=== PATIENT | female | born 1955 | race Caucasian/White ===

== ENCOUNTER 2024-01-06 05:01 | Emergency (ER) | payer MEDICARE ==
--- NOTE | 2024-01-06 05:21 | ED ---
General Adult HPI - General Source: patient, EMS, RN notes reviewed, old records reviewed Mode of arrival: EMS Limitations: no limitations <William Chin - Last Filed: 01/06/24 05:25> <Brian Estrella - Last Filed: 01/06/24 07:57> - General Chief complaint: Chest Pain Stated complaint: Chest pain Time Seen by Provider: 01/06/24 05:05 - History of Present Illness Initial comments: 68-year-old female presents for evaluation of lower chest pain and epigastric pain. Symptoms began 3 hours prior to arrival. No prior history of CAD. Patient does report radiation to her upper back and shoulders. She was transported by paramedics with stable vitals. No diaphoresis. No vomiting. (William Chin) - Related Data Allergies Allergy/AdvReac Type Severity Reaction Status Date / Time Sulfa (Sulfonamide Allergy Nausea & Verified 01/06/24 05:14 Antibiotics) Vomiting Review of Systems ROS Other: All systems not noted in ROS Statement are negative. <William Chin - Last Filed: 01/06/24 05:25> ROS Other: All systems not noted in ROS Statement are negative. <Brian Estrella - Last Filed: 01/06/24 07:57> ROS Statement: Those systems with pertinent positive or pertinent negative responses have been documented in the HPI. Past Medical History Past Medical History: No Reported History History of Any Multi-Drug Resistant Organisms: None Reported Past Surgical History: No Surgical Hx Reported Past Psychological History: No Psychological Hx Reported <William Chin - Last Filed: 01/06/24 05:25> General Exam General appearance: alert, in no apparent distress Head exam: Present: atraumatic, normocephalic Eye exam: Present: normal appearance, PERRL ENT exam: Present: normal exam Neck exam: Present: normal inspection. Absent: tenderness, meningismus Respiratory exam: Present: normal lung sounds bilaterally. Absent: respiratory distress, wheezes Cardiovascular Exam: Present: regular rate, normal rhythm GI/Abdominal exam: Present: soft, tenderness (Epigastric and right upper quadrant). Absent: distended Neurological exam: Present: alert, oriented X3, CN II-XII intact. Absent: motor sensory deficit Psychiatric exam: Present: normal affect, normal mood Skin exam: Present: warm, dry, intact. Absent: cyanosis, diaphoretic <William Chin - Last Filed: 01/06/24 05:25> Course Vital Signs 01/06/24 01/06/24 05:04 07:00 Temperature 98.4 F Pulse Rate 77 82 Respiratory 17 18 Rate Blood Pressure 145/82 130/73 O2 Sat by Pulse 97 96 Oximetry Medical Decision Making <William Chin - Last Filed: 01/06/24 05:25> - Lab Data Result diagrams: 01/06/24 05:12 01/06/24 05:12 <Brian Estrella - Last Filed: 01/06/24 07:57> - Medical Decision Making Was pt. sent in by a medical professional or institution (, PA, SEQUENCING MACHINE OPERATOR, urgent care, hospital, or retirement...) When possible be specific @ -No Did you speak to anyone other than the patient for history (EMS, parent, family, police, friend...)? What history was obtained from this source @ -Paramedics Did you review nursing and triage notes (agree or disagree)? Why? @ -I reviewed and agree with nursing and triage notes Were old charts reviewed (outside hosp., previous admission, EMS record, old EKG, old radiological studies, urgent care reports/EKG's, retirement records)? Report findings @ -No old charts were reviewed Differential Diagnosis (chest pain, altered mental status, abdominal pain women, abdominal pain men, vaginal bleeding, weakness, fever, dyspnea, syncope, headache, dizziness, GI bleed, back pain, seizure, CVA, palpatations, mental h ealth, musculoskeletal)? @ -Differential Chest Pain: Stable Angina, Unstable Angina, STEMI, NSTEMI Aortic Dissection, Pneumothorax, Musculoskeletal, Esophageal Spasm GERD, Cholecystitis, Pancreatitis, Zoster, this is not meant to be an all-inclusive list. EKG interpreted by me (3pts min.). @ -[EKG sinus rhythm, low voltage rate of 78, ND interval 173, QRS duration 83, QTc [address] segment elevation. X-rays interpreted by me (1pt min.). @ -Chest x-ray negative for acute cardiopulmonary finding CT interpreted by me (1pt min.). @ -None done U/S interpreted by me (1pt. min.). @ -[Ultrasound pending What testing was considered but not performed or refused? (CT, X-rays, U/S, labs)? Why? @ -None What meds were considered but not given or refused? Why? @ -None Did you discuss the management of the patient with other professionals (professionals i.e. DrIrene, PA, SEQUENCING MACHINE OPERATOR, lab, RT, psych nurse, licensed social worker, software development test engineer, teacher, booking officer, heel caser)? Give summary @ -No Was smoking cessation discussed for >3mins.? @ -No Was critical care preformed (if so, how long)? @ -No Were there social determinants of health that impacted care today? How? (Homelessness, low income, unemployed, alcoholism, drug addiction, transportation, low edu. Level, literacy, decrease access to med. care, long term, rehab)? @ -No Was there de-escalation of care discussed even if they declined (Discuss DNR or withdrawal of care, Hospice)? DNR status @ -No What co-morbidities impacted this encounter? (DM, HTN, Smoking, COPD, CAD, Cancer, CVA, ARF, Chemo, Hep., AIDS, mental health diagnosis, sleep apnea, m orbid obesity)? @ -None Was patient admitted / discharged? Hospital course, mention meds given and route, prescriptions, significant lab abnormalities, going to OR and other pertinent info. @Patient care signed out at shift change awaiting laboratory testing, ultrasound of the gallbladder and reevaluation. Dr. Estrella will assume care. (William Chin) Patient is a 68-year-old female signed out to me pending results of gallbladder ultrasound. Briefly, presented for evaluation of epigastric abdominal pain. Workup remarkable for negative atypical ACS, with an undetectable troponin and EKG in acceptable limits. His LFTs and alk phos are slightly elevated. No bilirubin change. Gallbladder ultrasound is interpreted by myself shows a gallstone present but no evidence of cholecystitis or infection. On reevaluation, patient is pain-free. We discussed her workup. She would like to be discharged home at this time and I believe that is reasonable. Strict return precautions discussed. Discussed her diagnosis of biliary colic. She will be given dietary advice as well as ODT Zofran starter pack. Patient will also be discharged home with contact info for gastroenterology. I instructed the patient to follow up with their PCP in the next 1-3 days. I explained that the patient should return to the emergency department if they experience any worsening symptoms. Strict return precautions were discussed with the patient. The patient expressed understanding of these instructions. I answered all questions that the patient had. The patient was discharged home in good condition with their prescriptions and follow up information. Diagnosis/symptom? @ -Biliary colic Acute, or Chronic, or Acute on Chronic? @ -Acute Uncomplicated (without systemic symptoms) or Complicated (systemic symptoms)? @ -Complicated Side effects of treatment? @ -None Exacerbation, Progression, or Severe Exacerbation] @ -No Poses a threat to life or bodily function? @ -No (Brian Estrella) - Lab Data Lab Results 01/06/24 01/06/24 01/06/24 Range/Units 05:12 05:12 05:12 WBC 8.8 (3.8-10.6) k/uL RBC 4.52 (3.80-5.40) m/uL Hgb 13.4 (11.4-16.0) gm/dL Hct 42.1 (34.0-46.0) % MCV 93.1 (80.0-100.0) fL MCH 29.7 (25.0-35.0) pg MCHC 31.9 (31.0-37.0) g/dL RDW 13.3 (11.5-15.5) % Plt Count 255 (150-450) k/uL MPV 7.2 Neutrophils % 87 % Lymphocytes % 7 % Monocytes % 4 % Eosinophils % 2 % Basophils % 0 % Neutrophils # 7.7 (1.3-7.7) k/uL Lymphocytes # 0.6 L (1.0-4.8) k/uL Monocytes # 0.3 (0-1.0) k/uL Eosinophils # 0.1 (0-0.7) k/uL Basophils # 0.0 (0-0.2) k/uL PT 9.7 L (10.0-12.5) sec INR 0.9 (<1.2) APTT 22.2 (22.0-30.0) sec Sodium 141 (137-145) mmol/L Potassium 4.3 (3.5-5.1) mmol/L Chloride 108 H (98-107) mmol/L Carbon Dioxide 27 (22-30) mmol/L Anion Gap 6 mmol/L BUN 15 (7-17) mg/dL Creatinine 0.70 (0.52-1.04) mg/dL Est GFR (CKD-EPI)AfAm >90 (>60 ml/min/1.73 sqM) Est GFR (CKD-EPI)NonAf 89 (>60 ml/min/1.73 sqM) Glucose 183 H (74-99) mg/dL Calcium 9.0 (8.4-10.2) mg/dL Magnesium 2.1 (1.6-2.3) mg/dL Total Bilirubin 1.1 (0.2-1.3) mg/dL AST 263 H (14-36) U/L ALT 123 H (4-34) U/L Alkaline Phosphatase 193 H (38-126) U/L Troponin I (0.000-0.034) ng/mL Total Protein 6.4 (6.3-8.2) g/dL Albumin 4.0 (3.5-5.0) g/dL Lipase 123 (23-300) U/L 01/06/24 Range/Units 05:12 WBC (3.8-10.6) k/uL RBC (3.80-5.40) m/uL Hgb (11.4-16.0) gm/dL Hct (34.0-46.0) % MCV (80.0-100.0) fL MCH (25.0-35.0) pg MCHC (31.0-37.0) g/dL RDW (11.5-15.5) % Plt Count (150-450) k/uL MPV Neutrophils % % Lymphocytes % % Monocytes % % Eosinophils % % Basophils % % Neutrophils # (1.3-7.7) k/uL Lymphocytes # (1.0-4.8) k/uL Monocytes # (0-1.0) k/uL Eosinophils # (0-0.7) k/uL Basophils # (0-0.2) k/uL PT (10.0-12.5) sec INR (<1.2) APTT (22.0-30.0) sec Sodium (137-145) mmol/L Potassium (3.5-5.1) mmol/L Chloride (98-107) mmol/L Carbon Dioxide (22-30) mmol/L Anion Gap mmol/L BUN (7-17) mg/dL Creatinine (0.52-1.04) mg/dL Est GFR (CKD-EPI)AfAm (>60 ml/min/1.73 sqM) Est GFR (CKD-EPI)NonAf (>60 ml/min/1.73 sqM) Glucose (74-99) mg/dL Calcium (8.4-10.2) mg/dL Magnesium (1.6-2.3) mg/dL Total Bilirubin (0.2-1.3) mg/dL AST (14-36) U/L ALT (4-34) U/L Alkaline Phosphatase (38-126) U/L Troponin I <0.012 (0.000-0.034) ng/mL Total Protein (6.3-8.2) g/dL Albumin (3.5-5.0) g/dL Lipase (23-300) U/L Disposition <William Chin - Last Filed: 01/06/24 05:25> Is patient prescribed a controlled substance at d/c from ED?: No Time of Disposition: 07:48 <Brian Estrella - Last Filed: 01/06/24 07:57> Clinical Impression: Biliary colic Disposition: HOME SELF-CARE Condition: Good Instructions (If sedation given, give patient instructions): Biliary Colic (ED) Referrals: None,Stated [Primary Care Provider] - 1-2 days Mary Ruiz MD [STAFF PHYSICIAN] - 1-2 days
[2024-01-06 05:28] VITALS: TEMP 98.4
[2024-01-06] MEDS: SODIUM CHLORIDE 0.9% 500 ML 500 ML IV ONE (05:36)
[2024-01-06 05:38] LABS: ALT 123 U/L (4-34); AST 263 U/L (14-36); African American GFR (CKD) >90 (>60 ml/min/1.73 sqM); Alkaline Phosphatase 193 U/L (38-126); Anion Gap 6 mmol/L; Blood Urea Nitrogen 15 mg/dL (7-17); Carbon Dioxide 27 mmol/L (22-30); Chloride 108 mmol/L (98-107); Glucose 183 mg/dL (74-99); Lipase 123 U/L (23-300); Magnesium 2.1 mg/dL (1.6-2.3); Non-African American GFR(CKD) 89 (>60 ml/min/1.73 sqM); Potassium 4.3 mmol/L (3.5-5.1); Sodium 141 mmol/L (137-145); Total Bilirubin 1.1 mg/dL (0.2-1.3); Total Protein 6.4 g/dL (6.3-8.2)
[2024-01-06] MEDS: HYDROmorphone 0.5 MG/0.5 ML SYRINGE IVP STA (05:38)
[2024-01-06] MEDS: ONDANSETRON 4 MG/2 ML VIAL IVP STA (05:40)
[2024-01-06 05:43] LABS: INR 0.9 (<1.2); Partial Thromboplastin Time 22.2 sec (22.0-30.0); Prothrombin Time 9.7 sec (10.0-12.5)
[2024-01-06 05:49] LABS: Basophils % (A) 0 %; Eosinophils # (A) 0.1 k/uL (0-0.7); Eosinophils % (A) 2 %; HCT 42.1 % (34.0-46.0); HGB 13.4 gm/dL (11.4-16.0); Lymphocytes # (A) 0.6 k/uL (1.0-4.8); Lymphocytes % (A) 7 %; MCH 29.7 pg (25.0-35.0); MCHC 31.9 g/dL (31.0-37.0); MCV 93.1 fL (80.0-100.0); Mean Platelet Volume 7.2; Monocytes # (A) 0.3 k/uL (0-1.0); Monocytes % (A) 4 %; Neutrophils # (A) 7.7 k/uL (1.3-7.7); Neutrophils % (A) 87 %; Platelet Count 255 k/uL (150-450); RBC 4.52 m/uL (3.80-5.40); RDW 13.3 % (11.5-15.5); WBC 8.8 k/uL (3.8-10.6)
--- NOTE | 2024-01-06 06:16 | XR ---
EXAMINATION TYPE: XR chest 2V DATE OF EXAM: 01/06/2024 COMPARISON: NONE HISTORY: Chest pain TECHNIQUE: Frontal and lateral views of the chest are obtained. FINDINGS: Patchy left basilar opacity on frontal view was well seen on lateral view. Right lung is c lear. The cardiac silhouette size is upper limits of normal. The osseous structures are intact. IMPRESSION: Patchy left basilar atelectasis and/or less likely developing acute infiltrate.
--- NOTE | 2024-01-06 07:30 | US ---
EXAMINATION TYPE: US gallbladder DATE OF EXAM: 01/06/2024 COMPARISON: NONE CLINICAL INDICATION: Female, 68 years old with history of riq pain; Pain TECHNIQUE: Multiple sonographic images of the right upper quadrant are obtained. FINDINGS: EXAM MEASUREMENTS: Liver Length: 16.1 cm Gallbladder Wall: 0.2 cm CBD: 0.7 cm Right Kidney: 10.6 x 4.6 x 4.7 cm WEB OPERATIONS SPECIALIST NOTES: Pancreas: Difficult to visualize due to pt body habitus and overlying bowel gas Liver: Limited views show no abnormality Gallbladder: Distended with small stones at fundus Evidence for sonographic Lane's sign: No CBD: wnl Right Kidney: No evidence of hydro, lower pole gassed out There is some limitation due to body habitus. IMPRESSION: 1. Mild hepatomegaly. 2. Cholelithiasis.
[2024-01-06 08:04] VITALS: BP 130/73; PULSE 82; RESP 18
[2024-01-06] MEDS: ONDANSETRON 4 MG ODT STARTER PACK 2 TAB BTL PO STA (08:55)
== END 2024-01-06 08:58 | disposition home or self-care (01) ==
LOC: EC 05:01
DX: K80.50 Calculus of bile duct without cholangitis or cholecystitis without obstruction (principal); K80.20 Calculus of gallbladder without cholecystitis without obstruction; Z88.2 Allergy status to sulfonamides
CPT/HCPCS: 36415; 93005; 80053; 83690; 83735; 84484; 85025; 85610; 85730; 71046; 76705; 99285; 96374; 96375; 96361; J2405; S0119; J1170

== ENCOUNTER → 2024-01-28 | Outpatient (CLI) | payer MEDICARE, OTHER ==
--- NOTE | 2024-01-28 13:25 | MM ---
Reason for Exam: Clinical finding. Last mammogram was performed 21 year(s) and 4 month(s) ago. Patient History: Menarche at age 12. Hysterectomy at age 46. Postmenopausal. Excisional Biopsy on the Right side. Maternal unspecified had breast cancer. Risk Values: Peggy 5 year model risk: 1.5%. NCI Lifetime model risk: 4.8%. Tissue Density: There are scattered areas of fibroglandular density. Findings: Analyzed By CAD. There is a large mass measuring 60 x 37 x 55 mm with a satellite mass measuring 17 x 16 mm. The larger one is in the area of palpable abnormality. These are both in area of palpable abnormality approximately 8 cm the nipple and 7 cm in the pole respectively. No masses, calcifications or distortions in the left breast. Overall Assessment: Incomplete: need additional imaging evaluation, BI-RAD 0 Management: Diagnostic Breast Ultrasound of the right breast. Results were given to the patient verbally at the time of exam. Patient should continue monthly self-breast exams. A clinical breast exam by your physician is recommended on an annual basis. This exam should not preclude additional follow-up of suspicious palpable abnormalities. Note on Peggy scores and lifetime risk: 1. A Peggy score greater than 3% is considered moderate risk. If this is the case, consider specialist referral to assess eligibility for a risk reducing agent. 2. If overall lifetime risk for the development of breast cancer is 20% or higher, the patient may qualify for future screening with alternating mammogram and breast MRI. Electronically signed and approved by: William Smyth DO
--- NOTE | 2024-01-28 14:01 | USB ---
Reason for Exam: Clinical finding. Patient History: Menarche at age 12. Hysterectomy at age 46. Postmenopausal. Excisional Biopsy on the Right side. Maternal unspecified had breast cancer. Risk Values: Peggy 5 year model risk: 1.5%. NCI Lifetime model risk: 4.8%. Technique: Method: Whole Breast Handheld. Prior Study Comparison: 08/01/1999 Bilateral Screening Mammogram, [facility] WITH [facility]. 08/08/1999 Right Special View Mammogram, [facility] WITH [facility]. 09/20/2002 Bilateral Screening Mammogram, [facility] WITH [facility]. Findings: The whole breast of the right breast, the axilla of the right breast and the retroareolar of the right breast were scanned. Technique utilized:US breast complete RT Image; Ultrasound imaging of: All 4 quadrants, the retroareolar region and axilla. Lobulated hypoechoic mass measuring up to 3.3 x 2.1 x 4.8 cm on ultrasound at 12:00 5 cm from nipple. Additional lesion at 11:00 5 cm from nipple measuring 13 x 13 mm. There is internal vascularity within the smaller lesion. No lymph nodes were identified by the data conversion operator. Overall Assessment: Highly suggestive of malignancy, BI-RAD 5 Management: Ultrasound Core Biopsy of the right breast. A clinical breast exam by your physician is recommended on an annual basis and results should be correlated with mammographic findings. This exam should not preclude additional follow-up of suspicious palpable abnormalities. Results were given to the patient verbally at the time of exam. Electronically signed and approved by: William Smyth DO
== END | disposition home or self-care (01) ==
LOC: RADMAMWWP 12:54
PROVIDERS: ATTEND Family Medicine
DX: N63.10 Unspecified lump in the right breast, unspecified quadrant (principal); R92.323 Mammographic fibroglandular density, bilateral breasts; Z78.0 Asymptomatic menopausal state; Z80.3 Family history of malignant neoplasm of breast
CPT/HCPCS: 77066; 76641; G0279; 77062

== ENCOUNTER → 2024-02-09 | Day surgery (SDC) | payer MEDICARE, OTHER ==
--- NOTE | 2024-02-17 14:38 | MM ---
Reason for Exam: Post Procedure Mammogram. Last screening mammogram was performed less than 1 month ago. Patient History: Menarche at age 12. First Full-Term at age 24. Hysterectomy at age 46. Postmenopausal. Excisional Biopsy on the Right side. Risk Values: Peggy 5 year model risk: 1.8%. NCI Lifetime model risk: 5.9%. Prior Study Comparison: 08/08/1999 Right Special View Mammogram, [facility]. 09/20/2002 Bilateral Screening Mammogram, [facility]. 01/28/2024 Bilateral MG 3D diag mammo w/cad DIAZ, [facility]. Tissue Density: Right: There are scattered areas of fibroglandular density. Pathology Description: Location: 11 o'clock. Marker Left Behind. Needle Type: Mammotome Cores: 4 Gauge: 13 Pathology Description: Location: 12 o'clock. Marker Left Behind. Needle Type: Mammotome Cores: 5 Skin Nicks: 1 Gauge: 13 The procedure of ultrasound guided core biopsy was explained to the patient. Benefits, alternatives, and risks were discussed. An informed consent was then obtained. A timeout was performed. The patient was placed in supine positioning for imaging and for the procedure. The overlying skin was prepped and draped in usual sterile fashion. Lidocaine was used as anesthetic into the skin and subcutaneous tissue up to area of concern in the right breast. A small skin sourav was made with surgical scalpel. Under ultrasound guidance, a 12-gauge vacuum assisted biopsy gun device was used to obtain 5 core samples 12:00 larger lesion. A biopsy clip was left in lesion. Hydromark weighing core marker was placed. Under ultrasound guidance, a 12-gauge vacuum assisted biopsy gun device was used to obtain 4 core samples at the 11:00 smaller lesion adjacent to the larger 12:00 lesion. A biopsy clip was left in lesion. Hydromark [place] core marker was placed on the lateral portion of the lesion. The patient tolerated the procedure well without any immediate complication. The patient was kept in the radiology department for short stay after the procedure and then discharged home in stable condition. Postprocedure mammogram: The patient was transferred to mammography for physician ordered post procedure mammogram for clip placement verification. Clips are present within the lesion Impression: Successful ultrasound guided core biopsy of area of concern in the right breast, full pathology results to follow. Recommendations: 1. Recommendations are pending pathology results. Pathology Results: Result: Malignant, Invasive ductal carcinoma. Pathology and radiology were reviewed. Findings are concordant. A. RIGHT BREAST, 12:00, ULTRASOUND GUIDED CORE BIOPSY: Invasive ductal carcinoma, preliminarily Grade 2, with focal intermediate grade DCIS (see Surgical Pathology Cancer Case Summary and comment). B. RIGHT BREAST, 11:00, ULTRASOUND GUIDED CORE BIOPSY: Invasive ductal carcinoma, preliminarily grade 2 (see Surgical Pathology Cancer Case Summary and comment). Overall Assessment: Malignant Assessment: MG diagnostic mammo RT wo CAD - Right: Known biopsy proven malignancy, BI-RAD 6. Management: Surgical Consultation of the right breast. Electronically signed and approved by: Jasvir Pham D.O. Radiologis
== END ==
LOC: RADUSWWP 12:29
PROVIDERS: ATTEND Surgery
DX: C50.911 Malignant neoplasm of unspecified site of right female breast (principal)
CPT/HCPCS: 88305; 88342; 88341; 77065; 19083; 19084; A4648

== ENCOUNTER → 2024-02-20 | Outpatient (CLI) | payer MEDICARE ==
--- NOTE | 2024-02-20 12:05 | P.GSCN ---
History of Present Illness Consult date: 02/20/24 Reason for Consult: right breast cancer Requesting physician: Alexey Flores History of present illness: Elisa is a 68 year old female seen in consultation for Dr. Alexey Flores regarding a right breast invasive ductal cancer. She had a bilateral mammogram on 01-28-24 which showed a 6 by 5.5 cm mass in jazmin right breast with a 1.7 by 1.6 cm satellite lesion in the breast. She had a right breast ultrasound on 01-28-24 confirming the findings, and a core biopsy was done on 02-09-24. This showed an invasive ductal cancer of two sites, it was G2, ER+, Pr+, Her2-. On ultrasound one lesion at 12:00 was 3.3 by 4.8 cm and the second lesion at 11:00 was 1.3 by 1.3 cm. The patient has been able to feel the lump for about 1 year, it hasn't really changed in size. It is tender, it is aching in nature, it is worse if there is no breast support. She did develop some bruising after the core biopsy. She had not been getting mammograms for about 20 years, she just got insurance and got this checked She is not complaining of any nipple discharge or skin changes. She had a right breast biopsy about 25 years ago that was not cancer. She is not complaining of any recent trauma or infection. BCP: used 40 years ago for 10 years She has lost 28 pounds in the past 5 to 6 weeks which she believes is related to gallbladder disease. She has an appointment with a general surgeon in 2 weeks. She has pain RUQ when she eats. Caffeine: 2 cups coffee/day nicotine: 5 cigarettes per day since Chocolate: none BCP: 10 years in remote past hormones: none Family History: father: lung cancer sister: cervical cancer Hormonal History: menarche: 15 , breast fed: no, age at first : 24 menopause: 50 hormones: none Surgical History: hysterectomy; heavy bleeding, left ovaries age: 35 right breast biopsy tonsil Medical History: Right upper quadrant pain questionable gallbladder disease Uses a cane secondary to back pain related to a fracture in her 20s Social History: Nicotine: 5 cigarettes/day since 19 Alcohol: Negative Drugs: Negative Review of Systems - Constitutional Constitutional Comment(s): weight loss related to gallstones Reports weight loss, Denies fever - EENT Eyes: denies blurred vision Ears: bilateral: tinnitus, deny: decreased hearing Ears, nose, mouth and throat: Denies dysphagia - Breasts bilateral: as per HPI - Cardiovascular Denies chest pain, Denies shortness of breath - Respiratory Denies cough, Denies 7 - Gastrointestinal Reports as per HPI, Reports constipation - Genitourinary Genitourinary: Denies dysuria, Denies hematuria Menstruation: Reports post hysterectomy - Musculoskeletal Reports as per HPI - Integumentary Reports pruritus, Reports rash, Denies unusual bruising - Neurological Denies headaches, Denies syncope - Psychiatric Reports as per HPI - Endocrine Reports fatigue - Hematologic/Lymphatic Denies easy bleeding, Denies easy bruising - Allergic/Immunologic Reports seasonal allergies Past Medical History Past Medical History: No Reported History Additional Past Medical History / Comment(s): gallstones History of Any Multi-Drug Resistant Organisms: None Reported Past Surgical History: No Surgical Hx Reported Additional Past Surgical History / Comment(s): Right breast excisional biospy 1992, benign Past Anesthesia/Blood Transfusion Reactions: No Reported Reaction - Sexual Orientation/Gender Identity What was your sex assigned at ?: Female Preferred Pronoun: She/Her/Hers How would you describe your gender identity?: Woman Do you think of your sexual orientation as: Straight/Heterosexual Past Psychological History: No Psychological Hx Reported Smoking Status: Current every day smoker Past Alcohol Use History: None Reported Additional Past Alcohol Use History / Comment(s): 5 cigarettes daily Medications and Allergies Home Medications Medication Instructions Recorded Confirmed Type Acetaminophen Tab [Tylenol] 500 mg PO DIRECTED PRN 02/20/24 02/20/24 History Allergies Allergy/AdvReac Type Severity Reaction Status Date / Time Sulfa (Sulfonamide Allergy Nausea & Verified 02/20/24 11:34 Antibiotics) Vomiting Surgical - Exam - General no distress - Eyes normal ocular movement - ENT no hearing loss - Neck trachea midline - Respiratory normal respiratory effort, clear to auscultation - Cardiovascular Rhythm: regular Heart Sounds: normal: S1, S2 - Abdomen Abdomen: soft, non tender, no guarding, no rigid, no rebound - Integumentary normal turger - Musculoskeletal normal gait - Psychiatric oriented to time, oriented to person, oriented to place, speech is normal, memory intact Breast Exam: BRA: 42B Inspection: bilateral grade 3 ptosis Palpation: Right breast: Ecchymosis related to biopsy, mass upper inner quadrant approximately 9 x 6 cm in size some skin puckering is noted in the upper inner quadrant area Right axilla: No adenopathy of concern Left breast: Multi positional exam no dominant masses or nodules of concern Left axilla: No adenopathy of concern Results Bilateral mammogram reviewed and ultrasound reviewed performed on 01-28-2024 Assessment and Plan Assessment: Impression: 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 Alexey Flores
[2024-02-20 12:15] VITALS: BP 146/85; PULSE 89; RESP 17; TEMP 97.9
== END ==
LOC: WWCWWP 11:24
PROVIDERS: ATTEND Surgery
DX: R92.8 Other abnormal and inconclusive findings on diagnostic imaging of breast (principal); C50.811 Malignant neoplasm of overlapping sites of right female breast; F17.210 Nicotine dependence, cigarettes, uncomplicated; R10.11 Right upper quadrant pain; Z17.0 Estrogen receptor positive status [ER+]; Z88.2 Allergy status to sulfonamides

== ENCOUNTER → 2024-03-02 | Outpatient (CLI) | payer MEDICARE | END | disposition home or self-care (01) | LOC: LABWHC1 14:58 | PROVIDERS: ATTEND Surgery Plastic and Reconstructive Surgery | DX: R94.31 Abnormal electrocardiogram [ECG] [EKG] (principal) | CPT/HCPCS: 36415; 93005 ==

== ENCOUNTER → 2024-03-10 | Outpatient (CLI) | payer MEDICARE ==
--- NOTE | 2024-03-12 14:59 | BMR ---
EXAM DATE: 03/10/2024 EXAM DESCRIPTION: MRI-Breast Bilat (W/WO Contrast) INDICATION: Recently diagnosed carcinoma presenting for staging. History of right excisional biopsy. COMPARISON: Comparison is made with relevant prior imaging in PACS. CONTRAST: 9.5 cc of gadobutrol. TECHNIQUE: Multiplanar MRI imaging of both breasts was performed with a dedicated breast coil, before and after intravenous administration of gadolinium contrast, using the standard breast mass protocol. Computer-aided detection was used to aid in interpretation. FINDINGS: General breast composition: There are scattered areas of fibroglandular tissue Background parenchymal enhancement: Mild FINDINGS: Right Breast: Review of the dynamic contrast-enhanced series shows an irregular enhancing mass in the central upper breast at mid depth measuring 5.9 x 5.0 x 3.5 cm (505:560). The mass involves both the upper outer and upper inner quadrant and extends to, and involves the skin in the medial breast. There are multiple small adjacent satellite masses all within 1 cm of the dominant mass as well as clumped non mass enhancement extending from the dominant mass to the nipple measuring 9.3 cm in the AP dimension. Given the enhancement in the nipple there is concern for nipple involvement. There is 1 axillary lymph node with focal cortical thickening and irregularity (503:630, 601:170). Left Breast: Review of the dynamic contrast-enhanced series shows focus of enhancement in the upper outer breast mid to anterior depth (504:5023, 601:39). No axillary lymphadenopathy. Miscellaneous findings:Cholelithiasis. IMPRESSION: Right Breast: BI-RADS Category6- Known biopsy proven malignancy 1. Irregular dominant mass in the right breast measuring 5.9 x 5.0 x 3.5 cm at the site of previously biopsied malignancy. The mass involves the skin in the medial breast which appears thickened and abnormally enhancing. There are multiple small surrounding satellite masses all within 1 cm of the dominant mass as well as non mass enhancement extending to and involving the nipple. The entire AP dimension is 9.3 cm. 2. There is 1 axillary lymph node with focal cortical thickening and irregularity. Left Breast: BI-RADS Category 4- Suspicious 1. 5 mm focus of enhancement in the upper outer breast at mid depth for which targeted ultrasound is recommended and possible biopsy. 2. No lymphadenopathy. Recommendation: Targeted left breast ultrasound and possible biopsy. OVERALL ASSESSMENT -- BI-RADS 4 MTDD
== END | disposition home or self-care (01) ==
LOC: RADMRIMAIN 20:00
PROVIDERS: ATTEND Internal Medicine Hematology & Oncology
DX: C50.211 Malignant neoplasm of upper-inner quadrant of right female breast (principal)
CPT/HCPCS: C8908; A9585; 77049

== ENCOUNTER → 2024-03-10 | Outpatient (CLI) | payer MEDICARE ==
--- NOTE | 2024-03-10 15:10 | USB ---
Reason for Exam: Follow-up at short interval from prior study. Patient History: Menarche at age 12. First Full-Term at age 24. Hysterectomy at age 46. Postmenopausal. Breast cancer, right, age 68. 02/09/2024, US biopsy breast add'l VAD RT on the Right side. 02/09/2024, Malignant US biopsy breast VAD RT on the right side. Excisional Biopsy on the Right side. Technique: Method: Targeted. Prior Study Comparison: 09/20/2002 Bilateral Screening Mammogram, [facility]. 01/28/2024 Bilateral MG 3D diag mammo w/cad [facility], [facility]. 02/09/2024 Right MG diagnostic mammo RT wo CAD, [facility]. Findings: The axilla of the right breast was scanned. Technique utilized:US breast axilla RT Image; Ultrasound imaging of: All 4 quadrants, the retroareolar region and axilla. Area of palpable abnormality inserted abundance of lipomatous tissue. No suspicious mass or enlarged lymph node identified. Overall Assessment: Negative, BI-RAD 1 Management: Screening Mammogram of both breasts in 1 year. A clinical breast exam by your physician is recommended on an annual basis and results should be correlated with mammographic findings. This exam should not preclude additional follow-up of suspicious palpable abnormalities. Results were given to the patient verbally at the time of exam. Electronically signed and approved by: William Smyth DO
== END | disposition home or self-care (01) ==
LOC: RADUSWWP 14:16
PROVIDERS: ATTEND Internal Medicine Hematology & Oncology
DX: C50.211 Malignant neoplasm of upper-inner quadrant of right female breast (principal); M12.9 Arthropathy, unspecified; Z17.0 Estrogen receptor positive status [ER+]; Z78.0 Asymptomatic menopausal state

== ENCOUNTER 2024-03-27 05:14 | Emergency (ER) | payer MEDICARE ==
[2024-03-27 05:30] VITALS: TEMP 97.3
--- NOTE | 2024-03-27 05:46 | ED ---
General Adult HPI - General Source: patient, EMS Mode of arrival: EMS Limitations: no limitations <Jluis Olson - Last Filed: 03/27/24 06:42> <Casimiro Ghotra - Last Filed: 03/27/24 12:10> - General Chief complaint: Abdominal Pain Stated complaint: abd pain Time Seen by Provider: 03/27/24 05:22 - History of Present Illness Initial comments: Dictation was produced using [employer] dictation software. please excuse any gr ammatical, word or spelling errors. Chief Complaint: 68-year-old female presents with abdominal pain History of Present Illness: Patient is a 68-year-old female she has past medical history of breast cancer. Patient was told to increase her protein intake in preparation for an upcoming PET scan. Last night she had some ground truck. She has known history of gallstones. States that after eating ground truck started to have right upper quadrant epigastric abdominal pain. States that the pain did radiate to her back. Denies any shortness of breath. She did complain of some nausea. No vomiting. Denies any fever chills or night sweats. The ROS documented in this emergency department record has been reviewed and confirmed by me. Those systems with pertinent positive or negative responses have been documented in the HPI. All other systems are other negative and/or noncontributory. (Jluis Olson) - Related Data Home Medications Medication Instructions Recorded Confirmed Acetaminophen Tab [Tylenol] 500 - 1,000 mg PO Q6H PRN 02/20/24 03/27/24 Ibuprofen [Motrin Ib] 800 mg PO Q8H PRN 03/27/24 03/27/24 Pseudoephedrine [Sudafed] 30 mg PO DAILY PRN 03/27/24 03/27/24 Allergies Allergy/AdvReac Type Severity Reaction Status Date / Time Sulfa (Sulfonamide Allergy Anaphylaxis Verified 03/27/24 09:50 Antibiotics) Review of Systems ROS Other: All systems not noted in ROS Statement are negative. <Jluis Olson - Last Filed: 03/27/24 06:42> ROS Other: All systems not noted in ROS Statement are negative. <Casimiro Ghotra - Last Filed: 03/27/24 12:10> ROS Statement: Those systems with pertinent positive or pertinent negative responses have been documented in the HPI. Past Medical History Past Medical History: No Reported History Additional Past Medical History / Comment(s): gallstones History of Any Multi-Drug Resistant Organisms: None Reported Past Surgical History: No Surgical Hx Reported Additional Past Surgical History / Comment(s): Right breast excisional biospy 1992, benign Past Anesthesia/Blood Transfusion Reactions: No Reported Reaction Past Psychological History: No Psychological Hx Reported Smoking Status: Current every day smoker Past Alcohol Use History: None Reported <Jluis Olson - Last Filed: 03/27/24 06:42> General Exam Limitations: no limitations <Jluis Olson - Last Filed: 03/27/24 06:42> - General Exam Comments Initial Comments: PHYSICAL EXAM: General Impression: Alert and oriented x3, not in acute distress HEENT: Normocephalic atraumatic, extra-ocular movements intact, pupils equal and reactive to light bilaterally, mucous membranes moist. Cardiovascular: Heart regular rate and rhythm Chest: Able to complete full sentences, no retractions, no tachypnea Abdomen: abdomen soft, n positive Lane sign, non-distended, no organomegaly Musculoskeletal: Pulses present and equal in all extremities, no peripheral edema Motor: no focal deficits noted Neurological: CN II-XII grossly intact, no focal motor or sensory deficits noted Skin: Intact with no visualized rashes Psych: Normal affect and mood (Jluis Olson) Course Vital Signs 03/27/24 03/27/24 03/27/24 05:15 06:56 07:50 Temperature 97.3 F L Pulse Rate 70 55 L 52 L Respiratory 16 18 22 Rate Blood Pressure 147/75 118/61 91/48 O2 Sat by Pulse 98 99 95 Oximetry 03/27/24 03/27/24 08:20 10:46 Temperature Pulse Rate 66 Respiratory 18 Rate Blood Pressure 106/61 129/82 O2 Sat by Pulse 94 L Oximetry Medical Decision Making - Lab Data Result diagrams: 03/27/24 05:47 <Jluis Olson - Last Filed: 03/27/24 06:42> - Lab Data Result diagrams: 03/27/24 05:47 03/27/24 05:47 <Casimiro Ghotra - Last Filed: 03/27/24 12:10> - Medical Decision Making Was pt. sent in by a medical professional or institution (, YOAN, ANDROID SOFTWARE ENGINEER, urgent care, hospital, or fci...) When possible be specific @ -No Did you speak to anyone other than the patient for history (EMS, parent, family, police, friend...)? What history was obtained from this source @ -No Did you review nursing and triage notes (agree or disagree)? Why? @ -I reviewed and agree with nursing and triage notes Were old charts reviewed (outside hosp., previous admission, EMS record, old EKG, old radiological studies, urgent care reports/EKG's, fci records)? Report findings @ -No old charts were reviewed Differential Diagnosis (chest pain, altered mental status, abdominal pain women, abdominal pain men, vaginal bleeding, musculoskeletal, weakness, fever, dyspnea, syncope, headache, dizziness, GI bleed, back pain, seizure, CVA, palpatations, mental health)? @ -Differential Abdominal Pain Women: Appendicitis, Cholecystitis, diverticulosis, ischemic bowel, pancreatitis, hepa titis, UTI, gastroenteritis, AAA, incarcerated hernia, bowel obstruction, constipation, inflammatory bowel, hepatitis, peptic ulcer disease, splenic infarction, perforated viscus, vulvitis, ovarian torsion, PID, kidney stone, placenta abruption, this is not meant to be an all-inclusive list EKG interpreted by me (3pts min.). @ -My EKG interpretation: Ventricular rate 60, sinus rhythm,. 156, cures 94, QTc 417. No MA prolongation, no QTC prolongation, no ST or T-wave changes noted. Overall, this EKG is unremarkable X-rays interpreted by me (1pt min.). @ -None done CT interpreted by me (1pt min.). @ -None done U/S interpreted by me (1pt. min.). @ -Pending What testing was considered but not performed or refused? (CT, X-rays, U/S, labs)? Why? @ -None What meds were considered but not given or refused? Why? @ -None Did you discuss the management of the patient with other professionals (professionals i.e. YOAN Khan, ANDROID SOFTWARE ENGINEER, lab, RT, psych nurse, child protective services social worker, press tool maker, teacher, executive vice president and chief financial officer, gearcase assembler)? Give summary @ -No Was smoking cessation discussed for >3mins.? @ -No Was critical care preformed (if so, how long)? @ -No Were there social determinants of health that impacted care today? How? (Homelessness, low income, unemployed, alcoholism, drug addiction, transportatio n, low edu. Level, literacy, decrease access to med. care, mcc, rehab)? @ -No Was there de-escalation of care discussed even if they declined (Discuss DNR or withdrawal of care, Hospice)? DNR status @ -No What co-morbidities impacted this encounter? (DM, HTN, Smoking, COPD, CAD, Cancer, CVA, ARF, Chemo, Hep., AIDS, mental health diagnosis, sleep apnea, morbid obesity)? @ -None Was patient admitted / discharged? Hospital course, mention meds given and route, prescriptions, significant lab abnormalities, going to OR and other pertinent info. @ -68-year-old female with reported gallstones presents to the ER for epigastric right upper quadrant abdominal pain. Vital signs upon arrival are w ithin acceptable limits. Laboratory evaluation obtained. No leukocytosis. Pending ultrasound and metabolic panel. Patient care signed out to Dr. Ghotra at 7 AM. Undiagnosed new problem with uncertain prognosis? @ -No Drug Therapy requiring intensive monitoring for toxicity (Heparin, Nitro, Insul in, Cardizem)? @ -No Were any procedures done? @ -No Diagnosis/symptom? Acute, or Chronic, or Acute on Chronic? Uncomplicated (without systemic symptoms) or Complicated (systemic symptoms)? @ -Abdominal pain Side effects of treatment? @ -No Exacerbation, Progression, or Severe Exacerbation? @ -No Poses a threat to life or bodily function? How? (Chest pain, [place], [place], pneumonia, PE, COPD, DKA, ARF, appy, cholecystitis, CVA, Diverticulitis, Homicidal, Suicidal, threat to staff... and all critical care pts) @ -yes (Jluis Olson) CT scan of abdomen pelvis interpreted by myself as concern for acute pancreatitis. Common bile duct prominent. Gallbladder mildly distended and contains stones. . Ultrasound abdomen shows possible gallstones/sludge. Gallbladder distended. Possible biliary dilation. Case was discussed with surgeon on-call Dr. Bennett who does recommend transfer secondary to no GI services available. Patient again reevaluated and again updated. Patient still having discomfort. Diagnosis: Pancreatitis, cholelithiasis Acute, acute Plan for transfer Case discussed with Dr. Nj at [facility] who will accept transfer. (Casimiro Ghotra) - Lab Data Lab Results 03/27/24 03/27/24 Range/Units 05:47 05:47 WBC 7.3 (3.8-10.6) k/uL RBC 4.79 (3.80-5.40) m/uL Hgb 14.3 (11.4-16.0) gm/dL Hct 44.8 (34.0-46.0) % MCV 93.5 (80.0-100.0) fL MCH 29.8 (25.0-35.0) pg MCHC 31.9 (31.0-37.0) g/dL RDW 13.8 (11.5-15.5) % Plt Count 239 (150-450) k/uL MPV 8.0 Neutrophils % 83 % Lymphocytes % 9 % Monocytes % 5 % Eosinophils % 2 % Basophils % 1 % Neutrophils # 6.1 (1.3-7.7) k/uL Lymphocytes # 0.7 L (1.0-4.8) k/uL Monocytes # 0.4 (0-1.0) k/uL Eosinophils # 0.1 (0-0.7) k/uL Basophils # 0.0 (0-0.2) k/uL Sodium 139 (137-145) mmol/L Potassium 4.4 (3.5-5.1) mmol/L Chloride 107 (98-107) mmol/L Carbon Dioxide 23 (22-30) mmol/L Anion Gap 9 mmol/L BUN 14 (7-17) mg/dL Creatinine 0.74 (0.52-1.04) mg/dL Est GFR (CKD-EPI)AfAm >90 (>60 ml/min/1.73 sqM) Est GFR (CKD-EPI)NonAf 84 (>60 ml/min/1.73 sqM) Glucose 120 H (74-99) mg/dL Calcium 9.4 (8.4-10.2) mg/dL Total Bilirubin 1.7 H (0.2-1.3) mg/dL AST 217 H (14-36) U/L ALT 173 H (4-34) U/L Alkaline Phosphatase 353 H (38-126) U/L Total Protein 6.8 (6.3-8.2) g/dL Albumin 4.1 (3.5-5.0) g/dL Lipase >15791 H (23-300) U/L Disposition <Jluis Olson - Last Filed: 03/27/24 06:42> Is patient prescribed a controlled substance at d/c from ED?: No Time of Disposition: 12:10 - Out of Hospital Transfer - Req. Specs Out of Hospital Transfer - Requested Specifics: Other Emergency Center <Casimiro Ghotra - Last Filed: 03/27/24 12:10> Clinical Impression: Abdominal pain, Pancreatitis Disposition: OTHER INSTITUTION NOT DEFINED Condition: Serious Referrals: Alexey Flores MD [Primary Care Provider] - 1-2 days
[2024-03-27 06:17] LABS: Basophils % (A) 1 %; Eosinophils # (A) 0.1 k/uL (0-0.7); Eosinophils % (A) 2 %; HCT 44.8 % (34.0-46.0); HGB 14.3 gm/dL (11.4-16.0); Lymphocytes # (A) 0.7 k/uL (1.0-4.8); Lymphocytes % (A) 9 %; MCH 29.8 pg (25.0-35.0); MCHC 31.9 g/dL (31.0-37.0); MCV 93.5 fL (80.0-100.0); Monocytes # (A) 0.4 k/uL (0-1.0); Monocytes % (A) 5 %; Neutrophils # (A) 6.1 k/uL (1.3-7.7); Neutrophils % (A) 83 %; Platelet Count 239 k/uL (150-450); RBC 4.79 m/uL (3.80-5.40); RDW 13.8 % (11.5-15.5); WBC 7.3 k/uL (3.8-10.6)
[2024-03-27 06:33] LABS: ALT 173 U/L (4-34); AST 217 U/L (14-36); African American GFR (CKD) >90 (>60 ml/min/1.73 sqM); Albumin 4.1 g/dL (3.5-5.0); Alkaline Phosphatase 353 U/L (38-126); Anion Gap 9 mmol/L; Blood Urea Nitrogen 14 mg/dL (7-17); Calcium 9.4 mg/dL (8.4-10.2); Carbon Dioxide 23 mmol/L (22-30); Chloride 107 mmol/L (98-107); Glucose 120 mg/dL (74-99); Non-African American GFR(CKD) 84 (>60 ml/min/1.73 sqM); Potassium 4.4 mmol/L (3.5-5.1); Sodium 139 mmol/L (137-145); Total Bilirubin 1.7 mg/dL (0.2-1.3); Total Protein 6.8 g/dL (6.3-8.2)
[2024-03-27] MEDS: MORPHINE SULFATE 4 MG/ML SYRINGE IV STA (06:52)
[2024-03-27 07:10] LABS: Lipase >20000 U/L (23-300)
--- NOTE | 2024-03-27 07:58 | US ---
EXAMINATION TYPE: US abdomen limited DATE OF EXAM: 03/27/2024 COMPARISON: US 01/06/2024 CLINICAL INDICATION: Female, 68 years old with history of epigastric pain; Epigastric pain x 6.5 hour s. Patient has breast cancer. Hx of gallstones. TECHNIQUE: Multiple sonographic images of the right upper quadrant are obtained. FINDINGS: EXAM MEASUREMENTS: Liver Length: 14.9 cm Gallbladder Wall: 0.22 cm Right Kidney: 9.9 x 5.1 x 4.7 cm INTERIOR PANELER NOTES: Exam is limited due to gas and patient movement with pain level. Pancreas: Not well seen Liver: Appears coarse in echotexture limiting evaluation for focal masses. Gallbladder: *Appears enlarged measuring 13.7 cm in length. Multiple hyperechoic foci with posterior shadowing seen within the gallbladder fundus*. Evidence for sonographic Lane's sign: Patient in pain for entire exam CBD: Not seen with certainty, if area measured is CBD, it appears dilated at 1.3 cm. Limited due to p atient movement. Right Kidney: No hydronephrosis or masses seen IVC was obscured. IMPRESSION: Suboptimal study. Suspect small stones and/or gallbladder sludge within gallbladder with distended margins. Possible new mild to moderate extrahepatic biliary dilatation. Advise CT follow-up to further evaluate.
[2024-03-27] MEDS: MORPHINE SULFATE 4 MG/ML SYRINGE IVP STA (08:21)
--- NOTE | 2024-03-27 10:04 | CT ---
EXAMINATION TYPE: CT abdomen pelvis w con CT DLP: 1796.1 mGycm, Automated exposure control for dose reduction was used. DATE OF EXAM: 03/27/2024 8:54 AM COMPARISON: None. CLINICAL INDICATION:Female, 68 years old with history of Eval GB and CBD and pancrease, pain; Eval GB and CBD and pancrease, pain TECHNIQUE: Axial CT of the abdomen and pelvis. Sagittal and coronal reformats were created on a [employer] workstation. Contrast used:100ml mL of Isovue 370 with IV Contrast, (none if empty) Oral contrast used: without Oral Contrast (none if empty) FINDINGS: Despite this reportedly being a contrast study, very little if any contrast is appreciated. LOWER CHEST: Heart size upper normal. Linear and bandlike opacities in the lower lungs, suggestive of subsegmental atelectasis. ABDOMEN LIVER: Unremarkable GALLBLADDER AND BILE DUCTS: Several small calcified gallstones are seen near the fundus. Gallbladder appears mildly to moderately distended. Biliary tree appears prominent, not well seen distally withou t definite choledocholithiasis. PANCREAS: Diffuse parenchymal edema with peripancreatic fat stranding. There is no evidence of peripa ncreatic fluid collection or necrosis. SPLEEN: Unremarkable. ADRENAL GLANDS: Unremarkable. KIDNEYS AND URETERS: Kidneys enhance symmetrically. No evidence of hydronephrosis or visible renal ca lculus. The ureters are unremarkable. PELVIS BLADDER: Unremarkable REPRODUCTIVE: Organs likely absent correlate clinically ABDOMEN & PELVIS STOMACH AND BOWEL: There is some radiodense material within the stomach. Stomach and small bowel are nondistended there is no evidence of obstruction. A couple of foci of gas are seen in the duodenum an d the region of the ampulla. Appendix is not identified with certainty, however there is no inflammat ory process seen in the RLQ. PERITONEUM/RETROPERITONEUM: No evidence of pneumoperitoneum or free fluid. VASCULATURE: Moderate atherosclerotic calcifications are present throughout the abdominal aorta and i ts branches. No evidence of aortic aneurysm. LYMPH NODES: No enlarged nodes by CT size criteria. SOFT TISSUE/ABDOMINAL WALL: Unremarkable MUSCULOSKELETAL: No acute osseous abnormalities. Mild/moderate disc degeneration changes are present throughout the thoracolumbar spine. IMPRESSION: 1. Acute pancreatitis. 2. CBD appears prominent, the gallbladder appears mildly distended and contains a few small calcifie d stones. 3. No definite choledocholithiasis is demonstrated. If there is persistent concern, MR/MRCP may be c onsidered.
[2024-03-27] MEDS: ONDANSETRON 4 MG/2 ML VIAL IVP STA (11:15)
[2024-03-27] MEDS: HYDROmorphone 0.5 MG/0.5 ML SYRINGE IVP STA (11:54)
[2024-03-27 12:01] VITALS: RESP 18
[2024-03-27 12:50] VITALS: BP 142/80; PULSE 56
== END 2024-03-27 13:18 | disposition other institution (70) ==
LOC: EC 05:14
DX: K85.90 Acute pancreatitis without necrosis or infection, unspecified (principal); F17.200 Nicotine dependence, unspecified, uncomplicated; Z88.2 Allergy status to sulfonamides
CPT/HCPCS: 36415; 93005; 80053; 83690; 85025; 76705; 74177; 99285; 96374; 96375 ×2; 96376; J2270; J2405; J1170; Q9967

== ENCOUNTER → 2024-04-16 | Outpatient (CLI) | payer MEDICARE ==
--- NOTE | 2024-04-16 13:34 | USB ---
Reason for Exam: Follow-up at short interval from prior study. Patient History: Menarche at age 12. First Full-Term at age 24. Hysterectomy at age 46. Postmenopausal. Breast cancer, right, age 68. 02/09/2024, US biopsy breast add'l VAD RT on the Right side. 02/09/2024, Malignant US biopsy breast VAD RT on the right side. Excisional Biopsy on the Right side. Technique: Method: Targeted. Prior Study Comparison: 09/20/2002 Bilateral Screening Mammogram, [facility]. 01/28/2024 Bilateral MG 3D diag mammo w/cad [facility], [facility]. 02/09/2024 Right MG diagnostic mammo RT wo CAD, [facility]. Findings: The lower outer quadrant of the left breast, the axilla of the left breast and the retroareolar of the left breast were scanned. Targeted ultrasound upper outer quadrant left breast 12:00 to 3:00 including scanning of the subareolar region and axilla for ultrasound look of possible MRI abnormality. At the 1:00 position, 4 cm from the nipple, embedded within a dense patch of tissue, there is a vague 5 x 5 x 2 mm hypoechoic area, possibly MRI correlate. Tissue sampling recommended. No other solid or cystic lesion or axillary lymphadenopathy. Overall Assessment: Known biopsy proven malignancy, BI-RAD 6 Management: Ultrasound Core Biopsy of the left breast. For possible MRI correlate. Results were given to the patient verbally at the time of exam. Electronically signed and approved by: Kevin Salinas M.D. Radiologist
== END | disposition home or self-care (01) ==
LOC: RADUSWWP 13:00
PROVIDERS: ATTEND Internal Medicine Hematology & Oncology
DX: R92.8 Other abnormal and inconclusive findings on diagnostic imaging of breast (principal); Z85.3 Personal history of malignant neoplasm of breast; Z78.0 Asymptomatic menopausal state

== ENCOUNTER → 2024-04-19 | Outpatient (CLI) | payer MEDICARE ==
--- NOTE | 2024-04-20 03:14 | PE ---
EXAMINATION TYPE: PET CT fusion skull to thigh DATE OF EXAM: 04/19/2024 COMPARISON: Bilateral breast MRI March 10, 2024. CT abdomen and pelvis March 27, 2024 HISTORY: Invasive ductal carcinoma right breast on recent biopsy February 09, 2024. History of recent c holecystectomy. TECHNIQUE: Following the intravenous administration of 8.5 mCi of F-18 FDG, whole body images are pe rformed from the skull base to the midthigh. Images are reviewed on the computer in the coronal, axi al, and sagittal planes. Reconstructed rotating images are created on independent workstation and re viewed on the computer. A localization and attenuation correction CT is performed in conjunction wi th the PET scan. Blood glucose level equals 88. SCAN: Initial Scan FINDINGS: SKULL BASE AND NECK: No areas of abnormal hypermetabolic uptake. CHEST, MEDIASTINUM, AND HILAR REGION: Corresponding to recent bilateral breast MRI there is large spi culated hypermetabolic mass in the right breast measuring approximately 6.1 x 3.0 cm with abnormal hy permetabolic uptake corresponding to biopsy-proven malignancy near axial image 100. No hypermetabolic enlarged axillary lymph nodes. No hypermetabolic masses in the left breast or axilla. No additional areas of abnormal hypermetabolic uptake in the thorax. ABDOMEN AND PELVIS: Continued prominence of the pancreas with perinephric fluid showing multifocal ar eas of abnormal hypermetabolic uptake. Findings are consistent with continued acute diffuse pancreati tis. Normal excretion. No suspicious areas of abnormal hypermetabolic uptake. OSSEOUS STRUCTURES: No areas of abnormal hypermetabolic uptake. OTHER CT: Mild cardiomegaly is present. Gallbladder is surgically absent. Uterus is somewhat atrophic in appearance and/or surgically absent. IMPRESSION: 1. Abnormal hypermetabolic uptake corresponding to large biopsy proven malignancy in the right breast . No additional areas of suspicious hypermetabolic uptake to suggest metastatic disease or malignancy in the left breast or either axilla. Findings would not change plan from recent bilateral breast MRI and left breast ultrasound that recommend left breast tissue sampling. 2. Continued prominent pancreas with inflammatory change and multifocal hypermetabolic uptake consist ent with persistent acute pancreatitis. Correlate clinically and with pancreatic lab values.
== END | disposition home or self-care (01) ==
LOC: RADPETMAIN 13:35
PROVIDERS: ATTEND Surgery
DX: C50.411 Malignant neoplasm of upper-outer quadrant of right female breast (principal); Z90.49 Acquired absence of other specified parts of digestive tract
CPT/HCPCS: 78815; A9552

== ENCOUNTER → 2024-04-20 | Day surgery (SDC) | payer MEDICARE ==
--- NOTE | 2024-04-28 14:58 | MM ---
Reason for Exam: Post Procedure Mammogram. Last screening mammogram was performed 3 month(s) ago. Patient History: Menarche at age 12. First Full-Term at age 24. Hysterectomy at age 46. Postmenopausal. Breast cancer, right, age 68. 02/09/2024, US biopsy breast add'l VAD RT on the Right side. 02/09/2024, Malignant US biopsy breast VAD RT on the right side. Excisional Biopsy on the Right side. Prior Study Comparison: 09/20/2002 Bilateral Screening Mammogram, [facility]. 01/28/2024 Bilateral MG 3D diag mammo w/cad [facility], [facility]. 02/09/2024 Right MG diagnostic mammo RT wo CAD, [facility]. Tissue Density: Left: There are scattered areas of fibroglandular density. Pathology Description: Location: 1 o'clock. Marker Left Behind. Needle Type: Opti-Logic Cores: 3 Gauge: 12 The procedure of ultrasound guided core biopsy was explained to the patient. Benefits, alternatives, and risks were discussed. An informed consent was then obtained. The patient was placed in supine positioning for imaging and for the procedure. The overlying skin was prepped and draped in usual sterile fashion. Lidocaine buffered with bicarbonate was used as anesthetic into the skin and subcutaneous tissue up to area of concern in the left 1:00 breast. A sourav was made with surgical scalpel. Under ultrasound guidance, a 12-gauge vacuum assisted biopsy gun device was used to obtain 3 core samples. Following this, a biopsy clip was left in lesion. The patient tolerated the procedure well without any immediate complication. The patient was kept in the radiology department for short stay after the procedure and then discharged home in stable condition. Postprocedure mammogram: The patient was transferred to mammography for physician ordered post procedure mammogram for clip placement verification. Impression: Successful, uncomplicated ultrasound guided core biopsy of area of concern in the left 1:00 breast, full pathology results to follow. Pathology Results: Result: Benign. Pathology and radiology were reviewed. Findings are concordant. LEFT BREAST, ONE O'CLOCK, ULTRASOUND GUIDED NEEDLE CORE BIOPSY: Small fragments of benign breast parenchyma with hypocellular fibrosis and mild periductal chronic inflammation (see note). Notes A PET imaging study from 04/19/24 shows hypermetabolic uptake in the patient's known right breast malignancy and no hypermetabolic masses in the left breast or axilla. The patient's history of prior right breast 12 o'clock and 11 o'clock invasive ductal carcinoma is noted (see case [id number] for full details). A recent MRI from 03/10/24 shows a 5 mm focus of enhancement in the upper outer left breast. Examination of the small fragments within the current case mostly show hypocellular fibrosis, which may represent a fibrous scar. Clinical correlation with imaging studies is suggested, as clinically indicated. Overall Assessment: Benign Assessment: MG diagnostic mammo LT wo CAD. - Left: Benign, BI-RAD 2. Management: Diagnostic Mammogram of the left breast in 6 months. Diagnostic Breast Ultrasound of the left breast in 6 months. Electronically signed and approved by: Sarthak Benavidez M.D. Radiologis
== END ==
LOC: RADUSWWP 12:37
PROVIDERS: ATTEND Internal Medicine Hematology & Oncology
DX: N60.32 Fibrosclerosis of left breast (principal); N61.0 Mastitis without abscess; R92.8 Other abnormal and inconclusive findings on diagnostic imaging of breast; Z78.0 Asymptomatic menopausal state
CPT/HCPCS: 88305; 77065; 19083; A4648

== ENCOUNTER → 2024-05-03 | Outpatient (CLI) | payer MEDICARE ==
--- NOTE | 2024-05-04 13:48 | BD ---
EXAMINATION TYPE: Axial Bone Density DATE OF EXAM: 05/03/2024 CLINICAL HISTORY: 68 years old Female. ICD-10 CODE: C50.112 MALIGNANT NEOPLASM OF CENTRAL PORTION OF L Height: 65 Weight: 197.4 FRAX RISK QUESTIONS: Alcohol (3 or more units per day): no Family History (Parent hip fracture): no Glucocorticoids (More than 3mos): no (Ex: prednisone, prednisolone, methylprednisolone, dexamethasone, and hydrocortisone). History of Fracture in Adulthood: yes Secondary Osteoporosis: 1. Type 1 Diabetes: no 2. Hyperthyroidism: no 3. Menopause before 45: no 4. Malnutrition: no 5. Chronic liver disease: no Rheumatoid Arthritis: no Current Tobacco Use: yes RISK FACTORS HISTORY OF: Hip Fracture (Right/Left): no Spine Fracture: L4 When: Age 24 History of Wrist Fracture: bilateral Surgery to Spine/Hip(right/left)/Wrist (right/left): no MEDICATIONS: Thyroid Medications: no Osteoporosis Medications: no EXAM MEASUREMENTS: Bone mineral densitometry was performed using the [employer] System. Bone mineral density as measured about the Lumbar spine is: ----- L1-L4(G/cm2): 1.173 T Score Values are as follows: ----- L1: -0.3 ----- L2: 0.1 ----- L3: -0.1 ----- L4: -0.2 ----- L1-L4: -0.1 Z Score Values are as follows: ----- L1: 0.5 ----- L2: 0.9 ----- L3: 0.8 ----- L4: 0.7 ----- L1-L4: 0.8 Baseline Study Bone mineral density about the R hip (g/cm2): 0.909 Bone mineral density about the L hip (g/cm2): 0.872 T Score values are as follows: -----R Neck: -1.7 -----L Neck: -1.6 -----R Total: -0.8 -----L Total: -1.1 Z Score values are as follows: -----R Neck: -0.6 -----L Neck: -0.5 -----R Total: 0.0 -----L Total: -0.3 Baseline Study FRAX%s: The graph provided illustrates a 10.1 % chance for a major osteoporotic fx and a 2.4% chance for the hips probability for fx in 10 years time. IMPRESSION: Osteopenia (T Score between -2.5 and -1). There is slightly increased risk of fracture and the patient may be considered for treatment. Re-Screen 2-5 years. NOTE: T-SCORE=SD OF THE YOUNG ADULT MEAN.
== END | disposition home or self-care (01) ==
LOC: RADBDWWP 14:09
PROVIDERS: ATTEND Internal Medicine Hematology & Oncology
DX: M85.88 Other specified disorders of bone density and structure, other site (principal); C50.112 Malignant neoplasm of central portion of left female breast; M12.9 Arthropathy, unspecified; Z17.0 Estrogen receptor positive status [ER+]
CPT/HCPCS: 77080

== ENCOUNTER → 2024-05-07 | Outpatient (CLI) | payer MEDICARE ==
--- NOTE | 2024-04-20 15:21 | P.CON ---
Consult Note - . Consult date: 04/20/24 Assessment/Plan:: Was called with the results of her PET CT performed on 04-19-2024. This revealed abnormal hypermetabolic uptake at the area of the right breast biopsy-proven cancer. No evidence of metastatic disease was identified. She did have young nued prominent pancreas with inflammatory change but has recently undergone a cholecystectomy several weeks ago. She is following with Dr. Bales and will follow-up here on at 10:40.
[2024-05-07 10:50] VITALS: BP 130/76; PULSE 69; RESP 16; TEMP 97.8
--- NOTE | 2024-05-07 11:19 | P.PN ---
Subjective Progress Note Date: 05/07/24 Principal diagnosis: right breast invasive ductal cancer; two sites [id number]+Her2-G2; at 12:00, and [id number]+Her2-G2 lesion at 11:00 She did have a bilateral mammogram on 01-28-24, this was reviewed, no lesions of concern in the left breast. Addendum entered and electronically signed by Marylin Isaac MD 02/20/24 12:24: 1. PET scan 2. oncotype on tumor 3. appointment with medical oncology 4. present at tumor board 5. gallbladder evaluation 6. follow up after appointment with medical oncology Addendum entered and electronically signed by Marylin Isaac MD 02/20/24 12:09: She did not have a bilateral mammogram on 01-28-24, only a right breast was done. She is going to have a bilateral mammogram at this time. Original Note: History of Present Illness Consult date: 02/20/24 Reason for Consult: right breast cancer Requesting physician: Alexey Flores History of present illness: Elisa is a 68 year old female seen in consultation for Dr. Alexey Flores regarding a right breast invasive ductal cancer. She had a bilateral mammogram on 01-28-24 which showed a 6 by 5.5 cm mass in jazmin right breast with a 1.7 by 1.6 cm satellite lesion in the breast. She had a right breast ultrasound on 01-28-24 confirming the findings, and a core biopsy was done on 02-09-24. This showed an invasive ductal cancer of two sites, it was G2, ER+, Pr+, Her2-. On ultrasound one lesion at 12:00 was 3.3 by 4.8 cm and the second lesion at 11:00 was 1.3 by 1.3 cm. The patient has been able to feel the lump for about 1 year, it hasn't really changed in size. It is tender, it is aching in nature, it is worse if there is no breast support. She did develop some bruising after the core biopsy. She had not been getting mammograms for about 20 years, she just got insurance and got this checked She is not complaining of any nipple discharge or skin changes. She had a right breast biopsy about 25 years ago that was not cancer. She is not complaining of any recent trauma or infection. BCP: used 40 years ago for 10 years She has lost 28 pounds in the past 5 to 6 weeks which she believes is related to gallbladder disease. She has an appointment with a general surgeon in 2 weeks. She has pain RUQ when she eats. She did have a bilateral mammogram on 01-28-24, this was reviewed, no lesions of concern in the left breast. 1. PET scan: 04-19-24 no evidence of metastatic disease 2. oncotype on tumor: 14 3. appointment with medical oncology seeing Dr. Lopez 4. present at tumor board done on 03-02-24 5. gallbladder evaluation (cholecystectomy done approximately 6 weeks ago), she is doing well at this time note Dr. Lopez from 04-27-24 reviewed started on anastrazole and CDK4 inhibitor; surgery to be in about 4-6 weeks I have personally discussed this with Dr. Lopez; She is complaining of brain fog when send she started the anastrozole Caffeine: 2 cups coffee/day nicotine: 5 cigarettes per day since Chocolate: none BCP: 10 years in remote past hormones: none Family History: father: lung cancer sister: cervical cancer Hormonal History: menarche: 15 , breast fed: no, age at first : 24 menopause: 50 hormones: none Surgical History: hysterectomy; heavy bleeding, left ovaries age: 35 right breast biopsy tonsil Medical History: Right upper quadrant pain questionable gallbladder disease Uses a cane secondary to back pain related to a fracture in her 20s Social History: Nicotine: 5 cigarettes/day since 19 Alcohol: Negative Drugs: Negative Review of Systems - Constitutional Constitutional Comment(s): weight loss related to gallstones Reports weight loss, Denies fever - EENT Eyes: denies blurred vision Ears: bilateral: tinnitus, deny: decreased hearing Ears, nose, mouth and throat: Denies dysphagia - Breasts bilateral: as per HPI - Cardiovascular Denies chest pain, Denies shortness of breath - Respiratory Denies cough - Gastrointestinal Reports as per HPI, Reports constipation - Genitourinary Genitourinary: Denies dysuria, Denies hematuria Menstruation: Reports post hysterectomy - Musculoskeletal Reports as per HPI - Integumentary Reports pruritus, Reports rash, Denies unusual bruising - Neurological Denies headaches, Denies syncope - Psychiatric Reports as per HPI - Endocrine Reports fatigue - Hematologic/Lymphatic Denies easy bleeding, Denies easy bruising - Allergic/Immunologic Reports seasonal allergies Past Medical History Past Medical History: No Reported History Additional Past Medical History / Comment(s): gallstones History of Any Multi-Drug Resistant Organisms: None Reported Past Surgical History: No Surgical Hx Reported Additional Past Surgical History / Comment(s): Right breast excisional biospy 1992, benign Past Anesthesia/Blood Transfusion Reactions: No Reported Reaction - Sexual Orientation/Gender Identity What was your sex assigned at ?: Female Preferred Pronoun: She/Her/Hers How would you describe your gender identity?: Woman Do you think of your sexual orientation as: Straight/Heterosexual Past Psychological History: No Psychological Hx Reported Smoking Status: Current every day smoker Past Alcohol Use History: None Reported Additional Past Alcohol Use History / Comment(s): 5 cigarettes daily Medications and Allergies Home Medications Medication Instructions Recorded Confirmed Type Acetaminophen Tab [Tylenol] 500 mg PO DIRECTED PRN 02/20/24 02/20/24 History Allergies Allergy/AdvReac Type Severity Reaction Status Date / Time Sulfa (Sulfonamide Allergy Nausea & Verified 02/20/24 11:34 Antibiotics) Vomiting Objective - Vital Signs Vital signs: Vital Signs Temp 97.8 F 05/07/24 10:48 Pulse 69 05/07/24 10:48 Resp 16 05/07/24 10:48 BP 130/76 05/07/24 10:48 Pulse Ox 95 05/07/24 10:48 FiO2 Intake & Output 05/06/24 05/07/24 05/07/24 18:59 06:59 18:59 Weight 89.358 kg - Constitutional General appearance: Present: cooperative - EENT Eyes: Present: EOMI ENT: Present: hearing grossly normal - Neck Neck: Present: normal ROM - Respiratory Respiratory: bilateral: CTA - Cardiovascular Rhythm: regular Heart sounds: normal: S1, S2 - Gastrointestinal General gastrointestinal: Present: soft - Integumentary Integumentary: Present: normal turgor - Musculoskeletal Musculoskeletal: Present: gait normal - Psychiatric Psychiatric: Present: A&O x's 3, appropriate affect, intact judgment & insight - Additional findings Additional findings: Breast Exam: BRA: 42B Inspection: bilateral grade 3 ptosis Palpation: Right breast: Ecchymosis related to biopsy, mass upper inner quadrant approximately 9 x 6 cm in size some skin puckering is noted in the upper inner quadrant area Right axilla: No adenopathy of concern Left breast: Multi positional exam no dominant masses or nodules of concern Left axilla: No adenopathy of concern Assessment and Plan Assessment: Impression: right breast invasive ductal cancer on annastrazole; the disease is multifocal Plan: Patient would like to have a right mastectomy and secondary to the fact that she should is concerned regarding cancer that could happen in the left breast and she would be very asymmetric she would like bilateral mastectomies Right sentinel node biopsy, possible right axillary node dissection We will coordinate this with Dr. Bales and her neoadjuvant hormone therapy Preoperative clearance Dr. Alexey Flores CC: Dr. Alexey Flores, Dr. Lopez
== END ==
LOC: WWCWWP 10:38
PROVIDERS: ATTEND Surgery
DX: C50.811 Malignant neoplasm of overlapping sites of right female breast (principal); F17.210 Nicotine dependence, cigarettes, uncomplicated; R10.11 Right upper quadrant pain; Z17.0 Estrogen receptor positive status [ER+]; Z88.2 Allergy status to sulfonamides; Z90.49 Acquired absence of other specified parts of digestive tract

== ENCOUNTER 2024-05-30 10:11 | Emergency (ER) | payer MEDICARE ==
[2024-05-30 10:17] VITALS: TEMP 97.9
[2024-05-30] MEDS: SODIUM CHLORIDE 0.9% 1,000 ML IV STA (10:54)
[2024-05-30] MEDS: SODIUM CHLORIDE 0.9% 500 ML 500 ML IV STA (10:54)
[2024-05-30] MEDS: ONDANSETRON 4 MG/2 ML VIAL IVP STA (10:54)
[2024-05-30 10:56] LABS: Basophils % (A) 0 %; Eosinophils # (A) 0.1 k/uL (0-0.7); Eosinophils % (A) 2 %; HCT 41.6 % (34.0-46.0); HGB 13.3 gm/dL (11.4-16.0); Hypochromasia Slight; Lymphocytes # (A) 0.7 k/uL (1.0-4.8); Lymphocytes % (A) 12 %; MCH 30.2 pg (25.0-35.0); MCV 94.3 fL (80.0-100.0); Mean Platelet Volume 7.4; Monocytes # (A) 0.1 k/uL (0-1.0); Monocytes % (A) 2 %; Neutrophils # (A) 5.3 k/uL (1.3-7.7); Neutrophils % (A) 83 %; Platelet Count 219 k/uL (150-450); RBC 4.41 m/uL (3.80-5.40); RDW 13.7 % (11.5-15.5); WBC 6.4 k/uL (3.8-10.6)
[2024-05-30] MEDS: DIPHENOX-ATROP 2.5-0.025 MG 1 EACH TAB PO STA (10:56)
[2024-05-30 11:19] LABS: ALT 29 U/L (4-34); AST 41 U/L (14-36); African American GFR (CKD) 69 (>60 ml/min/1.73 sqM); Albumin 4.3 g/dL (3.5-5.0); Alkaline Phosphatase 84 U/L (38-126); Anion Gap 7 mmol/L; Blood Urea Nitrogen 12 mg/dL (7-17); Calcium 9.4 mg/dL (8.4-10.2); Carbon Dioxide 26 mmol/L (22-30); Chloride 106 mmol/L (98-107); Glucose 134 mg/dL (74-99); Lipase 44 U/L (23-300); Magnesium 1.9 mg/dL (1.6-2.3); Non-African American GFR(CKD) 59 (>60 ml/min/1.73 sqM); Potassium 4.2 mmol/L (3.5-5.1); Sodium 139 mmol/L (137-145); Total Bilirubin 0.9 mg/dL (0.2-1.3); Total Protein 6.6 g/dL (6.3-8.2)
[2024-05-30 11:42] LABS: Appearance,Urine Cloudy (Clear); Bacteria,Urine Occasional /hpf; Bilirubin,Urine Negative (Negative); Blood,Urine Negative (Negative); Color,Urine Yellow; Glucose,Urine (UA) Negative (Negative); Hyaline Casts,Urine 2 /lpf (0-2); Ketones,Urine 1+ (Negative); Leukocyte Esterase,Urine Large (Negative); Mucus,Urine Few /hpf; Nitrite,Urine Negative (Negative); PH, Urine 5.5 (5.0-8.0); Protein,Urine Trace (Negative); RBC,Urine 17 /hpf (0-5); Specific Gravity,Urine 1.024 (1.001-1.035); Squamous Epithelial Cell,Urine 7 /hpf (0-4); Urobilinogen,Urine <2.0 mg/dL (<2.0); WBC,Urine >182 /hpf (0-5)
--- NOTE | 2024-05-30 12:00 | ED ---
Nausea/Vomiting/Diarrhea HPI - General Chief complaint: Nausea/Vomiting/Diarrhea Stated complaint: NVD Time Seen by Provider: 05/30/24 10:21 Source: patient, RN notes reviewed Mode of arrival: wheelchair Limitations: no limitations - History of Present Illness Initial comments: 68-year-old female presents emergency department with chief complaint of nausea vomiting diarrhea. Patient states that she was started on a new chemotherapy pill she states that she did contact her oncologist on-call recommending her to discontinue the medication and he was seen in emergency department. Patient states she has diarrhea, has not been able to keep any down in 3 days. She states she feels dehydrated no fevers denies any chest pain or shortness of breath no URI symptoms - Related Data Home Medications Medication Instructions Recorded Confirmed Acetaminophen Tab [Tylenol] 500 - 1,000 mg PO Q6H PRN 02/20/24 05/07/24 Ibuprofen [Motrin Ib] 800 mg PO Q8H PRN 03/27/24 05/07/24 Pseudoephedrine [Sudafed] 30 mg PO DAILY PRN 03/27/24 05/07/24 Previous Rx's Medication Instructions Recorded Nitrofurantoin Monohyd/M-Cryst 100 mg PO Q12HR #14 cap 05/30/24 [Macrobid] Ondansetron Odt [Zofran Odt] 4 mg PO Q8HR PRN #10 tab 05/30/24 Allergies Allergy/AdvReac Type Severity Reaction Status Date / Time Sulfa (Sulfonamide Allergy Anaphylaxis Verified 05/30/24 10:17 Antibiotics) morphine AdvReac Nausea & Verified 05/30/24 10:17 Vomiting Review of Systems ROS Statement: Those systems with pertinent positive or pertinent negative responses have been documented in the HPI. ROS Other: All systems not noted in ROS Statement are negative. Past Medical History Past Medical History: No Reported History, Cancer Additional Past Medical History / Comment(s): gallstones. Breast cancer History of Any Multi-Drug Resistant Organisms: None Reported Past Surgical History: No Surgical Hx Reported, Cholecystectomy Additional Past Surgical History / Comment(s): Right breast excisional biospy 1992, benign Past Anesthesia/Blood Transfusion Reactions: No Reported Reaction Past Psychological History: No Psychological Hx Reported Smoking Status: Former smoker Past Alcohol Use History: None Reported Past Drug Use History: None Reported General Exam Limitations: no limitations General appearance: alert, in no apparent distress Head exam: Present: atraumatic, normocephalic, normal inspection Eye exam: Present: normal appearance, PERRL, EOMI. Absent: scleral icterus, conjunctival injection, periorbital swelling ENT exam: Present: normal exam, normal oropharynx, mucous membranes moist Neck exam: Present: normal inspection, full ROM. Absent: tenderness, meningismus, lymphadenopathy Respiratory exam: Present: normal lung sounds bilaterally. Absent: respiratory distress, wheezes, rales, rhonchi, stridor Cardiovascular Exam: Present: regular rate, normal rhythm, normal heart sounds. Absent: systolic murmur, diastolic murmur, rubs, gallop, clicks GI/Abdominal exam: Present: soft, normal bowel sounds. Absent: distended, tenderness, guarding, rebound, rigid Course Vital Signs 05/30/24 05/30/24 10:13 12:45 Temperature 97.9 F Pulse Rate 86 88 Respiratory 18 16 Rate Blood Pressure 126/77 111/74 O2 Sat by Pulse 98 98 Oximetry Medical Decision Making - Medical Decision Making Was pt. sent in by a medical professional or institution (, PA, POLICE PIL[employer], urgent care, hospital, or alf...) When possible be specific @ -Oncology Did you speak to anyone other than the patient for history (EMS, parent, family, police, friend...)? What history was obtained from this source @ -No Did you review nursing and triage notes (agree or disagree)? Why? @ -I reviewed and agree with nursing and triage notes Were old charts reviewed (outside hosp., previous admission, EMS record, old EKG, old radiological studies, urgent care reports/EKG's, alf records)? Report findings @ -No old charts were reviewed Differential Diagnosis (chest pain, altered mental status, abdominal pain women, abdominal pain men, vaginal bleeding, weakness, fever, dyspnea, syncope, headache, dizziness, GI bleed, back pain, seizure, CVA, palpatations, mental he alth, musculoskeletal)? @ -Differential Abdominal Pain Women: Appendicitis, Cholecystitis, diverticulosis, ischemic bowel, pancreatitis, hepatitis, UTI, gastroenteritis, AAA, incarcerated hernia, bowel obstruction, constipation, inflammatory bowel, hepatitis, peptic ulcer disease, splenic infarction, perforated viscus, vulvitis, ovarian torsion, PID, kidney stone, placenta abruption, this is not meant to be an all-inclusive list EKG interpreted by me (3pts min.). @ -None X-rays interpreted by me (1pt min.). @ -None done CT interpreted by me (1pt min.). @ -None done U/S interpreted by me (1pt. min.). @ -None done What testing was considered but not performed or refused? (CT, X-rays, U/S, la bs)? Why? @ -None What meds were considered but not given or refused? Why? @ -None Did you discuss the management of the patient with other professionals (professionals i.e. DrIrene, PA, POLICE P[employer], lab, RT, psych nurse, social worker psychiatric, starter cup powder mixer, teacher, toxics program officer, corrections caseworker)? Give summary @ -No Was smoking cessation discussed for >3mins.? @ -No Was critical care preformed (if so, how long)? @ -No Were there social determinants of health that impacted care today? How? (Homelessness, low income, unemployed, alcoholism, drug addiction, transportation, low edu. Level, literacy, decrease access to med. care, senior living, rehab)? @ -No Was there de-escalation of care discussed even if they declined (Discuss DNR or withdrawal of care, Hospice)? DNR status @ -No What co-morbidities impacted this encounter? (DM, HTN, Smoking, COPD, CAD, Cancer, CVA, ARF, Chemo, Hep., AIDS, mental health diagnosis, sleep apnea, morbid obesity)? @ -[Breast cancer Was patient admitted / discharged? Hospital course, mention meds given and route, prescriptions, significant lab abnormalities, going to OR and other pertinent info. @ -Discharge patient presented after having nausea vomiting diarrhea related to her chemotherapy medication. Patient was hydrated, given antibiotics feels greatly improved she has had no recurrent diarrhea. Patient does have evidence of UTI started on oral antibiotics will follow-up with oncology tomorrow return parameters nicole. Undiagnosed new problem with uncertain prognosis? @ -[No Drug Therapy requiring intensive monitoring for toxicity (Heparin, Nitro, Insulin, Cardizem)? @ -No Were any procedures done? @ -No Diagnosis/symptom? @ -[Nausea vomiting diarrhea, UTI Acute, or Chronic, or Acute on Chronic? @ -Acute Uncomplicated (without systemic symptoms) or Complicated (systemic symptoms)? @ -Uncomplicated Side effects of treatment? @ -No Exacerbation, Progression, or Severe Exacerbation? @ -No Poses a threat to life or bodily function? How? (Chest pain, [place], [place], pneumonia, PE, COPD, DKA, ARF, appy, cholecystitis, CVA, Diverticulitis, Homicidal, Suicidal, threat to staff... and all critical care pts) @ -No - Lab Data Result diagrams: 05/30/24 10:50 05/30/24 10:50 Lab Results 05/30/24 05/30/24 05/30/24 Range/Units 10:50 10:50 10:50 WBC 6.4 (3.8-10.6) k/uL RBC 4.41 (3.80-5.40) m/uL Hgb 13.3 (11.4-16.0) gm/dL Hct 41.6 (34.0-46.0) % MCV 94.3 (80.0-100.0) fL MCH 30.2 (25.0-35.0) pg MCHC 32.0 (31.0-37.0) g/dL RDW 13.7 (11.5-15.5) % Plt Count 219 (150-450) k/uL MPV 7.4 Neutrophils % 83 % Lymphocytes % 12 % Monocytes % 2 % Eosinophils % 2 % Basophils % 0 % Neutrophils # 5.3 (1.3-7.7) k/uL Lymphocytes # 0.7 L (1.0-4.8) k/uL Monocytes # 0.1 (0-1.0) k/uL Eosinophils # 0.1 (0-0.7) k/uL Basophils # 0.0 (0-0.2) k/uL Hypochromasia Slight Sodium 139 (137-145) mmol/L Potassium 4.2 (3.5-5.1) mmol/L Chloride 106 (98-107) mmol/L Carbon Dioxide 26 (22-30) mmol/L Anion Gap 7 mmol/L BUN 12 (7-17) mg/dL Creatinine 0.98 (0.52-1.04) mg/dL Est GFR (CKD-EPI)AfAm 69 (>60 ml/min/1.73 sqM) Est GFR (CKD-EPI)NonAf 59 (>60 ml/min/1.73 sqM) Glucose 134 H (74-99) mg/dL Calcium 9.4 (8.4-10.2) mg/dL Magnesium 1.9 (1.6-2.3) mg/dL Total Bilirubin 0.9 (0.2-1.3) mg/dL AST 41 H (14-36) U/L ALT 29 (4-34) U/L Alkaline Phosphatase 84 (38-126) U/L Total Protein 6.6 (6.3-8.2) g/dL Albumin 4.3 (3.5-5.0) g/dL Lipase 44 (23-300) U/L Urine Color Yellow Urine Appearance Cloudy H (Clear) Urine pH 5.5 (5.0-8.0) Ur Specific [place] 1.024 (1.001-1.035) Urine Protein Trace H (Negative) Urine Glucose (UA) Negative (Negative) Urine Ketones 1+ H (Negative) Urine Blood Negative (Negative) Urine Nitrite Negative (Negative) Urine Bilirubin Negative (Negative) Urine Urobilinogen <2.0 (<2.0) mg/dL Ur Leukocyte Esterase Large H (Negative) Urine RBC 17 H (0-5) /hpf Urine WBC >182 H (0-5) /hpf Urine WBC Clumps Moderate H (None) /hpf Ur Squamous Epith Cells 7 H (0-4) /hpf Urine Bacteria Occasional H (None) /hpf Hyaline Casts 2 (0-2) /lpf Urine Mucus Few H (None) /hpf Disposition Clinical Impression: UTI (urinary tract infection), Nausea vomiting and diarrhea Disposition: HOME SELF-CARE Condition: Stable Instructions (If sedation given, give patient instructions): Acute Nausea and Vomiting (ED), Acute Diarrhea (ED) Additional Instructions: Please return to the Emergency Department if symptoms worsen or any other concerns. Prescriptions: Nitrofurantoin Monohyd/M-Cryst [Macrobid] 100 mg PO Q12HR #14 cap Ondansetron Odt [Zofran Odt] 4 mg PO Q8HR PRN #10 tab PRN Reason: Nausea Is patient prescribed a controlled substance at d/c from ED?: No Referrals: Alexey Flores MD [Primary Care Provider] - 1-2 days Time of Disposition: 12:31
[2024-05-30 12:48] VITALS: BP 111/74; PULSE 88; RESP 16
[2024-05-30] MEDS: DIPHENOX-ATROP STARTER PACK 8 TAB BTL PO STA (12:48)
[2024-05-30] MEDS: ONDANSETRON 4 MG ODT STARTER PACK 2 TAB BTL PO STA (12:48)
== END 2024-05-30 13:00 | disposition home or self-care (01) ==
LOC: EC 10:11
DX: R11.10 Vomiting, unspecified (principal); N39.0 Urinary tract infection, site not specified; R11.2 Nausea with vomiting, unspecified; R19.7 Diarrhea, unspecified; Z87.891 Personal history of nicotine dependence; Z88.2 Allergy status to sulfonamides; Z88.5 Allergy status to narcotic agent
CPT/HCPCS: 36415; 80053; 83690; 83735; 85025; 81001; 99284; 96374; 96361; J2405; S0119

== ENCOUNTER 2024-06-04 17:08 | Emergency (ER) | payer MEDICARE ==
[2024-06-04 17:17] LABS: Glucose,Whole Blood 102 mg/dL (70-110)
[2024-06-04] MEDS: PANTOPRAZOLE 40 MG/10 ML VIAL IVP STA (17:52)
[2024-06-04] MEDS: SODIUM CHLORIDE 0.9% 1,000 ML IV STA (17:52)
[2024-06-04 18:04] LABS: Basophils % (A) 0 %; Eosinophils # (A) 0.3 k/uL (0-0.7); Eosinophils % (A) 7 %; HCT 35.2 % (34.0-46.0); HGB 11.6 gm/dL (11.4-16.0); Lymphocytes # (A) 0.3 k/uL (1.0-4.8); Lymphocytes % (A) 7 %; MCH 30.8 pg (25.0-35.0); MCV 93.5 fL (80.0-100.0); Mean Platelet Volume 7.4; Monocytes # (A) 0.1 k/uL (0-1.0); Monocytes % (A) 4 %; Neutrophils % (A) 82 %; Platelet Count 156 k/uL (150-450); RBC 3.76 m/uL (3.80-5.40); RDW 14.2 % (11.5-15.5); WBC 3.7 k/uL (3.8-10.6)
[2024-06-04 18:19] LABS: ALT 14 U/L (4-34); AST 28 U/L (14-36); African American GFR (CKD) >90 (>60 ml/min/1.73 sqM); Albumin 3.5 g/dL (3.5-5.0); Alkaline Phosphatase 64 U/L (38-126); Amylase <30 U/L (30-110); Anion Gap 4 mmol/L; Blood Urea Nitrogen 9 mg/dL (7-17); Calcium 8.5 mg/dL (8.4-10.2); Carbon Dioxide 25 mmol/L (22-30); Chloride 111 mmol/L (98-107); Glucose 94 mg/dL (74-99); Lipase 40 U/L (23-300); Non-African American GFR(CKD) >90 (>60 ml/min/1.73 sqM); Potassium 3.3 mmol/L (3.5-5.1); Sodium 140 mmol/L (137-145); Total Bilirubin 0.6 mg/dL (0.2-1.3); Total Protein 5.4 g/dL (6.3-8.2)
[2024-06-04 18:21] LABS: INR 1.1 (<1.2); Partial Thromboplastin Time 21.1 sec (22.0-30.0); Prothrombin Time 11.5 sec (10.0-12.5)
--- NOTE | 2024-06-04 20:13 | CT ---
EXAMINATION TYPE: CT abdomen pelvis w con CT DLP: 1253.9 mGycm, Automated exposure control for dose reduction was used. DATE OF EXAM: 06/04/2024 7:36 PM COMPARISON: CT abdomen pelvis most recent from CLINICAL INDICATION:Female, 68 years old with history of abdominal pain, nausea, vomiting and diarrhe a; N/V/D. Abdominal pain. Breat CA. On Chemo. TECHNIQUE: Axial CT abdomen pelvis w con;Sagittal and coronal reformats were created on a separate w orkstation. Contrast used:100 cc mL of Isovue 300 with IV Contrast, (none if empty) Oral contrast used: without Oral Contrast (none if empty) FINDINGS: LOWER CHEST: Unremarkable ABDOMEN LIVER: Unremarkable GALLBLADDER AND BILE DUCTS: Cholecystectomy clips in the gallbladder fossa. PANCREAS: There are the pancreatic head and proximal body there is a low-density pancreatic lesion ab undant peripancreatic fat stranding. Pancreatitis is suspected. Neoplasm cannot be entirely excluded. SPLEEN: Unremarkable. ADRENAL GLANDS: Unremarkable. KIDNEYS AND URETERS: No evidence of hydronephrosis or renal calculus. The ureters are unremarkable. PELVIS BLADDER: Unremarkable REPRODUCTIVE: Unremarkable. ABDOMEN & PELVIS STOMACH AND BOWEL: No evidence of bowel obstruction. PERITONEUM/RETROPERITONEUM: No evidence of pneumoperitoneum or free fluid. VASCULATURE: No evidence of aortic aneurysm. MUSCULOSKELETAL: No acute osseous abnormalities LYMPH NODES: No gross evidence for lymphadenopathy. SOFT TISSUE/ABDOMINAL WALL: Unremarkable IMPRESSION: 1. Pancreatitis suspected. Correlate with serum amylase and lipase and other clinical laboratory wang dies. Neoplasm not entirely excluded.
[2024-06-04 20:14] LABS: Appearance,Urine Clear (Clear); Bilirubin,Urine Negative (Negative); Blood,Urine Negative (Negative); Color,Urine Yellow; Glucose,Urine (UA) Negative (Negative); Hyaline Casts,Urine 1 /lpf (0-2); Ketones,Urine 1+ (Negative); Leukocyte Esterase,Urine Large (Negative); Mucus,Urine Moderate /hpf; Nitrite,Urine Negative (Negative); Protein,Urine Negative (Negative); RBC,Urine 4 /hpf (0-5); Specific Gravity,Urine 1.032 (1.001-1.035); Squamous Epithelial Cell,Urine 1 /hpf (0-4); Urobilinogen,Urine <2.0 mg/dL (<2.0); WBC,Urine 26 /hpf (0-5)
--- NOTE | 2024-06-04 20:24 | ED ---
General Adult HPI - General Chief complaint: Nausea/Vomiting/Diarrhea Stated complaint: NV Time Seen by Provider: 06/04/24 17:37 Source: patient, EMS, RN notes reviewed, old records reviewed Mode of arrival: EMS Limitations: no limitations - History of Present Illness Initial comments: Patient is a 68-year-old female with past medical history remarkable for breast cancer currently on oral chemo therapy. Presents emergency department complai rebekah of nausea, vomiting, diarrhea. Is been ongoing for over a week. Was seen recently for the same complaints. States symptoms are improving but are still persisting. Presents for further evaluation. Believed to be secondary to a chemo medication which she has stopped taking. Has been tolerating some oral intake. Denies any chest pain, shortness of breath. No other acute complaints. Presents for further evaluation at this time.Emesis is nonbilious. Patient does not have a gallbladder. Denies abdominal pain.Stool and emesis are both nonbloody. - Related Data Home Medications Medication Instructions Recorded Confirmed Acetaminophen Tab [Tylenol] 500 - 1,000 mg PO Q6H PRN 02/20/24 05/07/24 Ibuprofen [Motrin Ib] 800 mg PO Q8H PRN 03/27/24 05/07/24 Pseudoephedrine [Sudafed] 30 mg PO DAILY PRN 03/27/24 05/07/24 Previous Rx's Medication Instructions Recorded Nitrofurantoin Monohyd/M-Cryst 100 mg PO Q12HR #14 cap 05/30/24 [Macrobid] Ondansetron Odt [Zofran Odt] 4 mg PO Q8HR PRN #10 tab 05/30/24 Diphenoxylate HCl/Atropine 1 tab PO TID 5 Days #15 tab 06/04/24 [Diphenoxylate HCl/Atropine 2.5-0.025] Allergies Allergy/AdvReac Type Severity Reaction Status Date / Time Sulfa (Sulfonamide Allergy Anaphylaxis Verified 05/30/24 10:17 Antibiotics) morphine AdvReac Nausea & Verified 05/30/24 10:17 Vomiting Review of Systems ROS Statement: Those systems with pertinent positive or pertinent negative responses have been documented in the HPI. Review of Systems: CONST: Denies fever EYES: Denies blurry vision ENT: Denies nasal congestion C/V: Denies Chest pain RESP: Denies shortness of breath GI: Endorses nausea, vomiting, diarrhea : Denies dysuria SKIN: Denies rash. MSK: Denies joint pain. NEURO: Denies headache ROS Other: All systems not noted in ROS Statement are negative. Past Medical History Past Medical History: No Reported History, Cancer Additional Past Medical History / Comment(s): gallstones. Breast cancer History of Any Multi-Drug Resistant Organisms: None Reported Past Surgical History: No Surgical Hx Reported, Cholecystectomy Additional Past Surgical History / Comment(s): Right breast excisional biospy 1992, benign Past Anesthesia/Blood Transfusion Reactions: No Reported Reaction Past Psychological History: No Psychological Hx Reported Smoking Status: Former smoker Past Alcohol Use History: None Reported Past Drug Use History: None Reported General Exam - General Exam Comments Initial Comments: General: Appears in no acute distress. HEAD: Normal with no signs of head trauma. EYES: PERRLA, EOMI, conjunctiva normal, no discharge. ENT: Hearing grossly intact, normal oropharynx. RESPIRATORY: Clear breath sounds bilaterally. No wheezes, rales, or rhonchi. C/V: Regular rate and rhythm. S1 and S2 auscultated, no edema, peripheral pulses 2+ and intact throughout ABD: Abd is soft, nontender, nondistended EXT: Normal range of motion, no obvious deformity SKIN: No rashes or lesions observed on exposed skin. NEURO: Alert and oriented x 4. Cranial nerves II-XII intact. No focal sensory or strength deficits. Limitations: no limitations Course Vital Signs 06/04/24 06/04/24 06/04/24 17:18 20:22 20:53 Temperature 98.4 F 98.2 F Pulse Rate 76 78 79 Respiratory 18 18 16 Rate Blood Pressure 138/77 131/71 130/69 O2 Sat by Pulse 97 98 98 Oximetry Medical Decision Making - Medical Decision Making Was pt. sent in by a medical professional or institution (, PA, HEAD REFRIGERATING ENGINEER, urgent care, hospital, or half-way...) When possible be specific @ -No Did you speak to anyone other than the patient for history (EMS, parent, family, police, friend...)? What history was obtained from this source @ -No Did you review nursing and triage notes (agree or disagree)? Why? @ -I reviewed and agree with nursing and triage notes Were old charts reviewed (outside hosp., previous admission, EMS record, old EKG, old radiological studies, urgent care reports/EKG's, half-way records)? Report findings @ -Old charts reviewed including recent visit on 05/30/2024 for similar complaints. Reviewed laboratory studies and compared them at that time. Urinalysis is improving. She is on antibiotics for it at this time. Differential Diagnosis (chest pain, altered mental status, abdominal pain women, abdominal pain men, vaginal bleeding, weakness, fever, dyspnea, syncope, headache, dizziness, GI bleed, back pain, seizure, CVA, palpatations, mental health, musculoskeletal)? @ -Nausea, vomiting, dehydration, KIRSTIN, medication reaction. This list is not all inclusive. EKG interpreted by me (3pts min.). @ -As above X-rays interpreted by me (1pt min.). @ -None done CT interpreted by me (1pt min.). @ -CT abdomen pelvis reveals possible abnormality of the pancreas but it is subtle. Clinical correlation recommended by radiologist. Laboratory studies do not support pancreatitis. U/S interpreted by me (1pt. min.). @ -None done What testing was considered but not performed or refused? (CT, X-rays, U/S, labs)? Why? @ -None What meds were considered but not given or refused? Why? @ -None Did you discuss the management of the patient with other professionals (professionals i.e. , PA, HEAD REFRIGERATING ENGINEER, lab, RT, psych nurse, case management social worker, experimental rocketsled mechanic, teacher, low altitude air defense officer, registered nurse hh case manager)? Give summary @ -No Was smoking cessation discussed for >3mins.? @ -No Was critical care preformed (if so, how long)? @ -No Were there social determinants of health that impacted care today? How? (Homelessness, low income, unemployed, alcoholism, drug addiction, transportation, low edu. Level, literacy, decrease access to med. care, senior living, rehab)? @ -No Was there de-escalation of care discussed even if they declined (Discuss DNR or withdrawal of care, Hospice)? DNR status @ -No What co-morbidities impacted this encounter? (DM, HTN, Smoking, COPD, CAD, Cancer, CVA, ARF, Chemo, Hep., AIDS, mental health diagnosis, sleep apnea, morbid obesity)? @ -Breast cancer on oral chemotherapy Was patient admitted / discharged? Hospital course, mention meds given and route, prescriptions, significant lab abnormalities, going to OR and other pertinent info. @ -Patient presents with recurrent nausea and vomiting and diarrhea. We will obtain abdominal workup. No CT obtained last week and therefore we will obtain CT abdomen pelvis as well. She was in agreement this plan. Currently on occasions for UTI. States she feels like it is improving. Vital signs within acceptable limits. EKG shows no signs of acute ischemia. Laboratory studies remarkable for mild hypokalemia of 3.3 which was replenished. Urinalysis shows improvement of the UTI. Remainder the workup unremarkable. CT imaging reveals no obvious acute process. Radiology are concerned for pancreatitis however laboratory studies do not support this. On reevaluation, patient is feeling improved. We did discuss her workup. I did offer admission for IV hydration however she would like to go home if possible and I believe this is reasonable. I will refill a prescription for Lomotil for the patient. Recommended follow-up with her PCP and oncologist within the next few days. She was in agreement this plan. Discussed her CT findings and she will inform her oncologist to evaluate as radiology did not definitively exclude malignancy at the pancreatic head. I will provide the patient with a prescription for Lomotil. I instructed the pat ient to follow up with their PCP in the next 1-3 days.. I explained that the patient should return to the emergency department if they experience any worsening symptoms. Strict return precautions were discussed with the patient. The patient expressed understanding of these instructions. I answered all questions that the patient had. The patient was discharged home in good condition with their prescriptions and follow up information. Undiagnosed new problem with uncertain prognosis? @ -No Drug Therapy requiring intensive monitoring for toxicity (Heparin, Nitro, Insulin, Cardizem)? @ -No Were any procedures done? @ -No Diagnosis/symptom? @ -Nausea, vomiting, diarrhea, dehydration Acute, or Chronic, or Acute on Chronic? @ -Acute Uncomplicated (without systemic symptoms) or Complicated (systemic symptoms)? @ -Complicated Side effects of treatment? @ -No Exacerbation, Progression, or Severe Exacerbation? @ -No Poses a threat to life or bodily function? How? (Chest pain, USA, MT, pneumonia, PE, COPD, DKA, ARF, appy, cholecystitis, CVA, Diverticulitis, Homicidal, Suicidal, threat to staff... and all critical care pts) @ -Unlikely at this time - Lab Data Result diagrams: 06/04/24 17:48 06/04/24 17:48 Lab Results 06/04/24 06/04/24 06/04/24 Range/Units 17:15 17:48 17:48 WBC 3.7 L (3.8-10.6) k/uL RBC 3.76 L (3.80-5.40) m/uL Hgb 11.6 (11.4-16.0) gm/dL Hct 35.2 (34.0-46.0) % MCV 93.5 (80.0-100.0) fL MCH 30.8 (25.0-35.0) pg MCHC 33.0 (31.0-37.0) g/dL RDW 14.2 (11.5-15.5) % Plt Count 156 (150-450) k/uL MPV 7.4 Neutrophils % 82 % Lymphocytes % 7 % Monocytes % 4 % Eosinophils % 7 % Basophils % 0 % Neutrophils # 3.0 (1.3-7.7) k/uL Lymphocytes # 0.3 L (1.0-4.8) k/uL Monocytes # 0.1 (0-1.0) k/uL Eosinophils # 0.3 (0-0.7) k/uL Basophils # 0.0 (0-0.2) k/uL PT 11.5 (10.0-12.5) sec INR 1.1 (<1.2) APTT 21.1 L (22.0-30.0) sec Sodium (137-145) mmol/L Potassium (3.5-5.1) mmol/L Chloride (98-107) mmol/L Carbon Dioxide (22-30) mmol/L Anion Gap mmol/L BUN (7-17) mg/dL Creatinine (0.52-1.04) mg/dL Est GFR (CKD-EPI)AfAm (>60 ml/min/1.73 sqM) Est GFR (CKD-EPI)NonAf (>60 ml/min/1.73 sqM) Glucose (74-99) mg/dL POC Glucose (mg/dL) 102 (70-110) mg/dL POC Glu Savings [employer]eller ID Riya Fan Plasma Lactic Acid Titi (0.7-2.0) mmol/L Calcium (8.4-10.2) mg/dL Total Bilirubin (0.2-1.3) mg/dL AST (14-36) U/L ALT (4-34) U/L Alkaline Phosphatase (38-126) U/L Total Protein (6.3-8.2) g/dL Albumin (3.5-5.0) g/dL Amylase (30-110) U/L Lipase (23-300) U/L Urine Color Urine Appearance (Clear) Urine pH (5.0-8.0) Ur Specific [place] (1.001-1.035) Urine Protein (Negative) Urine Glucose (UA) (Negative) Urine Ketones (Negative) Urine Blood (Negative) Urine Nitrite (Negative) Urine Bilirubin (Negative) Urine Urobilinogen (<2.0) mg/dL Ur Leukocyte Esterase (Negative) Urine RBC (0-5) /hpf Urine WBC (0-5) /hpf Ur Squamous Epith Cells (0-4) /hpf Hyaline Casts (0-2) /lpf Urine Mucus (None) /hpf Influenza Type A (PCR) (Not Detectd) Influenza Type B (PCR) (Not Detectd) RSV (PCR) (Not Detectd) SARS-CoV-2 (PCR) (Not Detectd) 06/04/24 06/04/24 06/04/24 Range/Units 17:48 17:48 17:48 WBC (3.8-10.6) k/uL RBC (3.80-5.40) m/uL Hgb (11.4-16.0) gm/dL Hct (34.0-46.0) % MCV (80.0-100.0) fL MCH (25.0-35.0) pg MCHC (31.0-37.0) g/dL RDW (11.5-15.5) % Plt Count (150-450) k/uL MPV Neutrophils % % Lymphocytes % % Monocytes % % Eosinophils % % Basophils % % Neutrophils # (1.3-7.7) k/uL Lymphocytes # (1.0-4.8) k/uL Monocytes # (0-1.0) k/uL Eosinophils # (0-0.7) k/uL Basophils # (0-0.2) k/uL PT (10.0-12.5) sec INR (<1.2) APTT (22.0-30.0) sec Sodium 140 (137-145) mmol/L Potassium 3.3 L (3.5-5.1) mmol/L Chloride 111 H (98-107) mmol/L Carbon Dioxide 25 (22-30) mmol/L Anion Gap 4 mmol/L BUN 9 (7-17) mg/dL Creatinine 0.68 (0.52-1.04) mg/dL Est GFR (CKD-EPI)AfAm >90 (>60 ml/min/1.73 sqM) Est GFR (CKD-EPI)NonAf >90 (>60 ml/min/1.73 sqM) Glucose 94 (74-99) mg/dL POC Glucose (mg/dL) (70-110) mg/dL POC Glu [employer]eller ID Plasma Lactic Acid Titi 0.8 (0.7-2.0) mmol/L Calcium 8.5 (8.4-10.2) mg/dL Total Bilirubin 0.6 (0.2-1.3) mg/dL AST 28 (14-36) U/L ALT 14 (4-34) U/L Alkaline Phosphatase 64 (38-126) U/L Total Protein 5.4 L (6.3-8.2) g/dL Albumin 3.5 (3.5-5.0) g/dL Amylase <30 L (30-110) U/L Lipase 40 (23-300) U/L Urine Color Yellow Urine Appearance Clear (Clear) Urine pH 6.0 (5.0-8.0) Ur Specific [place] 1.032 (1.001-1.035) Urine Protein Negative (Negative) Urine Glucose (UA) Negative (Negative) Urine Ketones 1+ H (Negative) Urine Blood Negative (Negative) Urine Nitrite Negative (Negative) Urine Bilirubin Negative (Negative) Urine Urobilinogen <2.0 (<2.0) mg/dL Ur Leukocyte Esterase Large H (Negative) Urine RBC 4 (0-5) /hpf Urine WBC 26 H (0-5) /hpf Ur Squamous Epith Cells 1 (0-4) /hpf Hyaline Casts 1 (0-2) /lpf Urine Mucus Moderate H (None) /hpf Influenza Type A (PCR) (Not Detectd) Influenza Type B (PCR) (Not Detectd) RSV (PCR) (Not Detectd) SARS-CoV-2 (PCR) (Not Detectd) 06/04/24 Range/Units 18:44 WBC (3.8-10.6) k/uL RBC (3.80-5.40) m/uL Hgb (11.4-16.0) gm/dL Hct (34.0-46.0) % MCV (80.0-100.0) fL MCH (25.0-35.0) pg MCHC (31.0-37.0) g/dL RDW (11.5-15.5) % Plt Count (150-450) k/uL MPV Neutrophils % % Lymphocytes % % Monocytes % % Eosinophils % % Basophils % % Neutrophils # (1.3-7.7) k/uL Lymphocytes # (1.0-4.8) k/uL Monocytes # (0-1.0) k/uL Eosinophils # (0-0.7) k/uL Basophils # (0-0.2) k/uL PT (10.0-12.5) sec INR (<1.2) APTT (22.0-30.0) sec Sodium (137-145) mmol/L Potassium (3.5-5.1) mmol/L Chloride (98-107) mmol/L Carbon Dioxide (22-30) mmol/L Anion Gap mmol/L BUN (7-17) mg/dL Creatinine (0.52-1.04) mg/dL Est GFR (CKD-EPI)AfAm (>60 ml/min/1.73 sqM) Est GFR (CKD-EPI)NonAf (>60 ml/min/1.73 sqM) Glucose (74-99) mg/dL POC Glucose (mg/dL) (70-110) mg/dL POC Glu [employer]eller ID Plasma Lactic Acid Titi (0.7-2.0) mmol/L Calcium (8.4-10.2) mg/dL Total Bilirubin (0.2-1.3) mg/dL AST (14-36) U/L ALT (4-34) U/L Alkaline Phosphatase (38-126) U/L Total Protein (6.3-8.2) g/dL Albumin (3.5-5.0) g/dL Amylase (30-110) U/L Lipase (23-300) U/L Urine Color Urine Appearance (Clear) Urine pH (5.0-8.0) Ur Specific [place] (1.001-1.035) Urine Protein (Negative) Urine Glucose (UA) (Negative) Urine Ketones (Negative) Urine Blood (Negative) Urine Nitrite (Negative) Urine Bilirubin (Negative) Urine Urobilinogen (<2.0) mg/dL Ur Leukocyte Esterase (Negative) Urine RBC (0-5) /hpf Urine WBC (0-5) /hpf Ur Squamous Epith Cells (0-4) /hpf Hyaline Casts (0-2) /lpf Urine Mucus (None) /hpf Influenza Type A (PCR) Not Detected (Not Detectd) Influenza Type B (PCR) Not Detected (Not Detectd) RSV (PCR) Not Detected (Not Detectd) SARS-CoV-2 (PCR) Not Detected (Not Detectd) - EKG Data -: EKG Interpreted by Me EKG Comments: 12-lead Electrocardiogram Interpretation Note EKG was reviewed and interpreted by myself. 12-lead ECG performed at 1857 is interpreted by me as revealing normal sinus rhythm at a rate of 66 beats per minute. Oscar is normal. UT interval is 164 ms, QRS duration is 94 ms, QTc is 427 ms.. There were no ST or T wave abnormalities to suggest myocardial ischemia or injury. R wave progression across the precordium was satisfactory. By my interpretation this EKG is non-diagnostic for acute ischemia. Disposition Clinical Impression: Nausea, vomiting and diarrhea, Dehydration Disposition: HOME SELF-CARE Condition: Good Instructions (If sedation given, give patient instructions): Acute Nausea and Vomiting (ED) Additional Instructions: Follow up with Dr. Lopez to discuss CT findings near your pancreas. Prescriptions: Diphenoxylate HCl/Atropine [Diphenoxylate HCl/Atropine 2.5-0.025] 1 tab PO TID 5 Days #15 tab Is patient prescribed a controlled substance at d/c from ED?: No Referrals: Alexey Flores MD [Primary Care Provider] - 1-2 days Time of Disposition: 20:23
[2024-06-04] MEDS: POTASSIUM CHLORIDE ER 20 MEQ TAB.ER PO STA (20:41)
[2024-06-04 20:54] VITALS: BP 130/69; PULSE 79; RESP 16; TEMP 98.2
== END 2024-06-04 20:50 | disposition home or self-care (01) ==
LOC: EC 17:08
DX: R11.2 Nausea with vomiting, unspecified (principal); R19.7 Diarrhea, unspecified; E86.0 Dehydration; C50.919 Malignant neoplasm of unspecified site of unspecified female breast; Z87.891 Personal history of nicotine dependence; Z88.2 Allergy status to sulfonamides; Z88.5 Allergy status to narcotic agent
CPT/HCPCS: 99285 ×2; 96374 ×2; 96361 ×2; 36415; 93005; 80053; 82150; 83605; 83690; 85025; 85610; 85730; 81001; 87636; 74177; Q9967; J2470

== ENCOUNTER → 2024-07-07 | Outpatient (CLI) | payer MEDICARE ==
--- NOTE | 2024-07-07 10:33 | USB ---
Reason for Exam: Hx of cancer, neoadjuvant chemotherapy. Patient History: Menarche at age 12. First Full-Term at age 24. Hysterectomy at age 46. Postmenopausal. Breast cancer, right, age 68. 04/20/2024, Benign US biopsy breast VAD LT on the left side. 02/09/2024, US biopsy breast add'l VAD RT on the Right side. 02/09/2024, Malignant US biopsy breast VAD RT on the right side. Excisional Biopsy on the Right side. Prior Study Comparison: 01/28/2024 Bilateral MG 3D diag mammo w/cad DIA[facility], [facility]. 02/09/2024 Right MG diagnostic mammo RT wo CAD, [facility]. 03/10/2024 Right US breast axilla RT, [facility]. 04/20/2024 Left MG diagnostic mammo LT wo CAD., [facility]. Findings: Targeted right axillary ultrasound shows a solitary prominent but nonenlarged lymph node measuring 10 x 6 x 7 mm. Uniform cortical thickness up to 2 mm. No enlarged or suspicious right axillary lymphadenopathy seen. Overall Assessment: Known biopsy proven malignancy, BI-RAD 6 Management: Surgical Consultation of the right breast. Appropriate surgical and oncologic management for patient's known, biopsy-proven right breast cancer. Results were given to the patient verbally at the time of exam. Electronically signed and approved by: Kevin Salinas M.D. Radiologist
== END | disposition home or self-care (01) ==
LOC: RADUSWWP 10:01
PROVIDERS: ATTEND Surgery
DX: N63.0 Unspecified lump in unspecified breast

== ENCOUNTER → 2024-07-07 | Outpatient (CLI) | payer MEDICARE ==
--- NOTE | 2024-07-07 09:58 | P.PN ---
Subjective Progress Note Date: 07/07/24 Principal diagnosis: right breast invasive ductal cancer; two sites [id number]+Pr+Her2-G2; at 12:00, and [id number]+Pr+Her2-G2 lesion at 11:00 She did have a bilateral mammogram on 01-28-24, this was reviewed, no lesions of concern in the left breast. History of Present Illness Consult date: 07-07-24 Reason for Consult: right breast cancer Requesting physician: Alexey Flores History of present illness: Elisa is a 69 year old female seen in consultation for Dr. Alexey Flores on 02-20-24 regarding a right breast invasive ductal cancer. She had a bilateral mammogram on 01-28-24 which showed a 6 by 5.5 cm mass in the right breast with a 1.7 by 1.6 cm satellite lesion in the breast. She had a right breast ultrasound on 01-28-24 confirming the findings, and a core biopsy was done on 02-09-24. This showed an invasive ductal cancer of two sites, it was G2, ER+, Pr+, Her2-. On ultrasound one lesion at 12:00 was 3.3 by 4.8 cm and the second lesion at 11:00 was 1.3 by 1.3 cm. The patient has been able to feel the lump for about 1 year, it hasn't really changed in size. It is tender, it is aching in nature, it is worse if there is no breast support. She did develop some bruising after the core biopsy. She had not been getting mammograms for about 20 years, she just got insurance and got this checked She was not complaining of any nipple discharge or skin changes. She had a right breast biopsy about 25 years ago that was not cancer. She was not complaining of any recent trauma or infection. BCP: used 40 years ago for 10 years She had lost 28 pounds in the past 5 to 6 weeks which she believes is related to gallbladder disease. She had an appointment with a general surgeon in 2 weeks. She had pain RUQ when she eats. She did have a bilateral mammogram on 01-28-24, this was reviewed, no lesions of concern in the left breast. 1. PET scan: 04-19-24 no evidence of metastatic disease; lesion in the right breast and one node of concern on the right 2. oncotype on tumor: 14 3. appointment with medical oncology seeing Dr. Lopez 4. present at tumor board done on 03-02-24 5. gallbladder evaluation (cholecystectomy done approximately 6 weeks ago), she is doing well at this time note Dr. Lopez from 04-27-24 reviewed started on anastrazole and CDK4 inhibitor; surgery to be in about 4-6 weeks I have personally discussed this with Dr. Lopez; She is complaining of brain fog when send she started the anastrozole She had a breast MRI on March 1001-03 which revealed the mass in the right breast and one node of concern. Note Dr. Lopez 05-25-24 reviewed The patient states that the area of concern in the right breast has decreased in size since her treatment with Dr. Lopez. She stoped the Verzinio one month ago secondary to side effects. Caffeine: 2 cups coffee/day nicotine: 5 cigarettes per day since Chocolate: none BCP: 10 years in remote past hormones: none Family History: father: lung cancer sister: cervical cancer Hormonal History: menarche: 15 , breast fed: no, age at first : 24 menopause: 50 hormones: none Surgical History: hysterectomy; heavy bleeding, left ovaries age: 35 right breast biopsy tonsil Cholecystectomy Medical History: Uses a cane secondary to back pain related to a fracture in her 20s Social History: Nicotine: 5 cigarettes/day since Alcohol: Negative Drugs: Negative Review of Systems - Constitutional Constitutional Comment(s): weight loss related to gallstones Reports weight loss, Denies fever - EENT Eyes: denies blurred vision Ears: bilateral: tinnitus, deny: decreased hearing Ears, nose, mouth and throat: Denies dysphagia - Breasts bilateral: as per HPI - Cardiovascular Denies chest pain, Denies shortness of breath - Respiratory Denies cough - Gastrointestinal Reports as per HPI, Reports constipation - Genitourinary Genitourinary: Denies dysuria, Denies hematuria Menstruation: Reports post hysterectomy - Musculoskeletal Reports as per HPI - Integumentary Reports pruritus, Reports rash, Denies unusual bruising - Neurological Denies headaches, Denies syncope - Psychiatric Reports as per HPI - Endocrine Reports fatigue - Hematologic/Lymphatic Denies easy bleeding, Denies easy bruising - Allergic/Immunologic Reports seasonal allergies Past Medical History Past Medical History: No Reported History Additional Past Medical History / Comment(s): gallstones History of Any Multi-Drug Resistant Organisms: None Reported Past Surgical History: No Surgical Hx Reported Additional Past Surgical History / Comment(s): Right breast excisional biospy 1992, benign Past Anesthesia/Blood Transfusion Reactions: No Reported Reaction - Sexual Orientation/Gender Identity What was your sex assigned at ?: Female Preferred Pronoun: She/Her/Hers How would you describe your gender identity?: Woman Do you think of your sexual orientation as: Straight/Heterosexual Past Psychological History: No Psychological Hx Reported Smoking Status: Current every day smoker Past Alcohol Use History: None Reported Additional Past Alcohol Use History / Comment(s): 5 cigarettes daily Medications and Allergies Home Medications Medication Instructions Recorded Confirmed Type Acetaminophen Tab [Tylenol] 500 mg PO DIRECTED PRN 02/20/24 02/20/24 History Allergies Allergy/AdvReac Type Severity Reaction Status Date / Time Sulfa (Sulfonamide Allergy Nausea & Verified 02/20/24 11:34 Antibiotics) Vomiting Objective - Constitutional General appearance: Present: cooperative - EENT Eyes: Present: EOMI ENT: Present: hearing grossly normal - Neck Neck: Present: normal ROM - Respiratory Respiratory: bilateral: CTA - Cardiovascular Rhythm: regular Heart sounds: normal: S1, S2 - Gastrointestinal General gastrointestinal: Present: soft - Integumentary Integumentary: Present: normal turgor - Musculoskeletal Musculoskeletal: Present: gait normal - Psychiatric Psychiatric: Present: A&O x's 3, appropriate affect, intact judgment & insight - Additional findings Additional findings: Breast Exam: BRA: 42B Inspection: bilateral grade 3 ptosis Palpation: Right breast: Ecchymosis related to biopsy, mass upper inner quadrant approximately 9 x 6 cm in size some skin puckering is noted in the upper inner quadrant area Right axilla: No adenopathy of concern Left breast: Multi positional exam no dominant masses or nodules of concern Left axilla: No adenopathy of concern Assessment and Plan Assessment: Impression: right breast invasive ductal cancer on annastrazole; the disease is multifocal Abnormal right lymph node on MRI the axilla Plan: Patient would like to have a right mastectomy and secondary to the fact that she should is concerned regarding cancer that could happen in the left breast and she would be very asymmetric she would like bilateral mastectomies Right sentinel node biopsy, possible right axillary node dissection Right axillary ultrasound to evaluate for possible adenopathy of concern We will coordinate this with Dr. Lopez and her neoadjuvant hormone therapy Preoperative clearance Dr. Alexey Flores CC: Dr. Alexey Flores, Dr. Lopez
[2024-07-07 10:08] VITALS: BP 137/75; PULSE 70; RESP 17; TEMP 97.8
== END ==
LOC: WWCWWP 08:55
PROVIDERS: ATTEND Surgery
DX: C50.811 Malignant neoplasm of overlapping sites of right female breast (principal); F17.210 Nicotine dependence, cigarettes, uncomplicated; Z17.0 Estrogen receptor positive status [ER+]; Z88.2 Allergy status to sulfonamides; Z88.5 Allergy status to narcotic agent

== ENCOUNTER 2024-07-27 07:38 | Day surgery (SDC) | payer MEDICARE, OTHER ==
[~2024-07-27 07:38] MED LIST: LIDOCAINE 1% (10MG/ML) FOR IV START INTRADERMA PRN; MIDAZOLAM 2 MG/2 ML VIAL IV PRN
[2024-07-27] MEDS: LACTATED RINGERS 1,000 ML IV SCH (08:34)
[2024-07-27] MEDS: IV FLUID CONTINUATION 1,000 ML IV ONE (08:38)
[2024-07-27] MEDS: DEXAMETHASONE SOD PHOSPHATE 4 MG/ML 1 ML VIAL IV ONE (08:49)
[2024-07-27] MEDS: ACETAMINOPHEN TAB 500 MG TAB PO PRN (08:49)
[2024-07-27] MEDS: HEPARIN SODIUM,PORCINE 5,000 UNIT/ML 1 ML VIAL SQ PRN (08:49)
[2024-07-27] MEDS: ONDANSETRON 4 MG/2 ML VIAL IVP ONE (08:49)
[2024-07-27 09:03] LABS: African American GFR (CKD) >90 (>60 ml/min/1.73 sqM); Anion Gap 6 mmol/L; Blood Urea Nitrogen 11 mg/dL (7-17); Calcium 9.7 mg/dL (8.4-10.2); Carbon Dioxide 29 mmol/L (22-30); Chloride 106 mmol/L (98-107); Glucose 98 mg/dL (74-99); Non-African American GFR(CKD) 90 (>60 ml/min/1.73 sqM); Potassium 4.2 mmol/L (3.5-5.1); Sodium 141 mmol/L (137-145)
[2024-07-27] MEDS ORDERED: fentaNYL (PF) 50 MCG/ML 2 ML AMP ONE (09:33)
[2024-07-27] MEDS ORDERED: LIDOCAINE 1% INJ 10MG/ML (20 ML MDV) ONE (09:33)
[2024-07-27] MEDS ORDERED: PROPOFOL 10 MG/ML 20 ML VIAL IV ONE (09:33)
[2024-07-27] MEDS ORDERED: ePHEDrine 50 MG/ML 1 ML VIAL ONE (09:33)
[2024-07-27] MEDS ORDERED: SUCCINYLCHOLINE CHLORIDE 200 MG/10 ML VIAL IV ONE (09:33)
[2024-07-27] MEDS ORDERED: GLYCOPYRROLATE 0.2 MG/ML 2 ML VIAL ONE (09:33)
--- NOTE | 2024-07-27 09:34 | NM ---
EXAMINATION TYPE: NM sentinel node injection DATE OF EXAM: 07/27/2024 COMPARISON: NONE INDICATION: Abnormal mammogram. Informed consent was obtained. A timeout was performed. The area around the right nipple was cleansed with alcohol. In a single dose, a total of 560.0 uCi Technetium 99m Tilmanocept was injected. The patient tolerated the procedure very well. IMPRESSION: 1. Successful injection for sentinel node evaluation. [facility], , 07/27/2024 9:32 AM
--- NOTE | 2024-07-27 09:47 | P.NAPBC ---
NAPBC Queries - NAPBC Queries Was patient's case review presented at [facility] tumor board? If no, comment.: Yes Was patient's pathology reviewed at [facility]? If no, comment.: Yes Was breast conservation surgery offered? If no, comment.: No Was sentinel node biopsy offered? If no, comment.: Yes Was diagnosis confirmed by percutaneous core biopsy? If no, comment.: Yes Is patient mastectomy patient?: Yes Was a preop referral to reconstructive surgeon offered?: Yes Clinical Stage: right breast [id number] invasive ductal cancer, status post neoadjuvant annestrazole and CDK4 inhibitor
[2024-07-27] MEDS: METHYLENE BLUE 50 MG/10 ML AMPUL INJ ONE (10:10)
[2024-07-27] MEDS: LACTATED RINGERS 1,000 ML IV ONE (12:38)
[2024-07-27] MEDS ORDERED: NALOXONE 0.4 MG/ML 1 ML VIAL IV PRN (13:41)
[2024-07-27] MEDS ORDERED: HYDROmorphone 1 MG/ML 1 ML SYRINGE IVP PRN (13:41)
--- NOTE | 2024-07-27 13:41 | P.BCAON ---
Date of Procedure: 07/27/24 Preoperative Diagnosis: Right breast invasive ductal carcinoma Postoperative Diagnosis: Same Procedure(s) Performed: Right breast mastectomy, right sentinel node mapping, right deep axillary node resection, left breast mastectomy Anesthesia: SARINA Surgeon: Marylin Isaac Estimated Blood Loss (ml): 30 IV fluids (ml): 900 Pathology: other (Bilateral breast right axillary contents) Condition: stable Disposition: floor Indications for Procedure: Right breast invasive ductal carcinoma status post neoadjuvant hormone therapy Operative Findings: Fibrofatty breast tissue/residual tumor right breast Description of Procedure: The patient was seen by radiology in the perioperative area and radiotracer was injected into the periareolar region on the right. She was then brought to the operative suite. Following induction of anesthesia the neoprobe was used to interrogate the right axilla. No tracer was identified. Therefore 5 cc of half percent methylene blue was injected into the periareolar region and the breast was massaged for 3 minutes. Both breast were prepped and draped in the sterile fashion as was the right axilla. The right mastectomy was approached initially. Markings for superior and inferior flaps have been developed. This fear. A flap was developed and brought down to the pectoralis muscle. The inferior flap likewise was developed and brought down to the pectoralis muscle. The breast was removed from medial to lateral being careful to maintain hemostasis using the electrocautery device, harmonic scalpel, and suture ligation is needed. Dissection was performed to the area of the axilla. The breast tissue was transected at this point. Using the neoprobe an area of minimal radioactivity was identified. The background count was 28 and the area of minimal activity was approximately 42. This specimen was elevated using an Allis clamp. It appeared that there may be a small amount of blue dye in this area as well. The lesion was excised and sent for pathology which confirmed it was a lymph node. A second palpable area of adenopathy was identified and removed. This was also confirmed to be a lymph node by radiology. A minute focus of tumor was identified in this specimen. In total 3 lymph nodes were evaluated by pathology and 2 were shown to have no cancer. No additional adenopathy was palpated. There was no evidence of any radioactivity of concern. There was no methylene blue enhanced lymph nodes left. 2 FLASH drains were placed. 1 along the inferior flap and 1 in the axilla. Wound was well irrigated. After reassured that hemostasis was attained Surgicel in powder form was placed. Interrupted 3-0 Vicryl sutures were placed. This was followed by 3-0 running Vicryl suture. This was followed by a 4-0 Monocryl. The area of the left breast was approached. Superior and inferior inferior skin flaps were developed. They were carried down to the pectoralis muscle. The breast was removed from medial to lateral being careful to maintain hemostasis using the electrocautery device. Additionally the harmonic scalpel or suture ligation were used as needed. After the specimen was removed the wound was well irrigated for and evaluated for hemostasis. Hemostasis was attained using the electrocautery device, the harmonic scalpel, and suture ligation is needed. Surgicel in powder form was placed. A #10 FLASH drain was placed. The FLASH drains were secured in place using nylon suture. The subcutaneous tissue on the left was closed using 3-0 Vicryl suture. A running 3-0 Vicryl suture was formed. And a 4-0 Monocryl subcu reticular suture was placed. 10 cc of 1% lidocaine were placed into the incisions. The patient tolerated the procedure in stable condition. All instrument and sponge counts were correct at the end of the c ase. - Sentinal Node Biopsy Operation performed with curative intent: Yes Tracer(s) used in upfront surgery (non-neoadjuvant): N/A Tracer(s) used in the neoadjuvant setting: dye, radioactive tracer All nodes present at end of dye-filled channel removed: Yes All significantly radioactive nodes were removed: Yes All palpably suspicious nodes were removed: Yes Clipped positive nodes identified and removed: N/A
[2024-07-27] MEDS: LIDOCAINE 1% INJ 10MG/ML (20 ML MDV) SQ ONE (13:50)
[2024-07-27] MEDS: ONDANSETRON 4 MG/2 ML VIAL IVP PRN (14:28)
[2024-07-27] MEDS: HYDROmorphone 0.5 MG/0.5 ML SYRINGE IVP PRN (14:35)
[2024-07-27] MEDS: DEXTROSE 5%-0.45% NACL 1,000 ML IV SCH (16:22)
[2024-07-27] MEDS: PROCHLORPERAZINE INJ 10 MG/2 ML VIAL IM STA (17:39)
[2024-07-27] MEDS: HYDROcodone/APAP 5-325MG 1 EACH TAB PO PRN (21:05)
--- NOTE | 2024-07-27 21:08 | P.CONS ---
History of Present Illness - Reason for Consult Consult date: 07/27/24 Medical management Requesting physician: Marylin Isaac - Chief Complaint Mastectomy - History of Present Illness This is a pleasant 69-year-old patient who follows with Dr. Anderson Flores. Patient is undergone right breast mastectomy, right sentinel node mapping, right deep axillary node resection, left mastectomy. Patient has drains in place. Pain present at the operative site. Patient been having nausea also. Decreased appetite. Patient has some sinusitis for which she takes Sudafed. Arthritis in different joints. Other than that in good health. Review of systems: GEN.: Tired EYES: None HEENT: [Often runny nose NECK: None RESPIRATORY: None CARDIOVASCULAR: None GASTROINTESTINAL: Nausea GENITOURINARY: None MUSCULOSKELETAL: Pain in several joints LYMPHATICS: None HEMATOLOGICAL: None PSYCHIATRY: None NEUROLOGICAL: None Social history: Smoked half a pack of cigarettes a day on and off since age of 21. No alcohol. Physical examination: VITAL SIGNS: Afebrile, 65, 18, 106/61, 98% room air GENERAL: BMI 31.7, reclining bed awake. EYES: Pupils equal. Conjunctiva yaritza l. HEENT: External appearance of nose and ears normal, oral cavity grossly normal. NECK: JVD not raised; masses not palpable. HEART: First and second heart sounds are normal; no edema. LUNGS: Respiratory rate normal; clear to auscultation. ABDOMEN: Soft, nontender, liver spleen not palpable, no masses palpable. CHEST wall: Dressing across the chest wall. Drains in place PSYCH: Alert and oriented x3; mood and affect yaritza l. MUSCULOSKELETAL:No Clubbing/cyanosis;muscles-grossly intact. OA in different joints NEUROLOGICAL: Cranial nerves grossly intact; no facial asymmetry, power and sensation grossly intact. LYMPHATICS: No lymph nodes palpable in the axilla and neck INVESTIGATIONS, reviewed in the clinical context: July 27: Sodium 141 potassium 4.2 creatinine 0.68 Assessment plan: -Bilateral mastectomy. Right breast T3 N0 M0 ER positive CT positive HER2 negative G2 invasive ductal cancer status post neoadjuvant anastrozole and CDK 4 inhibitor Pain control. Patient has drains -Postop nausea secondary to likely pain medications Antinausea medications -Primary osteoarthritis in multiple joints Tylenol as needed -Chronic urinary stress incontinence -Full code Care was discussed with patient. Questions answered. Thank you Past Medical History Past Medical History: Cancer Additional Past Medical History / Comment(s): hx. gallstones, right breast ca History of Any Multi-Drug Resistant Organisms: None Reported Past Surgical History: Breast Surgery, Cholecystectomy, Hysterectomy Additional Past Surgical History / Comment(s): benign right breast excisional biopsy 1992; malignant right breast u/s core bx. 02/09/24 Past Anesthesia/Blood Transfusion Reactions: No Reported Reaction Past Psychological History: No Psychological Hx Reported Smoking Status: Former smoker Past Alcohol Use History: None Reported Additional Past Alcohol Use History / Comment(s): smokes <1/2 ppd cigarettes daily on and off since age 21 Past Drug Use History: None Reported Medications and Allergies Home Medications Medication Instructions Recorded Confirmed Type Acetaminophen Tab [Tylenol] 500 - 1,000 mg PO Q6H PRN 02/20/24 07/22/24 History Pseudoephedrine [Sudafed] 30 mg PO DAILY PRN 03/27/24 07/22/24 History Anastrozole [Arimidex] 1 mg PO DAILY 07/22/24 07/22/24 History oxyCODONE HCL [OxyIR] 5 mg PO Q6H PRN #5 tab 07/27/24 Rx Allergies Allergy/AdvReac Type Severity Reaction Status Date / Time Sulfa (Sulfonamide Allergy Anaphylaxis Verified 07/22/24 13:54 Antibiotics) morphine AdvReac Nausea & Verified 07/22/24 13:54 Vomiting Physical Exam Vitals: Vital Signs Temp Pulse Pulse Resp BP BP Pulse Ox 07/27/24 17:46 65 18 106/61 98 07/27/24 17:06 65 16 144/80 97 07/27/24 16:36 70 16 122/71 95 07/27/24 16:33 65 18 136/76 98 07/27/24 15:59 63 18 138/76 98 07/27/24 15:51 97.6 F 86 16 131/79 97 07/27/24 15:00 66 16 157/75 100 07/27/24 14:51 73 16 154/73 100 07/27/24 14:37 70 15 140/67 100 07/27/24 14:22 65 16 143/68 100 07/27/24 14:07 97.2 F L 82 16 133/73 100 07/27/24 08:44 97 F L 61 18 144/72 98 Intake and Output 07/27/24 07/27/24 07/27/24 06:59 14:59 22:59 Intake Total 1450 Output Total 35 50 Balance 1415 -50 Intake: IV 1450 Output: Drainage 50 Left Breast 20 Right Breast 10 Right Chest 20 Estimated Blood Loss 35 Other: Weight 86.4 kg Results CBC & Chem 7: 07/27/24 08:31
[2024-07-28 04:52] LABS: Basophils % (A) 0 %; Eosinophils % (A) 0 %; HCT 34.2 % (34.0-46.0); HGB 11.1 gm/dL (11.4-16.0); Hypochromasia Slight; Lymphocytes # (A) 0.7 k/uL (1.0-4.8); Lymphocytes % (A) 7 %; MCH 31.1 pg (25.0-35.0); MCHC 32.3 g/dL (31.0-37.0); MCV 96.1 fL (80.0-100.0); Mean Platelet Volume 7.5; Monocytes # (A) 0.4 k/uL (0-1.0); Monocytes % (A) 4 %; Neutrophils # (A) 8.6 k/uL (1.3-7.7); Neutrophils % (A) 88 %; Platelet Count 214 k/uL (150-450); RBC 3.56 m/uL (3.80-5.40); RDW 14.4 % (11.5-15.5); WBC 9.7 k/uL (3.8-10.6)
--- NOTE | 2024-07-28 13:01 | P.PN ---
Subjective Progress Note Date: 07/28/24 Principal diagnosis: Postop day #1 bilateral mastectomy with right deep axillary node resection Patient is a 69-year-old female status post bilateral mastectomy with a right deep axillary node resection. Postoperatively she is doing well. FLASH output is serous in nature. Hemoglobin is 11. The patient is complaining of some difficulty with postoperative discomfort. Objective - Vital Signs Vital signs: Vital Signs Temp 98.0 F 07/28/24 00:00 Pulse 63 07/28/24 00:00 Resp 16 07/28/24 00:00 BP 133/69 07/28/24 08:00 Pulse Ox 95 07/28/24 00:00 FiO2 Intake & Output 07/27/24 07/28/24 07/28/24 18:59 06:59 18:59 Intake Total 1450 300 Output Total 85 140 30 Balance 1365 160 -30 Weight 86.4 kg Intake: IV 1450 Oral 300 Output: Drainage 50 140 30 Left Breast 20 40 30 Right Breast 10 50 Right Chest 20 50 Estimated Blood Loss 35 Other: # Voids 1 - Constitutional General appearance: Present: cooperative - EENT Eyes: Present: EOMI ENT: Present: hearing grossly normal - Neck Neck: Present: normal ROM - Respiratory Respiratory: bilateral: CTA - Cardiovascular Heart sounds: normal: S1, S2 - Integumentary Integumentary Comment(s): Dressing Changed, incision clean and dry bilateral, FLASH output serous in nature from all 3 FLASH drains No evidence of seroma on either side - Psychiatric Psychiatric: Present: A&O x's 3, appropriate affect, intact judgment & insight - Labs CBC & Chem 7: 07/28/24 04:20 07/27/24 08:31 Labs: Abnormal Lab Results - Last 24 Hours (Table) 07/28/24 Range/Units 04:20 RBC 3.56 L (3.80-5.40) m/uL Hgb 11.1 L (11.4-16.0) gm/dL Neutrophils # 8.6 H (1.3-7.7) k/uL Lymphocytes # 0.7 L (1.0-4.8) k/uL Assessment and Plan Assessment: Patient: Patient doing well postop day #1 bilateral mastectomy with right deep axillary node resection Plan: Continue pain management Probable discharge home tomorrow Home health care at discharge Change IV to heparin lock
--- NOTE | 2024-07-28 22:25 | P.PN ---
Progress Note - Text Progress Note Date: 07/28/24 - Chief Complaint Mastectomy - History of Present Illness This is a pleasant 69-year-old patient who follows with Dr. Anderson Flores. Patient is undergone right breast mastectomy, right sentinel node mapping, right deep axillary node resection, left mastectomy. Patient has drains in place. Pain present at the operative site. Patient been having nausea also. Decreased appetite. Patient has some sinusitis for which she takes Sudafed. Arthritis in different joints. Other than that in good health. July 28: Some pain at operative site. Chest drains in place. Output noted. Did walk in the hallway. Having some nausea. Diet discussed. No dizziness no lightheadedness. No cardiac symptoms. Active Medications Hydrocodone Bitart/Acetaminophen (Hydrocodone/Apap 5-325mg 1 Each Tab) 1 each PO Q4HR PRN PRN Reason: Moderate Pain (Scale 4 to 6) Stop: 08/26/24 13:40 Last Admin: 07/28/24 18:32 Dose: 1 each Hydromorphone HCl (Hydromorphone 1 Mg/Ml 1 Ml Syringe) 1 mg IVP Q3HR PRN PRN Reason: Severe Pain (Scale 7 to 10) Stop: 08/26/24 13:40 Lactated Ringer's (Lactated Ringers) 1,000 mls @ 20 mls/hr IV .Q24H BEVERLY Stop: 08/25/24 13:59 Last Admin: 07/27/24 16:22 Dose: Not Given Dextrose/Sodium Chloride (Dextrose 5%-1/2ns Iv Soln) 1,000 mls @ 100 mls/hr IV .Q10H B[place]LY Stop: 08/26/24 14:59 Last Admin: 07/28/24 03:43 Dose: 100 mls/hr Lidocaine HCl (Lidocaine 1% (10mg/Ml) For Iv Start) 0.1 ml INTRADERMA PER PROTOCOL PRN PRN Reason: IV Start Stop: 08/25/24 13:54 Naloxone HCl (Naloxone 0.4 Mg/Ml 1 Ml Vial) 0.2 mg IV Q2M PRN PRN Reason: Opioid Reversal Stop: 08/26/24 13:40 Ondansetron HCl (Ondansetron 4 Mg/2 Ml Vial) 4 mg IVP Q8HR PRN PRN Reason: Nausea And Vomiting Stop: 08/26/24 13:40 Last Admin: 07/27/24 14:28 Dose: 4 mg Social history: Smoked half a pack of cigarettes a day on and off since age of 21. No alcohol. Physical examination: VITAL SIGNS: 97.8, 66, 20, 112/70, 96% room air GENERAL: BMI 31.7, comfortable. EYES: Pupils equal. Conjunctiva yaritza l. HEENT: External appearance of nose and ears normal, oral cavity grossly normal. NECK: JVD not raised; masses not palpable. HEART: First and second heart sounds are normal; no edema. LUNGS: Respiratory rate normal; clear to auscultation. ABDOMEN: Soft, nontender, liver spleen not palpable, no masses palpable. CHEST wall: Dressing across the chest wall. Drains in place PSYCH: Alert and oriented x3; mood and affect yaritza l. MUSCULOSKELETAL:No Clubbing/cyanosis;muscles-grossly intact. OA in different joints INVESTIGATIONS, reviewed in the clinical context: July 28: White: 0.7 hemoglobin 11.1 platelets 214 July 27: Sodium 141 potassium 4.2 creatinine 0.68 Assessment plan: -Bilateral mastectomy. Right breast T3 N0 M0 ER positive NC positive HER2 negat elina G2 invasive ductal cancer status post neoadjuvant anastrozole and CDK 4 inhibitor Pain control. Patient has drains -Likely acute postop blood loss anemia expected from surgery Add ferrous sulfate -Postop nausea secondary to likely pain medications Antinausea medications -Primary osteoarthritis in multiple joints Tylenol as needed -Chronic urinary stress incontinence -Full code Diet discussed with the patient. Ambulate as tolerated. Thank you Past Medical History Past Medical History: Cancer Additional Past Medical History / Comment(s): hx. gallstones, right breast ca History of Any Multi-Drug Resistant Organisms: None Reported Past Surgical History: Breast Surgery, Cholecystectomy, Hysterectomy Additional Past Surgical History / Comment(s): benign right breast excisional biopsy 1992; malignant right breast u/s core bx. 02/09/24 Past Anesthesia/Blood Transfusion Reactions: No Reported Reaction Past Psychological History: No Psychological Hx Reported Smoking Status: Former smoker Past Alcohol Use History: None Reported Additional Past Alcohol Use History / Comment(s): smokes <1/2 ppd cigarettes d aily on and off since age 21 Past Drug Use History: None Reported
--- NOTE | 2024-07-29 07:59 | P.PN ---
Subjective Progress Note Date: 07/29/24 Principal diagnosis: Postop day #2 bilateral mastectomy with right deep axillary node resection Patient is a 69-year-old female status post bilateral mastectomy with a right deep axillary node resection. Postoperatively she is doing well. FLASH output is serous in nature. Hemoglobin is 11. The patient's pain is under control. She is tolerating a diet. She appreciated from internal medicine Objective - Vital Signs Vital signs: Vital Signs Temp 98.0 F 07/28/24 23:20 Pulse 64 07/28/24 23:20 Resp 16 07/28/24 23:20 BP 115/79 07/28/24 23:20 Pulse Ox 98 07/28/24 23:20 FiO2 Intake & Output 07/28/24 07/29/24 07/29/24 18:59 06:59 18:59 Output Total 195 230 Balance -195 -230 Output: Drainage 195 230 Left Breast 80 85 Right Breast 55 60 Right Chest 60 85 Other: # Voids 0 - Constitutional General appearance: Present: cooperative - EENT Eyes: Present: EOMI ENT: Present: hearing grossly normal - Neck Neck: Present: normal ROM - Respiratory Respiratory: bilateral: CTA - Cardiovascular Heart sounds: normal: S1, S2 - Integumentary Integumentary Comment(s): Incision clean and dry bilateral, FLASH output serous in nature, no evidence of seroma bilaterally - Psychiatric Psychiatric: Present: A&O x's 3, appropriate affect, intact judgment & insight - Labs CBC & Chem 7: 07/28/24 04:20 07/27/24 08:31 Assessment and Plan Assessment: Patient: Patient doing well postop day #2 bilateral mastectomy with right deep axillary node resection Plan: Continue pain management discharge home Home health care at discharge
--- NOTE | 2024-07-29 08:03 | P.DS ---
Providers Date of admission: 05-26-24 Expected date of discharge: 07/29/24 Attending physician: Marylin Isaac Consults: 07/27/24 13:44 Consult Physician Routine Consulting Provider: Aaron Clemons Consult Reason/Comments: medical managment Do you want consulting provider notified?: Yes Primary care physician: Alexey Flores [facility] Course: Elisa is a 69-year-old female who underwent a bilateral mastectomy with a right sentinel node deep axillary dissection on 07-27-2024. This was for a right breast invasive ductal carcinoma for which she was treated with neoadjuvant hormone therapy. Postoperatively she is doing well tolerating a diet without difficulty and her pain is under control. Plan - Discharge Summary Discharge Rx Participant: Yes New Discharge Prescriptions: New oxyCODONE HCL [OxyIR] 5 mg PO Q6H PRN #5 tab PRN Reason: Breakthrough Pain No Action Acetaminophen Tab [Tylenol] 500 - 1,000 mg PO Q6H PRN PRN Reason: Pain Pseudoephedrine [Sudafed] 30 mg PO DAILY PRN PRN Reason: Congestion Anastrozole [Arimidex] 1 mg PO DAILY Discharge Medication List Acetaminophen Tab [Tylenol] 500 - 1,000 mg PO Q6H PRN 02/20/24 [History] Pseudoephedrine [Sudafed] 30 mg PO DAILY PRN 03/27/24 [History] Anastrozole [Arimidex] 1 mg PO DAILY 07/22/24 [History] oxyCODONE HCL [OxyIR] 5 mg PO Q6H PRN #5 tab 07/27/24 [Rx] Follow up Appointment(s)/Referral(s): Marylin Isaac MD [STAFF PHYSICIAN] - 08/06/24 11:20 am [facility] Visiting Nurse, [NON-STAFF] - 1-2 Days ([phone]) Activity/Diet/Wound Care/Special Instructions: Wear the wrap at all times May shower after 48 hours Teach drain care; and record output twice daily and as needed, keep drains to suction at all times Do not drive until seen by Dr. Flores Discharge Disposition: HOME WITH HOME HEALTH SERVICES
[2024-07-29 08:36] VITALS: BP 114/72; PULSE 59; RESP 18; TEMP 98.2
[2024-07-29] MEDS ORDERED: FERROUS SULFATE 325 MG TAB PO SCH (12:30)
== END 2024-07-29 10:35 | disposition home health service (06) ==
LOC: OR 07:38 → 4FBP 14:07 → OR 07-29 10:35
PROVIDERS: ATTEND Surgery
DX: C50.411 Malignant neoplasm of upper-outer quadrant of right female breast
CPT/HCPCS: 38792; 80048; 85025; 88305; 88307; 88309; 88331; 88341; 88342

== ENCOUNTER → 2024-08-06 | Outpatient (CLI) | payer MEDICARE ==
[2024-08-06 12:00] VITALS: BP 135/82; PULSE 71; RESP 18; TEMP 97.6
--- NOTE | 2024-08-06 12:21 | P.BCPO ---
Progress Note - Text Progress Note Date: 08/06/24 Elisa is status post bilateral mastectomy and right axillary tissue removal on 07-28-24. Pathology lesion 6 by 9 by 3 cm and 6 nodes 3 macromets, 1 micor mets. Left breast no cancer. She is doing well postoperatively. Examination: Lungs: Clear Heart: Regular rate and rhythm Incision clean and dry bilateral with no seroma Minimal output from drain labeled left and the drain labeled B A is under the flap on the right side and this will stay in until next week The drainage is serous in nature and minimal from drai labeled A and left Patient given a copy of the pathology report Assessment patient has some difficulty with arm abduction secondary to discomfort in the inner arms as specially on the left Plan: Removed 2 FLASH drains that on the left and right drain labeled A removed follow with radiation oncology follow with medical oncology follow one week for drain removal physical therapy appointment with physical therapy CC: Dr. Alexey Flores Post Op Education - Post Op Education Post Op Education Provided Date: 08/06/24 - Functional Assessment Performed?: Yes (difficulty with arm abduc) Referal Provided?: Yes Path Report - Was patient given path report? Path Report Date Given: 08/06/24
== END ==
LOC: WWCWWP 10:15
PROVIDERS: ATTEND Surgery
DX: Z04.89 Encounter for examination and observation for other specified reasons (principal); Z85.3 Personal history of malignant neoplasm of breast; Z90.13 Acquired absence of bilateral breasts and nipples; Z88.2 Allergy status to sulfonamides; Z88.5 Allergy status to narcotic agent

== ENCOUNTER → 2024-08-12 | Outpatient (CLI) | payer MEDICARE ==
[2024-08-12 11:47] VITALS: BP 134/83; PULSE 76; RESP 17; TEMP 97.9
--- NOTE | 2024-08-12 12:14 | P.PN ---
Subjective Progress Note Date: 08/12/24 08-12-24 Elisa is status post bilateral mastectomy and right axillary tissue removal on 07-28-24. Pathology lesion 6 by 9 by 3 cm and 6 nodes 3 macromets, 1 micor mets. Left breast no cancer. She is doing well postoperatively. Examination: Lungs: Clear Heart: Regular rate and rhythm Incision clean and dry bilateral the left side one drain remains The drainage is serous in nature and greater than 40 cc/day Patient given a copy of the pathology report last week Assessment patient has some difficulty with arm abduction secondary to discomfort in the inner arms especially on the left Plan: Removed 2 FLASH drains one on the left and right drain labeled A removed on 08-06-24 follow with radiation oncology follow with medical oncology follow one week for sided drain removal Aspiration seroma left chest wall appointment with physical therapy CC: Dr. Alexey Flores Objective - Vital Signs Vital signs: Vital Signs Temp 97.9 F 08/12/24 11:44 Pulse 76 08/12/24 11:44 Resp 17 08/12/24 11:44 BP 134/83 08/12/24 11:44 Pulse Ox 97 08/12/24 11:44 FiO2 Intake & Output 08/11/24 08/12/24 08/12/24 18:59 06:59 18:59 Weight 82.554 kg
== END ==
LOC: WWCWWP 11:06
PROVIDERS: ATTEND Surgery
DX: L76.33 Postprocedural seroma of skin and subcutaneous tissue following a dermatologic procedure (principal); Z90.13 Acquired absence of bilateral breasts and nipples; Z85.3 Personal history of malignant neoplasm of breast; Z88.2 Allergy status to sulfonamides; Z88.5 Allergy status to narcotic agent

== ENCOUNTER → 2024-08-18 | Outpatient (CLI) | payer MEDICARE ==
--- NOTE | 2024-08-18 11:38 | P.PN ---
Subjective Progress Note Date: 08/18/24 Subjective Progress Note Date: 08-18-24 Elisa is status post bilateral mastectomy and right axillary tissue removal on 07-28-24. Pathology lesion 6 by 9 by 3 cm and 6 nodes 3 macromets, 1 micor mets. Left breast no cancer. She is doing well postoperatively. Aspiration seroma left chest wall on 08-12-24 Following informed consent the area of concern was prepped using alcohol. An 18-gauge needle and a 20 cc syringe was used to aspirate 60 cc of straw-colored fluid. There was complete resolution of the seroma. The patient will follow-up in 1 week Today she has a small seroma on the left chest wall and minimal output from the right FLASH drain Examination: Lungs: Clear Heart: Regular rate and rhythm Incision clean and dry bilateral the left side a small seroma Patient given a copy of the pathology report last week Assessment patient had some difficulty with arm abduction secondary to discomfort in the inner arms especially on the left improved from last week Plan: Remove FLASH drain on the right aspiration of seroma on the left follow with radiation oncology follow with medical oncology Aspiration seroma left chest wall Following informed consent the area of concern in the left breast was prepped using alcohol. An 18-gauge needle and a 20 cc syringe was used to aspirate 45 cc of straw-colored fluid with complete resolution of the seroma. appointment with physical therapy follow up here in 4 months sooner any concerns CC: Dr. Alexey Flores
[2024-08-18 11:39] VITALS: BP 110/71; PULSE 88; RESP 16; TEMP 98.3
== END ==
LOC: WWCWWP 10:10
PROVIDERS: ATTEND Surgery
DX: Z85.3 Personal history of malignant neoplasm of breast

== ENCOUNTER 2024-09-27 00:46 | Emergency (ER) | payer MEDICARE ==
--- NOTE | 2024-09-27 01:08 | ED ---
Recheck HPI - General Chief Complaint: Extremity Problem,Nontraumatic Stated Complaint: Lower extremity pain Time Seen by Provider: 09/27/24 00:57 Source: EMS, RN notes reviewed, old records reviewed Mode of arrival: EMS Limitations: no limitations - History of Present Illness Initial Comments: This is a 69-year-old female to the ER for evaluation today. Patient plans today for evaluation regards to severe pain generalized pain pain everywhere but mainly complaining of leg pain believe is related to cancer type pain, medication related pain with chemotherapy patient believes she is significantly dehydrated MD Complaint: other (Significant pain) Returns Today for: persistent/worsening pain related to initial visit Symptoms Since Prior Visit: worsening pain Associated Symptoms: chest pain, abdominal pain Treatments Prior to Arrival: Given Pain Meds on - Related Data Home Medications Medication Instructions Recorded Confirmed Acetaminophen Tab [Tylenol] 500 - 1,000 mg PO Q6H PRN 02/20/24 08/18/24 Pseudoephedrine [Sudafed] 30 mg PO DAILY PRN 03/27/24 08/18/24 Anastrozole [Arimidex] 1 mg PO DAILY 07/22/24 08/18/24 Previous Rx's Medication Instructions Recorded oxyCODONE HCL [OxyIR] 5 mg PO Q6H PRN #5 tab 07/27/24 Allergies Allergy/AdvReac Type Severity Reaction Status Date / Time Sulfa (Sulfonamide Allergy Anaphylaxis Verified 09/27/24 00:55 Antibiotics) morphine AdvReac Nausea & Verified 09/27/24 00:55 Vomiting Review of Systems ROS Statement: Those systems with pertinent positive or pertinent negative responses have been documented in the HPI. ROS Other: All systems not noted in ROS Statement are negative. Past Medical History Past Medical History: No Reported History, Cancer Additional Past Medical History / Comment(s): gallstones. Breast cancer History of Any Multi-Drug Resistant Organisms: None Reported Past Surgical History: No Surgical Hx Reported, Cholecystectomy Additional Past Surgical History / Comment(s): Right breast excisional biospy 1992, benign, double breast removal, lymphnode removal july 2024. Past Anesthesia/Blood Transfusion Reactions: No Reported Reaction Past Psychological History: No Psychological Hx Reported Smoking Status: Former smoker Past Alcohol Use History: None Reported Past Drug Use History: None Reported General Exam General appearance: alert, in no apparent distress Head exam: Present: atraumatic, normocephalic, normal inspection Eye exam: Present: normal appearance, PERRL, EOMI. Absent: scleral icterus, conjunctival injection, periorbital swelling ENT exam: Present: normal exam, mucous membranes moist Neck exam: Present: normal inspection. Absent: tenderness, meningismus, lymphadenopathy Respiratory exam: Present: normal lung sounds bilaterally. Absent: respiratory distress, wheezes, rales, rhonchi, stridor Cardiovascular Exam: Present: regular rate, normal rhythm, normal heart sounds. Absent: systolic murmur, diastolic murmur, rubs, gallop, clicks GI/Abdominal exam: Present: soft, normal bowel sounds. Absent: distended, tenderness, guarding, rebound, rigid Extremities exam: Present: normal inspection, full ROM, normal capillary refill. Absent: tenderness, pedal edema, joint swelling, calf tenderness Back exam: Present: normal inspection Neurological exam: Present: alert, oriented X3, CN II-XII intact Psychiatric exam: Present: normal affect, normal mood Skin exam: Present: warm, dry, intact, normal color. Absent: rash Course Vital Signs 09/27/24 09/27/24 09/27/24 00:48 01:35 02:28 Temperature 98.2 F Pulse Rate 82 70 84 Respiratory 18 18 18 Rate Blood Pressure 127/69 113/72 119/59 O2 Sat by Pulse 96 97 95 Oximetry - Reevaluation(s) Reevaluation #1: 09/27/24 01:08 Medical records reviewed Reevaluation #2: 09/27/24 02:57 Patient symptoms improved Reevaluation #3: 09/27/24 02:57 Patient informed of results and questions answered Reevaluation #4: Was pt. sent in by a medical professional or institution (, PA, CUSTOMER SERVICE SECURITY OFFICER, urgent care, hospital, or intermediate...) When possible be specific @ -no Did you speak to anyone other than the patient for history (EMS, parent, family, police, friend...)? What history was obtained from this source @ -no Did you review nursing and triage notes (agree or disagree)? Why? @ -agree Are old charts reviewed (outside hosp., previous admission, EMS record, old EKG, old radiological studies, urgent care reports/EKG's, intermediate records)? Report findings @ -yes Differential Diagnosis (chest pain, altered mental status, abdominal pain women, abdominal pain men, vaginal bleeding, weakness, fever, dyspnea, syncope, headache, dizziness, GI bleed, back pain, seizure, CVA, palpatations, mental health, musculoskeletal)? @ -prior EKG interpreted by me (3pts min.). @ -yes X-rays interpreted by me (1pt min.). @ -yes negative for acute disease CT interpreted by me (1pt min.). @ -no U/S interpreted by me (1pt. min.). @ -no What testing was considered but not performed or refused? (CT, X-rays, U/S, labs)? Why? @ -none What meds were considered but not given or refused? Why? @ -none Did you discuss the management of the patient with other professionals (professionals i.e. , PA, CUSTOMER SERVICE SECURITY OFFICER, lab, RT, psych nurse, healthcare social worker, regional marketing director, teacher, chief mechanical officer, watch case polisher)? Give summary @ -no Was smoking cessation discussed for >3mins.? @ -no Was critical care preformed (if so, how long)? @ -no Were there social determinants of health that impacted care today? How? (Patricia elessness, low income, unemployed, alcoholism, drug addiction, transportation, low edu. Level, literacy, decrease access to med. care, skilled nursing, rehab)? @ -none Was there de-escalation of care discussed even if they declined (Discuss DNR or withdrawal of care, Hospice)? DNR status @ -no What co-morbidities impacted this encounter? (DM, HTN, Smoking, COPD, CAD, Cancer, CVA, ARF, Chemo, Hep., AIDS, mental health diagnosis, sleep apnea, morbid obesity)? @ -none Was patient admitted / discharged? Hospital course, mention meds given and route, prescriptions, significant lab abnormalities, going to OR and other pertinent info. @ - Undiagnosed new problem with uncertain prognosis? @ -no Drug Therapy requiring intensive monitoring for toxicity (Heparin, Nitro, Insulin, Cardizem)? @ -no Were any procedures done? @ -no Diagnosis/symptom? @ - Acute, or Chronic, or Acute on Chronic? @ -Acute Uncomplicated (without systemic symptoms) or Complicated (systemic symptoms)? @ -Complicated Side effects of treatment? @ -no Exacerbation, Progression, or Severe Exacerbation? @ -exacerbation Poses a threat to life or bodily function? How? (Chest pain, [place], [place], pneumonia, PE, COPD, DKA, ARF, appy, cholecystitis, CVA, Diverticulitis, Homicidal, Suicidal, threat to staff... and all critical care pts) @ -yes Medical Decision Making - Medical Decision Making 69 female to the ER for evaluation of pain chronic pain and cancer pain. Patient has adequate pain control here in the ER at sleep till morning patient feels well throughout ER stay and can be discharged home - Lab Data Result diagrams: 09/27/24 01:20 Lab Results 09/27/24 09/27/24 09/27/24 Range/Units 01:20 01:20 01:20 WBC 7.0 (3.8-10.6) k/uL RBC 4.09 (3.80-5.40) m/uL Hgb 12.7 (11.4-16.0) gm/dL Hct 38.9 (34.0-46.0) % MCV 95.0 (80.0-100.0) fL MCH 31.0 (25.0-35.0) pg MCHC 32.7 (31.0-37.0) g/dL RDW 13.3 (11.5-15.5) % Plt Count 119 L (150-450) k/uL MPV 7.9 Neutrophils % 85 % Lymphocytes % 7 % Monocytes % 4 % Eosinophils % 2 % Basophils % 1 % Neutrophils # 6.0 (1.3-7.7) k/uL Lymphocytes # 0.5 L (1.0-4.8) k/uL Monocytes # 0.3 (0-1.0) k/uL Eosinophils # 0.1 (0-0.7) k/uL Basophils # 0.1 (0-0.2) k/uL PT 10.2 (10.0-12.5) sec INR 0.9 (<1.2) APTT 21.5 L (22.0-30.0) sec Plasma Lactic Acid Titi 1.7 (0.7-2.0) mmol/L Troponin I (0.000-0.034) ng/mL 09/27/24 Range/Units 01:20 WBC (3.8-10.6) k/uL RBC (3.80-5.40) m/uL Hgb (11.4-16.0) gm/dL Hct (34.0-46.0) % MCV (80.0-100.0) fL MCH (25.0-35.0) pg MCHC (31.0-37.0) g/dL RDW (11.5-15.5) % Plt Count (150-450) k/uL MPV Neutrophils % % Lymphocytes % % Monocytes % % Eosinophils % % Basophils % % Neutrophils # (1.3-7.7) k/uL Lymphocytes # (1.0-4.8) k/uL Monocytes # (0-1.0) k/uL Eosinophils # (0-0.7) k/uL Basophils # (0-0.2) k/uL PT (10.0-12.5) sec INR (<1.2) APTT (22.0-30.0) sec Plasma Lactic Acid Titi (0.7-2.0) mmol/L Troponin I <0.012 (0.000-0.034) ng/mL - EKG Data -: EKG Interpreted by Me (EKG is sinus bradycardia 52 VT 143 QRS 82 QTc 388) Disposition Clinical Impression: Cancer associated pain Disposition: HOME SELF-CARE Condition: Good Instructions (If sedation given, give patient instructions): Chronic Pain (ED) Is patient prescribed a controlled substance at d/c from ED?: No Referrals: Alexey Flores MD [Primary Care Provider] - 1-2 days Time of Disposition: 03:00
[2024-09-27] MEDS: ONDANSETRON 4 MG/2 ML VIAL IVP STA (01:26)
[2024-09-27] MEDS: SODIUM CHLORIDE 0.9% 1,000 ML IV STA ×2 (01:31→01:33)
[2024-09-27] MEDS: diphenhydrAMINE 50 MG/ML 1 ML VIAL IVP STA (01:36)
[2024-09-27 01:39] LABS: Basophils # (A) 0.1 k/uL (0-0.2); Basophils % (A) 1 %; Eosinophils # (A) 0.1 k/uL (0-0.7); Eosinophils % (A) 2 %; HCT 38.9 % (34.0-46.0); HGB 12.7 gm/dL (11.4-16.0); Lymphocytes # (A) 0.5 k/uL (1.0-4.8); Lymphocytes % (A) 7 %; MCHC 32.7 g/dL (31.0-37.0); Mean Platelet Volume 7.9; Monocytes # (A) 0.3 k/uL (0-1.0); Monocytes % (A) 4 %; Neutrophils % (A) 85 %; Platelet Count 119 k/uL (150-450); RBC 4.09 m/uL (3.80-5.40); RDW 13.3 % (11.5-15.5)
[2024-09-27] MEDS: SODIUM CHLORIDE 0.9% 500 ML 500 ML IV STA (01:44)
[2024-09-27] MEDS: HYDROmorphone 1 MG/ML 1 ML SYRINGE IVP STA (01:45)
[2024-09-27 01:49] LABS: ALT 18 U/L (4-34); AST 33 U/L (14-36); African American GFR (CKD) >90 (>60 ml/min/1.73 sqM); Albumin 3.8 g/dL (3.5-5.0); Alkaline Phosphatase 74 U/L (38-126); Anion Gap 1 mmol/L; Blood Urea Nitrogen 10 mg/dL (7-17); Calcium 8.3 mg/dL (8.4-10.2); Carbon Dioxide 29 mmol/L (22-30); Chloride 106 mmol/L (98-107); Glucose 98 mg/dL (74-99); Magnesium 2.2 mg/dL (1.6-2.3); Non-African American GFR(CKD) >90 (>60 ml/min/1.73 sqM); Phosphorus 3.3 mg/dL (2.5-4.5); Potassium 4.2 mmol/L (3.5-5.1); Sodium 136 mmol/L (137-145); Total Protein 6.3 g/dL (6.3-8.2)
[2024-09-27 01:58] LABS: NT-Pro-B-Type Natriuretic Pept 482 pg/mL
[2024-09-27 02:00] LABS: INR 0.9 (<1.2); Prothrombin Time 10.2 sec (10.0-12.5)
[2024-09-27 02:02] LABS: Partial Thromboplastin Time 21.5 sec (22.0-30.0)
[2024-09-27 03:24] VITALS: BP 128/59; PULSE 90; RESP 20; TEMP 98.8
== END 2024-09-27 03:26 | disposition home or self-care (01) ==
LOC: EC 00:46
DX: G89.3 Neoplasm related pain (acute) (chronic) (principal); M79.606 Pain in leg, unspecified; Z88.2 Allergy status to sulfonamides; Z88.5 Allergy status to narcotic agent
CPT/HCPCS: 36415; 93005; 83880; 80053; 83605; 83735; 84100; 84443; 84484; 85025; 85610; 85730; 99284; 96374; 96375 ×2; 96361 ×2; J1200; J2405; J1171

== ENCOUNTER 2024-09-28 12:46 | Inpatient (IN) | payer MEDICARE ==
--- NOTE | 2024-09-28 13:13 | ED ---
Fever HPI - General Chief Complaint: Fever Stated Complaint: fever/cancer pt Time Seen by Provider: 09/28/24 12:53 Source: patient, RN notes reviewed Mode of arrival: wheelchair Limitations: no limitations - History of Present Illness Initial Comments: 69-year-old female presents emergency department complaint of a fever. Patient states fever started on Friday she was seen here Friday and Friday. Patient states that she had a fever daily she was recommended to stay in the hospital prior ER visits she declined. 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 Patient states that she received her first round of chemotherapy infusion and there is a little discharge on Friday. Patient states that she has had diarrhea, some nausea decreased appetite. Patient denies any URI symptoms denies sore throat, cough, dysuria - Related Data Home Medications Medication Instructions Recorded Confirmed Hydrocortisone Cream 1 applic TOPICAL TID PRN 09/28/24 09/28/24 [Hydrocortisone 2.5% Cream] OLANZapine [ZyPREXA] 2.5 - 5 mg PO DIRECTED 09/28/24 09/28/24 Ondansetron [Zofran] 4 - 8 mg PO Q4H PRN MDD 8 TABS/09/28/24 09/28/24 HRS dexAMETHasone [Decadron] 8 mg PO DIRECTED 09/28/24 09/28/24 Allergies Allergy/AdvReac Type Severity Reaction Status Date / Time Sulfa (Sulfonamide Allergy Anaphylaxis Verified 09/28/24 14:50 Antibiotics) morphine AdvReac Nausea & Verified 09/28/24 14:50 Vomiting Review of Systems ROS Statement: Those systems with pertinent positive or pertinent negative responses have been documented in the HPI. ROS Other: All systems not noted in ROS Statement are negative. Past Medical History Past Medical History: No Reported History, Cancer Additional Past Medical History / Comment(s): gallstones. Breast cancer History of Any Multi-Drug Resistant Organisms: None Reported Past Surgical History: No Surgical Hx Reported, Cholecystectomy Additional Past Surgical History / Comment(s): Right breast excisional biospy 1992, benign, double mastectomy, lymphnode removal july 2024. Past Anesthesia/Blood Transfusion Reactions: No Reported Reaction Past Psychological History: No Psychological Hx Reported Smoking Status: Former smoker Past Alcohol Use History: None Reported Past Drug Use History: None Reported - Past Family History Father Family Medical History: No Reported History Mother Family Medical History: No Reported History General Exam Limitations: no limitations General appearance: alert, in no apparent distress Head exam: Present: atraumatic, normocephalic, normal inspection Eye exam: Present: normal appearance, PERRL, EOMI. Absent: scleral icterus, conjunctival injection, periorbital swelling ENT exam: Present: normal exam, normal oropharynx, mucous membranes moist Neck exam: Present: normal inspection, full ROM. Absent: tenderness, meningismus, lymphadenopathy Respiratory exam: Present: normal lung sounds bilaterally. Absent: respiratory distress, wheezes, rales, rhonchi, stridor Cardiovascular Exam: Present: normal rhythm, tachycardia, normal heart sounds. Absent: systolic murmur, diastolic murmur, rubs, gallop, clicks Back exam: Absent: CVA tenderness (R), CVA tenderness (L) Neurological exam: Present: alert, oriented X3, CN II-XII intact Skin exam: Present: warm, dry, intact, normal color. Absent: rash Course Vital Signs 09/28/24 09/28/24 09/28/24 12:48 15:23 16:34 Temperature 100.4 F H 99.8 F H 101.2 F H Pulse Rate 106 H 100 100 Respiratory 20 18 20 Rate Blood Pressure 124/74 114/63 131/78 O2 Sat by Pulse 97 95 95 Oximetry 09/28/24 09/28/24 09/28/24 17:40 18:04 19:37 Temperature 99.6 F 100.5 F H 102.8 F H Pulse Rate 106 H 105 H 108 H Respiratory 16 20 18 Rate Blood Pressure 129/72 124/66 O2 Sat by Pulse 96 96 95 Oximetry 09/28/24 09/28/24 09/29/24 21:00 23:52 02:00 Temperature 100.3 F H 99.1 F Pulse Rate 94 84 80 Respiratory 18 16 18 Rate Blood Pressure 115/68 100/60 138/78 O2 Sat by Pulse 95 93 L 96 Oximetry 09/29/24 09/29/24 09/29/24 03:00 04:00 06:03 Temperature 98.6 F Pulse Rate 80 72 Respiratory 18 18 Rate Blood Pressure 121/62 138/70 O2 Sat by Pulse 96 96 Oximetry Medical Decision Making - Medical Decision Making Was pt. sent in by a medical professional or institution (, PA, INFORMATICS CONSULTANT, urgent care, hospital, or care home...) When possible be specific @ -No Did you speak to anyone other than the patient for history (EMS, parent, family, police, friend...)? What history was obtained from this source @ -No Did you review nursing and triage notes (agree or disagree)? Why? @ -I reviewed and agree with nursing and triage notes Were old charts reviewed (outside hosp., previous admission, EMS record, old EKG, old radiological studies, urgent care reports/EKG's, care home records)? Report findings @ -No old charts were reviewed Differential Diagnosis (chest pain, altered mental status, abdominal pain women, abdominal pain men, vaginal bleeding, weakness, fever, dyspnea, syncope, headache, dizziness, GI bleed, back pain, seizure, CVA, palpatations, mental health, musculoskeletal)? @ -Neutropenic fever, differential Weakness: Hypoglycemia, shock, sepsis, hyponatremia, anemia, infection, CA, ETOH, adverse medicine reaction, overdose, stroke, this is not meant to be an all-inclusive list. EKG interpreted by me (3pts min.). @ -As above X-rays interpreted by me (1pt min.). @ -none CT interpreted by me (1pt min.). @ -CT abdomen pelvis shows mild colitis U/S interpreted by me (1pt. min.). @ -None done What testing was considered but not performed or refused? (CT, X-rays, U/S, labs)? Why? @ -None What meds were considered but not given or refused? Why? @ -None Did you discuss the management of the patient with other professionals (professionals i.e. , YOAN, INFORMATICS CONSULTANT, lab, RT, psych nurse, social service agency director, laundromat manager, teacher, patient safety officer, rn field case manager)? Give summary @ -Dr. Correa for admission Was smoking cessation discussed for >3mins.? @ -No Was critical care preformed (if so, how long)? @ -No Were there social determinants of health that impacted care today? How? (Homelessness, low income, unemployed, alcoholism, drug addiction, transportation, low edu. Level, literacy, decrease access to med. care, long-term, rehab)? @ -No Was there de-escalation of care discussed even if they declined (Discuss DNR or withdrawal of care, Hospice)? DNR status @ -No What co-morbidities impacted this encounter? (DM, HTN, Smoking, COPD, CAD, Cancer, CVA, ARF, Chemo, Hep., AIDS, mental health diagnosis, sleep apnea, morbid obesity)? @ -Breast cancer Was patient admitted / discharged? Hospital course, mention meds given and route, prescriptions, significant lab abnormalities, going to OR and other pertinent info. @ -Patient has neutropenic fever. Patient was placed on cefepime, vancomycin. Patient admitted with consults to oncology. Undiagnosed new problem with uncertain prognosis? @ -No Drug Therapy requiring intensive monitoring for toxicity (Heparin, Nitro, In sulin, Cardizem)? @ -No Were any procedures done? @ -No Diagnosis/symptom? @ -Neutropenic fever Acute, or Chronic, or Acute on Chronic? @ -Acute Uncomplicated (without systemic symptoms) or Complicated (systemic symptoms)? @ -Complicated Side effects of treatment? @ -No Exacerbation, Progression, or Severe Exacerbation? @ -No Poses a threat to life or bodily function? How? (Chest pain, [place], [place], pneumonia, PE, COPD, DKA, ARF, appy, cholecystitis, CVA, Diverticulitis, Homicidal, Suicidal, threat to staff... and all critical care pts) @ -Yes possible sepsis, endorgan failure - Lab Data Result diagrams: 10/01/24 04:55 10/01/24 04:55 Lab Results 09/28/24 09/28/24 09/28/24 Range/Units 13:02 13:02 13:02 WBC 0.4 L* (3.8-10.6) k/uL RBC 3.69 L (3.80-5.40) m/uL Hgb 11.8 (11.4-16.0) gm/dL Hct 35.1 (34.0-46.0) % MCV 95.0 (80.0-100.0) fL MCH 32.1 (25.0-35.0) pg MCHC 33.7 (31.0-37.0) g/dL RDW 13.0 (11.5-15.5) % Plt Count 86 L (150-450) k/uL MPV 9.4 Differential Comment Sodium 134 L (137-145) mmol/L Potassium 4.3 (3.5-5.1) mmol/L Chloride 101 (98-107) mmol/L Carbon Dioxide 30 (22-30) mmol/L Anion Gap 3 mmol/L BUN 9 (7-17) mg/dL Creatinine 0.66 (0.52-1.04) mg/dL Est GFR (CKD-EPI)AfAm >90 (>60 ml/min/1.73 sqM) Est GFR (CKD-EPI)NonAf >90 (>60 ml/min/1.73 sqM) Glucose 121 H (74-99) mg/dL Plasma Lactic Acid Titi 1.2 (0.7-2.0) mmol/L Calcium 8.4 (8.4-10.2) mg/dL Magnesium 2.0 (1.6-2.3) mg/dL Total Bilirubin 1.3 (0.2-1.3) mg/dL AST 26 (14-36) U/L ALT 17 (4-34) U/L Alkaline Phosphatase 80 (38-126) U/L Total Protein 6.0 L (6.3-8.2) g/dL Albumin 3.6 (3.5-5.0) g/dL Urine Color Urine Appearance (Clear) Urine pH (5.0-8.0) Ur Specific [place] (1.001-1.035) Urine Protein (Negative) Urine Glucose (UA) (Negative) Urine Ketones (Negative) Urine Blood (Negative) Urine Nitrite (Negative) Urine Bilirubin (Negative) Urine Urobilinogen (<2.0) mg/dL Ur Leukocyte Esterase (Negative) Urine RBC (0-5) /hpf Urine WBC (0-5) /hpf Ur Squamous Epith Cells (0-4) /hpf Urine Bacteria (None) /hpf Urine Mucus (None) /hpf Influenza Type A (PCR) (Not Detectd) Influenza Type B (PCR) (Not Detectd) RSV (PCR) (Not Detectd) SARS-CoV-2 (PCR) (Not Detectd) 09/28/24 09/28/24 Range/Units 13:02 13:07 WBC (3.8-10.6) k/uL RBC (3.80-5.40) m/uL Hgb (11.4-16.0) gm/dL Hct (34.0-46.0) % MCV (80.0-100.0) fL MCH (25.0-35.0) pg MCHC (31.0-37.0) g/dL RDW (11.5-15.5) % Plt Count (150-450) k/uL MPV Differential Comment Sodium (137-145) mmol/L Potassium (3.5-5.1) mmol/L Chloride (98-107) mmol/L Carbon Dioxide (22-30) mmol/L Anion Gap mmol/L BUN (7-17) mg/dL Creatinine (0.52-1.04) mg/dL Est GFR (CKD-EPI)AfAm (>60 ml/min/1.73 sqM) Est GFR (CKD-EPI)NonAf (>60 ml/min/1.73 sqM) Glucose (74-99) mg/dL Plasma Lactic Acid Titi (0.7-2.0) mmol/L Calcium (8.4-10.2) mg/dL Magnesium (1.6-2.3) mg/dL Total Bilirubin (0.2-1.3) mg/dL AST (14-36) U/L ALT (4-34) U/L Alkaline Phosphatase (38-126) U/L Total Protein (6.3-8.2) g/dL Albumin (3.5-5.0) g/dL Urine Color Yellow Urine Appearance Cloudy H (Clear) Urine pH 7.5 (5.0-8.0) Ur Specific [place] 1.019 (1.001-1.035) Urine Protein Trace H (Negative) Urine Glucose (UA) Negative (Negative) Urine Ketones 1+ H (Negative) Urine Blood Trace H (Negative) Urine Nitrite Negative (Negative) Urine Bilirubin Negative (Negative) Urine Urobilinogen <2.0 (<2.0) mg/dL Ur Leukocyte Esterase Small H (Negative) Urine RBC 3 (0-5) /hpf Urine WBC 5 (0-5) /hpf Ur Squamous Epith Cells 8 H (0-4) /hpf Urine Bacteria Rare H (None) /hpf Urine Mucus Occasional H (None) /hpf Influenza Type A (PCR) Not Detected (Not Detectd) Influenza Type B (PCR) Not Detected (Not Detectd) RSV (PCR) Not Detected (Not Detectd) SARS-CoV-2 (PCR) Not Detected (Not Detectd) Disposition Clinical Impression: Neutropenic fever Disposition: ADMITTED IP TO THIS HOSP Condition: Fair Time of Disposition: 15:29
[2024-09-28] MEDS: SODIUM CHLORIDE 0.9% 1,000 ML IV STA (13:42)
[2024-09-28] MEDS: ACETAMINOPHEN TAB 325 MG TAB PO STA (13:42)
[2024-09-28 13:48] LABS: HCT 35.1 % (34.0-46.0); HGB 11.8 gm/dL (11.4-16.0); MCH 32.1 pg (25.0-35.0); MCHC 33.7 g/dL (31.0-37.0); Mean Platelet Volume 9.4; RBC 3.69 m/uL (3.80-5.40)
[2024-09-28 14:01] LABS: ALT 17 U/L (4-34); AST 26 U/L (14-36); African American GFR (CKD) >90 (>60 ml/min/1.73 sqM); Albumin 3.6 g/dL (3.5-5.0); Alkaline Phosphatase 80 U/L (38-126); Anion Gap 3 mmol/L; Blood Urea Nitrogen 9 mg/dL (7-17); Calcium 8.4 mg/dL (8.4-10.2); Carbon Dioxide 30 mmol/L (22-30); Chloride 101 mmol/L (98-107); Glucose 121 mg/dL (74-99); Non-African American GFR(CKD) >90 (>60 ml/min/1.73 sqM); Potassium 4.3 mmol/L (3.5-5.1); Sodium 134 mmol/L (137-145); Total Bilirubin 1.3 mg/dL (0.2-1.3)
--- NOTE | 2024-09-28 14:08 | XR ---
EXAMINATION TYPE: XR chest 2V DATE OF EXAM: 09/28/2024 2:00 PM COMPARISON: None CLINICAL INDICATION: Female, 69 years old with history of fever; TECHNIQUE: XR chest 2V Frontal and lateral views of the chest. FINDINGS: Lungs/Pleura: There is no evidence of pleural effusion, focal consolidation, or pneumothorax. Pulmonary vascularity: Unremarkable. Heart/mediastinum: Cardiomediastinal silhouette is unremarkable. Musculoskeletal: No acute osseous pathology. Other findings: None IMPRESSION: No acute cardiopulmonary disease/process. [facility], , 09/28/2024 2:05 PM
[2024-09-28] MEDS ORDERED: IOPAMIDOL CONTRAST (ORAL USE) VIAL PO PRN (14:13)
[2024-09-28 14:19] LABS: WBC 0.4 k/uL (3.8-10.6)
[2024-09-28 14:27] LABS: Platelet Count 86 k/uL (150-450)
[2024-09-28] MEDS ORDERED: VANCOMYCIN IV PER PHARMACY 1 EACH MISC MISCELLANE PRN (14:43)
[2024-09-28] MEDS: CEFEPIME 2 GM in SODIUM CHLORIDE 0.9% 100 ML IVPB SCH (15:05)
[2024-09-28] MEDS: VANCOMYCIN 1,500 MG in SODIUM CHLORIDE 0.9% 500 ML 500 ML IVPB ONE (15:07)
[2024-09-28 15:15] LABS: Appearance,Urine Cloudy (Clear); Bacteria,Urine Rare /hpf; Bilirubin,Urine Negative (Negative); Blood,Urine Trace (Negative); Color,Urine Yellow; Glucose,Urine (UA) Negative (Negative); Ketones,Urine 1+ (Negative); Leukocyte Esterase,Urine Small (Negative); Mucus,Urine Occasional /hpf; Nitrite,Urine Negative (Negative); PH, Urine 7.5 (5.0-8.0); Protein,Urine Trace (Negative); RBC,Urine 3 /hpf (0-5); Specific Gravity,Urine 1.019 (1.001-1.035); Squamous Epithelial Cell,Urine 8 /hpf (0-4); Urobilinogen,Urine <2.0 mg/dL (<2.0); WBC,Urine 5 /hpf (0-5)
[2024-09-28] MEDS ORDERED: NALOXONE 0.4 MG/ML 1 ML VIAL IV PRN (15:30)
--- NOTE | 2024-09-28 17:07 | CT ---
EXAMINATION TYPE: CT abdomen pelvis wo con DATE OF EXAM: 09/28/2024 4:55 PM COMPARISON: CT abdomen pelvis most recent from 06/04/2024. CLINICAL INDICATION: Female, 69 years old with history of sepsis, rt abd pain; fever/ abd pain TECHNIQUE: Axial CT abdomen pelvis wo con;Sagittal and coronal reformats were created on a separate workstation. Contrast used: mL of , (none if empty) Oral contrast used: with Oral Contrast (none if empty) CT DLP: 665.1 mGycm, Automated exposure control for dose reduction was used. FINDINGS: LOWER CHEST: Unremarkable ABDOMEN LIVER: Unremarkable GALLBLADDER AND BILE DUCTS: Gallbladder is surgically absent. PANCREAS: Mild inflammation the upper abdomen similar centered around the pancreas. No organizing flu id collections. SPLEEN: Scattered splenosis in the left upper quadrant. ADRENAL GLANDS: Unremarkable. KIDNEYS AND URETERS: No evidence of hydronephrosis or renal calculus. The ureters are unremarkable. PELVIS BLADDER: No evidence for wall thickening or mass given limitations of exam. REPRODUCTIVE: Unremarkable. ABDOMEN & PELVIS STOMACH AND BOWEL: No evidence of bowel obstruction. Mild circumference of wall thickening of the asc ending transverse and descending colon.. No organizing fluid collection. Second portion duodenal dive rticulum. Small hiatal hernia. PERITONEUM/RETROPERITONEUM: No evidence of pneumoperitoneum or free fluid. VASCULATURE: No evidence of aortic aneurysm. MUSCULOSKELETAL: No acute osseous abnormalities, mild scoliosis changes of the spine. LYMPH NODES: No gross evidence for lymphadenopathy. SOFT TISSUE/ABDOMINAL WALL: Unremarkable IMPRESSION: 1. Mild inflammation upper abdomen correlate with serum lipase. No organizing fluid collection or fr ee air identified. 2. Nondistended colon with vasa recta engorgement correlate for colitis. The ascending transverse an d descending colon. 3. Small hiatal hernia. [facility], , 09/28/2024 5:05 PM
[2024-09-28] MEDS: ACETAMINOPHEN TAB 325 MG TAB PO PRN (19:43)
[2024-09-28] MEDS: LOPERAMIDE 2 MG CAP PO STA (21:23)
--- NOTE | 2024-09-29 00:15 | HP ---
HISTORY AND PHYSICAL CHIEF COMPLAINT: Fever. HISTORY OF PRESENT ILLNESS: This is a 69-year-old woman with a past medical history of breast cancer with mets to lymph nodes, receiving chemotherapy. The patient had fever. The patient came to [facility] for multiple times. Currently, the patient is also complaining of abdominal pain. The patient is being admitted for further evaluation and treatment. The patient just presented to the hospital. The counts are not available. There is no history of any headache, loss of consciousness or seizures. PAST MEDICAL HISTORY: Reviewed include breast cancer with METS, gallstones, cholecystectomy. Rest of the history and rest of the chart is also reviewed. HOME MEDICATIONS: Reviewed include oxycodone. Doses and rest of medications reviewed. ALLERGIES: Sulfa. FAMILY HISTORY: No history of heart disease or strokes in the family. SOCIAL HISTORY: Previous history of smoking. REVIEW OF SYSTEMS: A 14-point review is negative except as mentioned earlier. PHYSICAL EXAMINATION: VITAL SIGNS: Pulse is 106, blood pressure 124/70, respirations 20, temperature 100.4. HEENT: Conjunctivae normal. NECK: No JVD. CARDIOVASCULAR: S1, S2. RESPIRATIONS: Breath sounds diminished at the bases. Scattered rhonchi. ABDOMEN: Soft, mild diffuse tenderness in the left lower quadrant. NERVOUS SYSTEM: Nonfocal. LABORATORY DATA: Awaited as mentioned earlier. The patient just came to the ER. Chest x-ray showed no acute abnormality. ASSESSMENT: 1. Post chemotherapy fever, possibly neutropenic fever with sepsis present on admission. 2. History of breast cancer, on chemotherapy. 3. Abdominal pain for evaluation. 4. History of gallstones and cholecystectomy. 5. History of nicotine dependence. RECOMMENDATIONS AND DISCUSSION: This is a 69-year-old woman, who presented with multiple complex medical issues, we will monitor the patient closely. I would recommend viral testing, cultures, empiric antibiotics. Closely follow with Infectious Disease and as well as Hematology/Oncology. Empiric antibiotics. Guarded prognosis. Further recommendations to follow. See orders for further details. MMODL / IJN: [id number] /
[2024-09-29] MEDS: VANCOMYCIN 1,500 MG in SODIUM CHLORIDE 0.9% 500 ML 500 ML IVPB SCH (00:30)
[2024-09-29] MEDS: LOPERAMIDE 2 MG CAP PO PRN (08:01)
[2024-09-29 08:57] LABS: Blood Urea Nitrogen 8.7 mg/dL (9.0-27.0); Chloride 104 mmol/L (96-109); Glucose 113 mg/dL (70-110); Potassium 4.1 mmol/L (3.5-5.5); Sodium 138 mmol/L (135-145)
[2024-09-29 08:58] LABS: ALT 15 U/L (8-44); AST 20 U/L (13-35); Albumin 3.5 g/dL (3.8-4.9); Albumin/Globulin Ratio 1.94 Ratio (1.60-3.17); Alkaline Phosphatase 75 U/L (41-126); Calcium 8.4 mg/dL (8.7-10.3); Carbon Dioxide 23.2 mmol/L (21.6-31.8); Globulin 1.8 g/dL (1.6-3.3); Total Bilirubin 1.1 mg/dL (0.3-1.2); Total Protein 5.3 g/dL (6.2-8.2)
[2024-09-29 09:25] LABS: HCT 31.9 % (37.2-46.3); HGB 10.6 g/dL (12.0-15.0); MCH 31.2 pg (27.0-32.0); MCHC 33.2 g/dL (32.0-37.0); MCV 93.8 FL (80.0-97.0); Mean Platelet Volume 11.7 FL (9.5-12.2); NRBC Per 100 WBC 0 X 10*3/uL (0.00-0.01); Platelet Count 86 X 10*3/uL (140-440); RDW 12.8 % (11.5-14.5); WBC 0.41 X 10*3/uL (4.50-10.00)
[2024-09-29 09:41] LABS: Monocytes # (M) 0.09 X 10*3/uL (0.20-1.00); Neutrophils % (M) 35 %
[2024-09-29 09:42] LABS: Basophils # (M) 0 X 10*3/uL (0.00-0.10); Eosinophils # (M) 0 X 10*3/uL (0.04-0.35); Lymphocytes # (M) 0.18 X 10*3/uL (0.90-5.00); Neutrophils # (M) 0.14 X 10*3/uL (1.80-7.70)
[2024-09-29] MEDS ORDERED: HYDROCORTISONE 1% CREAM 30 GM TUBE TOPICAL PRN (13:46)
[2024-09-29] MEDS ORDERED: OLANZapine 2.5 MG TAB PO SCH (14:00)
[2024-09-29] MEDS: SALT AND SODA MOUTHWASH 1,000 ML PO SCH (16:57)
[2024-09-29] MEDS: PANTOPRAZOLE 40 MG/10 ML VIAL IVP SCH (16:57)
[2024-09-29] MEDS: MAG HYDROX/AL HYDROX/SIMETH 30 ML, LIDOCAINE VISCOUS 2% 30 ML, diphenhydrAMINE ELIXIR 7... PO SCH (17:51)
--- NOTE | 2024-09-29 20:53 | P.CONS ---
History of Present Illness - Reason for Consult Consult date: 09/29/24 neutropenic fever Requesting physician: Bradly Verdugo - Chief Complaint fever - History of Present Illness Ms. Dumont is a very pleasant female patient of Dr. Lopez diagnosed earlier this year with breast cancer. She noticed a lump in the right breast and had been present for about a year. It started to increase in size and became painful. She had a bilateral mammogram 01/28/2024 showing a large mass 6 x 3.7 x 5.5 cm with a satellite mass measuring 1.7 x 1.6 cm. Ultrasound reported a hypoechoic mass 3.3 x 2.1 x 4.8 cm at 12:00 and a 1.3 x 1.3 cm mass at 11:00. No l ymphadenopathy identified. Ultrasound-guided biopsy of both lesions 02/09/2024. The larger 12:00 lesion showed invasive ductal carcinoma, grade 2 with focal grade 2 DCIS and invasive ductal carcinoma grade 2 from the 11:00 lesion. Larger lesion ER/WA strongly positive, Ki-67 11 to 20%, HER2 negative at 1+ IHC. She did see some puckering of the overlying skin of the breast while workup was in progress. PET scan was also ordered. She had MRI of both breast and ultrasound of the right axilla to evaluate for lymphadenopathy done in early March confirming the large lesion and satellite lesion adjacent to it on the right. On MRI possibly 1 lymph node. Patient ended up being admitted to [facility] for acute pancreatitis and required cholecystectomy so breast cancer workup was delayed a little bit. MRI showed a 4 mm lesion on the left side incidentally subsequently biopsied and found to be benign. PET scan early April showed no evidence of metastatic disease including no uptake in the right axilla or the left breast. Oncotype testing showed no benefit from chemotherapy in her age g roup. She was started on anastrozole neoadjuvantly in mid April. Verzenio was added after getting approval, started 05/22/2024. Due to progressive GI symptoms though, it was stopped within 2 weeks. Patient proceeded to surgery 07/28/2024, patient decided on bilateral mastectomy. Final pathology revealed a grade 1, 6 x 9 x 3 cm residual invasive carcinoma without evidence of epidermal invasion or margin involvement, 3 lymph nodes showed micrometastatic carcinoma with extranodal extension, 1 lymph node in the axilla was also positive for micrometastatic disease, slightly less than 2 mm. Left breast was benign. Adjuvant treatment recommended based on keira involvement. She had cycle 1 of a djuvant TC with G-CSF on 09/24. She is currently admitted with reports of fever, Tmax 102.8. Fever started over the weekend and persisted, she started to just not feel well in general with some nausea, decreased oral intake, and some diarrhea. Patient denies sore throat, ear ache, chest pain, shortness of breath, abdominal pain or cramping, vomiting, dysuria, hematuria, hematochezia or melena. On admit white count 0.4, stable today at 0.41, hemoglobin 11.8, 10.6 today, likely secondary to hemoconcentration from some dehydration, platelets stable at 86,000. Patient's absolute neutrophil count is 0.14. No other significantly abnormal findings in the CMP, urinary analysis a little bit suspicious, chest x-ray impression no acute cardiopulmonary process. CT of the abdomen and pelvis reporting some mild inflammation in the upper abdomen no organizing fluid collection or free air, nondistended: With engorgement, correlate for colitis Review of Systems 10 point ROS is neg except as stated in HPI Past Medical History Past Medical History: No Reported History, Cancer Additional Past Medical History / Comment(s): gallstones. Breast cancer History of Any Multi-Drug Resistant Organisms: None Reported Past Surgical History: No Surgical Hx Reported, Cholecystectomy Additional Past Surgical History / Comment(s): Right breast excisional biospy 1992, benign, double mastectomy, lymphnode removal july 2024. Past Anesthesia/Blood Transfusion Reactions: No Reported Reaction Past Psychological History: No Psychological Hx Reported Smoking Status: Former smoker Past Alcohol Use History: None Reported Past Drug Use History: None Reported - Past Family History Father Family Medical History: No Reported History Mother Family Medical History: No Reported History Medications and Allergies Home Medications Medication Instructions Recorded Confirmed Type Hydrocortisone Cream 1 applic TOPICAL TID PRN 09/28/24 09/28/24 History [Hydrocortisone 2.5% Cream] OLANZapine [ZyPREXA] 2.5 - 5 mg PO DIRECTED 09/28/24 09/28/24 History Ondansetron [Zofran] 4 - 8 mg PO Q4H PRN MDD 8 TABS/24 09/28/24 09/28/24 History HRS dexAMETHasone [Decadron] 8 mg PO DIRECTED 09/28/24 09/28/24 History Allergies Allergy/AdvReac Type Severity Reaction Status Date / Time Sulfa (Sulfonamide Allergy Anaphylaxis Verified 09/28/24 14:50 Antibiotics) morphine AdvReac Nausea & Verified 09/28/24 14:50 Vomiting Physical Exam Vitals: Vital Signs Temp Pulse Pulse Resp BP BP Pulse Ox 09/29/24 07:36 99.9 F H 87 17 128/80 95 09/29/24 06:03 72 18 138/70 96 09/29/24 04:00 80 18 121/62 96 09/29/24 03:00 98.6 F 09/29/24 02:00 80 18 138/78 96 09/28/24 23:52 99.1 F 84 16 100/60 93 L 09/28/24 21:00 100.3 F H 94 18 115/68 95 09/28/24 19:37 102.8 F H 108 H 18 124/66 95 09/28/24 18:04 100.5 F H 105 H 20 129/72 96 09/28/24 17:40 99.6 F 106 H 16 96 09/28/24 16:34 101.2 F H 100 20 131/78 95 09/28/24 15:23 99.8 F H 100 18 114/63 95 09/28/24 12:48 100.4 F H 106 H 20 124/74 97 - Constitutional General appearance: cooperative, no acute distress, obese - EENT Eyes: anicteric sclerae, EOMI ENT: hearing grossly normal, thrush - Neck Neck: no lymphadenopathy - Respiratory Respiratory: bilateral: CTA - Cardiovascular Rhythm: regular Heart sounds: normal: S1, S2 Abnormal Heart Sounds: no systolic murmur, no diastolic murmur, no rub, no S3 Gallop, no S4 Gallop, no click, no other leg Peripheral Edema: bilateral: None - Gastrointestinal General gastrointestinal: no absent bowel sounds, decreased bowel sounds, distended, no hepatomegaly, no hyperactive bowel sounds, no normal bowel sounds, no organomegaly, no rigid, no scaphoid, no soft, no splenomegaly, tenderness, no umbilical hernia, no ventral hernia - Integumentary Integumentary: normal - Neurologic Neurologic: CNII-XII intact - Musculoskeletal Musculoskeletal: generalized weakness, strength equal bilaterally - Psychiatric Psychiatric: A&O x's 3, appropriate affect, intact judgment & insight Results CBC & Chem 7: 09/29/24 06:19 09/29/24 06:19 Labs: Abnormal Lab Results - Last 24 Hours (Table) 09/28/24 09/28/24 09/28/24 Range/Units 13:02 13:02 13:07 WBC 0.4 L* (3.8-10.6) k/uL RBC 3.69 L (3.80-5.40) m/uL Plt Count 86 L (150-450) k/uL Sodium 134 L (137-145) mmol/L Glucose 121 H (74-99) mg/dL Total Protein 6.0 L (6.3-8.2) g/dL Urine Appearance Cloudy H (Clear) Urine Protein Trace H (Negative) Urine Ketones 1+ H (Negative) Urine Blood Trace H (Negative) Ur Leukocyte Esterase Small H (Negative) Ur Squamous Epith Cells 8 H (0-4) /hpf Urine Bacteria Rare H (None) /hpf Urine Mucus Occasional H (None) /hpf Chest x-ray: report reviewed CT scan - abdomen: report reviewed CT scan - pelvis: report reviewed Assessment and Plan (1) Neutropenic fever Current Visit: Yes Status: Acute Priority: High Code(s): D70.9 - NEUTROPENIA, UNSPECIFIED; R50.81 - FEVER PRESENTING WITH CONDITIONS CLASSIFIED ELSEWHERE SNOMED Code(s): 580958600 (2) Breast cancer Current Visit: Yes Status: Acute Priority: Medium Code(s): C50.919 - MALIGNANT NEOPLASM OF UNSP SITE OF UNSPECIFIED FEMALE BREAST SNOMED Code(s): 736788379 Plan: Neutropenic fever -Tmax since admit 102.8. Pancultures ordered. Chest x-ray did not show any suspicious findings. C. difficile was negative. Empiric cefepime and Vanco ordered. -WBC 0.4. Patient received G-CSF 09/24. Anticipate increase in white count in 2 to 5 days. No additional G-CSF at this time -CT of the abdomen and pelvis without contrast impression is reporting mild inflammation of the upper abdomen, recommended serum lipase, no organizing fluid collection or free air. Nondistended: With vasa recta engorgement, correlate for colitis. -Patient will be made n.p.o. for suspected neutropenic typhlitis-based on neutropenia, CT findings above, tender abdomen. She can have sips of water and occasional ice chips. Do not advance diet without discussing with Oncologist, please. Breast cancer -Patient is on adjuvant TC with G-CSF, status post 1 cycle -Medical Oncologist will be informed of patient's hospitalization after 1 cycle. They will discuss any possible adjustments in treatment at the next visit. Oral thrush -Salt and soda rinse ordered, cool solution with nystatin ordered. Oral care on ce every shift and as needed.
--- NOTE | 2024-09-29 21:31 | P.CONS ---
History of Present Illness - Reason for Consult Consult date: 09/29/24 Sepsis Requesting physician: Sandie Correa - Chief Complaint Fever abdominal pain and diarrhea x few days - History of Present Illness Patient is a 69-year-old female with a past medical history significant for breast cancer for the patient is currently on chemotherapy presenting to the hospital for evaluation of fever that apparently started on Friday that is about 4 days before presentation to the hospital patient denies significant headache or URI symptoms no chest pain shortness of breath or cough has been complaining of some nausea decreased appetite but no vomiting also complaining of some right-sided abdominal pain mostly dull aching to quality mi ld to moderate intensity without radiation and did have diarrhea with multiple loose stool but no blood and mucus in the stool with the symptoms the patient was brought to the hospital patient has been running a fever of 102.8 F patient was tachycardic but not hypotensive or hypoxic patient did have white count 0.4 absolute neutrophil count less than 500 creatinine 0.66 electrolytes are normal liver enzymes are normal urine was mildly positive influenza RSV COVID testing was negative patient did have a chest x-ray that was negative for acute infiltrate did have a CT of abdominal pelvis did shows slight compression wall thickening of the ascending transverse and descending colon no organizing fluid collection patient has been treated with cefepime and vancomycin infectious disease was consulted for further management of antibiotic therapy Review of Systems Positive point and negatives has been mentioned in the HPI, complete review of systems was performed and all other systems are negative Past Medical History Past Medical History: Cancer Additional Past Medical History / Comment(s): gallstones. Breast cancer History of Any Multi-Drug Resistant Organisms: None Reported Past Surgical History: Cholecystectomy Additional Past Surgical History / Comment(s): Right breast excisional biospy 1992, benign, double mastectomy, Right side lymphnode removal july 2024. Past Anesthesia/Blood Transfusion Reactions: No Reported Reaction Past Psychological History: No Psychological Hx Reported Smoking Status: Former smoker Past Alcohol Use History: None Reported Additional Past Alcohol Use History / Comment(s): 5 cigarettes daily Past Drug Use History: None Reported - Past Family History Father Family Medical History: No Reported History Mother Family Medical History: No Reported History Medications and Allergies Home Medications Medication Instructions Recorded Confirmed Type Hydrocortisone Cream 1 applic TOPICAL TID PRN 09/28/24 09/28/24 History [Hydrocortisone 2.5% Cream] OLANZapine [ZyPREXA] 2.5 - 5 mg PO DIRECTED 09/28/24 09/28/24 History Ondansetron [Zofran] 4 - 8 mg PO Q4H PRN MDD 8 TABS/24 09/28/24 09/28/24 History HRS dexAMETHasone [Decadron] 8 mg PO DIRECTED 09/28/24 09/28/24 History Allergies Allergy/AdvReac Type Severity Reaction Status Date / Time Sulfa (Sulfonamide Allergy Anaphylaxis Verified 09/28/24 14:50 Antibiotics) morphine AdvReac Nausea & Verified 09/28/24 14:50 Vomiting Physical Exam Vitals: Vital Signs Temp Pulse Pulse Resp BP BP Pulse Ox 09/29/24 13:30 99.5 F 85 18 132/72 96 09/29/24 10:00 99 F 09/29/24 07:36 99.9 F H 87 17 128/80 95 09/29/24 06:03 72 18 138/70 96 09/29/24 04:00 80 18 121/62 96 09/29/24 03:00 98.6 F 09/29/24 02:00 80 18 138/78 96 09/28/24 23:52 99.1 F 84 16 100/60 93 L 09/28/24 21:00 100.3 F H 94 18 115/68 95 09/28/24 19:37 102.8 F H 108 H 18 124/66 95 09/28/24 18:04 100.5 F H 105 H 20 129/72 96 09/28/24 17:40 99.6 F 106 H 16 96 09/28/24 16:34 101.2 F H 100 20 131/78 95 Intake and Output 09/29/24 09/29/24 09/29/24 06:59 14:59 22:59 Other: Voiding Method Toilet Weight 81.647 kg GENERAL DESCRIPTION: Elderly female lying in bed, no distress. No tachypnea or accessory muscle of respiration use. HEENT: Shows Pallor , no scleral icterus. Oral mucous membrane is dry. No pharyngeal erythema or thrush NECK: Trachea central, no thyromegaly. LUNGS: Unlabored breathing. Clear to auscultation anteriorly. No wheeze or crackle. HEART: S1, S2, regular rate and rhythm. No loud murmur ABDOMEN: Soft, mild right-sided tenderness no guarding or rigidity EXTREMITIES: No edema of feet. SKIN: No rash, no masses palpable. NEUROLOGICAL: The patient is awake, alert, oriented x3, mood and affect normal. Results CBC & Chem 7: 09/29/24 06:19 09/29/24 06:19 Labs: Abnormal Lab Results - Last 24 Hours (Table) 09/29/24 09/29/24 Range/Units 06:19 06:19 WBC 0.41 A* (4.50-10.00) X 10*3/uL RBC 3.40 L (4.10-5.20) X 10*6/uL Hgb 10.6 L (12.0-15.0) g/dL Hct 31.9 L (37.2-46.3) % Plt Count 86 L (140-440) X 10*3/uL Neutrophils # (Manual) 0.14 A* (1.80-7.70) X 10*3/uL Lymphocytes # (Manual) 0.18 L (0.90-5.00) X 10*3/uL Monocytes # (Manual) 0.09 L (0.20-1.00) X 10*3/uL Eosinophils # (Manual) 0 L (0.04-0.35) X 10*3/uL BUN 8.7 L (9.0-27.0) mg/dL Glucose 113 H (70-110) mg/dL Calcium 8.4 L (8.7-10.3) mg/dL Total Protein 5.3 L (6.2-8.2) g/dL Albumin 3.5 L (3.8-4.9) g/dL Assessment and Plan (1) Sepsis Current Visit: Yes Status: Acute Code(s): A41.9 - SEPSIS, UNSPECIFIED ORGANISM SNOMED Code(s): 20354542 (2) Colitis Current Visit: Yes Status: Acute Code(s): K52.9 - NONINFECTIVE GASTROENTERITIS AND COLITIS, UNSPECIFIED SNOMED Code(s): 96082838 (3) Neutropenic fever Current Visit: Yes Status: Acute Priority: High Code(s): D70.9 - NEUTROPENIA, UNSPECIFIED; R50.81 - FEVER PRESENTING WITH CONDITIONS CLASSIFIED ELSEWHERE SNOMED Code(s): 114850250 Plan: 1patient presented to hospital with sepsis in this patient who did have fever neutropenia tachycardia source likely abdominal patient did have abdominal pain diarrhea with evidence of colitis on the CT and will need to cover for the enteric gram-negative both aerobes and anaerobes 2-we will check a stool culture stool for Cryptosporidium antigen C. difficile is negative 3-we will continue cefepime and Flagyl while waiting for the workup to be completed We will follow on clinical condition and cultures to further adjust medication if needed Thank you for this consultation we will follow the patient along with you Dictation was produced using [employer] dictation software. please excuse any grammatical, word or spelling errors. Time with Patient: Greater than 30
[2024-09-29] MEDS: metroNIDAZOLE-NS PMX 500 MG in SALINE 1 100ML.BAG IVPB SCH (23:34)
--- NOTE | 2024-09-30 04:49 | PN ---
PROGRESS NOTE DATE OF SERVICE: 09/29/2024 SUBJECTIVE: This is a 69-year-old woman, who was admitted with possibly neutropenic sepsis, also complains of diarrhea. The patient had abdomen pelvis CT scan, which showed mild inflammation of the upper abdomen. Otherwise, nondistended colon was noted. C. difficile negative. PAST MEDICAL HISTORY: Reviewed. REVIEW OF SYSTEMS: Fourteen-point review of systems is negative except as mentioned earlier. CURRENT MEDICATIONS: Reviewed. PHYSICAL EXAMINATION: VITAL SIGNS: Pulse is 87, blood pressure 120/80, respirations 17, temperature 99.8. HEENT: Conjunctivae normal. NECK: No JVD. CARDIOVASCULAR: S1, S2. RESPIRATIONS: Breath sounds diminished at the bases. A few scattered rhonchi. ABDOMEN: Soft. Mild diffuse discomfort. LABORATORY DATA: WBC 0.41. Rest of the labs are noted. C. diff is negative. ASSESSMENT: 1. Neutropenic fever, status post chemotherapy with sepsis present on admission. 2. Diarrhea. 3. History of breast cancer, on chemotherapy. 4. Abdominal pain. 5. History of gallstones and cholecystectomy. 6. History of nicotine dependence. RECOMMENDATIONS AND DISCUSSION: Recommend to continue current management and continue symptomatic treatment. Recommend amylase, lipase, repeat labs. Closely follow with Hematology, Oncology. The patient is started on cefepime. Cultures are negative. I would also recommend Infectious Disease evaluation also. Further recommendations to follow. MMODL / IJN: [id number] /
[2024-09-30 08:55] LABS: Amylase 7 U/L (23-121); Lipase 8 U/L (14-63)
[2024-09-30 09:20] LABS: ALT 12 U/L (8-44); AST 18 U/L (13-35); Albumin/Globulin Ratio 1.88 Ratio (1.60-3.17); Alkaline Phosphatase 63 U/L (41-126); Carbon Dioxide 19.9 mmol/L (21.6-31.8); Chloride 105 mmol/L (96-109); Globulin 1.6 g/dL (1.6-3.3); Glucose 82 mg/dL (70-110); Potassium 3.5 mmol/L (3.5-5.5); Sodium 139 mmol/L (135-145); Total Bilirubin 0.5 mg/dL (0.3-1.2); Total Protein 4.6 g/dL (6.2-8.2)
[2024-09-30 09:34] LABS: HCT 29.6 % (37.2-46.3); HGB 9.5 g/dL (12.0-15.0); MCH 30.1 pg (27.0-32.0); MCHC 32.1 g/dL (32.0-37.0); MCV 93.7 FL (80.0-97.0); Mean Platelet Volume 11.2 FL (9.5-12.2); NRBC Per 100 WBC 0 X 10*3/uL (0.00-0.01); Platelet Count 92 X 10*3/uL (140-440); RBC 3.16 X 10*6/uL (4.10-5.20); RDW 12.6 % (11.5-14.5); WBC 1.46 X 10*3/uL (4.50-10.00)
[2024-09-30 11:33] LABS: African American GFR (CKD) >90 (>60 ml/min/1.73 sqM); Non-African American GFR(CKD) >90 (>60 ml/min/1.73 sqM)
[2024-09-30 12:14] LABS: Basophils # (A) 0.05 X 10*3/uL (0.00-0.10); Basophils % (A) 3.4 %; Eosinophils # (A) 0.03 X 10*3/uL (0.04-0.35); Eosinophils % (A) 2.1 %; Lymphocytes # (A) 0.27 X 10*3/uL (0.90-5.00); Lymphocytes % (A) 18.5 %; Monocytes # (A) 0.33 X 10*3/uL (0.20-1.00); Monocytes % (A) 22.6 %; Neutrophils # (A) 0.75 X 10*3/uL (1.80-7.70); Neutrophils % (A) 51.3 %
--- NOTE | 2024-09-30 13:41 | P.PN ---
Subjective Progress Note Date: 09/30/24 Principal diagnosis: Reason for follow-up is febrile neutropenia/colitis Patient is a 69-year-old female with a past medical history significant for breast cancer for the patient is currently on chemotherapy presenting to the hospital for evaluation of fever patient did have a CT we did shows possible colitis involving the ascending transverse and descending colitis stool for C. difficile negative. On today's evaluation that is 09/30/2024, Patient is afebrile this morning patient denies having any chest pain shortness of breath or cough, the patient is currently on room air, patient still having some abdominal pain on the right side but denies any nausea vomiting and no diarrhea. Patient white count is 1.46 creatinine 0.44 Objective - Vital Signs Vital signs: Vital Signs Temp 98.9 F 09/30/24 07:30 Pulse 85 09/30/24 07:30 Resp 16 09/30/24 07:30 BP 119/66 09/30/24 07:30 Pulse Ox 96 09/30/24 07:30 FiO2 Intake & Output 09/29/24 09/30/24 09/30/24 18:59 06:59 18:59 Weight 81.647 kg Other: Voiding Method Toilet Toilet # Voids 4 3 1 - Exam GENERAL DESCRIPTION: An elderly female lying in bed in no distress RESPIRATORY SYSTEM: Unlabored breathing , decreased breath sounds at bases HEART: S1 S2 regular rate and rhythm , ABDOMEN: Soft , mild tenderness EXTREMITIES: No edema feet - Labs CBC & Chem 7: 09/30/24 04:43 09/30/24 10:34 Labs: Abnormal Lab Results - Last 24 Hours (Table) 09/30/24 09/30/24 Range/Units 04:43 04:43 WBC 1.46 A* (4.50-10.00) X 10*3/uL RBC 3.16 L (4.10-5.20) X 10*6/uL Hgb 9.5 L (12.0-15.0) g/dL Hct 29.6 L (37.2-46.3) % Plt Count 92 L (140-440) X 10*3/uL Carbon Dioxide 19.9 L (21.6-31.8) mmol/L Anion Gap 14.10 H (4.00-12.00) mmol/L BUN 8.0 L (9.0-27.0) mg/dL Creatinine 0.5 L (0.6-1.5) mg/dL Calcium 8.0 L (8.7-10.3) mg/dL Total Protein 4.6 L (6.2-8.2) g/dL Albumin 3.0 L (3.8-4.9) g/dL Amylase 7 L (23-121) U/L Lipase 8 L (14-63) U/L Microbiology - Last 24 Hours (Table) 09/28/24 13:02 Blood Culture - Preliminary Blood Assessment and Plan (1) Sepsis Current Visit: Yes Status: Acute Code(s): A41.9 - SEPSIS, UNSPECIFIED ORGANISM SNOMED Code(s): 33553589 (2) Colitis Current Visit: Yes Status: Acute Code(s): K52.9 - NONINFECTIVE GASTROENT ERITIS AND COLITIS, UNSPECIFIED SNOMED Code(s): 29590742 (3) Neutropenic fever Current Visit: Yes Status: Acute Priority: High Code(s): D70.9 - NEUTR OPENIA, UNSPECIFIED; R50.81 - FEVER PRESENTING WITH CONDITIONS CLASSIFIED ELSEWHERE SNOMED Code(s): 096298411 Plan: 1patient presented to hospital with sepsis in this patient who did have fever neutropenia tachycardia source likely abdominal patient did have abdominal pain diarrhea with evidence of colitis on the CT and will need to cover for the enteric gram-negative both aerobes and anaerobes 2 stool culture stool for Cryptosporidium antigen not obtained, C. difficile is negative 3-patient to continue with e cefepime and Flagyl however discontinue vancomycin Dictation was produced using [employer] dictation software. please excuse any grammatical, word or spelling errors. Time with Patient: Less than 30
[2024-09-30] MEDS: ONDANSETRON 4 MG/2 ML VIAL IVP PRN (15:56)
[2024-09-30] MEDS: SODIUM CHLORIDE 0.9% 1,000 ML IV SCH (15:58)
--- NOTE | 2024-09-30 15:59 | P.PN ---
Subjective Progress Note Date: 09/30/24 Principal diagnosis: Neutropenic fever, adj chemo for breast cancer In f/u today pt is feeling a little better, mouth less irritated, throat not as sore, no more fevers. Denies N,V, chest discomfort or SOB, abd pain is less, no dysuria, no BM since admit. Objective - Vital Signs Vital signs: Vital Signs Temp 98.5 F 09/30/24 13:01 Pulse 75 09/30/24 13:01 Resp 17 09/30/24 13:01 BP 93/57 09/30/24 13:01 Pulse Ox 98 09/30/24 13:01 FiO2 Intake & Output 09/29/24 09/30/24 09/30/24 18:59 06:59 18:59 Weight 81.647 kg Other: Voiding Method Toilet Toilet Toilet # Voids 4 3 1 - Constitutional General appearance: Present: cooperative, no acute distress, obese - EENT EENT Comment(s): tongue remains coated, oral mucosa less red, dry Eyes: Present: anicteric sclerae, EOMI ENT: Present: hearing grossly normal - Respiratory Respiratory: bilateral: CTA - Cardiovascular Rhythm: regular Heart sounds: normal: S1, S2 Abnormal Heart Sounds: Absent: systolic murmur, diastolic murmur, rub, S3 Gallop, S4 Gallop, click, other - Peripheral edema leg Peripheral Edema: bilateral: None - Gastrointestinal General gastrointestinal: Present: normal bowel sounds, soft Localized gastrointestinal: tender: RLQ (mild) - Neurologic Neurologic: Present: CNII-XII intact - Musculoskeletal Musculoskeletal: Present: strength equal bilaterally - Psychiatric Psychiatric: Present: A&O x's 3, appropriate affect, intact judgment & insight - Labs CBC & Chem 7: 09/30/24 04:43 09/30/24 10:34 Labs: Abnormal Lab Results - Last 24 Hours (Table) 09/30/24 09/30/24 09/30/24 Range/Units 04:43 04:43 10:34 WBC 1.46 A* (4.50-10.00) X 10*3/uL RBC 3.16 L (4.10-5.20) X 10*6/uL Hgb 9.5 L (12.0-15.0) g/dL Hct 29.6 L (37.2-46.3) % Plt Count 92 L (140-440) X 10*3/uL Neutrophils # 0.75 L (1.80-7.70) X 10*3/uL Lymphocytes # 0.27 L (0.90-5.00) X 10*3/uL Eosinophils # 0.03 L (0.04-0.35) X 10*3/uL Carbon Dioxide 19.9 L (21.6-31.8) mmol/L Anion Gap 14.10 H (4.00-12.00) mmol/L BUN 8.0 L (9.0-27.0) mg/dL Creatinine 0.5 L 0.44 L (0.6-1.5) mg/dL Calcium 8.0 L (8.7-10.3) mg/dL Total Protein 4.6 L (6.2-8.2) g/dL Albumin 3.0 L (3.8-4.9) g/dL Amylase 7 L (23-121) U/L Lipase 8 L (14-63) U/L Microbiology - Last 24 Hours (Table) 09/28/24 13:02 Blood Culture - Preliminary Blood Assessment and Plan (1) Neutropenic fever Current Visit: Yes Status: Acute Priority: High Code(s): D70.9 - NEUTROPENIA, UNSPECIFIED; R50.81 - FEVER PRESENTING WITH CONDITIONS CLASSIFIED ELSEWHERE SNOMED Code(s): 605295897 (2) Breast cancer Current Visit: Yes Status: Acute Priority: Medium Code(s): C50.919 - MALIGNANT NEOPLASM OF UNSP SITE OF UNSPECIFIED FEMALE BREAST SNOMED Code(s): 269235981 Plan: Neutropenic fever -No fever for 24 hours. CXR did not show any suspicious findings. C. difficile was negative. BC pending. Flu, covid, RSV panchito. Empiric cefepime and Vanco cont. -WBC up to 1.46! Patient received G-CSF 09/24. WBC showing increase already. No additional G-CSF at this time. CBC with diff daily -CT of the abdomen and pelvis without contrast impression is reporting mild inflammation of the upper abdomen, recommended serum lipase, no organizing fluid collection or free air. Nondistended: With vasa recta engorgement, correlate for colitis. -Today pt abd exam much better, only mild tenderness in RLQ. Ice chips for now. Do not advance diet without discussing with Oncologist, please. Breast cancer -Patient is on adjuvant TC with G-CSF, status post 1 cycle -Medical Oncologist plans for dose reduction for final 3 cycles, cont GCSF. Oral thrush -Stable, not much better. Pt states she cant stand taste of kools, told her she could swish and spit -Cont salt and soda rinse, cool solution with nystatin, oral care once every shift and as needed.
--- NOTE | 2024-10-01 05:12 | PN ---
PROGRESS NOTE DATE OF SERVICE: 09/30/2024 SUBJECTIVE: This is a 69-year-old woman, who was admitted with neutropenic fever, also had some diarrhea. The white count is 1.46 at this time. The patient has empiric antibiotics. Cultures are negative so far. Multiple consultants are following the patient closely. COVID-19 is negative. PAST MEDICAL HISTORY: Reviewed. REVIEW OF SYSTEMS: A 14-point review of systems is negative except as mentioned above. CURRENT MEDICATIONS: Reviewed. PHYSICAL EXAMINATION: VITAL SIGNS: Pulse is 75, blood pressure 93/57, respirations 17. HEENT: Conjunctivae normal. CARDIOVASCULAR: S1, S2. RESPIRATIONS: A few scattered rhonchi. ABDOMEN: Soft. NERVOUS SYSTEM: Nonfocal. LABORATORY DATA: Reviewed. ASSESSMENT: 1. Acute neutropenic fever, status post chemotherapy with sepsis present on admission. 2. Diarrhea, present on admission. 3. History of breast cancer, on chemotherapy. 4. Abdominal pain. 5. History of gallstones and cholecystectomy. 6. History of nicotine dependence. RECOMMENDATIONS AND DISCUSSION: Recommend to continue current management and continue symptomatic treatment. Otherwise, empiric antibiotics. The white count appears to be slightly improved at this time, I recommend to continue IV fluids. Monitor blood pressure closely. Repeat labs. Closely follow with multiple consultants. Guarded prognosis. Further recommendations to follow. MMODL / IJN: [id number] /
[2024-10-01 08:54] LABS: Blood Urea Nitrogen 6.8 mg/dL (9.0-27.0); Calcium 7.9 mg/dL (8.7-10.3); Carbon Dioxide 19.3 mmol/L (21.6-31.8); Chloride 107 mmol/L (96-109); Glucose 90 mg/dL (70-110); Potassium 3.2 mmol/L (3.5-5.5); Sodium 140 mmol/L (135-145)
[2024-10-01] MEDS: POTASSIUM CHLORIDE ER 20 MEQ TAB.ER PO SCH (10:02)
[2024-10-01 11:53] LABS: Band Neutrophils % 12 %; Basophils # (M) 0 X 10*3/uL (0.00-0.10); Eosinophils # (M) 0.12 X 10*3/uL (0.04-0.35); HCT 29.2 % (37.2-46.3); HGB 9.6 g/dL (12.0-15.0); Lymphocytes # (M) 0.25 X 10*3/uL (0.90-5.00); MCH 30.1 pg (27.0-32.0); MCHC 32.9 g/dL (32.0-37.0); MCV 91.5 FL (80.0-97.0); Mean Platelet Volume 10.7 FL (9.5-12.2); Metamyelocytes % 2 % (0-0); Monocytes # (M) 0.38 X 10*3/uL (0.20-1.00); Myelocytes % 1 % (0-0); NRBC Per 100 WBC 0.03 X 10*3/uL (0.00-0.01); Neutrophils # (M) 5.31 X 10*3/uL (1.80-7.70); Neutrophils % (M) 73 %; Nucleated Red Blood Cells 1 /100 WBCS; Platelet Count 130 X 10*3/uL (140-440); RBC 3.19 X 10*6/uL (4.10-5.20); RDW 12.8 % (11.5-14.5); Toxic Granulation 2+; WBC 6.25 X 10*3/uL (4.50-10.00)
--- NOTE | 2024-10-01 13:28 | P.PN ---
Subjective Progress Note Date: 10/01/24 Principal diagnosis: Reason for follow-up is febrile neutropenia/colitis Patient is a 69-year-old female with a past medical history significant for breast cancer for the patient is currently on chemotherapy presenting to the hospital for evaluation of fever patient did have a CT we did shows possible colitis involving the ascending transverse and descending colitis stool for C. difficile negative. On today's evaluation that is 10/01/2024,the patient denies any fever or any chills, patient is breathing comfortably on room air, the patient denies chest pain shortness of breath and no significant cough, patient right-sided abdominal pain has decreased in intensity no nausea vomiting did have 1 loose stool yesterday. Patient white count normalized to 6.25, creatinine 0.5 blood culture has been negative so far Objective - Vital Signs Vital signs: Vital Signs Temp 98.2 F 10/01/24 07:09 Pulse 72 10/01/24 07:09 Resp 16 10/01/24 07:09 BP 115/66 10/01/24 07:09 Pulse Ox 95 10/01/24 07:09 FiO2 Intake & Output 09/30/24 10/01/24 10/01/24 18:59 06:59 18:59 Intake Total 0 Balance 0 Intake: Oral 0 Other: Voiding Method Toilet Toilet Toilet # Voids 1 3 # Bowel Movements 0 - Exam GENERAL DESCRIPTION: An elderly female lying in bed in no distress RESPIRATORY SYSTEM: Unlabored breathing , decreased breath sounds at bases HEART: S1 S2 regular rate and rhythm , ABDOMEN: Soft , mild tenderness EXTREMITIES: No edema feet - Labs CBC & Chem 7: 10/01/24 04:55 10/01/24 04:55 Labs: Abnormal Lab Results - Last 24 Hours (Table) 10/01/24 10/01/24 Range/Units 04:55 04:55 RBC 3.19 L (4.10-5.20) X 10*6/uL Hgb 9.6 L (12.0-15.0) g/dL Hct 29.2 L (37.2-46.3) % Plt Count 130 L (140-440) X 10*3/uL Lymphocytes # (Manual) 0.25 L (0.90-5.00) X 10*3/uL NRBC/100 WBC Diff 0.03 H (0.00-0.01) X 10*3/uL Toxic Granulation 2+ A Potassium 3.2 L (3.5-5.5) mmol/L Carbon Dioxide 19.3 L (21.6-31.8) mmol/L Anion Gap 13.70 H (4.00-12.00) mmol/L BUN 6.8 L (9.0-27.0) mg/dL Creatinine 0.5 L (0.6-1.5) mg/dL Calcium 7.9 L (8.7-10.3) mg/dL Microbiology - Last 24 Hours (Table) 09/28/24 13:02 Blood Culture - Preliminary Blood Assessment and Plan (1) Sepsis Current Visit: Yes Status: Acute Code(s): A41.9 - SEPSIS, UNSPECIFIED ORGANISM SNOMED Code(s): 39420274 (2) Colitis Current Visit: Yes Status: Acute Code(s): K52.9 - NONINFECTIVE GASTROENTERITIS AND COLITIS, UNSPECIFIED SNOMED Code(s): 63225430 (3) Neutropenic fever Current Visit: Yes Status: Acute Priority: High Code(s): D70.9 - NEUTROPENIA, UNSPECIFIED; R50.81 - FEVER PRESENTING WITH CONDITIONS CLASSIFIED ELSEWHERE SNOMED Code(s): 086426007 Plan: 1patient presented to hospital with sepsis in this patient who did have fever neutropenia tachycardia source likely abdominal patient did have abdominal pain diarrhea with evidence of colitis on the CT and will need to cover for the enteric gram-negative both aerobes and anaerobes 2 stool culture stool for Cryptosporidium antigen not obtained, C. difficile is negative 3-patient seem to have shown clinical improvement fever resolved white count normalized, to continue with e cefepime and Flagyl, will transition oral antibiotics on discharge Dictation was produced using [employer] dictation software. please excuse any grammatical, word or spelling errors. Time with Patient: Less than 30
--- NOTE | 2024-10-01 19:55 | P.PN ---
Subjective Progress Note Date: 10/01/24 No acute events. Reporting improvement in symptoms. No diarrhea today. WBC now normal range, 6.25, ANC 5.3. Afebrile > 48hrs Objective - Vital Signs Vital signs: Vital Signs Temp 97.9 F 10/01/24 12:53 Pulse 68 10/01/24 12:53 Resp 15 10/01/24 12:53 BP 122/73 10/01/24 12:53 Pulse Ox 98 10/01/24 12:53 FiO2 Intake & Output 09/30/24 10/01/24 10/01/24 18:59 06:59 18:59 Intake Total 0 Balance 0 Intake: Oral 0 Other: Voiding Method Toilet Toilet Toilet # Voids 1 3 2 # Bowel Movements 0 - Constitutional General appearance: Present: average body habitus, no acute distress - EENT Eyes: Present: anicteric sclerae, EOMI ENT: Present: hearing grossly normal - Respiratory Details: breathing is even and unlabored - Cardiovascular Details: skin warm and dry - Gastrointestinal General gastrointestinal: Present: soft. Absent: tenderness - Integumentary Integumentary: Absent: cyanotic - Psychiatric Psychiatric: Present: A&O x's 3 - Labs CBC & Chem 7: 10/01/24 04:55 10/01/24 04:55 Labs: Abnormal Lab Results - Last 24 Hours (Table) 10/01/24 10/01/24 Range/Units 04:55 04:55 RBC 3.19 L (4.10-5.20) X 10*6/uL Hgb 9.6 L (12.0-15.0) g/dL Hct 29.2 L (37.2-46.3) % Plt Count 130 L (140-440) X 10*3/uL Lymphocytes # (Manual) 0.25 L (0.90-5.00) X 10*3/uL NRBC/100 WBC Diff 0.03 H (0.00-0.01) X 10*3/uL Toxic Granulation 2+ A Potassium 3.2 L (3.5-5.5) mmol/L Carbon Dioxide 19.3 L (21.6-31.8) mmol/L Anion Gap 13.70 H (4.00-12.00) mmol/L BUN 6.8 L (9.0-27.0) mg/dL Creatinine 0.5 L (0.6-1.5) mg/dL Calcium 7.9 L (8.7-10.3) mg/dL Microbiology - Last 24 Hours (Table) 09/28/24 13:02 Blood Culture - Preliminary Blood Assessment and Plan (1) Breast cancer Current Visit: Yes Status: Acute Priority: Medium Code(s): C50.919 - MALIGNANT NEOPLASM OF UNSP SITE OF UNSPECIFIED FEMALE BREAST SNOMED Code(s): 673122730 (2) Colitis Current Visit: Yes Status: Acute Priority: High Code(s): K52.9 - NONINFECTIVE GASTROENTERITIS AND COLITIS, UNSPECIFIED SNOMED Code(s): 35349346 (3) Neutropenic fever Current Visit: Yes Status: Acute Priority: High Code(s): D70.9 - NEUTROPENIA, UNSPECIFIED; R50.81 - FEVER PRESENTING WITH CONDITIONS CLASSIFIED E LSEWHERE SNOMED Code(s): 525043060 Plan: Neutropenic fever -CXR did not show any suspicious findings. C. difficile was negative. BC pending. Flu, covid, RSV panchito. Empiric cefepime and Vanco cont. -Patient received G-CSF 09/24. No additional G-CSF at this time. CBC with diff daily -CT of the abdomen and pelvis without contrast impression is reporting mild inflammation of the upper abdomen, recommended serum lipase, no organizing fluid collection or free air. Nondistended: With vasa recta engorgement, correlate for colitis. -Today pt abd exam much better, nontender. Remains afebrile > 48 hrs. White counts recovered -Diet advanced to full liquids Breast cancer -Patient is on adjuvant TC with G-CSF, status post 1 cycle -Medical Oncologist plans for dose reduction for final 3 cycles, cont GCSF. Oral thrush -Cont salt and soda rinse, cool solution with nystatin, oral care once every shift and as needed. -Symptoms significantly improved today Doctor attests: I performed a history and physical examination of this patient, developed impression and plan of care. Discussed with dictator. I agree with dictators note, documented as a scribe.
[2024-10-02 11:07] LABS: Carbon Dioxide 21.2 mmol/L (21.6-31.8); Chloride 108 mmol/L (96-109); Glucose 90 mg/dL (70-110); Potassium 3.3 mmol/L (3.5-5.5); Sodium 142 mmol/L (135-145)
[2024-10-02 11:34] LABS: Eosinophils # (M) 0.19 X 10*3/uL (0.04-0.35); HCT 30.2 % (37.2-46.3); HGB 9.8 g/dL (12.0-15.0); Lymphocytes # (M) 0.57 X 10*3/uL (0.90-5.00); MCH 30.6 pg (27.0-32.0); MCHC 32.5 g/dL (32.0-37.0); MCV 94.4 FL (80.0-97.0); Mean Platelet Volume 10.8 FL (9.5-12.2); Myelocytes % 1 % (0-0); NRBC Per 100 WBC 0.04 X 10*3/uL (0.00-0.01); Neutrophils # (M) 8.32 X 10*3/uL (1.80-7.70); Neutrophils % (M) 87 %; Nucleated Red Blood Cells 2 /100 WBCS; Platelet Count 177 X 10*3/uL (140-440); Promyelocytes # (M) 0.19 k/uL (0); Promyelocytes % 2 %; RDW 13.2 % (11.5-14.5); WBC 9.56 X 10*3/uL (4.50-10.00)
--- NOTE | 2024-10-02 13:24 | P.PN ---
Subjective Progress Note Date: 10/02/24 Principal diagnosis: Reason for follow-up is febrile neutropenia/colitis Patient is a 69-year-old female with a past medical history significant for breast cancer for the patient is currently on chemotherapy presenting to the hospital for evaluation of fever patient did have a CT we did shows possible colitis involving the ascending transverse and descending colitis stool for C. difficile negative. On today's evaluation that is 10/02/2024,the patient remains to be afebrile, patient is on room air not requiring supplemental oxygen and denies any shortness of breath no chest pain or cough.Patient denies having any nausea or vomiting, patient denies any abdominal pain has improved, still complaining of some diarrhea. Patient white count 5.56 creatinine 0.5 blood culture negative Objective - Vital Signs Vital signs: Vital Signs Temp 98.3 F 10/02/24 07:50 Pulse 76 10/02/24 07:50 Resp 16 10/02/24 07:50 BP 138/70 10/02/24 07:50 Pulse Ox 97 10/02/24 07:50 FiO2 Intake & Output 10/01/24 10/02/24 10/02/24 18:59 06:59 18:59 Intake Total 590 Balance 590 Intake: Oral 590 Other: Voiding Method Toilet Toilet Toilet Diaper Diaper # Voids 2 2 - Exam GENERAL DESCRIPTION: An elderly female lying in bed in no distress RESPIRATORY SYSTEM: Unlabored breathing , decreased breath sounds at bases HEART: S1 S2 regular rate and rhythm , ABDOMEN: Soft , mild tenderness EXTREMITIES: No edema feet - Labs CBC & Chem 7: 10/02/24 06:53 10/02/24 06:53 Labs: Abnormal Lab Results - Last 24 Hours (Table) 10/01/24 10/02/24 Range/Units 04:55 06:53 RBC 3.19 L (4.10-5.20) X 10*6/uL Hgb 9.6 L (12.0-15.0) g/dL Hct 29.2 L (37.2-46.3) % Plt Count 130 L (140-440) X 10*3/uL Lymphocytes # (Manual) 0.25 L (0.90-5.00) X 10*3/uL NRBC/100 WBC Diff 0.03 H (0.00-0.01) X 10*3/uL Toxic Granulation 2+ A Potassium 3.3 L (3.5-5.5) mmol/L Carbon Dioxide 21.2 L (21.6-31.8) mmol/L Anion Gap 12.80 H (4.00-12.00) mmol/L BUN 4.0 L (9.0-27.0) mg/dL Creatinine 0.5 L (0.6-1.5) mg/dL BUN/Creatinine Ratio 8.00 L (12.00-20.00) Ratio Calcium 8.0 L (8.7-10.3) mg/dL Microbiology - Last 24 Hours (Table) 09/28/24 13:02 Blood Culture - Preliminary Blood Assessment and Plan (1) Sepsis Current Visit: Yes Status: Acute Code(s): A41.9 - SEPSIS, UNSPECIFIED ORGANISM SNOMED Code(s): 10819272 (2) Colitis Current Visit: Yes Status: Acute Priority: High Code(s): K52.9 - NON INFECTIVE GASTROENTERITIS AND COLITIS, UNSPECIFIED SNOMED Code(s): 55949135 (3) Neutropenic fever Current Visit: Yes Status: Acute Priority: High Code(s): D70.9 - NEUTROPENIA, UNSPECIFIED; R50.81 - FEVER PRESENTING WITH CONDITIONS CLASSIFIED ELSEWHERE SNOMED Code(s): 721786393 Plan: 1patient presented to hospital with sepsis in this patient who did have fever neutropenia tachycardia source likely abdominal patient did have abdominal pain diarrhea with evidence of colitis on the CT and will need to cover for the enteric gram-negative both aerobes and anaerobes 2 stool culture stool for Cryptosporidium antigen not obtained, C. difficile is negative 3-patient seem to have shown clinical improvement fever resolved white count normalized, still complaining of some diarrhea we will add Questran for symptomatic relief continue cefepime and Flagyl while inpatient Dictation was produced using [employer] dictation software. please excuse any grammatical, word or spelling errors. Time with Patient: Less than 30
--- NOTE | 2024-10-02 16:09 | P.PN ---
Subjective Progress Note Date: 10/01/24 69-year-old female with a past medical history significant for breast cancer for the patient is currently on chemotherapy presenting to the hospital for evaluation of fever that apparently started on Friday that is about 4 days before presentation to the hospital patient denies significant headache or URI symptoms no chest pain shortness of breath or cough has been complaining of some nausea decreased appetite but no vomiting also complaining of some right-sided abdominal pain mostly dull aching to quality mild to moderate intensity without radiation and did have diarrhea with multiple loose stool but no blood and mucus in the stool with the symptoms the patient was brought to the hospital patient has been running a fever of 102.8 F patient was tachycardic but not hypotensive or hypoxic patient did have white count 0.4 absolute neutrophil count less than 500 creatinine 0.66 electrolytes are normal liver enzymes are normal urine was mildly positive influenza RSV COVID testing was negative patient did have a chest x-ray that was negative for acute infiltrate did have a CT of abdominal pelvis did shows slight compression wall thickening of the ascending transverse and descending colon no organizing fluid collection patient has been treated with cefepime and vancomycin infectious disease was consulted for further management of antibiotic therapy Objective - Vital Signs Vital signs: Vital Signs Temp 98.2 F 10/01/24 07:09 Pulse 72 10/01/24 07:09 Resp 16 10/01/24 07:09 BP 115/66 10/01/24 07:09 Pulse Ox 95 10/01/24 07:09 FiO2 Intake & Output 09/30/24 10/01/24 10/01/24 18:59 06:59 18:59 Intake Total 0 Balance 0 Intake: Oral 0 Other: Voiding Method Toilet Toilet Toilet # Voids 1 3 # Bowel Movements 0 - Exam GENERAL DESCRIPTION: Elderly female lying in bed, no distress. No tachypnea or accessory muscle of respiration use. HEENT: Shows Pallor , no scleral icterus. Oral mucous membrane is dry. No pharyngeal erythema or thrush NECK: Trachea central, no thyromegaly. LUNGS: Unlabored breathing. Clear to auscultation anteriorly. No wheeze or crackle. HEART: S1, S2, regular rate and rhythm. No loud murmur ABDOMEN: Soft, mild right-sided tenderness no guarding or rigidity EXTREMITIES: No edema of feet. SKIN: No rash, no masses palpable. NEUROLOGICAL: The patient is awake, alert, oriented x3, mood and affect normal. - Labs CBC & Chem 7: 10/02/24 06:53 10/02/24 06:53 Labs: Abnormal Lab Results - Last 24 Hours (Table) 09/30/24 10/01/24 Range/Units 04:43 04:55 Neutrophils # 0.75 L (1.80-7.70) X 10*3/uL Lymphocytes # 0.27 L (0.90-5.00) X 10*3/uL Eosinophils # 0.03 L (0.04-0.35) X 10*3/uL Potassium 3.2 L (3.5-5.5) mmol/L Carbon Dioxide 19.3 L (21.6-31.8) mmol/L Anion Gap 13.70 H (4.00-12.00) mmol/L BUN 6.8 L (9.0-27.0) mg/dL Creatinine 0.5 L (0.6-1.5) mg/dL Calcium 7.9 L (8.7-10.3) mg/dL Microbiology - Last 24 Hours (Table) 09/28/24 13:02 Blood Culture - Preliminary Blood Assessment and Plan Assessment: Neutropenic fever -CXR did not show any suspicious findings. C. difficile was negative. BC pending. Flu, covid, RSV panchito. Empiric cefepime and Vanco cont. -Patient received G-CSF 09/24. No additional G-CSF at this time. CBC with diff daily -CT of the abdomen and pelvis without contrast impression is reporting mild inflammation of the upper abdomen, recommended serum lipase, no organizing fluid collection or free air. Nondistended: With vasa recta engorgement, correlate for colitis. -Today pt abd exam much better, nontender. Remains afebrile > 48 hrs. White counts recovered -Diet advanced to full liquids Breast cancer -Patient is on adjuvant TC with G-CSF, status post 1 cycle -Medical Oncologist plans for dose reduction for final 3 cycles, cont GCSF. Oral thrush -Cont salt and soda rinse, cool solution with nystatin, oral care once every shift and as needed. -Symptoms significantly improved today
--- NOTE | 2024-10-02 16:10 | P.PN ---
Subjective Progress Note Date: 10/02/24 69-year-old female with a past medical history significant for breast cancer for the patient is currently on chemotherapy presenting to the hospital for evaluation of fever that apparently started on Friday that is about 4 days before presentation to the hospital patient denies significant headache or URI symptoms no chest pain shortness of breath or cough has been complaining of some nausea decreased appetite but no vomiting also complaining of some right-sided abdominal pain mostly dull aching to quality mild to moderate intensity without radiation and did have diarrhea with multiple loose stool but no blood and mucus in the stool with the symptoms the patient was brought to the hospital patient has been running a fever of 102.8 F patient was tachycardic but not hypotensive or hypoxic patient did have white count 0.4 absolute neutrophil count less than 500 creatinine 0.66 electrolytes are normal liver enzymes are normal urine was mildly positive influenza RSV COVID testing was negative patient did have a chest x-ray that was negative for acute infiltrate did have a CT of abdominal pelvis did shows slight compression wall thickening of the ascending transverse and descending colon no organizing fluid collection patient has been treated with cefepime and vancomycin infectious disease was consulted for further management of antibiotic therapy 10/02/2024 ---the patient seen and evaluated in room at bedside; remains to be afebrile, patient is on room air not requiring supplemental oxygen and denies any shortness of breath no chest pain or cough.Patient denies having any nausea or vomiting, patient denies any abdominal pain has improved, still complaining of some diarrhea. Patient white count 5.56 creatinine 0.5 blood culture negative patient presented to hospital with sepsis in this patient who did have fever neutropenia tachycardia source likely abdominal patient did have abdominal pain diarrhea with evidence of colitis on the CT and will need to cover for the enteric gram-negative both aerobes and anaerobes stool culture stool for Cryptosporidium antigen not obtained, C. difficile is negative -patient seem to have shown clinical improvement fever resolved white count normalized, still complaining of some diarrhea we will add Questran for symptomatic relief continue cefepime and Flagyl while inpatient Objective - Vital Signs Vital signs: Vital Signs Temp 98.3 F 10/02/24 07:50 Pulse 76 10/02/24 07:50 Resp 16 10/02/24 07:50 BP 138/70 10/02/24 07:50 Pulse Ox 97 10/02/24 07:50 FiO2 Intake & Output 10/01/24 10/02/24 10/02/24 18:59 06:59 18:59 Intake Total 590 Balance 590 Intake: Oral 590 Other: Voiding Method Toilet Toilet Toilet Diaper Diaper # Voids 2 2 - Exam GENERAL DESCRIPTION: Elderly female lying in bed, no distress. No tachypnea or accessory muscle of respiration use. HEENT: Shows Pallor , no scleral icterus. Oral mucous membrane is dry. No pharyngeal erythema or thrush NECK: Trachea central, no thyromegaly. LUNGS: Unlabored breathing. Clear to auscultation anteriorly. No wheeze or crackle. HEART: S1, S2, regular rate and rhythm. No loud murmur ABDOMEN: Soft, mild right-sided tenderness no guarding or rigidity EXTREMITIES: No edema of feet. SKIN: No rash, no masses palpable. NEUROLOGICAL: The patient is awake, alert, oriented x3, mood and affect normal. - Labs CBC & Chem 7: 10/02/24 06:53 10/02/24 06:53 Labs: Abnormal Lab Results - Last 24 Hours (Table) 10/02/24 10/02/24 Range/Units 06:53 06:53 RBC 3.20 L (4.10-5.20) X 10*6/uL Hgb 9.8 L (12.0-15.0) g/dL Hct 30.2 L (37.2-46.3) % Neutrophils # (Manual) 8.32 H (1.80-7.70) X 10*3/uL Lymphocytes # (Manual) 0.57 L (0.90-5.00) X 10*3/uL Monocytes # (Manual) 0.10 L (0.20-1.00) X 10*3/uL NRBC/100 WBC Diff 0.04 H (0.00-0.01) X 10*3/uL Potassium 3.3 L (3.5-5.5) mmol/L Carbon Dioxide 21.2 L (21.6-31.8) mmol/L Anion Gap 12.80 H (4.00-12.00) mmol/L BUN 4.0 L (9.0-27.0) mg/dL Creatinine 0.5 L (0.6-1.5) mg/dL BUN/Creatinine Ratio 8.00 L (12.00-20.00) Ratio Calcium 8.0 L (8.7-10.3) mg/dL Microbiology - Last 24 Hours (Table) 09/28/24 13:02 Blood Culture - Preliminary Blood Assessment and Plan Assessment: Neutropenic fever -CXR did not show any suspicious findings. C. difficile was negative. BC pending. Flu, covid, RSV panchito. Empiric cefepime and Vanco cont. -Patient received G-CSF 09/24. No additional G-CSF at this time. CBC with diff daily -CT of the abdomen and pelvis without contrast impression is reporting mild inf lammation of the upper abdomen, recommended serum lipase, no organizing fluid collection or free air. Nondistended: With vasa recta engorgement, correlate for colitis. -Today pt abd exam much better, nontender. Remains afebrile > 48 hrs. White counts recovered -Diet advanced to full liquids Breast cancer -Patient is on adjuvant TC with G-CSF, status post 1 cycle -Medical Oncologist plans for dose reduction for final 3 cycles, cont GCSF. Oral thrush -Cont salt and soda rinse, cool solution with nystatin, oral care once every shift and as needed. -Symptoms significantly improved today
[2024-10-02] MEDS: CHOLESTYRAMINE (WITH SUGAR) 4 GM PACKET PO SCH (16:13)
[2024-10-02 23:59] LABS: Cryptosporidium Antigen Negative (Negative)
[2024-10-03 09:27] LABS: HCT 27.7 % (37.2-46.3); HGB 9.1 g/dL (12.0-15.0); MCH 29.4 pg (27.0-32.0); MCHC 32.9 g/dL (32.0-37.0); MCV 89.6 FL (80.0-97.0); Mean Platelet Volume 10.3 FL (9.5-12.2); NRBC Per 100 WBC 0.04 X 10*3/uL (0.00-0.01); Platelet Count 176 X 10*3/uL (140-440); RBC 3.09 X 10*6/uL (4.10-5.20); RDW 13.2 % (11.5-14.5)
[2024-10-03 10:03] LABS: Basophils # (A) 0.09 X 10*3/uL (0.00-0.10); Eosinophils # (A) 0.09 X 10*3/uL (0.04-0.35); Lymphocytes # (A) 0.74 X 10*3/uL (0.90-5.00); Lymphocytes % (A) 8.6 %; Monocytes # (A) 0.41 X 10*3/uL (0.20-1.00); Monocytes % (A) 4.8 %; Neutrophils # (A) 6.88 X 10*3/uL (1.80-7.70); Neutrophils % (A) 80.1 %
[2024-10-03 10:30] LABS: BUN/Creat Ratio <7.00 Ratio (12.00-20.00); Blood Urea Nitrogen <3.5 mg/dL (9.0-27.0); Calcium 7.7 mg/dL (8.7-10.3); Chloride 108 mmol/L (96-109); Glucose 94 mg/dL (70-110); Potassium 2.9 mmol/L (3.5-5.5); Sodium 142 mmol/L (135-145)
[2024-10-03] MEDS: POTASSIUM CHLORIDE 20 MEQ in WATER FOR INJECTION 1 100ML.BAG IVPB STA (12:24)
[2024-10-03] MEDS: POTASSIUM CHLORIDE ER 20 MEQ TAB.ER PO STA (12:24)
--- NOTE | 2024-10-03 16:54 | P.PN ---
Subjective Progress Note Date: 10/03/24 69-year-old female with a past medical history significant for breast cancer for the patient is currently on chemotherapy presenting to the hospital for evaluation of fever that apparently started on Friday that is about 4 days before presentation to the hospital patient denies significant headache or URI symptoms no chest pain shortness of breath or cough has been complaining of some nausea decreased appetite but no vomiting also complaining of some right-sided abdominal pain mostly dull aching to quality mild to moderate intensity without radiation and did have diarrhea with multiple loose stool but no blood and mucus in the stool with the symptoms the patient was brought to the hospital patient has been running a fever of 102.8 F patient was tachycardic but not hypotensive or hypoxic patient did have white count 0.4 absolute neutrophil count less than 500 creatinine 0.66 electrolytes are normal liver enzymes are normal urine was mildly positive influenza RSV COVID testing was negative patient did have a chest x-ray that was negative for acute infiltrate did have a CT of abdominal pelvis did shows slight compression wall thickening of the ascending transverse and descending colon no organizing fluid collection patient has been treated with cefepime and vancomycin infectious disease was consulted for further management of antibiotic therapy 10/02/2024 ---the patient seen and evaluated in room at bedside; remains to be afebrile, patient is on room air not requiring supplemental oxygen and denies any shortness of breath no chest pain or cough.Patient denies having any nausea or vomiting, patient denies any abdominal pain has improved, still complaining of some diarrhea. Patient white count 5.56 creatinine 0.5 blood culture negative patient presented to hospital with sepsis in this patient who did have fever neutropenia tachycardia source likely abdominal patient did have abdominal pain diarrhea with evidence of colitis on the CT and will need to cover for the enteric gram-negative both aerobes and anaerobes stool culture stool for Cryptosporidium antigen not obtained, C. difficile is negative -patient seem to have shown clinical improvement fever resolved white count normalized, still complaining of some diarrhea we will add Questran for symptomatic relief continue cefepime and Flagyl while inpatient 10/03/2024 Patient is seen and evaluated resting comfortably in bed; reports she is feeling markedly improved this morning; diarrhea has markedly improved Vital signs are reviewed and stable with temperature of 97.6, pulse 67, respirations 16 and blood pressure 139/68 with O2 saturation 99% on room air Lab review shows WBC of 8.6, hemoglobin of 9.1, platelet count of 176, sodium 142, potassium 2.9, BUNs/creatinine of 3.5/0.5 -Will supplement with IV and oral potassium; repeat electrolytes tomorrow morning Patient reports improvement in abdominal pain, nausea and diarrhea; remains on Questran -ID on board and recommending continuing cefepime and Flagyl while inpatient -Continue to advance diet as tolerated -- Discharge in next 24 to 48 hours once clinically stable and able to tolerate regular diet Objective - Vital Signs Vital signs: Vital Signs Temp 98.0 F 10/03/24 07:37 Pulse 57 L 10/03/24 07:37 Resp 17 10/03/24 07:37 BP 112/58 10/03/24 07:37 Pulse Ox 96 10/03/24 07:37 FiO2 Intake & Output 10/02/24 10/03/24 10/03/24 18:59 06:59 18:59 Intake Total 1050 590 Balance 1050 590 Intake: Intake, IV Titration 1050 Amount Cefepime 2 gm In Sodium 100 Chloride 0.9% 100 ml @ 25 mls/hr IVPB Q8H [facility] Rx#: [id number] Sodium Chloride 0.9% 1, 750 000 ml @ 75 mls/hr IV . [id number] [facility] Rx#:[id number] metroNIDAZOLE-NS PMX 500 200 mg In Saline 1 100ml.bag @ 100 mls/hr IVPB Q8HR [facility] Rx#:[id number] Oral 590 Other: Voiding Method Toilet Toilet Toilet Diaper Diaper Diaper # Voids 2 2 # Bowel Movements 2 - Exam GENERAL DESCRIPTION: Elderly female lying in bed, no distress. No tachypnea or accessory muscle of respiration use. HEENT: Shows Pallor , no scleral icterus. Oral mucous membrane is dry. No pharyngeal erythema or thrush NECK: Trachea central, no thyromegaly. LUNGS: Unlabored breathing. Clear to auscultation anteriorly. No wheeze or crackle. HEART: S1, S2, regular rate and rhythm. No loud murmur ABDOMEN: Soft, mild right-sided tenderness no guarding or rigidity EXTREMITIES: No edema of feet. SKIN: No rash, no masses palpable. NEUROLOGICAL: The patient is awake, alert, oriented x3, mood and affect normal. - Labs CBC & Chem 7: 10/03/24 06:23 10/03/24 06:23 Labs: Abnormal Lab Results - Last 24 Hours (Table) 10/02/24 10/02/24 10/03/24 Range/Units 06:53 06:53 06:23 RBC 3.20 L 3.09 L (4.10-5.20) X 10*6/uL Hgb 9.8 L 9.1 L (12.0-15.0) g/dL Hct 30.2 L 27.7 L (37.2-46.3) % Immature Gran # 0.39 H (0.00-0.04) X 10*3/uL Neutrophils # (Manual) 8.32 H (1.80-7.70) X 10*3/uL Lymphocytes # 0.74 L (0.90-5.00) X 10*3/uL Lymphocytes # (Manual) 0.57 L (0.90-5.00) X 10*3/uL Monocytes # (Manual) 0.10 L (0.20-1.00) X 10*3/uL NRBC/100 WBC Diff 0.04 H 0.04 H (0.00-0.01) X 10*3/uL Potassium 3.3 L (3.5-5.5) mmol/L Carbon Dioxide 21.2 L (21.6-31.8) mmol/L Anion Gap 12.80 H (4.00-12.00) mmol/L BUN 4.0 L (9.0-27.0) mg/dL Creatinine 0.5 L (0.6-1.5) mg/dL BUN/Creatinine Ratio 8.00 L (12.00-20.00) Ratio Calcium 8.0 L (8.7-10.3) mg/dL 10/03/24 Range/Units 06:23 RBC (4.10-5.20) X 10*6/uL Hgb (12.0-15.0) g/dL Hct (37.2-46.3) % Immature Gran # (0.00-0.04) X 10*3/uL Neutrophils # (Manual) (1.80-7.70) X 10*3/uL Lymphocytes # (0.90-5.00) X 10*3/uL Lymphocytes # (Manual) (0.90-5.00) X 10*3/uL Monocytes # (Manual) (0.20-1.00) X 10*3/uL NRBC/100 WBC Diff (0.00-0.01) X 10*3/uL Potassium 2.9 L (3.5-5.5) mmol/L Carbon Dioxide (21.6-31.8) mmol/L Anion Gap (4.00-12.00) mmol/L BUN <3.5 L (9.0-27.0) mg/dL Creatinine 0.5 L (0.6-1.5) mg/dL BUN/Creatinine Ratio <7.00 L (12.00-20.00) Ratio Calcium 7.7 L (8.7-10.3) mg/dL Microbiology - Last 24 Hours (Table) 10/02/24 08:55 Stool Culture - Preliminary Stool Pseudomonas aeruginosa Assessment and Plan Assessment: Neutropenic fever -CXR did not show any suspicious findings. C. difficile was negative. BC pending. Flu, covid, RSV panchito. Empiric cefepime and Vanco cont. -Patient received G-CSF 09/24. No additional G-CSF at this time. CBC with diff daily -CT of the abdomen and pelvis without contrast impression is reporting mild inflammation of the upper abdomen, recommended serum lipase, no organizing fluid collection or free air. Nondistended: With vasa recta engorgement, correlate for colitis. -Today pt abd exam much better, nontender. Remains afebrile > 48 hrs. White counts recovered -Diet advanced to full liquids Breast cancer -Patient is on adjuvant TC with G-CSF, status post 1 cycle -Medical Oncologist plans for dose reduction for final 3 cycles, cont GCSF. Oral thrush -Cont salt and soda rinse, cool solution with nystatin, oral care once every shift and as needed. -Symptoms significantly improved today
--- NOTE | 2024-10-03 21:42 | P.PN ---
Subjective Progress Note Date: 10/03/24 Principal diagnosis: Reason for follow-up is febrile neutropenia/colitis This is a telehealth visit Patient is a 69-year-old female with a past medical history significan t for breast cancer for the patient is currently on chemotherapy presenting to the hospital for evaluation of fever patient did have a CT we did shows possible colitis involving the ascending transverse and descending colitis stool for C. difficile negative. On today's evaluation that is 10/03/2024, the patient continues to be afebrile, the patient is on room air and breathing comfortably, the Pt denies having any chest pain or cough, the patient denies having any abdominal pain no vomiting and did have resolution of her diarrhea. Patient did have a white count of 8.60 creatinine 0.5 stool culture with Pseudomonas blood culture negative Objective - Vital Signs Vital signs: Vital Signs Temp 98.0 F 10/03/24 07:37 Pulse 57 L 10/03/24 07:37 Resp 17 10/03/24 07:37 BP 112/58 10/03/24 07:37 Pulse Ox 96 10/03/24 07:37 FiO2 Intake & Output 10/02/24 10/03/24 10/03/24 18:59 06:59 18:59 Intake Total 1050 590 Balance 1050 590 Intake: Intake, IV Titration 1050 Amount Cefepime 2 gm In Sodium 100 Chloride 0.9% 100 ml @ 25 mls/hr IVPB Q8H [facility] Rx#: [id number] Sodium Chloride 0.9% 1, 750 000 ml @ 75 mls/hr IV . [id number] [facility] Rx#:[id number] metroNIDAZOLE-NS PMX 500 200 mg In Saline 1 100ml.bag @ 100 mls/hr IVPB Q8HR [facility] Rx#:[id number] Oral 590 Other: Voiding Method Toilet Toilet Toilet Diaper Diaper Diaper # Voids 2 2 # Bowel Movements 2 - Exam Elderly female up in the bed in no distress No tachypnea or accessory muscle respiration use Unlabored breathing Patient is awake alert oriented x 3 - Labs CBC & Chem 7: 10/03/24 06:23 10/03/24 06:23 Labs: Abnormal Lab Results - Last 24 Hours (Table) 10/02/24 10/02/24 10/03/24 Range/Units 06:53 06:53 06:23 RBC 3.20 L 3.09 L (4.10-5.20) X 10*6/uL Hgb 9.8 L 9.1 L (12.0-15.0) g/dL Hct 30.2 L 27.7 L (37.2-46.3) % Immature Gran # 0.39 H (0.00-0.04) X 10*3/uL Neutrophils # (Manual) 8.32 H (1.80-7.70) X 10*3/uL Lymphocytes # 0.74 L (0.90-5.00) X 10*3/uL Lymphocytes # (Manual) 0.57 L (0.90-5.00) X 10*3/uL Monocytes # (Manual) 0.10 L (0.20-1.00) X 10*3/uL NRBC/100 WBC Diff 0.04 H 0.04 H (0.00-0.01) X 10*3/uL Potassium 3.3 L (3.5-5.5) mmol/L Carbon Dioxide 21.2 L (21.6-31.8) mmol/L Anion Gap 12.80 H (4.00-12.00) mmol/L BUN 4.0 L (9.0-27.0) mg/dL Creatinine 0.5 L (0.6-1.5) mg/dL BUN/Creatinine Ratio 8.00 L (12.00-20.00) Ratio Calcium 8.0 L (8.7-10.3) mg/dL 24/24 Range/Units 06:23 RBC (4.10-5.20) X 10*6/uL Hgb (12.0-15.0) g/dL Hct (37.2-46.3) % Immature Gran # (0.00-0.04) X 10*3/uL Neutrophils # (Manual) (1.80-7.70) X 10*3/uL Lymphocytes # (0.90-5.00) X 10*3/uL Lymphocytes # (Manual) (0.90-5.00) X 10*3/uL Monocytes # (Manual) (0.20-1.00) X 10*3/uL NRBC/100 WBC Diff (0.00-0.01) X 10*3/uL Potassium 2.9 L (3.5-5.5) mmol/L Carbon Dioxide (21.6-31.8) mmol/L Anion Gap (4.00-12.00) mmol/L BUN <3.5 L (9.0-27.0) mg/dL Creatinine 0.5 L (0.6-1.5) mg/dL BUN/Creatinine Ratio <7.00 L (12.00-20.00) Ratio Calcium 7.7 L (8.7-10.3) mg/dL Microbiology - Last 24 Hours (Table) 10/02/24 08:55 Stool Culture - Preliminary Stool Pseudomonas aeruginosa Assessment and Plan (1) Sepsis Current Visit: Yes Status: Acute Code(s): A41.9 - SEPSIS, UNSPECIFIED ORGA [facility] SNOMED Code(s): 08470042 (2) Colitis Current Visit: Yes Status: Acute Priority: High Code(s): K52.9 - NONINFECTIVE GASTROENTERITIS AND COLITIS, UNSPECIFIED SNOMED Code(s): 45040711 (3) Neutropenic fever Current Visit: Yes Status: Acute Priority: High Code(s): D70.9 - NEUTROPENIA, UNSPECIFIED; R50.81 - FEVER PRESENTING WITH CONDITIONS CLASSIFIED ELSEWHERE SNOMED Code(s): 192809049 Plan: 1patient presented to hospital with sepsis in this patient who did have fever neutropenia tachycardia source likely abdominal patient did have abdominal pain diarrhea with evidence of colitis on the CT and will need to cover for the enteric gram-negative both aerobes and anaerobes 2 stool culture did grew Pseudomonas aeruginosa stool for Cryptosporidium antigen negative, C. difficile is negative 3-patient seem to have shown clinical improvement fever resolved white count normalized, and did have improvement in her diarrhea patient is currently covered in the cefepime and Flagyl will be able to finish therapy with oral Cipro and Flagyl Dictation was produced using [employer] dictation software. please excuse any grammatical, word or spelling errors.
[2024-10-04] MEDS: FLUTICASONE NASAL 50MCG/SPRAY 16GM BTL EA NOSTRIL PRN (01:13)
[2024-10-04 08:35] VITALS: TEMP 98.3
[2024-10-04 09:08] LABS: BUN/Creat Ratio <8.75 Ratio (12.00-20.00); Blood Urea Nitrogen <3.5 mg/dL (9.0-27.0); Carbon Dioxide 27.6 mmol/L (21.6-31.8); Chloride 108 mmol/L (96-109); Glucose 95 mg/dL (70-110); Sodium 144 mmol/L (135-145)
--- NOTE | 2024-10-04 12:59 | P.PN ---
Subjective Progress Note Date: 10/04/24 Principal diagnosis: Reason for follow-up is febrile neutropenia/colitis Patient is a 69-year-old female with a past medical history significant for breast cancer for the patient is currently on chemotherapy presenting to the hospital for evaluation of fever patient did have a CT we did shows possible colitis involving the ascending transverse and descending colitis stool for C. difficile negative. On today's evaluation that is 10/04/2024, Patient is afebrile patient is currently on room air and denies having any shortness of breath, the patient denies any chest pain or cough, the patient denies any nausea vomiting did have evaluation of the. Patient did have a creatinine 0.4 no CBC was done today Objective - Vital Signs Vital signs: Vital Signs Temp 98.3 F 10/04/24 08:12 Pulse 64 10/04/24 08:12 Resp 17 10/04/24 08:12 BP 115/73 10/04/24 08:12 Pulse Ox 98 10/04/24 08:12 FiO2 Intake & Output 10/03/24 10/04/24 10/04/24 18:59 06:59 18:59 Intake Total 1690 590 Balance 1690 590 Intake: Intake, IV Titration 1150 Amount Cefepime 2 gm In Sodium 100 Chloride 0.9% 100 ml @ 25 mls/hr IVPB Q8H [facility] Rx#: [id number] Potassium Chloride 20 meq 100 In Water For Injection 1 100ml.bag @ 50 mls/hr IVPB [facility] Rx#: [id number] Sodium Chloride 0.9% 1, 750 000 ml @ 75 mls/hr IV . [id number] [facility] Rx#:[id number] metroNIDAZOLE-NS PMX 500 200 mg In Saline 1 100ml.bag @ 100 mls/hr IVPB Q8HR [facility] Rx#:[id number] Oral 540 590 Other: Voiding Method Toilet Toilet Toilet Diaper Diaper Diaper # Voids 1 2 # Bowel Movements 2 - Exam GENERAL DESCRIPTION: An elderly female up in bed in no distress RESPIRATORY SYSTEM: Unlabored breathing , decreased breath sounds at bases HEART: S1 S2 regular rate and rhythm , ABDOMEN: Soft , no tenderness - Labs CBC & Chem 7: 10/03/24 06:23 10/04/24 04:29 Labs: Abnormal Lab Results - Last 24 Hours (Table) 10/02/24 10/03/24 10/04/24 Range/Units 06:53 06:23 04:29 Promyelocytes # (Man) 0.19 H (0) k/uL Potassium 2.9 L 3.0 L (3.5-5.5) mmol/L BUN <3.5 L <3.5 L (9.0-27.0) mg/dL Creatinine 0.5 L 0.4 L (0.6-1.5) mg/dL BUN/Creatinine Ratio <7.00 L <8.75 L (12.00-20.00) Ratio Calcium 7.7 L 8.0 L (8.7-10.3) mg/dL Microbiology - Last 24 Hours (Table) 10/02/24 08:55 Stool Culture - Preliminary Stool Pseudomonas aeruginosa 09/28/24 13:02 Blood Culture - Final Blood Assessment and Plan (1) Sepsis Current Visit: Yes Status: Acute Code(s): A41.9 - SEPSIS, UNSPECIFIED ORGANISM SNOMED Code(s): 35390914 (2) Colitis Current Visit: Yes Status: Acute Priority: High Code(s): K52.9 - NONINFECTIVE GASTROENTERITIS AND COLITIS, UNSPECIFIED SNOMED Code(s): 91480849 (3) Neutropenic fever Current Visit: Yes Status: Acute Priority: High Code(s): D70.9 - NEUTROPENIA, UNSPECIFIED; R50.81 - FEVER PRESENTING WITH CONDITIONS CLASSIFIED ELSEWHERE SNOMED Code(s): 006277755 Plan: 1patient presented to hospital with sepsis in this patient who did have fever neutropenia tachycardia source likely abdominal patient did have abdominal pain diarrhea with evidence of colitis on the CT and will need to cover for the ent corazon gram-negative both aerobes and anaerobes 2 stool culture did grew Pseudomonas aeruginosa stool for Cryptosporidium antigen negative, C. difficile is negative 3-patient did have clinical improvement fever resolved white count normalized, 4plan is to finish therapy with oral Cipro and Flagyl x 10 days on discharge discussed with the ARCHITECTURAL REPRESENTATIVE for admitting team Dictation was produced using [employer] dictation software. please excuse any grammatical, word or spelling errors. Time with Patient: Less than 30
--- NOTE | 2024-10-04 13:16 | P.PN ---
Subjective Progress Note Date: 10/04/24 Principal diagnosis: Neutropenic fever, adj chemo for breast cancer In f/u today pt reports feeling great! She is looking forward to going home. She had a soft, formed, green BM this AM. NO fevers, sore throat, N, abd pain, dysuria or swelling. She is looking forward to soft diet for lunch then going home if tolerated. i Objective - Vital Signs Vital signs: Vital Signs Temp 98.3 F 10/04/24 08:12 Pulse 64 10/04/24 08:12 Resp 17 10/04/24 08:12 BP 115/73 10/04/24 08:12 Pulse Ox 98 10/04/24 08:12 FiO2 Intake & Output 10/03/24 10/04/24 10/04/24 18:59 06:59 18:59 Intake Total 1690 590 Balance 1690 590 Intake: Intake, IV Titration 1150 Amount Cefepime 2 gm In Sodium 100 Chloride 0.9% 100 ml @ 25 mls/hr IVPB Q8H REPLACED BY [facility] Rx#: [id number] Potassium Chloride 20 meq 100 In Water For Injection 1 100ml.bag @ 50 mls/hr IVPB ONCE [facility] Rx#: [id number] Sodium Chloride 0.9% 1, 750 000 ml @ 75 mls/hr IV . [id number] REPLACED BY [facility] Rx#:[id number] metroNIDAZOLE-NS PMX 500 200 mg In Saline 1 100ml.bag @ 100 mls/hr IVPB Q8HR REPLACED BY [facility] Rx#:[id number] Oral 540 590 Other: Voiding Method Toilet Toilet Toilet Diaper Diaper Diaper # Voids 1 2 # Bowel Movements 2 - Constitutional General appearance: Present: average body habitus, cooperative, no acute distress - EENT Eyes: Present: anicteric sclerae, EOMI ENT: Present: hearing grossly normal, normal oropharynx - Respiratory Respiratory: bilateral: CTA - Cardiovascular Rhythm: regular - Peripheral edema leg Peripheral Edema: bilateral: None - Gastrointestinal General gastrointestinal: Present: soft - Integumentary Integumentary: Present: normal - Neurologic Neurologic: Present: CNII-XII intact - Musculoskeletal Musculoskeletal: Present: strength equal bilaterally - Psychiatric Psychiatric: Present: A&O x's 3, appropriate affect, intact judgment & insight - Labs CBC & Chem 7: 10/03/24 06:23 10/04/24 04:29 Labs: Abnormal Lab Results - Last 24 Hours (Table) 10/02/24 10/04/24 Range/Units 06:53 04:29 Promyelocytes # (Man) 0.19 H (0) k/uL Potassium 3.0 L (3.5-5.5) mmol/L BUN <3.5 L (9.0-27.0) mg/dL Creatinine 0.4 L (0.6-1.5) mg/dL BUN/Creatinine Ratio <8.75 L (12.00-20.00) Ratio Calcium 8.0 L (8.7-10.3) mg/dL Microbiology - Last 24 Hours (Table) 10/02/24 08:55 Stool Culture - Preliminary Stool Pseudomonas aeruginosa 09/28/24 13:02 Blood Culture - Final Blood Assessment and Plan (1) Neutropenic fever Current Visit: Yes Status: Resolved Priority: High Code(s): D70.9 - NEUTROPENIA, UNSPECIFIED; R50.81 - FEVER PRESENTING WITH CONDITIONS CLASSIFIED ELSEWHERE SNOMED Code(s): 277613401 (2) Breast cancer Current Visit: Yes Status: Acute Priority: Medium Code(s): C50.919 - MALIGNANT NEOPLASM OF UNSP SITE OF UNSPECIFIED FEMALE BREAST SNOMED Code(s): 004558326 Plan: Neutropenic fever -2/2 neutropenia from chemo -No fever since 09/28,09/29 -Pancultures neg. Clinical and radiographic evidence fo colitis. Pt treated for the same, doing much better. Peer ID Cipro and flagyl oral for 10 days. Next chemo is due the day she completes abx. D/W ID, ok to proceed with cycle 2 on time-dose has been reduced. -WBC up to 8.6 yesterday. No additional doses of GCSF were needed -Abd is non tender on exam, diet advancement for lunch, will see how pt tolerates. Breast cancer -Patient is on adjuvant TC with G-CSF, status post 1 cycle -Taxotere dose reduction for final 3 cycles, cont GCSF. Oral thrush -Resolved. Pt encouraged to cont aggressive oral care, use kools and salt and soda
[2024-10-04 13:40] VITALS: BP 137/83; PULSE 63; RESP 16
--- NOTE | 2024-10-08 14:31 | CDI ---
Documentation Clarification Form Date: 10/08/2024 02:01:45 PM From: Rhiannon Christian RN, CCDS Email: [email or web address] Admit Date: 09/28/2024 03:51:00 PM Patient Name: Elisa Dumont Visit Number: [id number] Discharge Date: 10/04/2024 02:45:00 PM ATTENTION: The Clinical Documentation Specialists (CDI) and [facility] Coding Staff appreciate your assistance in clarifying documentation. Please respond to the clarification below the line at the bottom and electronically sign. The CDI & [facility] Coding staff will review the response and follow-up if needed. Please note: Queries are made part of the Legal Health Record. If you have any questions, please contact the author of this message via ITS. Doctor Sandie Correa The patient is currently on chemotherapy and had low blood counts. Additional clarification is requested. History/Risk factors: breast cancer with mets to lymph nodes, receiving chemotherapy. The patient presented with fever. Admitted with Sepsis. Clinical indicators: H&P: "Post chemotherapy fever, possibly neutropenic fever with sepsis present on admission." 09/29 ID Consult: "patient presented to hospital with sepsis in this patient who did have fever, neutropenia and tachycardia. Source likely abdominal." 09/28-10/03 WBC: 0.4-0.41-1.46-6.25-8.60 09/28-10/03 Hgb: 11.8-10.6-9.5-9.6-9.1 09/28-10/03 Platelet count: 53-40-04-130-176 10/04 Oncology: "Neutropenic fever 2/2 neutropenia from chemo. Next chemo is due the day she completes antibiotics. D/W ID, ok to proceed with cycle 2 on time. Dose has been reduced." Treatment: Monitor labs; Chemotherapy dose will be reduced Please clarify if there is an additional diagnosis: [ x ] Pancytopenia due to chemotherapy [ ] Pancytopenia due to other, please specify [ ] Anemia, please specify etiology [ ] Other condition, please specify ____ [ ] Unable to determine MTDD
--- NOTE | 2024-10-10 12:34 | P.DS ---
Providers Date of admission: 09/28/24 15:51 Expected date of discharge: 10/04/24 Attending physician: Sandie Correa Consults: 09/28/24 15:30 Consult Physician Routine Consulting Provider: Himanshu Lopez Consult Reason/Comments: Neutropenic fever Do you want consulting provider notified?: Yes 09/29/24 13:46 Consult Physician Routine Consulting Provider: Sonya Clifford Consult Reason/Comments: sepsis Do you want consulting provider notified?: Yes Primary care physician: Alexey Flores Hospital Course: Final diagnosis -Neutropenic fever, present on admission -Sepsis, present on admission possibly secondary to acute colitis with gastritis -History of breast cancer, maintained on chemotherapy -Oral candidiasis -GI prophylaxis -DVT prophylaxis -Full code Discharge disposition Patient is being discharged in a stable condition with guarded prognosis to home. Patient will follow-up with Dr. Flores in the outpatient setting upon discharge. Patient is to continue with Cipro and Flagyl and outpatient follow- up with oncology as scheduled. Total time taken is greater than 35 minutes. Hospital course This is a 69-year-old female who was recently admitted with neutropenic fever with concerns of sepsis with diarrhea, nausea vomiting. Patient evaluated by oncology as well as infectious disease maintained on antibiotics and blood cultures are negative and fever has resolved. Electrolytes replaced per protocol and patient is tolerating more diet requesting to go home. Patient evaluated by oncology as well as infectious disease and will continue on oral Cipro and Flagyl on discharge for a 10-day course. Recommend follow-up labs which has been arranged with oncology. Please refer to other consultation notes for further HPI. Currently no reports of chest pain, shortness of breath, or palpitations. Patient is afebrile. No reports of nausea or vomiting and patient is tolerating diet. Patient will be discharged home today. Guarded prognosis given significant comorbidities and high risk for readmissions. Physical exam: Gen: This is a 69-year-old female who is awake, alert and oriented x 3, well- developed, elderly appearing HEENT: Head is atraumatic, normocephalic. Pupils equal, round. Sclerae is anicteric. NECK: Supple. No JVD. No lymphadenopathy. No thyromegaly. LUNGS: Clear to auscultation. No wheezes or rhonchi. No intercostal retractions. HEART: Regular rate and rhythm. No murmur. ABDOMEN: Soft. Bowel sounds are present. No masses. No tenderness. EXTREMITIES: No pedal edema. No calf tenderness. NEUROLOGICAL: Patient is awake, alert and oriented x3. Cranial nerves 2 through 12 are grossly intact. Please refer to medication reconciliation sheet for a list of medications. The impression and plan of care has been dictated by Sylvia Bond, Nurse Practitioner as directed. Dr. Livan MD I have performed a history and examination and MDM of this patient, discussed the same with the dictator, and agree with the dictator's assessment and plan as written ,documented as a scribe. Based on total visit time, I have performed more than 50% of the visit. Patient Condition at Discharge: Fair Plan - Discharge Summary Discharge Rx Participant: No New Discharge Prescriptions: New Mag Hydrox/Al Hydrox/Simeth [Maalox] 30 ml PO TID ml Cholestyramine (with Sugar) [Questran Packet] 4 gm PO BID@1000,1800 PRN #30 packet PRN Reason: Diarrhea Acetaminophen Tab [Tylenol] 650 mg PO Q6HR PRN tab PRN Reason: Mild Pain Or Fever > 100.5 metroNIDAZOLE [Flagyl] 500 mg PO TID 10 Days #30 tab Fluticasone Nasal [place] [Flonase Nasal [place]] 1 spray EA NOSTRIL DAILY PRN #5 ml PRN Reason: Allergy Symptoms Nystatin 100,000 Unit/ml Susp [Mycostatin Oral Susp] 3,000,000 unit PO TID ml Ciprofloxacin HCl [Cipro] 500 mg PO BID 10 Days #20 tab Continue Ondansetron [Zofran] 4 - 8 mg PO Q4H PRN MDD 8 TABS/24 HRS PRN Reason: Nausea OLANZapine [ZyPREXA] 2.5 - 5 mg PO DIRECTED Hydrocortisone Cream [Hydrocortisone 2.5% Cream] 1 applic TOPICAL TID PRN PRN Reason: Skin Irritation Discontinued dexAMETHasone [Decadron] 8 mg PO DIRECTED Discharge Medication List Hydrocortisone Cream [Hydrocortisone 2.5% Cream] 1 applic TOPICAL TID PRN 09/28/24 [History] OLANZapine [ZyPREXA] 2.5 - 5 mg PO DIRECTED 09/28/24 [History] Ondansetron [Zofran] 4 - 8 mg PO Q4H PRN MDD 8 TABS/24 HRS 09/28/24 [History] Acetaminophen Tab [Tylenol] 650 mg PO Q6HR PRN tab 10/04/24 [Rx] Cholestyramine (with Sugar) [Questran Packet] 4 gm PO BID@1000,1800 PRN #30 packet 10/04/24 [Rx] Ciprofloxacin HCl [Cipro] 500 mg PO BID 10 Days #20 tab 10/04/24 [Rx] Fluticasone Nasal [place] [Flonase Nasal [place]] 1 spray EA NOSTRIL DAILY PRN #5 ml 10/04/24 [Rx] Mag Hydrox/Al Hydrox/Simeth [Maalox] 30 ml PO TID ml 10/04/24 [Rx] Nystatin 100,000 Unit/ml Susp [Mycostatin Oral Susp] 3,000,000 unit PO TID ml 10/04/24 [Rx] metroNIDAZOLE [Flagyl] 500 mg PO TID 10 Days #30 tab 10/04/24 [Rx] Follow up Appointment(s)/Referral(s): Alexey Flores MD [Primary Care Provider] - 10/08/24 1:00 pm (appointment with Erik GILL) Himanshu Lopez [STAFF PHYSICIAN] - 10/14/24 1:00 pm (This is chemo appt at the [facility]. Keep appt. ) Patient Instructions/Handouts: Ciprofloxacin (By mouth), Cholestyramine (By mouth), Metronidazole (By mouth), Fluticasone (Into the nose), Sepsis (DC), Colitis (ED) Activity/Diet/Wound Care/Special Instructions: Activity limited until follow-up Follow-up with primary care provider on discharge Continue taking medications as prescribed Slowly advance diet as tolerated over the next few days Continue with antibiotics until finished Use Questran as needed if having loose stools otherwise hold Follow-up with oncology outpatient as scheduled Discharge Disposition: HOME SELF-CARE
== END 2024-10-04 14:45 | disposition home or self-care (01) | DRG 871 ==
LOC: EC 12:46 → 5NMEDONC 15:51
PROVIDERS: ADMIT Hospitalist; ATTEND Hospitalist
DX: A41.52 Sepsis due to Pseudomonas (principal); D61.810 Antineoplastic chemotherapy induced pancytopenia; C77.3 Secondary and unspecified malignant neoplasm of axilla and upper limb lymph nodes; B37.0 Candidal stomatitis; A04.8 Other specified bacterial intestinal infections; A41.89 Other specified sepsis; D70.1 Agranulocytosis secondary to cancer chemotherapy; D70.9 Neutropenia, unspecified; C50.411 Malignant neoplasm of upper-outer quadrant of right female breast; R50.81 Fever presenting with conditions classified elsewhere; E86.0 Dehydration; T45.1X5A Adverse effect of antineoplastic and immunosuppressive drugs, initial encounter; Z17.0 Estrogen receptor positive status [ER+]; Z17.21 Progesterone receptor positive status; Z17.32 Human epidermal growth factor receptor 2 negative status; Z90.13 Acquired absence of bilateral breasts and nipples; Z87.891 Personal history of nicotine dependence
CPT/HCPCS: 36415; 71046; 74176; 80048; 80053; 80202; 81001; 82150; 82565; 83605; 83690; 83735; 85025; 87040; 87045; 87046; 87324; 87328; 87636; 96361; 96365; 96366; 96367; 99285

== ENCOUNTER 2024-10-23 11:40 | Emergency (ER) | payer MEDICARE ==
--- NOTE | 2024-10-23 12:33 | ED ---
GI Bleed HPI - General Chief complaint: GI Bleed Stated complaint: GI Bleed Time Seen by Provider: 10/23/24 11:57 Source: patient, RN notes reviewed Mode of arrival: ambulatory Limitations: no limitations - History of Present Illness Initial comments: 69-year-old female with history of breast cancer, colitis, pancreatitis presenting with bright red blood on pad/toilet paper earlier today. States she has been having diarrhea for the past 3 days without blood or melena during that time. Endorses associated lightheadedness/dizziness. Endorses blood in tissue when blowing nose today as well. Patient endorses history of hemorrhoids. Denies use of blood thinners. States she is currently on chemotherapy. Denies fever, chills, chest pain, dyspnea, vomiting. MD complaint: blood on toilet paper Onset/Timin -: days(s) Radiation: none Quality: painless Associated Symptoms: denies other symptoms Treatments Prior to Arrival: none - Related Data Home Medications Medication Instructions Recorded Confirmed Hydrocortisone Cream 1 applic TOPICAL TID PRN 09/28/24 09/28/24 [Hydrocortisone 2.5% Cream] OLANZapine [ZyPREXA] 2.5 - 5 mg PO DIRECTED 09/28/24 09/28/24 Ondansetron [Zofran] 4 - 8 mg PO Q4H PRN MDD 8 TAB09/28/24 09/28/24 HRS Previous Rx's Medication Instructions Recorded Acetaminophen Tab [Tylenol] 650 mg PO Q6HR PRN tab 10/04/24 Cholestyramine (with Sugar) 4 gm PO BID@1000,1800 PRN #30 10/04/24 [Questran Packet] packet Ciprofloxacin HCl [Cipro] 500 mg PO BID 10 Days #20 tab 10/04/24 Fluticasone Nasal [place] [Flonase 1 spray EA NOSTRIL DAILY PRN #5 ml 10/04/24 Nasal [place]] Mag Hydrox/Al Hydrox/Simeth 30 ml PO TID ml 10/04/24 [Maalox] Nystatin 100,000 Unit/ml Susp 3,000,000 unit PO TID ml 10/04/24 [Mycostatin Oral Susp] metroNIDAZOLE [Flagyl] 500 mg PO TID 10 Days #30 tab 10/04/24 Allergies Allergy/AdvReac Type Severity Reaction Status Date / Time Sulfa (Sulfonamide Allergy Anaphylaxis Verified 10/23/24 11:54 Antibiotics) morphine AdvReac Nausea & Verified 10/23/24 11:54 Vomiting Review of Systems ROS Statement: Those systems with pertinent positive or pertinent negative responses have been documented in the HPI. ROS Other: All systems not noted in ROS Statement are negative. Past Medical History Past Medical History: Cancer Additional Past Medical History / Comment(s): R breast Ca History of Any Multi-Drug Resistant Organisms: None Reported Past Surgical History: Cholecystectomy Additional Past Surgical History / Comment(s): Right breast excisional biospy 1992, benign, double mastectomy, Right side lymphnode removal july 2024. Past Anesthesia/Blood Transfusion Reactions: No Reported Reaction Past Psychological History: No Psychological Hx Reported Smoking Status: Former smoker Past Alcohol Use History: None Reported Past Drug Use History: None Reported - Past Family History Father Family Medical History: No Reported History Mother Family Medical History: No Reported History General Exam Limitations: no limitations General appearance: alert, in no apparent distress Head exam: Present: atraumatic, normocephalic, normal inspection Eye exam: Present: normal appearance, PERRL, EOMI. Absent: scleral icterus, conjunctival injection, periorbital swelling ENT exam: Present: normal exam, mucous membranes moist, other (Small amount of dried blood noted in bilateral nares) Neck exam: Present: normal inspection. Absent: tenderness, meningismus, lymphadenopathy Respiratory exam: Present: normal lung sounds bilaterally. Absent: respiratory distress, wheezes, rales, rhonchi, stridor Cardiovascular Exam: Present: regular rate, normal rhythm, normal heart sounds. Absent: systolic murmur, diastolic murmur, rubs, gallop, clicks GI/Abdominal exam: Present: soft, tenderness (Right and umbilical tenderness without guarding. Negative tympanic or rebound tenderness), normal bowel sounds. Absent: distended, guarding, rebound, rigid Extremities exam: Present: normal inspection, full ROM, normal capillary refill. Absent: tenderness, pedal edema, joint swelling, calf tenderness Back exam: Present: normal inspection Neurological exam: Present: alert, oriented X3, CN II-XII intact Psychiatric exam: Present: normal affect, normal mood Skin exam: Present: warm, dry, intact, normal color. Absent: rash Course Vital Signs 10/23/24 10/23/24 11:54 13:51 Temperature 98.4 F 98.8 F Pulse Rate 112 H Pulse Rate [ 80 White Kid Buffer ] Respiratory 20 16 Rate Blood Pressure 91/61 Blood Pressure 111/64 [Left Arm Sitting] Blood Pressure 94/61 [Left Arm Standing] Blood Pressure 107/67 [Left Arm Supine] O2 Sat by Pulse 97 95 Oximetry Medical Decision Making - Medical Decision Making Was pt. sent in by a medical professional or institution (, PA, PULLBOAT ENGINEER, urgent care, hospital, or snf...) When possible be specific @ -[No] Did you speak to anyone other than the patient for history (EMS, parent, family, police, friend...)? What history was obtained from this source @ -[No] Did you review nursing and triage notes (agree or disagree)? Why? @ -[I reviewed and agree with nursing and triage notes] Were old charts reviewed (outside hosp., previous admission, EMS record, old EKG, old radiological studies, urgent care reports/EKG's, snf records)? Report findings @ -[No old charts were reviewed] Differential Diagnosis (chest pain, altered mental status, abdominal pain women, abdominal pain men, vaginal bleeding, weakness, fever, dyspnea, syncope, headache, dizziness, GI bleed, back pain, seizure, CVA, palpatations, mental health, musculoskeletal)? @ -Differential GI Bleed: Esophageal varices, aortoenteric fistula, Anny-Eid, gastritis, peptic ulcer disease, diverticulosis, inflammatory bowel disease, hemorrhoids, fissure, colitis, malignancy, Meckel's diverticulum, this is not meant to be an all- inclusive list. EKG interpreted by me (3pts min.). @ -[As above] X-rays interpreted by me (1pt min.). @ -[None done] CT interpreted by me (1pt min.). @ -[None done] U/S interpreted by me (1pt. min.). @ -[None done] What testing was considered but not performed or refused? (CT, X-rays, U/S, labs)? Why? @ -[None] What meds were considered but not given or refused? Why? @ -[None] Did you discuss the management of the patient with other professionals (professionals i.e. , YOAN, PULLBOAT ENGINEER, lab, RT, psych nurse, social worker clinical, advertising agency manager, teacher, environmental conservation officer, briefcase sewer)? Give summary @ -[No] Was smoking cessation discussed for >3mins.? @ -[No] Was critical care preformed (if so, how long)? @ -[No] Were there social determinants of health that impacted care today? How? (Homelessness, low income, unemployed, alcoholism, drug addiction, transportation, low edu. Level, literacy, decrease access to med. care, long term, rehab)? @ -[No] Was there de-escalation of care discussed even if they declined (Discuss DNR or withdrawal of care, Hospice)? DNR status @ -[No] What co-morbidities impacted this encounter? (DM, HTN, Smoking, COPD, CAD, Cancer, CVA, ARF, Chemo, Hep., AIDS, mental health diagnosis, sleep apnea, morbid obesity)? @ -[None] Was patient admitted / discharged? Hospital course, mention meds given and route, prescriptions, significant lab abnormalities, going to OR and other pertinent info. @ -[hospital course] Undiagnosed new problem with uncertain prognosis? @ -[No] Drug Therapy requiring intensive monitoring for toxicity (Heparin, Nitro, Insulin, Cardizem)? @ -[No] Were any procedures done? @ -[No] Diagnosis/symptom? @ -[default] Acute, or Chronic, or Acute on Chronic? @ -Acute Uncomplicated (without systemic symptoms) or Complicated (systemic symptoms)? @ -Complicated Side effects of treatment? @ -[No] Exacerbation, Progression, or Severe Exacerbation? @ -[No] Poses a threat to life or bodily function? How? (Chest pain, [place], [place], pneumonia, PE, COPD, DKA, ARF, appy, cholecystitis, CVA, Diverticulitis, Homicidal, Suicidal, threat to staff... and all critical care pts) @ -[No] - Lab Data Result diagrams: 10/23/24 13:10/23/24 13: Lab Results 10/23/24 10/23/24 10/23/24 Range/Units 13: 13: 13:01 WBC 8.3 (3.8-10.6) k/uL RBC 3.74 L (3.80-5.40) m/uL Hgb 11.1 L (11.4-16.0) gm/dL Hct 35.1 (34.0-46.0) % MCV 93.9 (80.0-100.0) fL MCH 29.7 (25.0-35.0) pg MCHC 31.7 (31.0-37.0) g/dL RDW 14.4 (11.5-15.5) % Plt Count 108 L (150-450) k/uL MPV 8.1 Neutrophils % 83 % Lymphocytes % 8 % Monocytes % 5 % Eosinophils % 2 % Basophils % 0 % Neutrophils # 6.9 (1.3-7.7) k/uL Lymphocytes # 0.6 L (1.0-4.8) k/uL Monocytes # 0.4 (0-1.0) k/uL Eosinophils # 0.2 (0-0.7) k/uL Basophils # 0.0 (0-0.2) k/uL PT 10.4 (10.0-12.5) sec INR 0.9 (<1.2) APTT 21.3 L (22.0-30.0) sec Sodium (137-145) mmol/L Potassium (3.5-5.1) mmol/L Chloride (98-107) mmol/L Carbon Dioxide (22-30) mmol/L Anion Gap mmol/L BUN (7-17) mg/dL Creatinine (0.52-1.04) mg/dL Est GFR (CKD-EPI)AfAm (>60 ml/min/1.73 sqM) Est GFR (CKD-EPI)NonAf (>60 ml/min/1.73 sqM) Glucose (74-99) mg/dL Plasma Lactic Acid Titi (0.7-2.0) mmol/L Calcium (8.4-10.2) mg/dL Total Bilirubin (0.2-1.3) mg/dL AST (14-36) U/L ALT (4-34) U/L Alkaline Phosphatase (38-126) U/L Total Protein (6.3-8.2) g/dL Albumin (3.5-5.0) g/dL Lipase (23-300) U/L Stool Occult Blood Negative (Negative) 10/23/24 10/23/24 Range/Units 13:01 13:01 WBC (3.8-10.6) k/uL RBC (3.80-5.40) m/uL Hgb (11.4-16.0) gm/dL Hct (34.0-46.0) % MCV (80.0-100.0) fL MCH (25.0-35.0) pg MCHC (31.0-37.0) g/dL RDW (11.5-15.5) % Plt Count (150-450) k/uL MPV Neutrophils % % Lymphocytes % % Monocytes % % Eosinophils % % Basophils % % Neutrophils # (1.3-7.7) k/uL Lymphocytes # (1.0-4.8) k/uL Monocytes # (0-1.0) k/uL Eosinophils # (0-0.7) k/uL Basophils # (0-0.2) k/uL PT (10.0-12.5) sec INR (<1.2) APTT (22.0-30.0) sec Sodium 137 (137-145) mmol/L Potassium 4.5 (3.5-5.1) mmol/L Chloride 103 (98-107) mmol/L Carbon Dioxide 28 (22-30) mmol/L Anion Gap 6 mmol/L BUN 7 (7-17) mg/dL Creatinine 0.63 (0.52-1.04) mg/dL Est GFR (CKD-EPI)AfAm >90 (>60 ml/min/1.73 sqM) Est GFR (CKD-EPI)NonAf >90 (>60 ml/min/1.73 sqM) Glucose 120 H (74-99) mg/dL Plasma Lactic Acid Titi 1.6 (0.7-2.0) mmol/L Calcium 9.0 (8.4-10.2) mg/dL Total Bilirubin 0.6 (0.2-1.3) mg/dL AST 30 (14-36) U/L ALT 23 (4-34) U/L Alkaline Phosphatase 96 (38-126) U/L Total Protein 6.0 L (6.3-8.2) g/dL Albumin 3.7 (3.5-5.0) g/dL Lipase 25 (23-300) U/L Stool Occult Blood (Negative) Disposition Clinical Impression: Hematochezia, Diarrhea Disposition: HOME SELF-CARE Condition: Good Instructions (If sedation given, give patient instructions): Gastrointestinal Bleeding (ED) Additional Instructions: Follow-up with primary care in next 24 to 48 hours. Return to ER if GI bleeding and/or dizziness/lightheadedness worsen Is patient prescribed a controlled substance at d/c from ED?: No Referrals: Alexey Flores MD [Primary Care Provider] - 1-2 days Time of Disposition: 14:30
[2024-10-23 13:33] LABS: Basophils % (A) 0 %; Eosinophils # (A) 0.2 k/uL (0-0.7); Eosinophils % (A) 2 %; HCT 35.1 % (34.0-46.0); HGB 11.1 gm/dL (11.4-16.0); Lymphocytes # (A) 0.6 k/uL (1.0-4.8); Lymphocytes % (A) 8 %; MCH 29.7 pg (25.0-35.0); MCHC 31.7 g/dL (31.0-37.0); MCV 93.9 fL (80.0-100.0); Mean Platelet Volume 8.1; Monocytes # (A) 0.4 k/uL (0-1.0); Monocytes % (A) 5 %; Neutrophils # (A) 6.9 k/uL (1.3-7.7); Neutrophils % (A) 83 %; Platelet Count 108 k/uL (150-450); RBC 3.74 m/uL (3.80-5.40); RDW 14.4 % (11.5-15.5); WBC 8.3 k/uL (3.8-10.6)
[2024-10-23 13:48] LABS: ALT 23 U/L (4-34); AST 30 U/L (14-36); African American GFR (CKD) >90 (>60 ml/min/1.73 sqM); Albumin 3.7 g/dL (3.5-5.0); Alkaline Phosphatase 96 U/L (38-126); Anion Gap 6 mmol/L; Blood Urea Nitrogen 7 mg/dL (7-17); Carbon Dioxide 28 mmol/L (22-30); Chloride 103 mmol/L (98-107); Glucose 120 mg/dL (74-99); Lipase 25 U/L (23-300); Non-African American GFR(CKD) >90 (>60 ml/min/1.73 sqM); Potassium 4.5 mmol/L (3.5-5.1); Sodium 137 mmol/L (137-145); Total Bilirubin 0.6 mg/dL (0.2-1.3)
[2024-10-23 13:53] LABS: INR 0.9 (<1.2); Prothrombin Time 10.4 sec (10.0-12.5)
[2024-10-23 13:57] LABS: Partial Thromboplastin Time 21.3 sec (22.0-30.0)
[2024-10-23] MEDS: SODIUM CHLORIDE 0.9% 1,000 ML IV STA (14:41)
[2024-10-23 16:16] VITALS: BP 111/65; PULSE 92; RESP 17; TEMP 97.8
== END 2024-10-23 16:31 | disposition home or self-care (01) ==
LOC: EC 11:40
DX: K92.1 Melena (principal); Z87.891 Personal history of nicotine dependence; Z88.2 Allergy status to sulfonamides; Z88.5 Allergy status to narcotic agent
CPT/HCPCS: 36415; 80053; 82272; 83605; 83690; 85025; 85610; 85730; 96360; 99284

== ENCOUNTER 2025-01-01 21:20 | Emergency (ER) | payer MEDICARE ==
--- NOTE | 2025-01-01 22:07 | ED ---
Recheck HPI - General Chief Complaint: Recheck/Abnormal Lab/Rx Stated Complaint: R Arm Edema Time Seen by Provider: 01/01/25 21:24 Source: patient, EMS, RN notes reviewed, old records reviewed Mode of arrival: EMS Limitations: no limitations - History of Present Illness Initial Comments: This is a 69-year-old female to the ER for evaluation. Patient complains of nausea vomiting weakness decreased appetite. Not feeling well patient is currently undergoing chemotherapy for cancer. Complaining of right upper extremity swelling without chest pain no current shortness of breath patient states she feels very anxious and nervous due to symptoms patient has anxiety of the swelling which she just noticed today to be increasing, no recent IV start in that arm, no recent trauma MD Complaint: other (Recheck of right arm swelling, increasing swelling of the right upper extremity lymph nodes removed right axilla) -: days(s) (1) Returns Today for: persistent/worsening pain related to initial visit (Increase in swelling) Symptoms Since Prior Visit: worsening pain, worsening swelling Associated Symptoms: malaise, nausea Treatments Prior to Arrival: Given Pain Meds on - Related Data Previous Rx's Medication Instructions Recorded Acetaminophen Tab [Tylenol] 650 mg PO Q6HR PRN tab 01/07/25 Cholestyramine (with Sugar) 4 gm PO BID@1000,1800 #30 packet 01/07/25 [Questran Packet] Ibuprofen [Motrin] 400 mg PO Q6HR PRN #30 tab 01/07/25 Loperamide [Imodium] 2 mg PO QID PRN cap 01/07/25 Oseltamivir [Tamiflu] 75 mg PO Q12HR 5 Days #10 cap 01/07/25 Pseudoephedrine [Sudafed] 30 mg PO BID PRN #20 tab 01/07/25 cefuroxime axetiL [Ceftin] 500 mg PO BID 10 Days #20 tab 01/07/25 metroNIDAZOLE [Flagyl] 500 mg PO TID 10 Days #30 tab 01/07/25 Allergies Allergy/AdvReac Type Severity Reaction Status Date / Time Sulfa (Sulfonamide Allergy Anaphylaxis Verified 01/04/25 07:11 Antibiotics) morphine AdvReac Nausea & Verified 01/04/25 07:11 Vomiting Review of Systems ROS Statement: Those systems with pertinent positive or pertinent negative responses have been documented in the HPI. ROS Other: All systems not noted in ROS Statement are negative. Past Medical History Past Medical History: Cancer Additional Past Medical History / Comment(s): R breast Ca, Lymph nodes History of Any Multi-Drug Resistant Organisms: None Reported Past Surgical History: Cholecystectomy Additional Past Surgical History / Comment(s): Right breast excisional biospy 1992, benign, double mastectomy, Right side lymphnode removal july 2024. Past Anesthesia/Blood Transfusion Reactions: No Reported Reaction Past Psychological History: No Psychological Hx Reported Smoking Status: Former smoker Past Alcohol Use History: None Reported Past Drug Use History: None Reported - Past Family History Father Family Medical History: No Reported History Mother Family Medical History: No Reported History General Exam General appearance: alert, in no apparent distress, anxious Head exam: Present: atraumatic, normocephalic, normal inspection Eye exam: Present: normal appearance, PERRL, EOMI. Absent: scleral icterus, conjunctival injection, periorbital swelling ENT exam: Present: normal exam, mucous membranes moist Neck exam: Present: normal inspection. Absent: tenderness, meningismus, lymphadenopathy Respiratory exam: Present: normal lung sounds bilaterally. Absent: respiratory distress, wheezes, rales, rhonchi, stridor Cardiovascular Exam: Present: normal rhythm, tachycardia, normal heart sounds. Absent: systolic murmur, diastolic murmur, rubs, gallop, clicks GI/Abdominal exam: Present: soft, normal bowel sounds. Absent: distended, tenderness, guarding, rebound, rigid Extremities exam: Present: normal inspection, full ROM, normal capillary refill. Absent: tenderness, pedal edema, joint swelling, calf tenderness Back exam: Present: normal inspection Neurological exam: Present: alert, oriented X3, CN II-XII intact Psychiatric exam: Present: normal affect, normal mood Skin exam: Present: warm, dry, intact, normal color. Absent: rash Course Vital Signs 01/01/25 01/02/25 21:23 00:30 Temperature 98.2 F 97.8 F Pulse Rate 107 H 85 Respiratory 18 16 Rate Blood Pressure 139/89 116/76 O2 Sat by Pulse 97 96 Oximetry - Reevaluation(s) Reevaluation #1: 01/01/25 22:06 Medical records reviewed Prior ER and inpatient visits including imaging is reviewed Reevaluation #2: 01/01/25 22:06 Patient improving with pain control and nausea meds Reevaluation #3: Patient informed of results and questions answered Reevaluation #4: Was pt. sent in by a medical professional or institution (YOAN Khan, SIGNAL FITTER, urgent care, hospital, or jail...) When possible be specific @ -no Did you speak to anyone other than the patient for history (EMS, parent, family, police, friend...)? What history was obtained from this source @ -no Did you review nursing and triage notes (agree or disagree)? Why? @ -agree Are old charts reviewed (outside hosp., previous admission, EMS record, old EKG, old radiological studies, urgent care reports/EKG's, jail records)? Report findings @ -yes Differential Diagnosis (chest pain, altered mental status, abdominal pain women, abdominal pain men, vaginal bleeding, weakness, fever, dyspnea, syncope, headache, dizziness, GI bleed, back pain, seizure, CVA, palpatations, mental health, musculoskeletal)? @ -prior EKG interpreted by me (3pts min.). @ -yes X-rays interpreted by me (1pt min.). @ -yes negative for acute disease CT interpreted by me (1pt min.). @ -no U/S interpreted by me (1pt. min.). @ -Yes negative for acute disease What testing was considered but not performed or refused? (CT, X-rays, U/S, l abs)? Why? @ -none What meds were considered but not given or refused? Why? @ -none Did you discuss the management of the patient with other professionals (professionals i.e. YOAN Khan, SIGNAL FITTER, lab, RT, psych nurse, social work case manager, oil well cable tool operator, teacher, combatant diver officer, case finisher)? Give summary @ -no Was smoking cessation discussed for >3mins.? @ -no Was critical care preformed (if so, how long)? @ -no Were there social determinants of health that impacted care today? How? (Homelessness, low income, unemployed, alcoholism, drug addiction, transportation, low edu. Level, literacy, decrease access to med. care, [facility], rehab)? @ -none Was there de-escalation of care discussed even if they declined (Discuss DNR or withdrawal of care, Hospice)? DNR status @ -no What co-morbidities impacted this encounter? (DM, HTN, Smoking, COPD, CAD, Cancer, CVA, ARF, Chemo, Hep., AIDS, mental health diagnosis, sleep apnea, morbid obesity)? @ -none Was patient admitted / discharged? Hospital course, mention meds given and route, prescriptions, significant lab abnormalities, going to OR and other pertinent info. @ - 69 female with nausea vomiting some anxiety related to right upper extremity edema no DVT ultrasound right upper extremity, patient symptoms improved here in the ER CBC CMP normal patient can be discharged Discharge Undiagnosed new problem with uncertain prognosis? @ -no Drug Therapy requiring intensive monitoring for toxicity (Heparin, Nitro, Insulin, Cardizem)? @ -no Were any procedures done? @ -no Diagnosis/symptom? @ -Nausea vomiting anxiety and upper extremity edema Acute, or Chronic, or Acute on Chronic? @ -Acute Uncomplicated (without systemic symptoms) or Complicated (systemic symptoms)? @ -Complicated Side effects of treatment? @ -no Exacerbation, Progression, or Severe Exacerbation? @ -exacerbation Poses a threat to life or bodily function? How? (Chest pain, USA, UT, pneumonia, PE, COPD, DKA, ARF, appy, cholecystitis, CVA, Diverticulitis, Homicidal, Suicidal, threat to staff... and all critical care pts) @ -no Reevaluation #5: Differential Weakness: Hypoglycemia, shock, sepsis, hyponatremia, anemia, infection, UT, ETOH, adverse medicine reaction, overdose, stroke, this is not meant to be an all-inclusive list. Medical Decision Making - Medical Decision Making 69 female with nausea vomiting some anxiety related to right upper extremity edema no DVT ultrasound right upper extremity, patient symptoms improved here in the ER CBC CMP normal patient can be discharged - Lab Data Result diagrams: 01/01/25 22:42 01/01/25 22:42 Lab Results 01/01/25 01/01/25 01/01/25 Range/Units 22:42 22:42 22:42 WBC 12.5 H (3.8-10.6) k/uL RBC 3.72 L (3.80-5.40) m/uL Hgb 11.1 L (11.4-16.0) gm/dL Hct 35.4 (34.0-46.0) % MCV 95.2 (80.0-100.0) fL MCH 29.8 (25.0-35.0) pg MCHC 31.3 (31.0-37.0) g/dL RDW 16.0 H (11.5-15.5) % Plt Count 195 (150-450) k/uL MPV 7.2 Neutrophils % 94 % Lymphocytes % 1 % Monocytes % 1 % Eosinophils % 3 % Basophils % 0 % Neutrophils # 11.7 H (1.3-7.7) k/uL Lymphocytes # 0.1 L (1.0-4.8) k/uL Monocytes # 0.2 (0-1.0) k/uL Eosinophils # 0.4 (0-0.7) k/uL Basophils # 0.0 (0-0.2) k/uL Hypochromasia Slight Anisocytosis Slight PT 10.2 (10.0-12.5) sec INR 0.9 (<1.2) APTT 20.3 L (22.0-30.0) sec Sodium 139 (137-145) mmol/L Potassium 4.2 (3.5-5.1) mmol/L Chloride 106 (98-107) mmol/L Carbon Dioxide 25 (22-30) mmol/L Anion Gap 8 mmol/L BUN 10 (7-17) mg/dL Creatinine 0.62 (0.52-1.04) mg/dL Est GFR (CKD-EPI)AfAm >90 (>60 ml/min/1.73 sqM) Est GFR (CKD-EPI)NonAf >90 (>60 ml/min/1.73 sqM) Glucose 123 H (74-99) mg/dL Plasma Lactic Acid Titi (0.7-2.0) mmol/L Calcium 9.2 (8.4-10.2) mg/dL Phosphorus 4.6 H (2.5-4.5) mg/dL Magnesium 2.0 (1.6-2.3) mg/dL Total Bilirubin 0.8 (0.2-1.3) mg/dL AST 26 (14-36) U/L ALT 15 (4-34) U/L Alkaline Phosphatase 75 (38-126) U/L Troponin I (0.000-0.034) ng/mL NT-Pro-B Natriuret Pep 167 pg/mL Total Protein 6.2 L (6.3-8.2) g/dL Albumin 3.9 (3.5-5.0) g/dL 01/01/25 01/01/25 Range/Units 22:42 22:42 WBC (3.8-10.6) k/uL RBC (3.80-5.40) m/uL Hgb (11.4-16.0) gm/dL Hct (34.0-46.0) % MCV (80.0-100.0) fL MCH (25.0-35.0) pg MCHC (31.0-37.0) g/dL RDW (11.5-15.5) % Plt Count (150-450) k/uL MPV Neutrophils % % Lymphocytes % % Monocytes % % Eosinophils % % Basophils % % Neutrophils # (1.3-7.7) k/uL Lymphocytes # (1.0-4.8) k/uL Monocytes # (0-1.0) k/uL Eosinophils # (0-0.7) k/uL Basophils # (0-0.2) k/uL Hypochromasia Anisocytosis PT (10.0-12.5) sec INR (<1.2) APTT (22.0-30.0) sec Sodium (137-145) mmol/L Potassium (3.5-5.1) mmol/L Chloride (98-107) mmol/L Carbon Dioxide (22-30) mmol/L Anion Gap mmol/L BUN (7-17) mg/dL Creatinine (0.52-1.04) mg/dL Est GFR (CKD-EPI)AfAm (>60 ml/min/1.73 sqM) Est GFR (CKD-EPI)NonAf (>60 ml/min/1.73 sqM) Glucose (74-99) mg/dL Plasma Lactic Acid Titi 1.0 (0.7-2.0) mmol/L Calcium (8.4-10.2) mg/dL Phosphorus (2.5-4.5) mg/dL Magnesium (1.6-2.3) mg/dL Total Bilirubin (0.2-1.3) mg/dL AST (14-36) U/L ALT (4-34) U/L Alkaline Phosphatase (38-126) U/L Troponin I <0.012 (0.000-0.034) ng/mL NT-Pro-B Natriuret Pep pg/mL Total Protein (6.3-8.2) g/dL Albumin (3.5-5.0) g/dL - EKG Data -: EKG Interpreted by Me (EKG is sinus tachycardia 107 IA 158 QRS 80 QTc 377) - Radiology Data Radiology results: report reviewed (Ultrasound right upper extremity negative DVT, chest x-ray is negative for acute disease), image reviewed Disposition Clinical Impression: Nausea & vomiting, Edema of right upper arm Disposition: HOME SELF-CARE Condition: Good Instructions (If sedation given, give patient instructions): Lymphedema (ED) Is patient prescribed a controlled substance at d/c from ED?: No Referrals: Alexey Flores MD [Primary Care Provider] - 1-2 days Time of Disposition: 23:00
[2025-01-01] MEDS: SODIUM CHLORIDE 0.9% 500 ML 500 ML IV STA (22:44)
[2025-01-01] MEDS: SODIUM CHLORIDE 0.9% 1,000 ML IV STA (22:44)
[2025-01-01] MEDS: PROCHLORPERAZINE INJ 10 MG/2 ML VIAL IVP STA (22:45)
[2025-01-01] MEDS: HYDROmorphone 1 MG/ML 1 ML SYRINGE IVP STA (22:46)
[2025-01-01 22:55] LABS: Anisocytosis Slight; Basophils % (A) 0 %; Eosinophils # (A) 0.4 k/uL (0-0.7); Eosinophils % (A) 3 %; HCT 35.4 % (34.0-46.0); HGB 11.1 gm/dL (11.4-16.0); Hypochromasia Slight; Lymphocytes # (A) 0.1 k/uL (1.0-4.8); Lymphocytes % (A) 1 %; MCH 29.8 pg (25.0-35.0); MCHC 31.3 g/dL (31.0-37.0); MCV 95.2 fL (80.0-100.0); Mean Platelet Volume 7.2; Monocytes # (A) 0.2 k/uL (0-1.0); Monocytes % (A) 1 %; Neutrophils # (A) 11.7 k/uL (1.3-7.7); Neutrophils % (A) 94 %; Platelet Count 195 k/uL (150-450); RBC 3.72 m/uL (3.80-5.40); WBC 12.5 k/uL (3.8-10.6)
[2025-01-01 23:13] LABS: ALT 15 U/L (4-34); AST 26 U/L (14-36); African American GFR (CKD) >90 (>60 ml/min/1.73 sqM); Albumin 3.9 g/dL (3.5-5.0); Alkaline Phosphatase 75 U/L (38-126); Anion Gap 8 mmol/L; Blood Urea Nitrogen 10 mg/dL (7-17); Calcium 9.2 mg/dL (8.4-10.2); Carbon Dioxide 25 mmol/L (22-30); Chloride 106 mmol/L (98-107); Glucose 123 mg/dL (74-99); Non-African American GFR(CKD) >90 (>60 ml/min/1.73 sqM); Phosphorus 4.6 mg/dL (2.5-4.5); Potassium 4.2 mmol/L (3.5-5.1); Sodium 139 mmol/L (137-145); Total Bilirubin 0.8 mg/dL (0.2-1.3); Total Protein 6.2 g/dL (6.3-8.2)
[2025-01-01 23:21] LABS: NT-Pro-B-Type Natriuretic Pept 167 pg/mL
[2025-01-01 23:27] LABS: INR 0.9 (<1.2); Partial Thromboplastin Time 20.3 sec (22.0-30.0); Prothrombin Time 10.2 sec (10.0-12.5)
--- NOTE | 2025-01-02 00:16 | XR ---
EXAMINATION TYPE: XR chest 2V DATE OF EXAM: 01/01/2025 10:57 PM COMPARISON: Chest radiographs from 09/28/2024 TECHNIQUE: XR chest 2V Frontal and lateral views of the chest. CLINICAL INDICATION:Female, 69 years old with history of Weakness; FINDINGS: Lungs/Pleura: There is no evidence of pleural effusion, focal consolidation, or pneumothorax. Chroni c senescent parenchymal change. Pulmonary vascularity: Unremarkable. Heart/mediastinum: Cardiomediastinal silhouette is enlarged and stable. Musculoskeletal: Multiple level degenerative disc disease changes seen throughout the spine. Other: Surgical clips in the upper abdomen. IMPRESSION: No acute cardiopulmonary disease/process. [facility], , 01/02/2025 12:14 AM
--- NOTE | 2025-01-02 00:19 | US ---
EXAMINATION TYPE: US venous doppler duplex UE RT DATE OF EXAM: 01/01/2025 COMPARISON: NONE CLINICAL INDICATION: Female, 69 years old with history of dvt; Double mastectomy with lymph node lucita raghavendra and chemo (just finished) stating july 27; New onset forearm swelling - patient denies inj ury or pain, just pressure TECHNIQUE: Grayscale, color Doppler and spectral Doppler imaging of the upper extremity. SIDE PERFORMED: Right VESSELS IMAGED: IJV Subclavian Vein Axilla Vein Brachial Vein(s) Radial Paired Veins Ulnar Paired Veins Cephalic Vein* Basilic Vein* (*superficial vessels) FINDINGS: Grayscale, color doppler, spectral doppler imaging performed of the deep veins of the upper extremiti es. The right internal jugular, subclavian, axial, basilic, brachial, cephalic, radial, and ulnar vei ns were evaluated. Right Arm: Negative for DVT IMPRESSION: No deep venous thrombosis of the right upper extremity. [facility], , 01/02/2025 12:16 AM
[2025-01-02 00:31] VITALS: BP 116/76; PULSE 85; RESP 16; TEMP 97.8
== END 2025-01-02 00:31 | disposition home or self-care (01) ==
LOC: EC 21:20
DX: R22.31 Localized swelling, mass and lump, right upper limb (principal); R11.2 Nausea with vomiting, unspecified; Z87.891 Personal history of nicotine dependence
CPT/HCPCS: 36415; 93005; 83880; 80053; 83605; 83735; 84100; 84484; 85025; 85610; 85730; 71046; 93971; 99285; 96374; 96375; 96361 ×2; J0780; J1171

== ENCOUNTER 2025-01-03 17:37 | Observation (INO) | payer MEDICARE ==
--- NOTE | 2025-01-03 18:40 | ED ---
Abdominal Pain HPI - General Source: patient, RN notes reviewed Mode of arrival: EMS Limitations: no limitations <Clinton Atkinson - Last Filed: 01/03/25 18:37> <Agueda Garza - Last Filed: 01/05/25 13:08> - General Chief Complaint: Abdominal Pain Stated Complaint: nvd Time Seen by Provider: 01/03/25 17:48 - History of Present Illness Initial Comments: Quick note: This is a 69-year-old female with history of breast cancer presenting with GI symptoms x 3 days. Patient endorses abdominal pain, N/V/D, weakness and postprandial vomiting. Endorses use of Zofran and cholestyramine with minimal relief. (Clinton Atkinson) 59-year-old female with breast cancer on chemotherapy who presents emergency department for generalized nausea and vomiting. Patient admits that she had symptoms with started last night. She has right lower quadrant pain. Patient has had several episodes of nausea, vomiting and loose stool. Denies black or bloody stools. Last dose of chemo was 3 weeks ago. She gets it every 28 days. She is supposed to be starting radiation. Patient follows with Dr. Lopez. Upon arrival to the hospital the patient is found to have a fever. Patient was unaware that she had 1. She denies fevers, chills or cough. No urinary symptoms to include dysuria, hematuria or difficulty voiding. No other alleviating, precipitating or modifying factors (Agueda Garza) - Related Data Home Medications Medication Instructions Recorded Confirmed Anastrozole [Arimidex] 1 mg PO DAILY 01/04/25 01/04/25 Allergies Allergy/AdvReac Type Severity Reaction Status Date / Time Sulfa (Sulfonamide Allergy Anaphylaxis Verified 01/04/25 07:11 Antibiotics) morphine AdvReac Nausea & Verified 01/04/25 07:11 Vomiting Review of Systems ROS Other: All systems not noted in ROS Statement are negative. <Clinton Atkinson - Last Filed: 01/03/25 18:37> ROS Other: All systems not noted in ROS Statement are negative. <Agueda Garza - Last Filed: 01/05/25 13:08> ROS Statement: Those systems with pertinent positive or pertinent negative responses have been documented in the HPI. Past Medical History Past Medical History: Cancer Additional Past Medical History / Comment(s): R breast Ca, Lymph nodes History of Any Multi-Drug Resistant Organisms: None Reported Past Surgical History: Cholecystectomy Additional Past Surgical History / Comment(s): Right breast excisional biospy 1992, benign, double mastectomy, Right side lymphnode removal july 2024. Past Anesthesia/Blood Transfusion Reactions: No Reported Reaction Past Psychological History: No Psychological Hx Reported Smoking Status: Former smoker Past Alcohol Use History: None Reported Past Drug Use History: None Reported - Past Family History Father Family Medical History: No Reported History Mother Family Medical History: No Reported History <Clinton Atkinson - Last Filed: 01/03/25 18:37> General Exam Limitations: no limitations <Clinton Atkinson - Last Filed: 01/03/25 18:37> General appearance: alert, in no apparent distress Head exam: Present: atraumatic, normocephalic, normal inspection Eye exam: Present: normal appearance, PERRL, EOMI. Absent: scleral icterus, conjunctival injection, periorbital swelling ENT exam: Present: normal exam, mucous membranes moist Neck exam: Present: normal inspection. Absent: tenderness, meningismus, lymphadenopathy Respiratory exam: Present: normal lung sounds bilaterally. Absent: respiratory distress, wheezes, rales, rhonchi, stridor Cardiovascular Exam: Present: regular rate, normal rhythm, normal heart sounds. Absent: systolic murmur, diastolic murmur, rubs, gallop, clicks GI/Abdominal exam: Present: soft, tenderness (Right lower quadrant), normal bowel sounds. Absent: distended, guarding, rebound, rigid Extremities exam: Present: normal inspection, full ROM, normal capillary refill. Absent: tenderness, pedal edema, joint swelling, calf tenderness Back exam: Present: normal inspection Neurological exam: Present: alert, oriented X3, CN II-XII intact Psychiatric exam: Present: normal affect, normal mood Skin exam: Present: warm, dry, intact, normal color. Absent: rash <Agueda Garza - Last Filed: 01/05/25 13:08> - General Exam Comments Initial Comments: Visual Physical Exam Vital signs reviewed General: Well-appearing, nontoxic, no acute distress. Head: Normocephalic, atraumatic Eyes: PERRLA, EOMI ENT: Airway patent Chest: Nonlabored breathing Skin: No visual rash, normal skin tone Neuro: Alert and oriented 3 Musculoskeletal: No gross abnormalities (Clinton Atkinson) Course Vital Signs 01/03/25 01/03/25 01/03/25 18:28 18:40 21:14 Temperature 102.5 F H 100.7 F H 98.8 F Pulse Rate 94 98 Respiratory 20 18 Rate Blood Pressure 98/65 104/67 91/54 O2 Sat by Pulse 99 93 L Oximetry 01/04/25 01/04/25 02:41 05:23 Temperature 97.7 F Pulse Rate 67 77 Respiratory 18 17 Rate Blood Pressure 88/52 114/63 O2 Sat by Pulse 93 L 97 Oximetry Medical Decision Making <Clinton Atkinson - Last Filed: 01/03/25 18:37> - Lab Data Result diagrams: 01/05/25 04:26 01/05/25 04:26 <Agueda Garza - Last Filed: 01/05/25 13:08> - Medical Decision Making I completed the quick note portion of this chart signed SAMUEL Reilly (Clinton Atkinson) Was pt. sent in by a medical professional or institution ([facility], [facility], urgent care, hospital, or long-term...) When possible be specific @ -No Did you speak to anyone other than the patient for history (EMS, parent, family, police, friend...)? What history was obtained from this source @ -Spoke with family member for history Did you review nursing and triage notes (agree or disagree)? Why? @ -I reviewed and agree with nursing and triage notes Were old charts reviewed (outside hosp., previous admission, EMS record, old EKG, old radiological studies, urgent care reports/EKG's, long-term records)? Report findings @ -No old charts were reviewed Differential Diagnosis (chest pain, altered mental status, abdominal pain women, abdominal pain men, vaginal bleeding, weakness, fever, dyspnea, syncope, headache, dizziness, GI bleed, back pain, seizure, CVA, palpatations, mental health, musculoskeletal)? @ -Differential Fever: Pneumonia, viral URI, endocarditis, myocarditis, pericarditis, otitis, sinusitis, peritonsillar Abscess, retropharyngeal Abscess, epiglottitis, peritonitis, appendicitis, Ev cystitis, diverticulitis, hepatitis, colitis, UTI, PID, TOA, pyelonephritis, prostatitis, epididymitis, meningitis, encephalitis, pulmonary embolism, CVA, thyroid storm, pancreatitis, adrenal crisis, cavernous sinus thrombosis, this is not meant to be an all-inclusive list. EKG interpreted by me (3pts min.). @ -Not done X-rays interpreted by me (1pt min.). @ -Yes which demonstrates no acute process CT interpreted by me (1pt min.). @ -Yes which demonstrates signs of acute colitis U/S interpreted by me (1pt. min.). @ -None done What testing was considered but not performed or refused? (CT, X-rays, U/S, labs)? Why? @ -None What meds were considered but not given or refused? Why? @ -None Did you discuss the management of the patient with other professionals (professionals i.e. , PA, [facility], lab, RT, psych nurse, social security benefits interviewer, canvas goods supervisor, teacher, activities officer, porter sample case)? Give summary @ -Spoke with Sylvia from [facility] for admission Was smoking cessation discussed for >3mins.? @ -No Was critical care preformed (if so, how long)? @ -No Were there social determinants of health that impacted care today? How? (Homelessness, low income, unemployed, alcoholism, drug addiction, transportation, low edu. Level, literacy, decrease access to med. care, senior care, rehab)? @ -No Was there de-escalation of care discussed even if they declined (Discuss DNR or withdrawal of care, Hospice)? DNR status @ -No What co-morbidities impacted this encounter? (DM, HTN, Smoking, COPD, CAD, Cancer, CVA, ARF, Chemo, Hep., AIDS, mental health diagnosis, sleep apnea, morbid obesity)? @ -Breast cancer on chemotherapy Was patient admitted / discharged? Hospital course, mention meds given and route, prescriptions, significant lab abnormalities, going to OR and other pertinent info. @ -Upon arrival patient seen and evaluated in bed 16. Thorough history and physical exam was performed. IV access was established. Laboratory studies are conducted. Patient was provided Tylenol for fever control. Blood cultures are obtained. CT does demonstrate colitis. Patient was initiated on cefepime originally and adjusted to Zosyn when her source of sepsis was identified as colitis. Source of sepsis identified at 2256. Undiagnosed new problem with uncertain prognosis? @ -No Drug Therapy requiring intensive monitoring for toxicity (Heparin, Nitro, Insul in, Cardizem)? @ -No Were any procedures done? @ -No Diagnosis/symptom? @ -Acute pyrexia, acute abdominal pain, acute colitis, history of breast cancer on chemotherapy Acute, or Chronic, or Acute on Chronic? @ -Acute Uncomplicated (without systemic symptoms) or Complicated (systemic symptoms)? @ -Complicated Side effects of treatment? @ -No Exacerbation, Progression, or Severe Exacerbation? @ -No Poses a threat to life or bodily function? How? (Chest pain, [place], [place], pneumonia, PE, COPD, DKA, ARF, appy, cholecystitis, CVA, Diverticulitis, Homicidal, Suicidal, threat to staff... and all critical care pts) @ -Yes as patient does have fever with compromised immune system (Agueda Garza) - Lab Data Lab Results 01/03/25 01/03/25 01/03/25 Range/Units 18:52 18:52 19:04 WBC 8.0 (3.8-10.6) k/uL RBC 3.39 L (3.80-5.40) m/uL Hgb 10.2 L (11.4-16.0) gm/dL Hct 32.6 L (34.0-46.0) % MCV 96.1 (80.0-100.0) fL MCH 30.2 (25.0-35.0) pg MCHC 31.4 (31.0-37.0) g/dL RDW 15.5 (11.5-15.5) % Plt Count 185 (150-450) k/uL MPV 6.9 Neutrophils % 86 % Lymphocytes % 6 % Monocytes % 5 % Eosinophils % 1 % Basophils % 0 % Neutrophils # 6.8 (1.3-7.7) k/uL Lymphocytes # 0.5 L (1.0-4.8) k/uL Monocytes # 0.4 (0-1.0) k/uL Eosinophils # 0.1 (0-0.7) k/uL Basophils # 0.0 (0-0.2) k/uL Hypochromasia Moderate Sodium 135 L (137-145) mmol/L Potassium 3.3 L (3.5-5.1) mmol/L Chloride 101 (98-107) mmol/L Carbon Dioxide 25 (22-30) mmol/L Anion Gap 9 mmol/L BUN 11 (7-17) mg/dL Creatinine 0.77 (0.52-1.04) mg/dL Est GFR (CKD-EPI)AfAm >90 (>60 ml/min/1.73 sqM) Est GFR (CKD-EPI)NonAf 79 (>60 ml/min/1.73 sqM) Glucose 110 H (74-99) mg/dL Plasma Lactic Acid Titi (0.7-2.0) mmol/L Calcium 8.3 L (8.4-10.2) mg/dL Total Bilirubin 0.6 (0.2-1.3) mg/dL AST 29 (14-36) U/L ALT 15 (4-34) U/L Alkaline Phosphatase 57 (38-126) U/L Total Protein 5.6 L (6.3-8.2) g/dL Albumin 3.4 L (3.5-5.0) g/dL Amylase 31 (30-110) U/L Lipase 16 L (23-300) U/L Urine Color Urine Appearance (Clear) Urine pH (5.0-8.0) Ur Specific [place] (1.001-1.035) Urine Protein (Negative) Urine Glucose (UA) (Negative) Urine Ketones (Negative) Urine Blood (Negative) Urine Nitrite (Negative) Urine Bilirubin (Negative) Urine Urobilinogen (<2.0) mg/dL Ur Leukocyte Esterase (Negative) Influenza Type A (PCR) Not Detected (Not Detectd) Influenza Type B (PCR) Not Detected (Not Detectd) RSV (PCR) Not Detected (Not Detectd) SARS-CoV-2 (PCR) Not Detected (Not Detectd) 01/03/25 01/03/25 Range/Units 19:05 22:24 WBC (3.8-10.6) k/uL RBC (3.80-5.40) m/uL Hgb (11.4-16.0) gm/dL Hct (34.0-46.0) % MCV (80.0-100.0) fL MCH (25.0-35.0) pg MCHC (31.0-37.0) g/dL RDW (11.5-15.5) % Plt Count (150-450) k/uL MPV Neutrophils % % Lymphocytes % % Monocytes % % Eosinophils % % Basophils % % Neutrophils # (1.3-7.7) k/uL Lymphocytes # (1.0-4.8) k/uL Monocytes # (0-1.0) k/uL Eosinophils # (0-0.7) k/uL Basophils # (0-0.2) k/uL Hypochromasia Sodium (137-145) mmol/L Potassium (3.5-5.1) mmol/L Chloride (98-107) mmol/L Carbon Dioxide (22-30) mmol/L Anion Gap mmol/L BUN (7-17) mg/dL Creatinine (0.52-1.04) mg/dL Est GFR (CKD-EPI)AfAm (>60 ml/min/1.73 sqM) Est GFR (CKD-EPI)NonAf (>60 ml/min/1.73 sqM) Glucose (74-99) mg/dL Plasma Lactic Acid Titi 0.8 (0.7-2.0) mmol/L Calcium (8.4-10.2) mg/dL Total Bilirubin (0.2-1.3) mg/dL AST (14-36) U/L ALT (4-34) U/L Alkaline Phosphatase (38-126) U/L Total Protein (6.3-8.2) g/dL Albumin (3.5-5.0) g/dL Amylase (30-110) U/L Lipase (23-300) U/L Urine Color Light Yellow Urine Appearance Clear (Clear) Urine pH 5.5 (5.0-8.0) Ur Specific [place] >1.050 H (1.001-1.035) Urine Protein Trace H (Negative) Urine Glucose (UA) Negative (Negative) Urine Ketones Trace H (Negative) Urine Blood Negative (Negative) Urine Nitrite Negative (Negative) Urine Bilirubin Negative (Negative) Urine Urobilinogen <2.0 (<2.0) mg/dL Ur Leukocyte Esterase Negative (Negative) Influenza Type A (PCR) (Not Detectd) Influenza Type B (PCR) (Not Detectd) RSV (PCR) (Not Detectd) SARS-CoV-2 (PCR) (Not Detectd) Disposition <Clinton Atkinson - Last Filed: 01/03/25 18:37> Is patient prescribed a controlled substance at d/c from ED?: No Time of Disposition: 22:44 Decision to Admit Reason: Admit from EC Decision Date: 01/03/25 Decision Time: 22:44 <Agueda Garza - Last Filed: 01/05/25 13:08> Clinical Impression: Breast cancer, Nausea & vomiting, Fever Disposition: ADMITTED IP TO THIS HOSP Condition: Serious
[2025-01-03 19:15] LABS: Basophils % (A) 0 %; Eosinophils # (A) 0.1 k/uL (0-0.7); Eosinophils % (A) 1 %; HCT 32.6 % (34.0-46.0); HGB 10.2 gm/dL (11.4-16.0); Hypochromasia Moderate; Lymphocytes # (A) 0.5 k/uL (1.0-4.8); Lymphocytes % (A) 6 %; MCH 30.2 pg (25.0-35.0); MCHC 31.4 g/dL (31.0-37.0); MCV 96.1 fL (80.0-100.0); Mean Platelet Volume 6.9; Monocytes # (A) 0.4 k/uL (0-1.0); Monocytes % (A) 5 %; Neutrophils # (A) 6.8 k/uL (1.3-7.7); Neutrophils % (A) 86 %; Platelet Count 185 k/uL (150-450); RBC 3.39 m/uL (3.80-5.40); RDW 15.5 % (11.5-15.5)
[2025-01-03 19:23] LABS: ALT 15 U/L (4-34); AST 29 U/L (14-36); African American GFR (CKD) >90 (>60 ml/min/1.73 sqM); Albumin 3.4 g/dL (3.5-5.0); Alkaline Phosphatase 57 U/L (38-126); Amylase 31 U/L (30-110); Anion Gap 9 mmol/L; Blood Urea Nitrogen 11 mg/dL (7-17); Calcium 8.3 mg/dL (8.4-10.2); Carbon Dioxide 25 mmol/L (22-30); Chloride 101 mmol/L (98-107); Glucose 110 mg/dL (74-99); Lipase 16 U/L (23-300); Non-African American GFR(CKD) 79 (>60 ml/min/1.73 sqM); Potassium 3.3 mmol/L (3.5-5.1); Sodium 135 mmol/L (137-145); Total Bilirubin 0.6 mg/dL (0.2-1.3); Total Protein 5.6 g/dL (6.3-8.2)
[2025-01-03] MEDS: SODIUM CHLORIDE 0.9% 1,000 ML IV SCH (19:44)
[2025-01-03] MEDS: ACETAMINOPHEN TAB 500 MG TAB PO STA (19:56)
[2025-01-03] MEDS: ONDANSETRON 4 MG/2 ML VIAL IVP STA (19:57)
[2025-01-03 21:00] LABS: Influenza A Not Detected (Not Detectd); Influenza B Not Detected (Not Detectd); RSV Not Detected (Not Detectd)
[2025-01-03] MEDS: LOPERAMIDE 2 MG CAP PO STA (21:32)
[2025-01-03] MEDS: SODIUM CHLORIDE 0.9% 2,000 ML IV ONE (21:53)
[2025-01-03] MEDS ORDERED: NALOXONE 0.4 MG/ML 1 ML VIAL IV PRN (22:44)
[2025-01-03 22:55] LABS: Appearance,Urine Clear (Clear); Bilirubin,Urine Negative (Negative); Blood,Urine Negative (Negative); Color,Urine Light Yellow; Glucose,Urine (UA) Negative (Negative); Ketones,Urine Trace (Negative); Leukocyte Esterase,Urine Negative (Negative); Nitrite,Urine Negative (Negative); PH, Urine 5.5 (5.0-8.0); Protein,Urine Trace (Negative); Urobilinogen,Urine <2.0 mg/dL (<2.0)
--- NOTE | 2025-01-03 22:56 | CT ---
INDICATION: Patient age:Female; 69 years old; Reason for study: abd pain; PHH. COMPARISON: CT abdomen/pelvis 09/28/2024. TECHNIQUE: Standard CT of the abdomen and pelvis following the administration of Isovue 300 IV cont rast material. Coronal and sagittal reformats were performed. One or more CT dose reduction strategie s were utilized during this examination. Total DLP administered was 1048.2 mGycm. FINDINGS: LOWER CHEST: Posterior dependent subsegmental atelectasis is noted. ABDOMEN LIVER: Unremarkable. GALLBLADDER AND BILE DUCTS: The gallbladder is surgically absent. PANCREAS: Unremarkable. SPLEEN: Small splenules are present ADRENAL GLANDS: Unremarkable. KIDNEYS AND URETERS: No evidence of hydronephrosis or renal calculus. The ureters are unremarkable. PELVIS URINARY BLADDER: Incompletely distended but grossly unremarkable. REPRODUCTIVE: No pelvic masses. ABDOMEN & PELVIS STOMACH AND BOWEL: Small hiatal hernia is present. Small bowel is of normal caliber. There is fluid s een in the rectosigmoid colon in addition to portions of the descending colon with associated mild fa t stranding. No evidence of bowel obstruction. PERITONEUM: No evidence of pneumoperitoneum or free fluid. VASCULATURE: No aneurysmal changes. MUSCULOSKELETAL: No acute osseous abnormalities. LYMPH NODES: Nonenlarged lymph nodes are seen in the mid abdomen with the largest in the left-sided r etroperitoneum adjacent to the left renal vein measuring 8 mm in short axis. SOFT TISSUE/ABDOMINAL WALL: Unremarkable IMPRESSION: Findings suggestive of acute colitis likely related to an infectious/inflammatory etiology. [facility], , 01/03/2025 10:53 PM
[2025-01-03 22:58] LABS: Specific Gravity,Urine >1.050 (1.001-1.035)
[2025-01-03] MEDS: CEFEPIME 2 GM in SODIUM CHLORIDE 0.9% 100 ML IVPB SCH (23:03)
--- NOTE | 2025-01-03 23:10 | XR ---
EXAMINATION TYPE: XR chest 2V DATE OF EXAM: 01/03/2025 7:55 PM CLINICAL INDICATION:Female, 69 years old with history of Cough/pain; H COMPARISON: Chest radiographs from 01/01/2025. CT abdomen/pelvis the same day TECHNIQUE: XR chest 2V Frontal view of the chest. FINDINGS: Lungs/Pleura: Mild left hemidiaphragm elevation with prominent pericardial fat pad as seen on CT from the same day. No pneumothorax. Pulmonary vascularity: Unremarkable. Heart/mediastinum: Cardiomediastinal silhouette is unremarkable. Musculoskeletal: No acute osseous pathology. IMPRESSION: No acute cardiopulmonary process. [facility], , 01/03/2025 11:08 PM
[2025-01-04 05:25] LABS: Basophils % (A) 0 %; Eosinophils % (A) 1 %; HCT 30.8 % (34.0-46.0); HGB 9.4 gm/dL (11.4-16.0); Hypochromasia Marked; Lymphocytes # (A) 0.6 k/uL (1.0-4.8); Lymphocytes % (A) 14 %; MCH 29.9 pg (25.0-35.0); MCHC 30.4 g/dL (31.0-37.0); MCV 98.3 fL (80.0-100.0); Macrocytosis Slight; Monocytes # (A) 0.2 k/uL (0-1.0); Monocytes % (A) 5 %; Neutrophils # (A) 3.1 k/uL (1.3-7.7); Neutrophils % (A) 76 %; Platelet Count 159 k/uL (150-450); RBC 3.13 m/uL (3.80-5.40); RDW 15.6 % (11.5-15.5)
[2025-01-04 06:11] LABS: African American GFR (CKD) >90 (>60 ml/min/1.73 sqM); Anion Gap 7 mmol/L; Blood Urea Nitrogen 10 mg/dL (7-17); Calcium 8.6 mg/dL (8.4-10.2); Carbon Dioxide 23 mmol/L (22-30); Chloride 107 mmol/L (98-107); Glucose 88 mg/dL (74-99); Non-African American GFR(CKD) >90 (>60 ml/min/1.73 sqM); Potassium 3.2 mmol/L (3.5-5.1); Sodium 137 mmol/L (137-145)
[2025-01-04] MEDS: PIPERACILLIN-TAZOBACTAM 3.375 GM in SODIUM CHLORIDE 0.9% 100 ML IVPB SCH (08:39)
[2025-01-04] MEDS ORDERED: Potassium Replacement Protocol 1 EACH MISC MISCELLANE PRN (10:00)
[2025-01-04] MEDS: POTASSIUM CHLORIDE ER 20 MEQ TAB.ER PO SCH (10:41)
[2025-01-04] MEDS: CHOLESTYRAMINE (WITH SUGAR) 4 GM PACKET PO SCH (12:06)
--- NOTE | 2025-01-04 15:35 | P.HPIM ---
History of Present Illness H&P Date: 01/04/25 This is a very pleasant 69-year-old female who presented to the emergency department with nausea, vomiting, diarrhea that had been ongoing since last week and progressively getting worse. Patient feeling weak and dehydrated with inability to tolerate oral intake. Patient reports she follows with Dr. Flores in the outpatient setting with a past medical history of right breast cancer status post bilateral mastectomy in July 2024 with continued ongoing chemotherapy and plans for starting radiation next week. Patient underwent CT abdomen pelvis showing acute colitis likely related to an infectious inflammatory etiology. C. difficile testing was negative, will consult infectious disease along with oncology and radiation oncology and patient has been started on antibiotics. Labs reviewed and white count within normal limits, hemoglobin is stable at 10.2, platelets 185, sodium 135 and potassium 3.2 and being replaced, creatinine 0.6 and other labs within normal limits. Bob hampton C. difficile testing was negative, urinalysis was negative and virology testing including influenza, RSV, COVID are all negative. Patient is admitted with fevers and recent chemotherapy. Chest x-ray showing no acute process. Patient has been started on Zosyn. Patient instructed to start slowly with clear liquid diet and slowly advance if feeling better. Continue with supportive care. REVIEW OF SYSTEMS: CONSTITUTIONAL: No fever, no malaise, reports of fatigue. HEENT: No recent visual problems or hearing problems. Denied any sore throat. CARDIOVASCULAR: No chest pain, orthopnea, PND, no palpitations, no syncope. PULMONARY: No shortness of breath, no cough, no hemoptysis. GASTROINTESTINAL: Reports multiple episodes of diarrhea, reports occasional nausea, no vomiting, no further abdominal pain. NEUROLOGICAL: No headaches, no weakness, no numbness. HEMATOLOGICAL: Denies any bleeding or petechiae. GENITOURINARY: Denies any burning micturition, frequency, or urgency. MUSCULOSKELETAL/RHEUMATOLOGICAL: Denies any joint pain, swelling, or any muscle pain. Reports generalized weakness ENDOCRINE: Denies any polyuria or polydipsia. The rest of the 14-point review of systems is negative. PHYSICAL EXAMINATION: GENERAL: The patient is alert and oriented x3, not in any acute distress. Well developed, well nourished. Elderly appearing, pale HEENT: Pupils are round and equally reacting to light. EOMI. No scleral icterus. No conjunctival pallor. Normocephalic, atraumatic. No pharyngeal erythema. No thyromegaly. CARDIOVASCULAR: S1 and S2 present. No murmurs, rubs, or gallops. PULMONARY: Chest is clear to auscultation, no wheezing or crackles. ABDOMEN: Soft, nontender, nondistended, normoactive bowel sounds. No palpable organomegaly. MUSCULOSKELETAL: No joint swelling or deformity. EXTREMITIES: No cyanosis, clubbing, or pedal edema. NEUROLOGICAL: Gross neurological examination did not reveal any focal deficits. SKIN: No rashes. Pale Assessment: Nausea, vomiting, diarrhea concerns for acute colitis on CT imaging Diarrhea, C. difficile ruled out History of breast cancer with bilateral mastectomy, currently undergoing chemotherapy and treatment was approximately 2 to 3 weeks ago, scheduled to start radiation therapy this week Mild hyponatremia and hypokalemia, likely secondary to volume loss with multiple episodes of diarrhea, improving Former smoker GI prophylaxis DVT prophylaxis Full code Plan: Patient was admitted with concerns of some form of infectious process as patient having multiple episodes of nausea, vomiting, diarrhea. C. difficile testing was done and negative for C. difficile, will add Questran and as needed Imodium Infectious disease along with oncology and radiation oncology consulted and pending. Patient follows with Dr. Lopez in the outpatient setting recently underwent chemotherapy and is scheduled to undergo radiation therapy with Dr. Velasco time this week Potassium 3.2 today and will replace per protocol Continue supportive care and will follow-up on repeat labs Will have PT/OT therapy evaluate the patient The impression and plan of care has been dictated by Sylvia Bond, Nurse Practitioner as directed. Dr. Livan MD I have performed a history and examination and MDM of this patient, discussed the same with the dictator, and agree with the dictator's assessment and plan as written ,documented as a scribe. Based on total visit time, I have performed more than 50% of the visit. Past Medical History Past Medical History: Cancer Additional Past Medical History / Comment(s): R breast Ca, Lymph nodes History of Any Multi-Drug Resistant Organisms: None Reported Past Surgical History: Cholecystectomy Additional Past Surgical History / Comment(s): Right breast excisional biospy 1992, benign, double mastectomy, Right side lymphnode removal july 2024. Past Anesthesia/Blood Transfusion Reactions: No Reported Reaction Smoking Status: Former smoker - Past Family History Father Family Medical History: No Reported History Mother Family Medical History: No Reported History Medications and Allergies Home Medications Medication Instructions Recorded Confirmed Type Anastrozole [Arimidex] 1 mg PO DAILY 01/04/25 01/04/25 History Allergies Allergy/AdvReac Type Severity Reaction Status Date / Time Sulfa (Sulfonamide Allergy Anaphylaxis Verified 01/04/25 07:11 Antibiotics) morphine AdvReac Nausea & Verified 01/04/25 07:11 Vomiting Physical Exam Vitals: Vital Signs Temp Pulse Pulse Resp BP BP Pulse Ox 01/04/25 07:26 97.8 F 72 18 123/68 98 01/04/25 05:23 97.7 F 77 17 114/63 97 01/04/25 02:41 67 18 88/52 93 L 01/03/25 21:14 98.8 F 91/54 01/03/25 18:40 100.7 F H 98 18 104/67 93 L 01/03/25 18:28 102.5 F H 94 20 98/65 99 Intake and Output 01/03/25 01/04/25 01/04/25 22:59 06:59 14:59 Other: # Bowel Movements 1 Weight 80.286 kg 80.286 kg Results CBC & Chem 7: 01/04/25 05:12 01/04/25 05:12 Labs: Abnormal Lab Results - Last 24 Hours (Table) 01/03/25 01/03/25 01/03/25 Range/Units 18:52 18:52 22:24 RBC 3.39 L (3.80-5.40) m/uL Hgb 10.2 L (11.4-16.0) gm/dL Hct 32.6 L (34.0-46.0) % MCHC (31.0-37.0) g/dL RDW (11.5-15.5) % Lymphocytes # 0.5 L (1.0-4.8) k/uL Sodium 135 L (137-145) mmol/L Potassium 3.3 L (3.5-5.1) mmol/L Glucose 110 H (74-99) mg/dL Calcium 8.3 L (8.4-10.2) mg/dL Total Protein 5.6 L (6.3-8.2) g/dL Albumin 3.4 L (3.5-5.0) g/dL Lipase 16 L (23-300) U/L Ur Specific [place] >1.050 H (1.001-1.035) Urine Protein Trace H (Negative) Urine Ketones Trace H (Negative) 01/04/25 01/04/25 Range/Units 05:12 05:12 RBC 3.13 L (3.80-5.40) m/uL Hgb 9.4 L (11.4-16.0) gm/dL Hct 30.8 L (34.0-46.0) % MCHC 30.4 L (31.0-37.0) g/dL RDW 15.6 H (11.5-15.5) % Lymphocytes # 0.6 L (1.0-4.8) k/uL Sodium (137-145) mmol/L Potassium 3.2 L (3.5-5.1) mmol/L Glucose (74-99) mg/dL Calcium (8.4-10.2) mg/dL Total Protein (6.3-8.2) g/dL Albumin (3.5-5.0) g/dL Lipase (23-300) U/L Ur Specific [place] (1.001-1.035) Urine Protein (Negative) Urine Ketones (Negative) Thrombosis Risk Factor Assmnt - Choose All That Apply Each Factor Represents 1 point: Medical pt on bed rest, Obesity (BMI >25), Swollen legs (current), Varicose veins Other Risk Factors: Yes Each Risk Factor Represents 2 Points: Age 61-74 years, Malignancy Thrombosis Risk Factor Assessment Total Risk Factor Score: 8 Thrombosis Risk Factor Assessment Level: High Risk
[2025-01-04] MEDS ORDERED: ZINC OXIDE PASTE (Z-GUARD) 1 APPLIC TOPICAL PRN (16:02)
[2025-01-04] MEDS: LOPERAMIDE 2 MG CAP PO PRN (16:04)
--- NOTE | 2025-01-04 22:05 | P.CONS ---
History of Present Illness - Reason for Consult Consult date: 01/04/25 Neutropenic sepsis Requesting physician: Sylvia Bond - Chief Complaint Abdominal pain nausea vomiting and diarrhea x 1 day - History of Present Illness Patient is a 69-year-old female with a past medical history significant for right breast cancer in this patient was status post bilateral mastectomy currently on chemotherapy last chemo about 3 weeks before presentation to the hospital patient is presenting with abdominal pain nausea vomiting along with diarrhea and weakness that has been getting worse over the last 1 day patient becoming a pain to the right lower quadrant area describing it to be sharp moderate intense without limitation with episodes of nausea and vomiting and did have multiple loose stools denies any blood or mucus in the stool patient on presentation to the hospital did have a temperature of 102.5 degrees following hide patient was not significantly tachycardic or hypotensive not hypoxic no need for supplemental oxygen she did have a white count of 8.0 creatinine 0.77 potassium was low 3.3 liver enzymes are normal amylase and lipase are normal patient did tested negative for influenza RSV COVID UA has been negative stool for C. difficile was negative patient did have abdominal pelvis CT which did show evidence of acute colitis likely lead to acute infectious extremity origin patient was started on Zosyn infectious disease was consulted for further management of antibiotic therapy Review of Systems Positive point and negatives has been mentioned in the HPI, complete review of systems was performed and all other systems are negative Past Medical History Past Medical History: Cancer Additional Past Medical History / Comment(s): R breast Ca, Lymph nodes History of Any Multi-Drug Resistant Organisms: None Reported Past Surgical History: Cholecystectomy Additional Past Surgical History / Comment(s): Right breast excisional biospy 1992, benign, double mastectomy, Right side lymphnode removal july 2024. Past Anesthesia/Blood Transfusion Reactions: No Reported Reaction Smoking Status: Former smoker - Past Family History Father Family Medical History: No Reported History Mother Family Medical History: No Reported History Medications and Allergies Home Medications Medication Instructions Recorded Confirmed Type Anastrozole [Arimidex] 1 mg PO DAILY 01/04/25 01/04/25 History Allergies Allergy/AdvReac Type Severity Reaction Status Date / Time Sulfa (Sulfonamide Allergy Anaphylaxis Verified 01/04/25 07:11 Antibiotics) morphine AdvReac Nausea & Verified 01/04/25 07:11 Vomiting Physical Exam Vitals: Vital Signs Temp Pulse Pulse Resp BP BP Pulse Ox 01/04/25 07:26 97.8 F 72 18 123/68 98 01/04/25 05:23 97.7 F 77 17 114/63 97 01/04/25 02:41 67 18 88/52 93 L 01/03/25 21:14 98.8 F 91/54 01/03/25 18:40 100.7 F H 98 18 104/67 93 L 01/03/25 18:28 102.5 F H 94 20 98/65 99 Intake and Output 01/03/25 01/04/25 01/04/25 22:59 06:59 14:59 Other: # Bowel Movements 1 Weight 80.286 kg 80.286 kg GENERAL DESCRIPTION: Elderly female lying in bed, no distress. No tachypnea or accessory muscle of respiration use. HEENT: Shows Pallor , no scleral icterus. Oral mucous membrane is dry. No pharyngeal erythema or thrush NECK: Trachea central, no thyromegaly. LUNGS: Unlabored breathing. Clear to auscultation anteriorly. No wheeze or crackle. HEART: S1, S2, regular rate and rhythm. No loud murmur ABDOMEN: Soft, no tenderness , guarding or rigidity, no organomegaly EXTREMITIES: No edema of feet. SKIN: No rash, no masses palpable. NEUROLOGICAL: The patient is awake, alert, oriented x3, mood and affect normal. Results CBC & Chem 7: 01/04/25 05:12 01/04/25 05:12 Labs: Abnormal Lab Results - Last 24 Hours (Table) 01/03/25 01/03/25 01/03/25 Range/Units 18:52 18:52 22:24 RBC 3.39 L (3.80-5.40) m/uL Hgb 10.2 L (11.4-16.0) gm/dL Hct 32.6 L (34.0-46.0) % MCHC (31.0-37.0) g/dL RDW (11.5-15.5) % Lymphocytes # 0.5 L (1.0-4.8) k/uL Sodium 135 L (137-145) mmol/L Potassium 3.3 L (3.5-5.1) mmol/L Glucose 110 H (74-99) mg/dL Calcium 8.3 L (8.4-10.2) mg/dL Total Protein 5.6 L (6.3-8.2) g/dL Albumin 3.4 L (3.5-5.0) g/dL Lipase 16 L (23-300) U/L Ur Specific [place] >1.050 H (1.001-1.035) Urine Protein Trace H (Negative) Urine Ketones Trace H (Negative) 01/04/25 01/04/25 Range/Units 05:12 05:12 RBC 3.13 L (3.80-5.40) m/uL Hgb 9.4 L (11.4-16.0) gm/dL Hct 30.8 L (34.0-46.0) % MCHC 30.4 L (31.0-37.0) g/dL RDW 15.6 H (11.5-15.5) % Lymphocytes # 0.6 L (1.0-4.8) k/uL Sodium (137-145) mmol/L Potassium 3.2 L (3.5-5.1) mmol/L Glucose (74-99) mg/dL Calcium (8.4-10.2) mg/dL Total Protein (6.3-8.2) g/dL Albumin (3.5-5.0) g/dL Lipase (23-300) U/L Ur Specific [place] (1.001-1.035) Urine Protein (Negative) Urine Ketones (Negative) Assessment and Plan (1) Fever Current Visit: Yes Status: Acute Code(s): R50.9 - FEVER, UNSPECIFIED SNOMED Code(s): 821140597 (2) Colitis Current Visit: No Status: Acute Priority: High Code(s): K52.9 - NONINFECTIVE GASTROENTERITIS AND COLITIS, UNSPECIFIED SNOMED Code(s): 60176864 (3) Sepsis Current Visit: No Status: Acute Code(s): A41.9 - SEPSIS, UNSPECIFIED ORGANISM SNOMED Code(s): 05940678 Plan: 1patient [facility] hospital with sepsis in this patient who did have a fever h eart rate of 98 meeting currently for SIRS source is likely colitis in this patient hold to have history of breast cancer on chemotherapy immunocompromise but currently not neutropenic as a white count is 8000 with a neutrophil count of 6.8, however will need to cover for the enteric gram-negative both aerobes and anaerobes patient did have similar presentation back in September 2024 that responded to antibiotics culture were negative at that point 2-stool for C. difficile negative we will check a stool culture as well as Cryptosporidium antigen 3-patient is currently being treated with Zosyn along with Questran for symptomatic relief We will follow on clinical condition and cultures to further adjust medication if needed Thank you for this consultation we will follow the patient along with you Dictation was produced using [employer] dictation software. please excuse any grammatical, word or spelling errors. Time with Patient: Greater than 30
[2025-01-04 23:10] LABS: Cryptosporidium Antigen Negative (Negative)
[2025-01-05 08:32] LABS: Basophils # (A) 0.02 X 10*3/uL (0.00-0.10); Basophils % (A) 0.6 %; Eosinophils # (A) 0.55 X 10*3/uL (0.04-0.35); Eosinophils % (A) 15.5 %; HCT 27.6 % (37.2-46.3); HGB 8.5 g/dL (12.0-15.0); Lymphocytes # (A) 0.71 X 10*3/uL (0.90-5.00); Lymphocytes % (A) 20.1 %; MCH 29.9 pg (27.0-32.0); MCHC 30.8 g/dL (32.0-37.0); MCV 97.2 FL (80.0-97.0); Mean Platelet Volume 9.9 FL (9.5-12.2); Monocytes # (A) 0.32 X 10*3/uL (0.20-1.00); NRBC Per 100 WBC 0 X 10*3/uL (0.00-0.01); Neutrophils # (A) 1.93 X 10*3/uL (1.80-7.70); Neutrophils % (A) 54.5 %; Platelet Count 144 X 10*3/uL (140-440); RBC 2.84 X 10*6/uL (4.10-5.20); WBC 3.54 X 10*3/uL (4.50-10.00)
[2025-01-05 09:17] LABS: ALT 11 U/L (8-44); AST 20 U/L (13-35); Albumin 2.9 g/dL (3.8-4.9); Albumin/Globulin Ratio 1.93 Ratio (1.60-3.17); Alkaline Phosphatase 50 U/L (41-126); BUN/Creat Ratio 8.83 Ratio (12.00-20.00); Blood Urea Nitrogen 5.3 mg/dL (9.0-27.0); Calcium 8.3 mg/dL (8.7-10.3); Chloride 111 mmol/L (96-109); Globulin 1.5 g/dL (1.6-3.3); Glucose 84 mg/dL (70-110); Magnesium 1.7 mg/dL (1.5-2.4); Potassium 3.7 mmol/L (3.5-5.5); Sodium 144 mmol/L (135-145); Total Bilirubin 0.2 mg/dL (0.3-1.2); Total Protein 4.4 g/dL (6.2-8.2)
[2025-01-05] MEDS: ACETAMINOPHEN TAB 325 MG TAB PO PRN (09:50)
[2025-01-05] MEDS ORDERED: Magnesium Replacement Protocol 1 EACH MISC MISCELLANE PRN (10:11)
[2025-01-05] MEDS: MAGNESIUM SULFATE-D5W PMX 1 GM in DEXTROSE/WATER 1 100ML.BAG IVPB ONE (12:13)
--- NOTE | 2025-01-05 15:40 | P.PN ---
Subjective Progress Note Date: 01/05/25 Principal diagnosis: Reason for follow-up is fever and colitis Patient is a 69-year-old female with a past medical history significant for right breast cancer in this patient was status post bilateral mastectomy currently on chemotherapy last chemo about 3 weeks before presentation to the hospital patient is presenting with abdominal pain nausea vomiting along with diarrhea and CT has been suggestive of colitis did have a fever prompting this consultation. On today's evaluation that is 01/05/2025,the patient did have resolution her fever is afebrile today she is breathing comfortably did have resolution of her nausea vomiting right lower quadrant abdominal pain slightly decreased as well as diarrhea. Patient white count is 3.54, creatinine 0.6 stool for C. difficile and Cryptosporidium antigen so far negative Objective - Vital Signs Vital signs: Vital Signs Temp 97.7 F 01/05/25 07:19 Pulse 57 L 01/05/25 07:19 Resp 18 01/05/25 01:30 BP 129/75 01/05/25 07:19 Pulse Ox 97 01/05/25 01:30 FiO2 Intake & Output 01/04/25 01/05/25 01/05/25 18:59 06:59 18:59 Intake Total 1300 870 Balance 1300 870 Weight 80.286 kg Intake: Intake, IV Titration 1300 500 Amount Piperacillin-Tazobactam 3 100 100 .375 gm In Sodium Chloride 0.9% 100 ml @ 25 mls/hr IVPB Q8HR [facility] Rx# :[id number] Sodium Chloride 0.9% 1, 1200 400 000 ml @ 100 mls/hr IV . Q10H [facility] Rx#:[id number] Oral 370 Other: # Voids 5 3 # Bowel Movements 4 3 - Exam GENERAL DESCRIPTION: An elderly female lying in bed in no distress RESPIRATORY SYSTEM: Unlabored breathing , decreased breath sounds at bases HEART: S1 S2 regular rate and rhythm , ABDOMEN: Soft , no tenderness EXTREMITIES: No edema feet - Labs CBC & Chem 7: 01/05/25 04:26 01/05/25 04:26 Labs: Abnormal Lab Results - Last 24 Hours (Table) 01/05/25 01/05/25 Range/Units 04:26 04:26 WBC 3.54 L (4.50-10.00) X 10*3/uL RBC 2.84 L (4.10-5.20) X 10*6/uL Hgb 8.5 L (12.0-15.0) g/dL Hct 27.6 L (37.2-46.3) % MCV 97.2 H (80.0-97.0) FL MCHC 30.8 L (32.0-37.0) g/dL RDW 15.0 H (11.5-14.5) % Lymphocytes # 0.71 L (0.90-5.00) X 10*3/uL Eosinophils # 0.55 H (0.04-0.35) X 10*3/uL Chloride 111 H (96-109) mmol/L BUN 5.3 L (9.0-27.0) mg/dL BUN/Creatinine Ratio 8.83 L (12.00-20.00) Ratio Calcium 8.3 L (8.7-10.3) mg/dL Total Bilirubin 0.2 L (0.3-1.2) mg/dL Total Protein 4.4 L (6.2-8.2) g/dL Albumin 2.9 L (3.8-4.9) g/dL Globulin 1.5 L (1.6-3.3) g/dL Microbiology - Last 24 Hours (Table) 01/03/25 19:05 Blood Culture - Preliminary Blood Assessment and Plan (1) Fever Current Visit: Yes Status: Acute Code(s): R50.9 - FEVER, UNSPECIFIED SNOMED Code(s): 722735083 (2) Colitis Current Visit: No Status: Acute Priority: High Code(s): K52.9 - NONINFECTIVE GASTROENTERITIS AND COLITIS, UNSPECIFIED SNOMED Code(s): 43592592 (3) Sepsis Current Visit: No Status: Acute Code(s): A41.9 - SEPSIS, UNSPECIFIED ORGANISM SNOMED Code(s): 92833958 Plan: 1patient presented hospital with sepsis in this patient who did have a fever heart rate of 98 meeting currently for SIRS source is likely colitis in this patient hold to have history of breast cancer on chemotherapy immunocompromise but currently not neutropenic as a white count is 8000 with a neutrophil count of 6.8, however will need to cover for the enteric gram-negative both aerobes and anaerobes patient did have similar presentation back in September 2024 that responded to antibiotics culture were negative at that point 2-stool for C. difficile negative, Cryptosporidium antigen negative cultures are pending 3-patient patient mentions some improvement in her symptoms fever is resolved to continue with Zosyn while waiting for the culture to finalize along with Questran for symptomatic relief Dictation was produced using [employer] dictation software. please excuse any grammatical, word or spelling errors. Time with Patient: Less than 30
--- NOTE | 2025-01-05 18:21 | P.CONS ---
History of Present Illness - Reason for Consult Consult date: 01/05/25 breast cancer Requesting physician: Sylvia Bond - Chief Complaint n/v/d, abd pain - History of Present Illness Patient is a 69 year old female with a history of breast cancer who follows with Dr. Lopez. The patient had noted a lump in the upper inner aspect of her right breast. This has been present for about a year but she had not sought attention for the same. It appears that there were some increase in size, as well as development of pain. She therefore presented to her PCP for the same and had a bilateral mammogram done on 01/28/24. This showed a large mass measuring 6 x 3.7 x 5.5 cm with a satellite mass measuring 1.7 x 1.6 cm about 8 and 7 cm from the nipple respectively. The patient had an ultrasound on the same day, that showed hypoechoic mass measuring 3.3 x 2.1 x 4.8 cm at 12:00, 5 cm from the nipple, and a 1.3 x 1.3 cm mass at 11:00, 5 cm from the nipple. No lymph nodes were identified. The patient then had ultrasound-guided biopsy from both these lesions, on 02/09/24. 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 3 was were felt to be morphologically identical. Receptor analysis revealed the larger lesion to be ER/NC strongly positive, Ki- 67 11-20%, and HER-2 negative at 1+ IHC. She was seen by breast surgery, Dr. Nancy Mendes, and referred here for further evaluation and recommendations. She had a PET scan in early 05/03, that showed no evidence of metastatic disease, including no uptake in the right axilla, or the left breast. Her Oncotype testing showed no benefit from chemotherapy in her age group. The patient was therefore started on anastrozole neoadjuvant , in mid 05/03. Verzenio was added, after getting approval for the same, starting 05/22/24. The patient however started to have progressive GI symptoms with Verzenio and stopped it by late 06/02. The proceeded to a double mastectomy on 07/28/24. This revealed a grade 1 6 x 9 x 3 cm residual invasive carcinoma without evidence of epidermal invasion, or margin involvement. 3 lymph nodes in the axillary tissue showed micrometastatic carcinoma with extranodal extension one lymph node in the axilla was also positive for micrometastatic disease, slightly less than 2 mm. Teft breast was benign. Based on the finding of greater than 3 nodes involved, her case was discussed with other oncology colleagues including [facility] and [facility] regarding benefit of chemotherapy in this setting. After detailed discussion with them, and with the patient, it was decided to start her on chemotherapy with Taxotere and Cytoxan and completed 4 cycles on 11/29/24. Patient was referred back to radiation oncology Patient presented emergency room for nausea vomiting diarrhea and abdominal pain. Patient states since admission symptoms have subsided. She was started on Imodium and Questran. On admit CT abdomen pelvis showed showed findings suggestive of acute colitis. Patient has been started on IV antibiotics. Tmax 102.5. C. difficile, UA, viral panel, blood cultures negative thus far. WBC 3.5, ANC 1.93, hemoglobin 8.5, platelets 144,000. Creatinine 0.60, GFR greater than 90. Review of Systems 10 point ROS is negative except as stated in the HPI Past Medical History Past Medical History: Cancer Additional Past Medical History / Comment(s): R breast Ca, Lymph nodes History of Any Multi-Drug Resistant Organisms: None Reported Past Surgical History: Cholecystectomy Additional Past Surgical History / Comment(s): Right breast excisional biospy 1992, benign, double mastectomy, Right side lymphnode removal july 2024. Past Anesthesia/Blood Transfusion Reactions: No Reported Reaction Smoking Status: Former smoker - Past Family History Father Family Medical History: No Reported History Mother Family Medical History: No Reported History Medications and Allergies Home Medications Medication Instructions Recorded Confirmed Type Anastrozole [Arimidex] 1 mg PO DAILY 01/04/25 01/04/25 History Allergies Allergy/AdvReac Type Severity Reaction Status Date / Time Sulfa (Sulfonamide Allergy Anaphylaxis Verified 01/04/25 07:11 Antibiotics) morphine AdvReac Nausea & Verified 01/04/25 07:11 Vomiting Physical Exam Vitals: Vital Signs Temp Pulse Resp BP Pulse Ox 01/05/25 07:19 97.7 F 57 L 129/75 01/05/25 01:30 98.1 F 68 18 107/67 97 01/04/25 18:45 98.1 F 63 18 129/76 97 01/04/25 12:38 98.1 F 73 15 135/76 96 Intake and Output 01/04/25 01/05/25 01/05/25 22:59 06:59 14:59 Intake Total 1300 870 Balance 1300 870 Intake: Intake, IV Titration 1300 500 Amount Piperacillin-Tazobactam 3 100 100 .375 gm In Sodium Chloride 0.9% 100 ml @ 25 mls/hr IVPB Q8HR [facility] Rx# :[id number] Sodium Chloride 0.9% 1, 1200 400 000 ml @ 100 mls/hr IV . Q10H [facility] Rx#:[id number] Oral 370 Other: # Voids 5 3 # Bowel Movements 4 3 - Constitutional General appearance: average body habitus, no acute distress - EENT Eyes: anicteric sclerae, EOMI ENT: hearing grossly normal - Respiratory Respiratory: bilateral: CTA - Cardiovascular Rhythm: regular - Gastrointestinal General gastrointestinal: soft, no tenderness - Integumentary Integumentary: no cyanotic, no jaundiced - Neurologic Neurologic: CNII-XII intact - Musculoskeletal Musculoskeletal: strength equal bilaterally - Psychiatric Psychiatric: A&O x's 3 Results CBC & Chem 7: 01/05/25 04:26 01/05/25 04:26 Labs: Abnormal Lab Results - Last 24 Hours (Table) 01/05/25 01/05/25 Range/Units 04:26 04:26 WBC 3.54 L (4.50-10.00) X 10*3/uL RBC 2.84 L (4.10-5.20) X 10*6/uL Hgb 8.5 L (12.0-15.0) g/dL Hct 27.6 L (37.2-46.3) % MCV 97.2 H (80.0-97.0) FL MCHC 30.8 L (32.0-37.0) g/dL RDW 15.0 H (11.5-14.5) % Lymphocytes # 0.71 L (0.90-5.00) X 10*3/uL Eosinophils # 0.55 H (0.04-0.35) X 10*3/uL Chloride 111 H (96-109) mmol/L BUN 5.3 L (9.0-27.0) mg/dL BUN/Creatinine Ratio 8.83 L (12.00-20.00) Ratio Calcium 8.3 L (8.7-10.3) mg/dL Total Bilirubin 0.2 L (0.3-1.2) mg/dL Total Protein 4.4 L (6.2-8.2) g/dL Albumin 2.9 L (3.8-4.9) g/dL Globulin 1.5 L (1.6-3.3) g/dL Microbiology - Last 24 Hours (Table) 01/03/25 19:05 Blood Culture - Preliminary Blood CT scan - abdomen: report reviewed CT scan - pelvis: report reviewed Assessment and Plan (1) Breast cancer Current Visit: Yes Status: Acute Priority: Medium Code(s): C50.919 - MALIGNANT NEOPLASM OF UNSP SITE OF UNSPECIFIED FEMALE BREAST SNOMED Code(s): 436286153 (2) Fever Current Visit: Yes Status: Acute Priority: High Code(s): R50.9 - FEVER, UNSPECIFIED SNOMED Code(s): 288391394 (3) Nausea & vomiting Current Visit: Yes Status: Acute Priority: Medium Code(s): R11.2 - NAUSEA WITH VOMITING, UNSPECIFIED SNOMED Code(s): 78650862 (4) Colitis Current Visit: Yes Status: Acute Priority: High Code(s): K52.9 - NONINFECTIVE GASTROENTERITIS AND COLITIS, UNSPECIFIED SNOMED Code(s): 28255355 Plan: N/V/D, fever: Presented for nausea vomiting diarrhea and abdominal pain. Denies any recent sick contacts. Patient states since admission symptoms have subsided. She was started on Imodium and Questran. -On admit CT abdomen pelvis showed showed findings suggestive of acute colitis. -IV antibiotics started. Tmax 102.5. C. difficile, UA, viral panel, and blood cultures negative thus far. -WBC 3.5, ANC 1.93, hemoglobin 8.5, platelets 144,000. No need for G-CSF at this time -ID following Breast cancer: -Oncology history as dictated in the HPI -Completed 4 cycles of adjuvant Taxotere and Cytoxan on 11/29/24. Plan to complete radiation and then restart Anastrazole and continue in observation Dr attests: I have seen and examined pt, performed H&P, developed impression and plan of care. Discussed with dictator. Agree with documentation, dictated as a scribe.
--- NOTE | 2025-01-06 02:35 | P.PN ---
Subjective Progress Note Date: 01/05/25 This is a very pleasant 69-year-old female who presented to the emergency department with nausea, vomiting, diarrhea that had been ongoing since last week and progressively getting worse. Patient feeling weak and dehydrated with inability to tolerate oral intake. Patient reports she follows with Dr. Flores in the outpatient setting with a past medical history of right breast cancer status post bilateral mastectomy in July 2024 with continued ongoing chemotherapy and plans for starting radiation next week. Patient underwent CT abdomen pelvis showing acute colitis likely related to an infectious inflammatory etiology. C. difficile testing was negative, will consult infectious disease along with oncology and radiation oncology and patient has been started on antibiotics. Labs reviewed and white count within normal limits, hemoglobin is stable at 10.2, platelets 185, sodium 135 and potassium 3.2 and being replaced, creatinine 0.6 and other labs within normal limits. Patient C. difficile testing was negative, urinalysis was negative and virology testing including influenza, RSV, COVID are all negative. Patient is admitted with fevers and recent chemotherapy. Chest x-ray showing no acute process. Patient has been started on Zosyn. Patient instructed to start slowly with clear liquid diet and slowly advance if feeling better. Continue with supportive care. 01/05/2025 Patient is seen today in follow up and reports to feeling somewhat improved. Continued loose stools although less frequent and becoming somewhat more formed. ID following and is continued on empiric antibiotics. Oncology consulted as well as radiation onc and pending. Patient was supposed to have an appointment with rad onc this . Patient is afebrile and reports vomiting has improve d. Nausea persists and not much of an appetite at this time, but is holding down some clear to soft foods. Encouraged increased activity as tolerated. REVIEW OF SYSTEMS: CONSTITUTIONAL: No fever, no malaise, reports of fatigue. CARDIOVASCULAR: No chest pain, orthopnea, PND, no palpitations, no syncope. PULMONARY: No shortness of breath, no cough, no hemoptysis. GASTROINTESTINAL: Reports multiple episodes of diarrhea, reports occasional nausea, no vomiting, no further abdominal pain. NEUROLOGICAL: No headaches, no weakness, no numbness. The rest of the 14-point review of systems is negative. PHYSICAL EXAMINATION: GENERAL: The patient is alert and oriented x3, not in any acute distress. Well developed, well nourished. Elderly appearing, pale HEENT: Pupils are round and equally reacting to light. EOMI. No scleral icterus. No conjunctival pallor. Normocephalic, atraumatic. No pharyngeal erythema. No thyromegaly. CARDIOVASCULAR: S1 and S2 present. No murmurs, rubs, or gallops. PULMONARY: Chest is clear to auscultation, no wheezing or crackles. ABDOMEN: Soft, nontender, nondistended, normoactive bowel sounds. No palpable organomegaly. MUSCULOSKELETAL: No joint swelling or deformity. EXTREMITIES: No cyanosis, clubbing, or pedal edema. NEUROLOGICAL: Gross neurological examination did not reveal any focal deficits. SKIN: No rashes. Pale Assessment: Nausea, vomiting, diarrhea concerns for acute colitis on CT imaging Diarrhea, C. difficile ruled out History of breast cancer with bilateral mastectomy, currently undergoing chemotherapy and treatment was approximately 2 to 3 weeks ago, scheduled to start radiation therapy this week Mild hyponatremia and hypokalemia, likely secondary to volume loss with multiple episodes of diarrhea, improving Former smoker GI prophylaxis DVT prophylaxis Full code Plan: Patient was admitted with concerns of some form of infectious process as patient having multiple episodes of nausea, vomiting, diarrhea. C. difficile testing was done and negative for C. difficile, continue Questran and as needed Imodium Infectious disease along with oncology and radiation oncology consulted and following. Patient follows with Dr. Lopez in the outpatient setting recently underwent chemotherapy and is scheduled to undergo radiation therapy with Dr. Velasco time this week Replace electrolytes per protocol Diarrhea somewhat improving and less frequent, advance diet slowly Continue supportive care and will follow-up on repeat labs Will have PT/OT therapy evaluate the patient, encouraged increased activity as tolerated. Awaiting rad onc eval and will likely need outpatient follow up once feeling better Possible discharge in 24 hours if symptoms are improving. Blood cultures are pending at this time. The impression and plan of care has been dictated by Sylvia Bond, Nurse Practitioner as directed. Dr. Livan MD I have performed a history and examination and MDM of this patient, discussed the same with the dictator, and agree with the dictator's assessment and plan as written ,documented as a scribe. Based on total visit time, I have performed more than 50% of the visit. Objective - Vital Signs Vital signs: Vital Signs Temp 97.7 F 01/05/25 07:19 Pulse 57 L 01/05/25 07:19 Resp 18 01/05/25 01:30 BP 129/75 01/05/25 07:19 Pulse Ox 97 01/05/25 01:30 FiO2 Intake & Output 01/04/25 01/05/25 01/05/25 18:59 06:59 18:59 Intake Total 1300 870 Balance 1300 870 Weight 80.286 kg Intake: Intake, IV Titration 1300 500 Amount Piperacillin-Tazobactam 3 100 100 .375 gm In Sodium Chloride 0.9% 100 ml @ 25 mls/hr IVPB Q8HR [facility] Rx# :[id number] Sodium Chloride 0.9% 1, 1200 400 000 ml @ 100 mls/hr IV . Q10H [facility] Rx#:[id number] Oral 370 Other: # Voids 5 3 # Bowel Movements 4 3 - Labs CBC & Chem 7: 01/05/25 04:26 01/05/25 04:26 Labs: Abnormal Lab Results - Last 24 Hours (Table) 01/05/25 01/05/25 Range/Units 04:26 04:26 WBC 3.54 L (4.50-10.00) X 10*3/uL RBC 2.84 L (4.10-5.20) X 10*6/uL Hgb 8.5 L (12.0-15.0) g/dL Hct 27.6 L (37.2-46.3) % MCV 97.2 H (80.0-97.0) FL MCHC 30.8 L (32.0-37.0) g/dL RDW 15.0 H (11.5-14.5) % Lymphocytes # 0.71 L (0.90-5.00) X 10*3/uL Eosinophils # 0.55 H (0.04-0.35) X 10*3/uL Chloride 111 H (96-109) mmol/L BUN 5.3 L (9.0-27.0) mg/dL BUN/Creatinine Ratio 8.83 L (12.00-20.00) Ratio Calcium 8.3 L (8.7-10.3) mg/dL Total Bilirubin 0.2 L (0.3-1.2) mg/dL Total Protein 4.4 L (6.2-8.2) g/dL Albumin 2.9 L (3.8-4.9) g/dL Globulin 1.5 L (1.6-3.3) g/dL Microbiology - Last 24 Hours (Table) 01/03/25 19:05 Blood Culture - Preliminary Blood
[2025-01-06] MEDS: ONDANSETRON 4 MG/2 ML VIAL IVP PRN (09:22)
[2025-01-06 10:30] LABS: HCT 29.3 % (37.2-46.3); HGB 8.9 g/dL (12.0-15.0); MCH 29.7 pg (27.0-32.0); MCHC 30.4 g/dL (32.0-37.0); MCV 97.7 FL (80.0-97.0); Mean Platelet Volume 9.9 FL (9.5-12.2); NRBC Per 100 WBC 0 X 10*3/uL (0.00-0.01); Platelet Count 169 X 10*3/uL (140-440); RDW 14.6 % (11.5-14.5); WBC 4.83 X 10*3/uL (4.50-10.00)
[2025-01-06 10:31] LABS: Basophils # (A) 0.02 X 10*3/uL (0.00-0.10); Basophils % (A) 0.4 %; Eosinophils # (A) 0.69 X 10*3/uL (0.04-0.35); Eosinophils % (A) 14.3 %; Lymphocytes # (A) 0.62 X 10*3/uL (0.90-5.00); Lymphocytes % (A) 12.8 %; Monocytes % (A) 6.2 %; Neutrophils # (A) 3.19 X 10*3/uL (1.80-7.70); Neutrophils % (A) 66.1 %
[2025-01-06 10:55] LABS: Magnesium 1.9 mg/dL (1.5-2.4)
[2025-01-06 10:56] LABS: BUN/Creat Ratio <5.83 Ratio (12.00-20.00); Blood Urea Nitrogen <3.5 mg/dL (9.0-27.0); Calcium 8.7 mg/dL (8.7-10.3); Carbon Dioxide 25.1 mmol/L (21.6-31.8); Chloride 111 mmol/L (96-109); Glucose 87 mg/dL (70-110); Potassium 3.7 mmol/L (3.5-5.5); Sodium 146 mmol/L (135-145)
[2025-01-06] MEDS: IBUPROFEN 400 MG TAB PO PRN (21:22)
--- NOTE | 2025-01-07 04:22 | P.PN ---
Subjective Progress Note Date: 01/06/25 This is a very pleasant 69-year-old female who presented to the emergency department with nausea, vomiting, diarrhea that had been ongoing since last week and progressively getting worse. Patient feeling weak and dehydrated with inability to tolerate oral intake. Patient reports she follows with Dr. Flores in the outpatient setting with a past medical history of right breast cancer status post bilateral mastectomy in July 2024 with continued ongoing chemotherapy and plans for starting radiation next week. Patient underwent CT abdomen pelvis showing acute colitis likely related to an infectious inflammatory etiology. C. difficile testing was negative, will consult infectious disease along with oncology and radiation oncology and patient has been started on antibiotics. Labs reviewed and white count within normal limits, hemoglobin is stable at 10.2, platelets 185, sodium 135 and potassium 3.2 and being replaced, creatinine 0.6 and other labs within normal limits. Patient C. difficile testing was negative, urinalysis was negative and virology testing including influenza, RSV, COVID are all negative. Patient is admitted with fevers and recent chemotherapy. Chest x-ray showing no acute process. Patient has been started on Zosyn. Patient instructed to start slowly with clear liquid diet and slowly advance if feeling better. Continue with supportive care. 01/05/2025 Patient is seen today in follow up and reports to feeling somewhat improved. Continued loose stools although less frequent and becoming somewhat more formed. ID following and is continued on empiric antibiotics. Oncology consulted as well as radiation onc and pending. Patient was supposed to have an appointment with rad onc this . Patient is afebrile and reports vomiting has improve d. Nausea persists and not much of an appetite at this time, but is holding down some clear to soft foods. Encouraged increased activity as tolerated. 01/06/2025 Patient is seen in follow-up this morning scheduled to undergo mapping with radiation oncology and will be receiving a treatment tomorrow. Patient reporting some nausea although subsided with Zofran and is tolerating a little more oral intake. Patient has been encouraged to increase activity as tolerated and sit up in the chair more often. Patient maintained on antibiotics empirically with infectious disease following and will discuss regarding discharge planning if patient will require antibiotics on discharge. Oncology following as well recommending outpatient follow-up. REVIEW OF SYSTEMS: CONSTITUTIONAL: No fever, no malaise, reports of fatigue. CARDIOVASCULAR: No chest pain, orthopnea, PND, no palpitations, no syncope. PULMONARY: No shortness of breath, no cough, no hemoptysis. GASTROINTESTINAL: Reports less frequent episodes of diarrhea and becoming more formed, reports occasional nausea, no vomiting, no further abdominal pain. NEUROLOGICAL: No headaches, no weakness, no numbness. The rest of the 14-point review of systems is negative. PHYSICAL EXAMINATION: GENERAL: The patient is alert and oriented x3, not in any acute distress. Well developed, well nourished. Elderly appearing, pale HEENT: Pupils are round and equally reacting to light. EOMI. No scleral icterus. No conjunctival pallor. Normocephalic, atraumatic. No pharyngeal erythema. No thyromegaly. CARDIOVASCULAR: S1 and S2 present. No murmurs, rubs, or gallops. PULMONARY: Chest is clear to auscultation, no wheezing or crackles. ABDOMEN: Soft, nontender, nondistended, normoactive bowel sounds. No palpable organomegaly. MUSCULOSKELETAL: No joint swelling or deformity. EXTREMITIES: No cyanosis, clubbing, or pedal edema. NEUROLOGICAL: Gross neurological examination did not reveal any focal deficits. SKIN: No rashes. Pale Assessment: Nausea, vomiting, diarrhea secondary to acute colitis on CT imaging, with sepsis, present on admission Diarrhea, C. difficile ruled out, likely secondary to gastritis, not likely due to chemotherapy as the treatment was approximately 3 weeks to a month ago History of breast cancer with bilateral mastectomy, currently undergoing chemotherapy and treatment was approximately 3-4 weeks ago, will be starting radiation therapy Friday Mild hyponatremia and hypokalemia, likely secondary to volume loss with multiple episodes of diarrhea, improving Former smoker GI prophylaxis DVT prophylaxis Full code Plan: Patient was admitted with concerns of some form of infectious process as patient having multiple episodes of nausea, vomiting, diarrhea. C. difficile testing was done and negative for C. difficile, continue Questran and as needed Imodium. Diarrhea most likely secondary to a viral illness or acute infection and less likely due to chemotherapy as treatment was over 3 weeks ago. Infectious disease along with oncology and radiation oncology following. Patient follows with Dr. Lopez in the outpatient setting recently underwent chemotherapy and is scheduled to undergo radiation therapy with Dr. Velasco tomorrow Replace electrolytes per protocol Diarrhea somewhat improving and less frequent, advance diet slowly Continue supportive care and will follow-up on repeat labs Encouraged increased activity as tolerated. Patient to undergo radiation therapy tomorrow and will also be following in the outpatient setting Possible discharge in 24 hours The impression and plan of care has been dictated by Sylvia Bond, Nurse Practitioner as directed. Dr. Livan MD I have performed a history and examination and MDM of this patient, discussed the same with the dictator, and agree with the dictator's assessment and plan as written ,documented as a scribe. Based on total visit time, I have performed more than 50% of the visit. Objective - Vital Signs Vital signs: Vital Signs Temp 98.4 F 01/06/25 01:23 Pulse 69 01/06/25 01:23 Resp 16 01/06/25 01:23 BP 123/71 01/06/25 01:23 Pulse Ox 100 01/06/25 01:23 FiO2 Intake & Output 01/05/25 01/06/25 01/06/25 18:59 06:59 18:59 Intake Total 1044 Balance 1044 Intake: Oral 1044 Other: # Voids 3 - Labs CBC & Chem 7: 01/06/25 06:41 01/06/25 06:41 Labs: Abnormal Lab Results - Last 24 Hours (Table) 01/05/25 Range/Units 04:26 Chloride 111 H (96-109) mmol/L BUN 5.3 L (9.0-27.0) mg/dL BUN/Creatinine Ratio 8.83 L (12.00-20.00) Ratio Calcium 8.3 L (8.7-10.3) mg/dL Total Bilirubin 0.2 L (0.3-1.2) mg/dL Total Protein 4.4 L (6.2-8.2) g/dL Albumin 2.9 L (3.8-4.9) g/dL Globulin 1.5 L (1.6-3.3) g/dL Microbiology - Last 24 Hours (Table) 01/03/25 19:05 Blood Culture - Preliminary Blood
[2025-01-07] MEDS: PSEUDOEPHEDRINE 30 MG TAB PO PRN (04:32)
[2025-01-07 05:11] LABS: Influenza A Detected (Not Detectd); Influenza B Not Detected (Not Detectd); RSV Not Detected (Not Detectd)
[2025-01-07 05:41] LABS: African American GFR (CKD) >90 (>60 ml/min/1.73 sqM); Anion Gap 7 mmol/L; Blood Urea Nitrogen <2 mg/dL (7-17); Calcium 8.6 mg/dL (8.4-10.2); Carbon Dioxide 25 mmol/L (22-30); Chloride 107 mmol/L (98-107); Glucose 84 mg/dL (74-99); Non-African American GFR(CKD) >90 (>60 ml/min/1.73 sqM); Potassium 3.5 mmol/L (3.5-5.1); Sodium 139 mmol/L (137-145)
[2025-01-07 08:15] VITALS: RESP 17
[2025-01-07] MEDS: OSELTAMIVIR 75 MG CAP PO SCH (09:09)
[2025-01-07] MEDS: POTASSIUM CHLORIDE ER 20 MEQ TAB.ER PO SCH (09:09)
[2025-01-07 13:02] VITALS: BP 138/82; PULSE 76; TEMP 100.7
--- NOTE | 2025-01-07 13:12 | P.PN ---
Subjective Progress Note Date: 01/06/25 Principal diagnosis: Reason for follow-up is fever and colitis Patient is a 69-year-old female with a past medical history significant for right breast cancer in this patient was status post bilateral mastectomy currently on chemotherapy last chemo about 3 weeks before presentation to the hospital patient is presenting with abdominal pain nausea vomiting along with diarrhea and CT has been suggestive of colitis did have a fever prompting this consultation. On today's evaluation that is 01/06/2025,the patient remains to be afebrile, patient is on room air not requiring supplemental oxygen and denies any shortness of breath no chest pain or cough.Patient denies having any nausea or vomiting, did have improvement in the right lower quad abdominal pain improvemen t with IV however the patient mentioned not feeling good today. Patient white count is 4.83, creatinine 0.6 Objective - Vital Signs Vital signs: Vital Signs Temp 97.9 F 01/06/25 07:00 Pulse 47 L 01/06/25 07:00 Resp 16 01/06/25 07:00 BP 132/77 01/06/25 07:00 Pulse Ox 98 01/06/25 07:00 FiO2 Intake & Output 01/05/25 01/06/25 01/06/25 18:59 06:59 18:59 Intake Total 1044 Balance 1044 Intake: Oral 1044 Other: Voiding Method Toilet # Voids 3 - Exam GENERAL DESCRIPTION: An elderly female lying in bed in no distress RESPIRATORY SYSTEM: Unlabored breathing , decreased breath sounds at bases HEART: S1 S2 regular rate and rhythm , ABDOMEN: Soft , no tenderness EXTREMITIES: No edema feet - Labs CBC & Chem 7: 01/06/25 06:41 01/07/25 05:00 Labs: Abnormal Lab Results - Last 24 Hours (Table) 01/06/25 01/06/25 Range/Units 06:41 06:41 RBC 3.00 L (4.10-5.20) X 10*6/uL Hgb 8.9 L (12.0-15.0) g/dL Hct 29.3 L (37.2-46.3) % MCV 97.7 H (80.0-97.0) FL MCHC 30.4 L (32.0-37.0) g/dL RDW 14.6 H (11.5-14.5) % Lymphocytes # 0.62 L (0.90-5.00) X 10*3/uL Eosinophils # 0.69 H (0.04-0.35) X 10*3/uL Sodium 146 H (135-145) mmol/L Chloride 111 H (96-109) mmol/L BUN <3.5 L (9.0-27.0) mg/dL BUN/Creatinine Ratio <5.83 L (12.00-20.00) Ratio Microbiology - Last 24 Hours (Table) 01/04/25 13:38 Stool Culture - Preliminary Stool 01/03/25 19:05 Blood Culture - Preliminary Blood Assessment and Plan (1) Fever Current Visit: Yes Status: Acute Priority: High Code(s): R50.9 - FEVER, UNSPECIFIED SNOMED Code(s): 764156509 (2) Colitis Current Visit: Yes Status: Acute Priority: High Code(s): K52.9 - NONINFECTIVE GASTROENTERITIS AND COLITIS, UNSPECIFIED SNOMED Code(s): 44090921 (3) Sepsis Current Visit: No Status: Acute Code(s): A41.9 - SEPSIS, UNSPECIFIED ORGANISM SNOMED Code(s): 10652454 Plan: 1patient presented hospital with sepsis in this patient who did have a fever heart rate of 98 meeting currently for SIRS source is likely colitis in this patient hold to have history of breast cancer on chemotherapy immunocompromise but currently not neutropenic as a white count is 8000 with a neutrophil count of 6.8, however will need to cover for the enteric gram-negative both aerobes and anaerobes patient did have similar presentation back in September 2024 that responded to antibiotics culture were negative at that point 2-stool for C. difficile negative, Cryptosporidium antigen, blood and stool negative cultures are pending 3-patient mention not feeling that well today discussed with MARKETING CONTENT COORDINATOR for admitting to hold discharge for today, currently being treated Zosyn along with Questran for symptomatic relief and monitor clinical course closely Dictation was produced using [employer] dictation software. please excuse any grammatical, word or spelling errors. Time with Patient: Less than 30
--- NOTE | 2025-01-07 13:13 | P.PN ---
Subjective Progress Note Date: 01/07/25 Principal diagnosis: Reason for follow-up is fever and colitis Patient is a 69-year-old female with a past medical history significant for right breast cancer in this patient was status post bilateral mastectomy currently on chemotherapy last chemo about 3 weeks before presentation to the hospital patient is presenting with abdominal pain nausea vomiting along with diarrhea and CT has been suggestive of colitis did have a fever prompting this consultation. On today's evaluation that is 01/07/2025, the patient continues to be afebrile, the patient is on room air and breathing comfortably, the Pt denies having any chest pain did have occasional cough, the patient denies having any abdominal pain no vomiting and did have resolution of her diarrhea. Patient did have a creatinine 0.57 blood and stool cultures currently pending Objective - Vital Signs Vital signs: Vital Signs Temp 100.7 F H 01/07/25 13:01 Pulse 76 01/07/25 13:01 Resp 17 01/07/25 13:01 BP 138/82 01/07/25 13:01 Pulse Ox 94 L 01/07/25 13:01 FiO2 Intake & Output 01/06/25 01/07/25 01/07/25 18:59 06:59 18:59 Intake Total 660 100 Balance 660 100 Intake: Intake, IV Titration 100 Amount Piperacillin-Tazobactam 3 100 .375 gm In Sodium Chloride 0.9% 100 ml @ 25 mls/hr IVPB Q8HR [facility] Rx# :[id number] Oral 660 Other: Voiding Method Toilet Toilet # Voids 3 3 - Exam GENERAL DESCRIPTION: An elderly female lying in bed in no distress RESPIRATORY SYSTEM: Unlabored breathing , decreased breath sounds at bases HEART: S1 S2 regular rate and rhythm , ABDOMEN: Soft , no tenderness EXTREMITIES: No edema feet - Labs CBC & Chem 7: 01/06/25 06:41 01/07/25 05:00 Labs: Abnormal Lab Results - Last 24 Hours (Table) 01/07/25 01/07/25 Range/Units 04:25 05:00 BUN <2 L (7-17) mg/dL Influenza Type A (PCR) Detected A (Not Detectd) Microbiology - Last 24 Hours (Table) 01/04/25 13:38 Stool Culture - Preliminary Stool 01/03/25 19:05 Blood Culture - Preliminary Blood Assessment and Plan (1) Fever Current Visit: Yes Status: Acute Priority: High Code(s): R50.9 - FEVER, UNSPECIFIED SNOMED Code(s): 164808866 (2) Colitis Current Visit: Yes Status: Acute Priority: High Code(s): K52.9 - NONINFECTIVE GASTROENTERITIS AND COLITIS, UNSPECIFIED SNOMED Code(s): 03427500 (3) Sepsis Current Visit: No Status: Acute Code(s): A41.9 - SEPSIS, UNSPECIFIED OR GANISM SNOMED Code(s): 77441064 (4) Influenza A Current Visit: Yes Status: Acute Code(s): J10.1 - FLU DUE TO OTH IDENT INFLUENZA VIRUS W OTH RESP MANIFEST SNOMED Code(s): 964861070 Plan: 1patient presented hospital with sepsis in this patient who did have a fever heart rate of 98 meeting currently for SIRS source is likely colitis in this patient hold to have history of breast cancer on chemotherapy immunocompromise but currently not neutropenic as a white count is 8000 with a neutrophil count of 6.8, however will need to cover for the enteric gram-negative both aerobes and anaerobes patient did have similar presentation back in September 2024 that responded to antibiotics culture were negative at that point,stool for C. difficile negative, Cryptosporidium antigen, blood and stool negative cultures are pending, mention improvement in her abdominal symptoms Zosyn will be switched over to Ceftin and Flagyl for 10 days on discharge 2-patient mention not feeling well yesterday some URI symptoms has been cas gnosed influenza A started on Tamiflu consider total of 5-day course of therapy Dictation was produced using [employer] software. please excuse any grammatical, word or spelling errors. Time with Patient: Less than 30
--- NOTE | 2025-01-14 04:53 | P.DS ---
Providers Date of admission: 01/03/25 22:46 Expected date of discharge: 01/06/25 Attending physician: Sandie Correa Consults: 01/04/25 11:15 Consult Physician Routine Consulting Provider: Sonya Clifford Consult Reason/Comments: neutropenic sepsis? chemo/ fever, N/v/d Do you want consulting provider notified?: Yes Consult Physician Urgent Consulting Provider: Himanshu Lopez Consult Reason/Comments: breast ca, chemo tx ongoing, N/V/D, sepsis Do you want consulting provider notified?: Yes 01/04/25 15:24 Consult Physician Urgent Consulting Provider: Grabiel Orozco Consult Reason/Comments: Breast cancer, scheduled start radiation therapy this week Do you want consulting provider notified?: Yes Primary care physician: Alexey Flores Hospital Course: Final diagnosis Nausea, vomiting, diarrhea secondary to acute colitis on CT imaging, with sepsis, present on admission Diarrhea, C. difficile ruled out, likely secondary to gastritis, not likely due to chemotherapy as the treatment was approximately 3 weeks to a month ago History of breast cancer with bilateral mastectomy, currently undergoing chemotherapy and treatment was approximately 3-4 weeks ago, will be starting radiation therapy Friday Mild hyponatremia and hypokalemia, likely secondary to volume loss with multiple episodes of diarrhea, improving Acute influenza A infection Former smoker GI prophylaxis DVT prophylaxis Full code Discharge disposition Patient is being discharged in a stable condition with guarded prognosis to home. Patient will follow-up with Dr. Flores in the outpatient setting upon di scharge. Patient is to continue with antibiotic recommendations and Tamiflu on discharge per ID and close outpatient follow-up with oncology as scheduled. Total time taken is greater than 35 minutes. Hospital course This is a 69-year-old female who was recently admitted with nausea vomiting diarrhea and noted to have acute colitis on imaging with sepsis present on admission. Patient had been having multiple episodes of diarrhea and not tolerating much oral intake with concerns of hyponatremia with multiple electrolyte abnormalities. Patient continued to have episodes of diarrhea during hospitalization and C. difficile testing was negative. Patient being followed by oncology, radiation oncology and infectious disease. Patient maintained on antibiotics and cultures thus far negative. Patient having some upper sinus congestion and drainage and underwent virology testing including COVID, influenza, RSV and was positive for influenza A. Patient started on Tamiflu and will continue on a course of oral antibiotics on discharge. Patient was evaluated by radiation oncology as she was scheduled to undergo radiation treatments outpatient and did initiate radiations. Patient will follow-up with radiation oncology as well as oncology in the outpatient setting this week. Patient has been cleared by consultations. Please refer to other consultation notes for further HPI. Currently no reports of chest pain, shortness of breath, or palpitations. Patient is afebrile. No reports of nausea or vomiting and patient is tolerating diet. Patient will be discharged home today. High risk for readmission given significant comorbidities Physical exam: Gen: This is a 69-year-old female who is awake, alert and oriented x 3, well- developed, elderly appearing, ill-appearing HEENT: Head is atraumatic, normocephalic. Pupils equal, round. Sclerae is anicteric. NECK: Supple. No JVD. No lymphadenopathy. No thyromegaly. LUNGS: Diminished breath sounds bilaterally otherwise clear to auscultation. No wheezes or rhonchi. No intercostal retractions. HEART: S1, S2 are muffled ABDOMEN: Soft. Nontender on palpation bowel sounds are present. No masses. No tenderness. EXTREMITIES: No pedal edema. No calf tenderness. NEUROLOGICAL: Patient is awake, alert and oriented x3. Cranial nerves 2 through 12 are grossly intact. Please refer to medication reconciliation sheet for a list of medications. The impression and plan of care has been dictated by Sylvia Bond, Nurse Practitioner as directed. Dr. Livan MD I have performed a history and examination and MDM of this patient, discussed the same with the dictator, and agree with the dictator's assessment and plan as written ,documented as a scribe. Based on total visit time, I have performed more than 50% of the visit. Patient Condition at Discharge: Fair Plan - Discharge Summary New Discharge Prescriptions: New cefuroxime axetiL [Ceftin] 500 mg PO BID 10 Days #20 tab metroNIDAZOLE [Flagyl] 500 mg PO TID 10 Days #30 tab Ibuprofen [Motrin] 400 mg PO Q6HR PRN #30 tab PRN Reason: Mild Pain Or Fever > 100.5 Loperamide [Imodium] 2 mg PO QID PRN cap PRN Reason: Diarrhea Cholestyramine (with Sugar) [Questran Packet] 4 gm PO BID@1000,1800 #30 packet Pseudoephedrine [Sudafed] 30 mg PO BID PRN #20 tab PRN Reason: Nasal Congestion Oseltamivir [Tamiflu] 75 mg PO Q12HR 5 Days #10 cap Acetaminophen Tab [Tylenol] 650 mg PO Q6HR PRN tab PRN Reason: Mild Pain Or Fever > 100.5 Discontinued Anastrozole [Arimidex] 1 mg PO DAILY Discharge Medication List Acetaminophen Tab [Tylenol] 650 mg PO Q6HR PRN tab 01/07/25 [Rx] Cholestyramine (with Sugar) [Questran Packet] 4 gm PO BID@1000,1800 #30 packet 01/07/25 [Rx] Ibuprofen [Motrin] 400 mg PO Q6HR PRN #30 tab 01/07/25 [Rx] Loperamide [Imodium] 2 mg PO QID PRN cap 01/07/25 [Rx] Oseltamivir [Tamiflu] 75 mg PO Q12HR 5 Days #10 cap 01/07/25 [Rx] Pseudoephedrine [Sudafed] 30 mg PO BID PRN #20 tab 01/07/25 [Rx] cefuroxime axetiL [Ceftin] 500 mg PO BID 10 Days #20 tab 01/07/25 [Rx] metroNIDAZOLE [Flagyl] 500 mg PO TID 10 Days #30 tab 01/07/25 [Rx] Follow up Appointment(s)/Referral(s): Alexey Flores MD [Primary Care Provider] - 01/11/25 11:20 am Himanshu Lopez [STAFF PHYSICIAN] - 02/04/25 11:00 am (patient had an appointment schedulued) Grabiel Orozco MD [STAFF PHYSICIAN] - 1 Week (left voicemail to contact patient for appointment) Ambulatory/Diagnostic Orders: Complete Blood Count w/diff [LAB.AMB] Time Frame: 3 Days, Location: None Selected Patient Instructions/Handouts: Cefuroxime (By mouth), Ibuprofen (By mouth), Cholestyramine (By mouth), Pseudoephedrine (By mouth), Metronidazole (By mouth), Oseltamivir (By mouth), Influenza (DC), Colitis (ED) Activity/Diet/Wound Care/Special Instructions: Activity limited until follow-up Follow-up with oncology outpatient as scheduled Follow-up with radiation oncology as discussed Continue medications as prescribed Continue with Tamiflu to complete the course along with antibiotics on discharge Continue with full liquid to soft, low fiber diet and slowly advance as tolerated Continue monitoring for fever and use Tylenol and/or Motrin alternating Discharge Disposition: HOME SELF-CARE
== END 2025-01-07 16:42 | disposition home or self-care (01) ==
LOC: EC 17:37 → 5NMEDONC 22:45 → UNDOADMOB 22:45 → OBSVTOIN 22:46 → INTOOBSV 22:46 → 5NMEDONC 22:47 → UNDODISOB 01-07 16:42
PROVIDERS: ADMIT Hospitalist; ATTEND Hospitalist
DX: A41.9 Sepsis, unspecified organism (principal); K52.9 Noninfective gastroenteritis and colitis, unspecified; J10.1 Influenza due to other identified influenza virus with other respiratory manifestations; E87.1 Hypo-osmolality and hyponatremia; E87.6 Hypokalemia; C50.211 Malignant neoplasm of upper-inner quadrant of right female breast; C77.3 Secondary and unspecified malignant neoplasm of axilla and upper limb lymph nodes; Z17.0 Estrogen receptor positive status [ER+]; Z17.32 Human epidermal growth factor receptor 2 negative status; E86.0 Dehydration; I83.90 Asymptomatic varicose veins of unspecified lower extremity; E87.8 Other disorders of electrolyte and fluid balance, not elsewhere classified; Z11.52 Encounter for screening for COVID-19; Z11.59 Encounter for screening for other viral diseases; E66.9 Obesity, unspecified; Z68.27 Body mass index [BMI] 27.0-27.9, adult; Z79.811 Long term (current) use of aromatase inhibitors; Z88.2 Allergy status to sulfonamides; Z88.5 Allergy status to narcotic agent; Z87.891 Personal history of nicotine dependence; Z90.13 Acquired absence of bilateral breasts and nipples
CPT/HCPCS: 96376; 96361 ×2; 96366 ×5; 96367 ×2; 96365; 96375; 99285; 36415; 97161; 80053 ×2; 80048 ×3; 82150; 83605; 83690; 83735 ×2; 84132; 85025 ×4; 81003; 87040; 87324; 87045; 87328; 87046; 87636 ×2; 71046; 74177; 77280; 77295; 77300; 77334; 77387; 77412; G0378 ×5; J2543 ×4; J2405 ×2; J0692; J3475; Q9967

== ENCOUNTER → 2025-02-24 | Outpatient (CLI) | payer MEDICARE ==
[2025-02-24 12:25] VITALS: BP 126/83; PULSE 83; RESP 17; TEMP 97.6
--- NOTE | 2025-02-24 12:53 | P.PN ---
Subjective Progress Note Date: 02/24/25 Principal diagnosis: right breast invasive ductal cancer; two sites [id number]+Pr+Her2-G2; at 12:00, and [id number]+Pr+Her2-G2 lesion at 11:00 She did have a bilateral mammogram on 01-28-24, this was reviewed, no lesions of concern in the left breast. Subjective Progress Note Date: 02-24-25 Principal diagnosis: right breast invasive ductal cancer; two sites [id number]+Pr+Her2-G2; at 12:00, and [id number]+Pr+Her2-G2 lesion at 11:00 She did have a bilateral mammogram on 01-28-24, this was reviewed, no lesions of concern in the left breast. History of present illness: Elisa is a 69 year old female seen in consultation for Dr. Alexey Flores on 02-20-24 regarding a right breast invasive ductal cancer. She had a bilateral mammogram on 01-28-24 which showed a 6 by 5.5 cm mass in the right breast with a 1.7 by 1.6 cm satellite lesion in the breast. She had a right breast ultrasound on 01-28-24 confirming the findings, and a core biopsy was done on 02-09-24. This showed an invasive ductal cancer of two sites, it was G2, ER+, Pr+, Her2-. On ultrasound one lesion at 12:00 was 3.3 by 4.8 cm and the second lesion at 11:00 was 1.3 by 1.3 cm. The patient has been able to feel the lump for about 1 year, it hasn't really changed in size. It is tender, it is aching in nature, it is worse if there is no breast support. She did develop some bruising after the core biopsy. She had not been getting mammograms for about 20 years, she just got insurance and got this checked She was not complaining of any nipple discharge or skin changes. She had a right breast biopsy about 25 years ago that was not cancer. She was not complaining of any recent trauma or infection. BCP: used 40 years ago for 10 years She had lost 28 pounds in the past 5 to 6 weeks which she believes is related to gallbladder disease. She had an appointment with a general surgeon in 2 weeks. She had pain RUQ when she eats. She did have a bilateral mammogram on 01-28-24, this was reviewed, no lesions of concern in the left breast. 1. PET scan: 04-19-24 no evidence of metastatic disease; lesion in the right breast and one node of concern on the right 2. oncotype on tumor: 14 3. appointment with medical oncology seeing Dr. Lopez 4. present at tumor board done on 03-02-24 5. gallbladder evaluation (cholecystectomy done approximately 6 weeks ago), she is doing well at this time note Dr. Lopez from 04-27-24 reviewed started on anastrazole and CDK4 inhibitor; surgery was to be in about 4-6 weeks I personally discussed this with Dr. Lopez; She was complaining of brain fog when she started the anastrozole She had a breast MRI on March 1001-03 which revealed the mass in the right breast and one node of concern. Note 02-18-25 reviewed; was tolerating radiation and advised to start anastrazole after the radiation Surgery on 07-28-2024, bilateral mastectomy with a grade one 6 x 9 x 3 cm residual invasive carcinoma of the right breast, 3 lymph nodes in the axillary tissue with one micro mets with extranodal extension, left breast benign She is doing well at this time she will finish the radiation on 02-27-25. She has had a 60 pound weight loss. Caffeine: 2 cups coffee/day nicotine: 5 cigarettes per day since Chocolate: none BCP: 10 years in remote past hormones: none Family History: father: lung cancer sister: cervical cancer Hormonal History: menarche: 15 , breast fed: no, age at first : 24 menopause: 50 hormones: none Surgical History: hysterectomy; heavy bleeding, left ovaries age: 35 right breast biopsy tonsil Cholecystectomy bilateral mastectomy Medical History: Uses a cane secondary to back pain related to a fracture in her 20s Social History: Nicotine: 5 cigarettes/day since Alcohol: Negative Drugs: Negative Review of Systems - Constitutional Constitutional Comment(s): weight loss related to gallstones Reports weight loss, Denies fever - EENT Eyes: denies blurred vision Ears: bilateral: tinnitus, deny: decreased hearing Ears, nose, mouth and throat: Denies dysphagia - Breasts bilateral: as per HPI - Cardiovascular Denies chest pain, Denies shortness of breath - Respiratory Denies cough - Gastrointestinal Reports as per HPI, Reports constipation - Genitourinary Genitourinary: Denies dysuria, Denies hematuria Menstruation: Reports post hysterectomy - Musculoskeletal Reports as per HPI - Integumentary Reports pruritus, Reports rash, Denies unusual bruising - Neurological Denies headaches, Denies syncope - Psychiatric Reports as per HPI - Endocrine Reports fatigue - Hematologic/Lymphatic Denies easy bleeding, Denies easy bruising - Allergic/Immunologic Reports seasonal allergies Past Medical History Past Medical History: No Reported History Additional Past Medical History / Comment(s): gallstones History of Any Multi-Drug Resistant Organisms: None Reported Past Surgical History: No Surgical Hx Reported Additional Past Surgical History / Comment(s): Right breast excisional biospy 1992, benign Past Anesthesia/Blood Transfusion Reactions: No Reported Reaction - Sexual Orientation/Gender Identity What was your sex assigned at ?: Female Preferred Pronoun: She/Her/Hers How would you describe your gender identity?: Woman Do you think of your sexual orientation as: Straight/Heterosexual Past Psychological History: No Psychological Hx Reported Smoking Status: Current every day smoker Past Alcohol Use History: None Reported Additional Past Alcohol Use History / Comment(s): 5 cigarettes daily Medications and Allergies Home Medications Medication Instructions Recorded Confirmed Type Acetaminophen Tab [Tylenol] 500 mg PO DIRECTED PRN 02/20/24 02/20/24 History Allergies Allergy/AdvReac Type Severity Reaction Status Date / Time Sulfa (Sulfonamide Allergy Nausea & Verified 02/20/24 11:34 Antibiotics) Vomiting Objective - Vital Signs Vital signs: Vital Signs Temp 97.6 F 02/24/25 12:23 Pulse 83 02/24/25 12:23 Resp 17 02/24/25 12:23 BP 126/83 02/24/25 12:23 Pulse Ox 96 02/24/25 12:23 FiO2 Intake & Output 02/23/25 02/24/25 02/24/25 18:59 06:59 18:59 Weight 75.75 kg - Constitutional General appearance: Present: cooperative - EENT Eyes: Present: EOMI ENT: Present: hearing grossly normal - Neck Neck: Present: normal ROM - Respiratory Respiratory: bilateral: CTA - Cardiovascular Rhythm: regular Heart sounds: normal: S1, S2 - Integumentary Integumentary: Present: normal turgor - Musculoskeletal Musculoskeletal: Present: gait normal - Psychiatric Psychiatric: Present: A&O x's 3, appropriate affect, intact judgment & insight - Additional findings Additional findings: Chest Wall Examination: Patient chest wall examination: Right chest wall: Radiation victoria medial and lateral aspect of incision, erythema related to radiation Palpation right chest wall: No evidence of recurrent cancer Right axilla: No adenopathy of concern Left wall: Incision clean and dry well-healed no evidence of any cancer Left axilla: No adenopathy of concern Assessment and Plan Assessment: Impression: right breast invasive ductal cancer; two sites [id number]+Pr+Her2-G2; at 12:00, and [id number]+Pr+Her2-G2 lesion at 11:00 She did have a bilateral mammogram on 01-28-24, this was reviewed, no lesions of concern in the left breast Patient completed chemotherapy Patient is status post bilateral mastectomy with right axillary node sampling Patient is going to complete radiation therapy next week; February 2025 start anastrazole after radiation Plan: Follow-up in 6 months for examination Follow-up sooner any questions or concerns Continue to follow with medical oncology/start anastrozole in the near future after completes radiation Follow-up with radiation oncology CC: Dr. Alexey Flores, Dr. Lopez
== END ==
LOC: WWCWWP 12:10
PROVIDERS: ATTEND Surgery
DX: C50.911 Malignant neoplasm of unspecified site of right female breast (principal); Z90.13 Acquired absence of bilateral breasts and nipples; Z88.5 Allergy status to narcotic agent; Z88.2 Allergy status to sulfonamides

== ENCOUNTER 2025-04-14 22:43 | Observation (INO) | payer MEDICARE ==
--- NOTE | 2025-04-15 00:53 | ED ---
General Adult HPI - General Chief complaint: GI Bleed Stated complaint: Rectal bleeding, nausea Time Seen by Provider: 04/15/25 00:09 Source: patient Mode of arrival: ambulatory Limitations: no limitations - History of Present Illness Initial comments: Dictation was produced using [employer] dictation software. please excuse any grammatical, word or spelling errors. Chief Complaint: 69-year-old female presents to the emergency department. Blood per rectum History of Present Illness: Patient 69-year-old female presents emergency department bright red blood per rectum does not take any anticoagulation medication. Patient has history of cancer however has not had any chemo or radiation therapy since February of this year. States that she had been having bright red blood per rectum this morning. She was concerned she was having a hemorrhoid. States that she had some also suprapubic discomfort. Denies any fever chills or night sweats. The ROS documented in this emergency department record has been reviewed and confirmed by me. Those systems with pertinent positive or negative responses have been documented in the HPI. All other systems are other negative and/or noncontributory. - Related Data Previous Rx's Medication Instructions Recorded Acetaminophen Tab [Tylenol] 650 mg PO Q6HR PRN tab 01/07/25 Cholestyramine (with Sugar) 4 gm PO BID@1000,1800 #30 packet 01/07/25 [Questran Packet] Ibuprofen [Motrin] 400 mg PO Q6HR PRN #30 tab 01/07/25 Loperamide [Imodium] 2 mg PO QID PRN cap 01/07/25 Oseltamivir [Tamiflu] 75 mg PO Q12HR 5 Days #10 cap 01/07/25 Pseudoephedrine [Sudafed] 30 mg PO BID PRN #20 tab 01/07/25 cefuroxime axetiL [Ceftin] 500 mg PO BID 10 Days #20 tab 01/07/25 metroNIDAZOLE [Flagyl] 500 mg PO TID 10 Days #30 tab 01/07/25 Allergies Allergy/AdvReac Type Severity Reaction Status Date / Time Sulfa (Sulfonamide Allergy Anaphylaxis Verified 04/14/25 22:55 Antibiotics) morphine AdvReac Nausea & Verified 04/14/25 22:55 Vomiting Review of Systems ROS Statement: Those systems with pertinent positive or pertinent negative responses have been documented in the HPI. ROS Other: All systems not noted in ROS Statement are negative. Past Medical History Past Medical History: Cancer Additional Past Medical History / Comment(s): R breast Ca, Lymph nodes History of Any Multi-Drug Resistant Organisms: None Reported Past Surgical History: Cholecystectomy Additional Past Surgical History / Comment(s): Right breast excisional biospy 1992, benign, double mastectomy, Right side lymphnode removal july 2024. Past Anesthesia/Blood Transfusion Reactions: No Reported Reaction Past Psychological History: No Psychological Hx Reported Smoking Status: Former smoker Past Alcohol Use History: None Reported Past Drug Use History: None Reported - Past Family History Father Family Medical History: No Reported History Mother Family Medical History: No Reported History General Exam - General Exam Comments Initial Comments: PHYSICAL EXAM: General Impression: Alert and oriented x3, not in acute distress HEENT: Normocephalic atraumatic, extra-ocular movements intact, pupils equal and reactive to light bilaterally, mucous membranes moist. Cardiovascular: Heart regular rate and rhythm Chest: Able to complete full sentences, no retractions, no tachypnea Abdomen: abdomen soft, non-tender, non-distended, no organomegaly Musculoskeletal: Pulses present and equal in all extremities, no peripheral edema Motor: no focal deficits noted Neurological: CN II-XII grossly intact, no focal motor or sensory deficits noted Skin: Intact with no visualized rashes Psych: Normal affect and mood Rectal: No gross blood Limitations: no limitations Course Vital Signs 04/14/25 04/15/25 04/15/25 22:55 00:22 01:37 Temperature 97.7 F Pulse Rate 86 70 68 Respiratory 18 18 16 Rate Blood Pressure 144/70 135/92 128/78 O2 Sat by Pulse 97 98 96 Oximetry 04/15/25 03:32 Temperature Pulse Rate 69 Respiratory 16 Rate Blood Pressure 123/94 O2 Sat by Pulse 99 Oximetry EKG Findings - EKG Comments: EKG Findings:: My EKG interpretation: Ventricular rate 85, sinus rhythm, PA 163, cures 93, QTc 4 7. No PA prolongation, no QTC prolongation, no ST or T-wave changes noted. Overall, this EKG is unremarkable Medical Decision Making - Medical Decision Making Was pt. sent in by a medical professional or institution (, PA, FRAMING MILL SUPERVISOR, urgent care, hospital, or senior living...) When possible be specific @ -No Did you speak to anyone other than the patient for history (EMS, parent, family, police, friend...)? What history was obtained from this source @ -No Did you review nursing and triage notes (agree or disagree)? Why? @ -I reviewed and agree with nursing and triage notes Were old charts reviewed (outside hosp., previous admission, EMS record, old EKG, old radiological studies, urgent care reports/EKG's, senior living records)? Report findings @ -No old charts were reviewed Differential Diagnosis (chest pain, altered mental status, abdominal pain women, abdominal pain men, vaginal bleeding, musculoskeletal, weakness, fever, dyspnea, syncope, headache, dizziness, GI bleed, back pain, seizure, CVA, palpatations, mental health)? @ -Differential GI Bleed: Esophageal varices, aortoenteric fistula, Anny-Eid, gastritis, peptic ulcer disease, diverticulosis, inflammatory bowel disease, hemorrhoids, fissure, colitis, malignancy, Meckel's diverticulum, this is not meant to be an all- inclusive list. EKG interpreted by me (3pts min.). @ -See above X-rays interpreted by me (1pt min.). @ -None done CT interpreted by me (1pt min.). @ -CT abdomen pelvis shows inflammation around the rectum U/S interpreted by me (1pt. min.). @ -None done What testing was considered but not performed or refused? (CT, X-rays, U/S, labs)? Why? @ -None What meds were considered but not given or refused? Why? @ -None Was smoking cessation discussed for >3mins.? @ -No Were there social determinants of health that impacted care today? How? (Homelessness, low income, unemployed, alcoholism, drug addiction, transportation, low edu. Level, literacy, decrease access to med. care, usp, rehab)? @ -No Was there de-escalation of care discussed even if they declined (Discuss DNR or withdrawal of care, Hospice)? DNR status @ -No What co-morbidities impacted this encounter? (DM, HTN, Smoking, COPD, CAD, Cancer, CVA, ARF, Chemo, Hep., AIDS, mental health diagnosis, sleep apnea, mo rbid obesity)? @ -None Was patient admitted / discharged? Hospital course, mention meds given and r oute, prescriptions, significant lab abnormalities, going to OR and other pertinent info. @ -69-year-old female presents with dental pain bright red blood per rectum. Vital signs upon arrival are within acceptable limits. Patient well-appearing no acute distress she does have a tender abdomen that is nonsurgical. Laboratory evaluation is unremarkable. Stool occult blood is positive however. CT shows inflammation of the rectum suspicious for proctitis. Disposition options were discussed with patient and she is agreeable with observation admission with surgical consultation. Did you discuss the management of the patient with other professionals (professionals i.e. , PA, FRAMING MILL SUPERVISOR, lab, RT, psych nurse, social psychologist, training and development rep, teacher, special technical operations officer, continuous pillowcase cutter)? Give summary @ -Case discussed with hospitalist for admission Was critical care preformed (if so, how long)? @ -No Undiagnosed new problem with uncertain prognosis? @ -No Drug Therapy requiring intensive monitoring for toxicity (Heparin, Nitro, Insulin, Cardizem)? @ -No Were any procedures done? @ -No Diagnosis/symptom? Acute, or Chronic, or Acute on Chronic? Uncomplicated (without systemic symptoms) or Complicated (systemic symptoms)? @ -Bright red blood per rectum Side effects of treatment? @ -No Exacerbation, Progression, or Severe Exacerbation? @ -No Poses a threat to life or bodily function? How? (Chest pain, USA, PA, pneumonia, PE, COPD, DKA, ARF, appy, cholecystitis, CVA, Diverticulitis, Homicidal, Suicidal, threat to staff... and all critical care pts) @ -yes - Lab Data Result diagrams: 04/15/25 00:21 04/15/25 00:21 Lab Results 04/15/25 04/15/25 04/15/25 Range/Units 00:21 00:21 00:21 WBC 5.39 (4.50-10.00) 10*3/uL RBC 3.93 L (4.10-5.20) 10*6/uL Hgb 11.5 L (12.0-15.0) g/dL Hct 35.4 L (37.2-46.3) % MCV 90.1 (80.0-97.0) fL MCH 29.3 (27.0-32.0) pg MCHC 32.5 (32.0-37.0) g/dL Plt Count 220 (140-440) 10*3/uL MPV 9.1 L (9.5-12.2) fL Immature Gran % (Auto) 0.2 % Neutrophils % 79.6 % Lymphocytes % 9.8 % Monocytes % 8.3 % Eosinophils % 1.5 % Basophils % 0.6 % Immature Gran # 0.01 (0.00-0.04) 10*3/uL Neutrophils # 4.29 (1.80-7.70) 10*3/uL Lymphocytes # 0.53 L (0.90-5.00) 10*3/uL Monocytes # 0.45 (0.20-1.00) 10*3/uL Eosinophils # 0.08 (0.04-0.35) 10*3/uL Basophils # 0.03 (0.00-0.10) 10*3/uL APTT 20.5 L (22.0-30.0) sec Sodium 139 (137-145) mmol/L Potassium 4.3 (3.5-5.1) mmol/L Chloride 105 (98-107) mmol/L Carbon Dioxide 23 (22-30) mmol/L Anion Gap 11 mmol/L BUN 11 (7-17) mg/dL Creatinine 0.59 (0.52-1.04) mg/dL Est GFR (CKD-EPI)AfAm >90 (>60 ml/min/1.73 sqM) Est GFR (CKD-EPI)NonAf >90 (>60 ml/min/1.73 sqM) Glucose 117 H (74-99) mg/dL Calcium 9.4 (8.4-10.2) mg/dL Total Bilirubin 0.5 (0.2-1.3) mg/dL AST 29 (14-36) U/L ALT 14 (4-34) U/L Alkaline Phosphatase 84 (38-126) U/L Troponin I (0.000-0.034) ng/mL Total Protein 7.2 (6.3-8.2) g/dL Albumin 4.3 (3.5-5.0) g/dL Stool Occult Blood (Negative) 04/15/25 04/15/25 Range/Units 00:21 00:50 WBC (4.50-10.00) 10*3/uL RBC (4.10-5.20) 10*6/uL Hgb (12.0-15.0) g/dL Hct (37.2-46.3) % MCV (80.0-97.0) fL MCH (27.0-32.0) pg MCHC (32.0-37.0) g/dL Plt Count (140-440) 10*3/uL MPV (9.5-12.2) fL Immature Gran % (Auto) % Neutrophils % % Lymphocytes % % Monocytes % % Eosinophils % % Basophils % % Immature Gran # (0.00-0.04) 10*3/uL Neutrophils # (1.80-7.70) 10*3/uL Lymphocytes # (0.90-5.00) 10*3/uL Monocytes # (0.20-1.00) 10*3/uL Eosinophils # (0.04-0.35) 10*3/uL Basophils # (0.00-0.10) 10*3/uL APTT (22.0-30.0) sec Sodium (137-145) mmol/L Potassium (3.5-5.1) mmol/L Chloride (98-107) mmol/L Carbon Dioxide (22-30) mmol/L Anion Gap mmol/L BUN (7-17) mg/dL Creatinine (0.52-1.04) mg/dL Est GFR (CKD-EPI)AfAm (>60 ml/min/1.73 sqM) Est GFR (CKD-EPI)NonAf (>60 ml/min/1.73 sqM) Glucose (74-99) mg/dL Calcium (8.4-10.2) mg/dL Total Bilirubin (0.2-1.3) mg/dL AST (14-36) U/L ALT (4-34) U/L Alkaline Phosphatase (38-126) U/L Troponin I <0.012 (0.000-0.034) ng/mL Total Protein (6.3-8.2) g/dL Albumin (3.5-5.0) g/dL Stool Occult Blood Positive H (Negative) Disposition Clinical Impression: BRBPR (bright red blood per rectum) Disposition: ADMITTED IP TO THIS [facility] Condition: Fair Referrals: Alexey Flores MD [Primary Care Provider] - 1-2 days Decision Time: 04:45
[2025-04-15 00:58] LABS: Basophils # (A) 0.03 10*3/uL (0.00-0.10); Basophils % (A) 0.6 %; Eosinophils # (A) 0.08 10*3/uL (0.04-0.35); Eosinophils % (A) 1.5 %; HCT 35.4 % (37.2-46.3); HGB 11.5 g/dL (12.0-15.0); Lymphocytes # (A) 0.53 10*3/uL (0.90-5.00); Lymphocytes % (A) 9.8 %; MCH 29.3 pg (27.0-32.0); MCHC 32.5 g/dL (32.0-37.0); MCV 90.1 fL (80.0-97.0); Mean Platelet Volume 9.1 fL (9.5-12.2); Monocytes # (A) 0.45 10*3/uL (0.20-1.00); Monocytes % (A) 8.3 %; Neutrophils # (A) 4.29 10*3/uL (1.80-7.70); Neutrophils % (A) 79.6 %; Platelet Count 220 10*3/uL (140-440); RBC 3.93 10*6/uL (4.10-5.20); RDW 14.8 % (11.5-14.5); WBC 5.39 10*3/uL (4.50-10.00)
[2025-04-15 01:34] LABS: ALT 14 U/L (4-34); AST 29 U/L (14-36); African American GFR (CKD) >90 (>60 ml/min/1.73 sqM); Albumin 4.3 g/dL (3.5-5.0); Alkaline Phosphatase 84 U/L (38-126); Anion Gap 11 mmol/L; Blood Urea Nitrogen 11 mg/dL (7-17); Calcium 9.4 mg/dL (8.4-10.2); Carbon Dioxide 23 mmol/L (22-30); Chloride 105 mmol/L (98-107); Glucose 117 mg/dL (74-99); Non-African American GFR(CKD) >90 (>60 ml/min/1.73 sqM); Sodium 139 mmol/L (137-145); Total Bilirubin 0.5 mg/dL (0.2-1.3); Total Protein 7.2 g/dL (6.3-8.2)
[2025-04-15 01:44] LABS: Potassium 4.3 mmol/L (3.5-5.1)
--- NOTE | 2025-04-15 04:12 | CT ---
EXAM: CT Abdomen and Pelvis With Intravenous Contrast CLINICAL HISTORY: ITS.REASON CT Reason: abdominal pain, rectal bleeding TECHNIQUE: Axial computed tomography images of the abdomen and pelvis with intravenous contrast. CTDI is 22.1 mGy and DLP is 1160.6 mGy-cm. This CT exam was performed using one or more of the following dose reduction techniques: automated exposure control, adjustment of the mA and/or kV according to patient size, and/or use of iterative reconstruction technique. COMPARISON: No relevant prior studies available. FINDINGS: Lung bases: Unremarkable. No mass. No consolidation. ABDOMEN: Liver: Unremarkable. No mass. Gallbladder and bile ducts: Cholecystectomy changes. No ductal dilation. Pancreas: Unremarkable. No mass. No ductal dilation. Spleen: Small splenules. Adrenals: Unremarkable. No mass. Kidneys and ureters: Unremarkable. No solid mass. No hydronephrosis. Stomach and bowel: Mild rectal wall thickening with adjacent stranding which may be due to proctitis. Consider correlation with laboratory values. No obstruction. PELVIS: Appendix: No findings to suggest acute appendicitis. Bladder: Unremarkable. No mass. Reproductive: Hysterectomy changes. ABDOMEN and PELVIS: Intraperitoneal space: Unremarkable. No free air. No significant fluid collection. Bones/joints: Degenerative changes in the spine. No acute fracture. No dislocation. Soft tissues: Umbilical hernia containing fat. Vasculature: Atherosclerotic disease. No abdominal aortic aneurysm. Lymph nodes: Unremarkable. No enlarged lymph nodes. IMPRESSION: 1. Mild rectal wall thickening with adjacent stranding which may be due to proctitis. Consider correlation with laboratory values. 2. If there is further concern for intraluminal hemorrhage, consider multiphasic or scintigraphic imaging.
[2025-04-15] MEDS ORDERED: NALOXONE 0.4 MG/ML 1 ML VIAL IV PRN (04:42)
[2025-04-15] MEDS ORDERED: ACETAMINOPHEN TAB 325 MG TAB PO PRN (04:42)
[2025-04-15] MEDS: MORPHINE SULFATE 4 MG/ML SYRINGE IVP PRN (04:48)
[2025-04-15] MEDS: SODIUM CHLORIDE 0.9% 1,000 ML IV SCH (04:56)
[2025-04-15] MEDS: AMPICILLIN-SULBACTAM 3 GM in SODIUM CHLORIDE 0.9% 100 ML IVPB SCH (10:18)
[2025-04-15 11:58] LABS: HCT 34.5 % (37.2-46.3); HGB 11.3 g/dL (12.0-15.0); MCH 29.5 pg (27.0-32.0); MCHC 32.8 g/dL (32.0-37.0); MCV 90.1 fL (80.0-97.0); Mean Platelet Volume 9.2 fL (9.5-12.2); Platelet Count 188 10*3/uL (140-440); RBC 3.83 10*6/uL (4.10-5.20); RDW 14.6 % (11.5-14.5); WBC 3.96 10*3/uL (4.50-10.00)
--- NOTE | 2025-04-15 14:40 | P.GSCN ---
History of Present Illness Consult date: 04/15/25 History of present illness: CHIEF COMPLAINT: Bright red blood per rectum HISTORY OF PRESENT ILLNESS: This is a 69-year-old female who presented to the hospital with complaints of bright red blood per rectum. Patient reports she has been having blood per rectum for about 1 week. Initially it was more pink in color and then within the last couple of days it became more bright red. She also started passing clots. Patient has had 3 bloody stools since coming to the ER this morning. She does report tenderness in the right lower quadrant. She reports some the bleeding was mostly noted when she wiped with the tissue paper. Hemoglobin was 11.5. Stool for occult blood was positive and CT completed reported mild rectal wall thickening consider proctitis. Patient denies any rectal pain. Her last colonoscopy was several years ago. She does have a known history of breast cancer and had completed chemotherapy in December and radiation treatment in February. PAST MEDICAL HISTORY: See below PAST SURGICAL HISTORY: See below MEDICATIONS: See below ALLERGIES: See below SOCIAL HISTORY: No illicit drug use. REVIEW OF SYSTEMS: CONSTITUTIONAL: Denies fever or chills. HEENT: Denies blurred vision, vision changes, or eye pain. Denies hemoptysis CARDIOVASCULAR: Denies chest pain or pressure. RESPIRATORY: No shortness of breath. GASTROINTESTINAL: See HPI for pertinent findings HEMATOLOGIC: Denies bleeding disorders. GENITOURINARY: Denies any blood in urine or increased urinary frequency. SKIN: Denies pruitis. Denies rash. PHYSICAL EXAM: VITAL SIGNS: Reviewed GENERAL: Well-developed in no acute distress. HEENT: No sclera icterus. Extraocular movements grossly intact. Moist buccal mucosa. Head is atraumatic, normocephalic. No nasal drainage. ABDOMEN: Soft. Nondistended. Tenderness with palpation to right lower quadrant. No rebound or guarding noted NEUROLOGIC: Alert and oriented. Cranial nerves II through XII grossly intact. LABORATORY DATA: WBC 3.96 Hgb hgb 11.5 and repeat 11.3 platelets 188 Sodium 139 potassium 4.3 creatinine 0.59 LFTs normal Stool for occult blood positive IMAGING: CT scan abdomen pelvis reports mild rectal wall thickening with adjacent stranding which may be due to proctitis. ASSESSMENT: 1. Acute GI bleed with bright red blood per rectum with evidence of rectal thickening on CT scan possibly due to proctitis 2. Proctitis PLAN: - Start Unasyn for treatment management of proctitis - Advance diet to clear liquids - Repeat CBC in AM - Continue to monitor hemoglobin - Continue monitor for any signs or symptoms of bleeding - Continue IV fluids - Further recommendations forthcoming about possible endoscopy - Continue to monitor Physician Bindery Operator note has been reviewed by physician. Signing provider agrees with the documented findings, assessment, and plan of care. Attestation Patient seen and examined at bedside. Present with chief complaint of bright red blood per rectum. This has been going on for 1 week prior to arrival. Currently, hemoglobin is 11.5. Patient states that she did have colonoscopy many years ago. CT of the abdomen pelvis was performed with finding of mild rectal wall thickening with adjacent stranding which may be due to proctitis. Patient does have history of breast cancer and was recently treated with chemotherapy and radiation to the breast and axilla. Recommend holding any anticoagulation at this time. Okay for clear liquid diet. Continue to monitor hemoglobin. No current acute plan for endoscopy, however will evaluate on possibility of endoscopy during this admission. Will continue to follow. Med Jovel DO Past Medical History Past Medical History: Cancer Additional Past Medical History / Comment(s): R breast Ca, Lymph nodes History of Any Multi-Drug Resistant Organisms: None Reported Past Surgical History: Cholecystectomy Additional Past Surgical History / Comment(s): Right breast excisional biospy 1992, benign, double mastectomy, Right side lymphnode removal july 2024. Past Anesthesia/Blood Transfusion Reactions: No Reported Reaction Past Psychological History: No Psychological Hx Reported Smoking Status: Former smoker Past Alcohol Use History: None Reported Past Drug Use History: None Reported - Past Family History Father Family Medical History: No Reported History Mother Family Medical History: No Reported History Medications and Allergies Home Medications Medication Instructions Recorded Confirmed Type Anastrozole 1 mg PO DAILY 04/15/25 04/15/25 History predniSONE 10 mg PO BID 04/15/25 04/15/25 History Allergies Allergy/AdvReac Type Severity Reaction Status Date / Time Sulfa (Sulfonamide Allergy Anaphylaxis Verified 04/15/25 07:32 Antibiotics) morphine AdvReac Nausea & Verified 04/15/25 07:32 Vomiting Surgical - Exam Osteopathic Statement: *. No significant issues noted on an osteopathic structural exam other than those noted in the History and Physical/Consult. Vital Signs Temp Pulse Resp BP Pulse Ox 97.7 F 86 18 144/70 97 06/05/25 22:55 04/14/25 22:55 04/14/25 22:55 04/14/25 22:55 04/14/25 22:55 Results - Labs 04/15/25 11:38 04/15/25 00:21 Abnormal Lab Results - Last 24 Hours (Table) 04/15/25 04/15/25 04/15/25 Range/Units 00:21 00:21 00:21 WBC (4.50-10.00) 10*3/uL RBC 3.93 L (4.10-5.20) 10*6/uL Hgb 11.5 L (12.0-15.0) g/dL Hct 35.4 L (37.2-46.3) % RDW (11.5-14.5) % MPV 9.1 L (9.5-12.2) fL Lymphocytes # 0.53 L (0.90-5.00) 10*3/uL APTT 20.5 L (22.0-30.0) sec Glucose 117 H (74-99) mg/dL Stool Occult Blood (Negative) 04/15/25 04/15/25 Range/Units 00:50 11:38 WBC 3.96 L (4.50-10.00) 10*3/uL RBC 3.83 L (4.10-5.20) 10*6/uL Hgb 11.3 L (12.0-15.0) g/dL Hct 34.5 L (37.2-46.3) % RDW 14.6 H (11.5-14.5) % MPV 9.2 L (9.5-12.2) fL Lymphocytes # (0.90-5.00) 10*3/uL APTT (22.0-30.0) sec Glucose (74-99) mg/dL Stool Occult Blood Positive H (Negative) Diabetes panel 04/15/25 Range/Units 00:21 Sodium 139 (137-145) mmol/L Potassium 4.3 (3.5-5.1) mmol/L Chloride 105 (98-107) mmol/L Carbon Dioxide 23 (22-30) mmol/L BUN 11 (7-17) mg/dL Creatinine 0.59 (0.52-1.04) mg/dL Glucose 117 H (74-99) mg/dL Calcium 9.4 (8.4-10.2) mg/dL AST 29 (14-36) U/L ALT 14 (4-34) U/L Alkaline Phosphatase 84 (38-126) U/L Total Protein 7.2 (6.3-8.2) g/dL Albumin 4.3 (3.5-5.0) g/dL Calcium panel 04/15/25 Range/Units 00:21 Calcium 9.4 (8.4-10.2) mg/dL Albumin 4.3 (3.5-5.0) g/dL Pituitary panel 04/15/25 Range/Units 00:21 Sodium 139 (137-145) mmol/L Potassium 4.3 (3.5-5.1) mmol/L Chloride 105 (98-107) mmol/L Carbon Dioxide 23 (22-30) mmol/L BUN 11 (7-17) mg/dL Creatinine 0.59 (0.52-1.04) mg/dL Glucose 117 H (74-99) mg/dL Calcium 9.4 (8.4-10.2) mg/dL Adrenal panel 04/15/25 Range/Units 00:21 Sodium 139 (137-145) mmol/L Potassium 4.3 (3.5-5.1) mmol/L Chloride 105 (98-107) mmol/L Carbon Dioxide 23 (22-30) mmol/L BUN 11 (7-17) mg/dL Creatinine 0.59 (0.52-1.04) mg/dL Glucose 117 H (74-99) mg/dL Calcium 9.4 (8.4-10.2) mg/dL Total Bilirubin 0.5 (0.2-1.3) mg/dL AST 29 (14-36) U/L ALT 14 (4-34) U/L Alkaline Phosphatase 84 (38-126) U/L Total Protein 7.2 (6.3-8.2) g/dL Albumin 4.3 (3.5-5.0) g/dL
[2025-04-15] MEDS: ONDANSETRON 4 MG/2 ML VIAL IVP PRN (21:16)
[2025-04-15] MEDS: MORPHINE SULFATE 4 MG/ML SYRINGE IV PRN (21:23)
--- NOTE | 2025-04-15 21:58 | P.HPIM ---
History of Present Illness H&P Date: 04/15/25 Chief Complaint: Bright red blood per rectum Patient is a 69-year-old female with a past medical history of right breast cancer status post excisional biopsy and double mastectomy and lymph node removal, cholecystectomy and prior history of smoking. Patient presents to ER w ith complaints of bright blood per rectum. Patient has been having symptoms for the past 1 week. Patient is also complaining of passing clots. She had 3 bloody bowel stools since coming to the ER. She was also complaining of right lower quadrant tenderness. Denied any fever or chills. No cough or sputum production. No chest pain or shortness of breath. Laboratory data showed WBC 5.39 hemoglobin 11.5 and platelets 220, sodium 139 potassium 4.3 chloride 105 bicarb is 23 BUN 11 and creatinine 0.59 and blood sugar 117. Liver enzymes are not elevated FOBT positive EKG showed normal sinus rhythm CT of the abdomen and pelvis showed mild rectal wall thickening with adjacent stranding which may be due to proctitis. Consider correlation with laboratory values. If there is concern for further concern for intraluminal hemorrhage is considered multiphasic or scintigraphic imaging. Review of Systems Constitutional: Patient denies any fever or chills . No generalized weakness or weight loss. Abdomen: Patient denied nausea vomiting and diarrhea. Right lower quadrant abdominal pain and bright red blood per rectum. Cardiovascular: Patient denies any chest pain or short of breath no palpitations. Respiratory: patient denied any cough or sputum production. No shortness of breath Neurologic: Patient denied any numbness or tingling. no headache. Musculoskeletal: Patient denies any complaints of joint swelling or deformity. Skin: Negative Psychiatric: Negative Endocrine: No heat or cold intolerance. No recent weight gain. Genitourinary: No dysuria or hematuria. All other 14 point ROS negative except the above Past Medical History Past Medical History: Cancer Additional Past Medical History / Comment(s): R breast Ca, Lymph nodes History of Any Multi-Drug Resistant Organisms: None Reported Past Surgical History: Cholecystectomy Additional Past Surgical History / Comment(s): Right breast excisional biospy 1 99, benign, double mastectomy, Right side lymphnode removal july 2024. Past Anesthesia/Blood Transfusion Reactions: No Reported Reaction Past Psychological History: No Psychological Hx Reported Smoking Status: Former smoker Past Alcohol Use History: None Reported Past Drug Use History: None Reported - Past Family History Father Family Medical History: No Reported History Mother Family Medical History: No Reported History Medications and Allergies Home Medications Medication Instructions Recorded Confirmed Type Anastrozole 1 mg PO DAILY 04/15/25 04/15/25 History predniSONE 10 mg PO BID 04/15/25 04/15/25 History Allergies Allergy/AdvReac Type Severity Reaction Status Date / Time Sulfa (Sulfonamide Allergy Anaphylaxis Verified 04/15/25 07:32 Antibiotics) morphine AdvReac Nausea & Verified 04/15/25 07:32 Vomiting Physical Exam Vitals: Vital Signs Temp Pulse Resp BP Pulse Ox 04/15/25 11:04 97.2 F L 67 14 131/79 96 04/15/25 06:12 64 18 148/73 94 L 04/15/25 03:32 69 16 123/94 99 04/15/25 01:37 68 16 128/78 96 04/15/25 00:22 70 18 135/92 98 04/14/25 22:55 97.7 F 86 18 144/70 97 PHYSICAL EXAMINATION: Patient is lying in the bed comfortably, no acute distress, awake alert and oriented.. HEENT: Normocephalic. Neck is supple. Pupils reactive. Nostrils clear. Oral cavi ty is moist. Neck reveals no JVD, carotid bruits, or thyromegaly. CHEST EXAMINATION: Trachea is central. Symmetrical expansion. Lung watt clear to auscultation and percussion. CARDIAC: Normal S1, S2 with no gallops. No murmurs ABDOMEN: Soft. Bowel sounds normal. No organomegaly. No abdominal bruits. Extremities: reveal no edema. No clubbing or cyanosis Neurologically awake, alert, oriented x3 with well-coordinated movements. No focal deficits noted Skin: No rash or skin lesions. Psychiatric: Coperative. Nonsuicidal Musculoskeletal: No joint swelling or deformity. Normal range of motion. Results CBC & Chem 7: 04/15/25 11:38 04/15/25 00:21 Labs: Abnormal Lab Results - Last 24 Hours (Table) 04/15/25 04/15/25 04/15/25 Range/Units 00:21 00:21 00:21 WBC (4.50-10.00) 10*3/uL RBC 3.93 L (4.10-5.20) 10*6/uL Hgb 11.5 L (12.0-15.0) g/dL Hct 35.4 L (37.2-46.3) % RDW (11.5-14.5) % MPV 9.1 L (9.5-12.2) fL Lymphocytes # 0.53 L (0.90-5.00) 10*3/uL APTT 20.5 L (22.0-30.0) sec Glucose 117 H (74-99) mg/dL Stool Occult Blood (Negative) 04/15/25 04/15/25 Range/Units 00:50 11:38 WBC 3.96 L (4.50-10.00) 10*3/uL RBC 3.83 L (4.10-5.20) 10*6/uL Hgb 11.3 L (12.0-15.0) g/dL Hct 34.5 L (37.2-46.3) % RDW 14.6 H (11.5-14.5) % MPV 9.2 L (9.5-12.2) fL Lymphocytes # (0.90-5.00) 10*3/uL APTT (22.0-30.0) sec Glucose (74-99) mg/dL Stool Occult Blood Positive H (Negative) Thrombosis Risk Factor Assmnt - DVT/VTE Prophylaxis DVT/VTE Prophylaxis: Mechanical Prophylaxis ordered Assessment and Plan Assessment: Acute lower GI bleed with bright red blood per rectum. CT showed evidence of rectal thickening and proctitis. Acute proctitis History of right breast cancer status post double mastectomy DVT prophylaxis with SCDs Plan: Patient will be continued on IV hydration. Antibiotics in the form of Unasyn. Continue with pain management. General surgery is on board. Continue to monitor H&H. Follow-up closely.
[2025-04-16 07:35] LABS: HCT 34.3 % (37.2-46.3); HGB 10.9 g/dL (12.0-15.0); MCHC 31.8 g/dL (32.0-37.0); MCV 91.2 fL (80.0-97.0); Mean Platelet Volume 9.1 fL (9.5-12.2); Platelet Count 183 10*3/uL (140-440); RBC 3.76 10*6/uL (4.10-5.20); RDW 14.6 % (11.5-14.5); WBC 2.87 10*3/uL (4.50-10.00)
[2025-04-16 07:47] LABS: African American GFR (CKD) >90 (>60 ml/min/1.73 sqM); Anion Gap 7 mmol/L; Blood Urea Nitrogen 6 mg/dL (7-17); Calcium 9.1 mg/dL (8.4-10.2); Carbon Dioxide 26 mmol/L (22-30); Chloride 107 mmol/L (98-107); Glucose 79 mg/dL (74-99); Non-African American GFR(CKD) 84 (>60 ml/min/1.73 sqM); Potassium 3.6 mmol/L (3.5-5.1); Sodium 140 mmol/L (137-145)
[2025-04-16 08:33] VITALS: TEMP 98
--- NOTE | 2025-04-16 12:05 | P.PN ---
Subjective Progress Note Date: 04/16/25 Patient seen and examined at bedside. States last bowel movement was normal without any blood. Hemoglobin 10.9. Objective - Vital Signs Vital signs: Vital Signs Temp 98.0 F 04/16/25 07:38 Pulse 58 L 04/16/25 07:38 Resp 14 04/16/25 07:38 BP 114/65 04/16/25 07:38 Pulse Ox 94 L 04/16/25 07:38 FiO2 Intake & Output 04/15/25 04/16/25 04/16/25 18:59 06:59 18:59 Intake Total 1080 540 Balance 1080 540 Weight 77.111 kg Intake: Oral 1080 540 Other: Voiding Method Toilet Toilet # Voids 3 2 - Constitutional General appearance: Present: cooperative - Neck Neck: Present: normal ROM - Respiratory Details: No difficulty with respiration - Gastrointestinal Gastrointestinal Comment(s): Soft, nontender, nondistended - Psychiatric Psychiatric: Present: A&O x's 3 - Labs CBC & Chem 7: 04/16/25 06:32 04/16/25 06:32 Labs: Abnormal Lab Results - Last 24 Hours (Table) 04/16/25 04/16/25 Range/Units 06:32 06:32 WBC 2.87 L (4.50-10.00) 10*3/uL RBC 3.76 L (4.10-5.20) 10*6/uL Hgb 10.9 L (12.0-15.0) g/dL Hct 34.3 L (37.2-46.3) % MCHC 31.8 L (32.0-37.0) g/dL RDW 14.6 H (11.5-14.5) % MPV 9.1 L (9.5-12.2) fL BUN 6 L (7-17) mg/dL Assessment and Plan Plan: 69-year-old female with concern for GI bleed. Hemoglobin is stable. Last bowel movement without any concern for GI bleed. Surgically stable for discharge. Recommend follow-up outpatient for colonoscopy planning.
[2025-04-16 13:10] VITALS: BP 125/62; PULSE 70; RESP 16
[2025-04-16 15:10] VITALS: BMI 26.6
== END 2025-04-16 17:30 | disposition home or self-care (01) ==
LOC: EC 22:43 → 5NMEDONC 04-15 04:42
PROVIDERS: ADMIT Hospitalist; ATTEND Hospitalist
DX: K92.2 Gastrointestinal hemorrhage, unspecified (principal); Z85.3 Personal history of malignant neoplasm of breast; Z87.891 Personal history of nicotine dependence; Z90.13 Acquired absence of bilateral breasts and nipples; Z88.2 Allergy status to sulfonamides; Z88.5 Allergy status to narcotic agent
CPT/HCPCS: 96376 ×2; 96361 ×2; 96366 ×2; 96375 ×2; 96365; 99285; 36415; 93005; 80053; 80048; 84484; 85025; 85027 ×2; 85730; 82272; 74177; G0378 ×2; J2270 ×2; J2405; J0295 ×2; Q9967

== ENCOUNTER 2025-04-17 09:28 | Inpatient (IN) | payer MEDICARE ==
--- NOTE | 2025-04-17 09:47 | ED ---
General Adult HPI - General Chief complaint: GI Bleed Stated complaint: Rectal bleeding Time Seen by Provider: 04/17/25 09:33 Source: patient, EMS, RN notes reviewed, old records reviewed Mode of arrival: EMS Limitations: no limitations - History of Present Illness Initial comments: Patient is a 69-year-old female present to the emergency department with bleeding. Patient was in the hospital discharged yesterday with proctitis. Patient states this morning she had a large bloody bowel movement that was mostly appearance of blood and liquid. Patient has had a couple episodes since that time that was more mixed. Patient has some mild lower abdominal cramping. Patient was a little bit lightheaded earlier however that has resolved. No dyspnea. No nausea or vomiting. Patient does have history of breast cancer with lymph node involvement, status post recent chemotherapy on hormone replacement. - Related Data Home Medications Medication Instructions Recorded Confirmed Anastrozole 1 mg PO DAILY 04/15/25 04/15/25 predniSONE 10 mg PO BID 04/15/25 04/15/25 Previous Rx's Medication Instructions Recorded Amoxic-Pot Clav 875-125Mg 1 tab PO BID 7 Days #14 tab 04/16/25 [Augmentin 875-125] Allergies Allergy/AdvReac Type Severity Reaction Status Date / Time Sulfa (Sulfonamide Allergy Anaphylaxis Verified 04/17/25 09:34 Antibiotics) morphine AdvReac Nausea & Verified 04/17/25 09:34 Vomiting Review of Systems ROS Statement: Those systems with pertinent positive or pertinent negative responses have been documented in the HPI. ROS Other: All systems not noted in ROS Statement are negative. Constitutional: Denies: fever Eyes: Denies: eye pain ENT: Denies: ear pain Respiratory: Denies: cough, dyspnea Cardiovascular: Denies: chest pain Endocrine: Denies: fatigue Gastrointestinal: Reports: as per HPI, hematochezia. Denies: melena Genitourinary: Denies: dysuria Musculoskeletal: Denies: back pain Past Medical History Past Medical History: Cancer Additional Past Medical History / Comment(s): R breast Ca, Lymph nodes History of Any Multi-Drug Resistant Organisms: None Reported Past Surgical History: Cholecystectomy Additional Past Surgical History / Comment(s): Right breast excisional biospy 1992, benign, double mastectomy, Right side lymphnode removal july 2024. Past Anesthesia/Blood Transfusion Reactions: No Reported Reaction Past Psychological History: No Psychological Hx Reported Smoking Status: Former smoker Past Alcohol Use History: None Reported Past Drug Use History: None Reported - Past Family History Father Family Medical History: No Reported History Mother Family Medical History: No Reported History General Exam Limitations: no limitations General appearance: alert, in no apparent distress Head exam: Present: normocephalic Eye exam: Present: normal appearance Neck exam: Present: normal inspection Respiratory exam: Present: normal lung sounds bilaterally Cardiovascular Exam: Present: regular rate, normal rhythm GI/Abdominal exam: Present: soft, tenderness (Mild tenderness lower abdomen). Absent: distended, pulsatile mass Extremities exam: Present: normal inspection Neurological exam: Present: alert Psychiatric exam: Present: normal affect, normal mood Skin exam: Present: normal color Course Vital Signs 04/17/25 09:32 Temperature 98.2 F Pulse Rate 79 Respiratory 17 Rate Blood Pressure 138/86 O2 Sat by Pulse 99 Oximetry Medical Decision Making - Medical Decision Making Was pt. sent in by a medical professional or institution (, PA, OVERNIGHT HOUSEPERSON, urgent care, hospital, or detention...) When possible be specific @ -No Did you speak to anyone other than the patient for history (EMS, parent, family, police, friend...)? What history was obtained from this source @ -No Did you review nursing and triage notes (agree or disagree)? Why? @ -I reviewed and agree with nursing and triage notes Were old charts reviewed (outside hosp., previous admission, EMS record, old EKG, old radiological studies, urgent care reports/EKG's, detention records)? Report findings @ -Previous admission reviewed including hemoglobin level that has slightly dropped from previous Differential Diagnosis (chest pain, altered mental status, abdominal pain women, abdominal pain men, vaginal bleeding, weakness, fever, dyspnea, syncope, headache, dizziness, GI bleed, back pain, seizure, CVA, palpatations, mental health, musculoskeletal)? @ -Differential GI Bleed: Esophageal varices, aortoenteric fistula, Anny-Eid, gastritis, peptic ulcer disease, diverticulosis, inflammatory bowel disease, hemorrhoids, fissure, colitis, malignancy, Meckel's diverticulum, this is not meant to be an all- inclusive list. EKG interpreted by me (3pts min.). @ -As above X-rays interpreted by me (1pt min.). @ -None done CT interpreted by me (1pt min.). @ -None done U/S interpreted by me (1pt. min.). @ -None done What testing was considered but not performed or refused? (CT, X-rays, U/S, labs)? Why? @ -Considered imaging however patient just had this done with concern for proctitis What meds were considered but not given or refused? Why? @ -None Did you discuss the management of the patient with other professionals (professionals i.e. , PA, OVERNIGHT HOUSEPERSON, lab, RT, psych nurse, director social, yeast pusher, teacher, nuclear officer, piano case and bench assembler)? Give summary @ -Case was discussed with Dr. Gilliam who will admit covering Dr. Flores Was smoking cessation discussed for >3mins.? @ -No Was critical care preformed (if so, how long)? @ -No Were there social determinants of health that impacted care today? How? (Homeles sness, low income, unemployed, alcoholism, drug addiction, transportation, low edu. Level, literacy, decrease access to med. care, skilled nursing, rehab)? @ -No Was there de-escalation of care discussed even if they declined (Discuss DNR or withdrawal of care, Hospice)? DNR status @ -No What co-morbidities impacted this encounter? (DM, HTN, Smoking, COPD, CAD, Cancer, CVA, ARF, Chemo, Hep., AIDS, mental health diagnosis, sleep apnea, morbid obesity)? @ -Recent chemotherapy, on hormone therapy for breast cancer Was patient admitted / discharged? Hospital course, mention meds given and route, prescriptions, significant lab abnormalities, going to OR and other pertinent info. @ -Patient presents with recurrent lower GI bleeding. Recent diagnosis and admission for proctitis. Hemoglobin slightly lower. Patient will be kept for observation and repeat monitoring. Consult will be placed with GI and oncology. Admission orders written. Patient reevaluated and updated. Undiagnosed new problem with uncertain prognosis? @ -No Drug Therapy requiring intensive monitoring for toxicity (Heparin, Nitro, Insulin, Cardizem)? @ -No Were any procedures done? @ -No Diagnosis/symptom? @ -Proctitis Acute, or Chronic, or Acute on Chronic? @ -Acute Uncomplicated (without systemic symptoms) or Complicated (systemic symptoms)? @ -Complicated with lower GI bleed Side effects of treatment? @ -No Exacerbation, Progression, or Severe Exacerbation? @ -No Poses a threat to life or bodily function? How? (Chest pain, USA, SD, pneumonia, PE, COPD, DKA, ARF, appy, cholecystitis, CVA, Diverticulitis, Homicidal, Suicidal, threat to staff... and all critical care pts) @ -Threat to hematological and gastrointestinal function - Lab Data Result diagrams: 04/17/25 09:35 04/17/25 09:35 Lab Results 04/17/25 04/17/25 04/17/25 Range/Units 09:35 09:35 09:35 WBC 3.35 L (4.50-10.00) 10*3/uL RBC 3.53 L (4.10-5.20) 10*6/uL Hgb 10.4 L (12.0-15.0) g/dL Hct 31.5 L (37.2-46.3) % MCV 89.2 (80.0-97.0) fL MCH 29.5 (27.0-32.0) pg MCHC 33.0 (32.0-37.0) g/dL Plt Count 172 (140-440) 10*3/uL MPV 8.9 L (9.5-12.2) fL Immature Gran % (Auto) 0.3 % Neutrophils % 73.4 % Lymphocytes % 9.0 % Monocytes % 11.0 % Eosinophils % 5.4 % Basophils % 0.9 % Immature Gran # 0.01 (0.00-0.04) 10*3/uL Neutrophils # 2.46 (1.80-7.70) 10*3/uL Lymphocytes # 0.30 L (0.90-5.00) 10*3/uL Monocytes # 0.37 (0.20-1.00) 10*3/uL Eosinophils # 0.18 (0.04-0.35) 10*3/uL Basophils # 0.03 (0.00-0.10) 10*3/uL PT 10.9 (10.0-12.5) sec INR 1.0 (<1.2) APTT 21.8 L (22.0-30.0) sec Sodium 140 (137-145) mmol/L Potassium 3.7 (3.5-5.1) mmol/L Chloride 106 (98-107) mmol/L Carbon Dioxide 25 (22-30) mmol/L Anion Gap 9 mmol/L BUN 5 L (7-17) mg/dL Creatinine 0.66 (0.52-1.04) mg/dL Est GFR (CKD-EPI)AfAm >90 (>60 ml/min/1.73 sqM) Est GFR (CKD-EPI)NonAf >90 (>60 ml/min/1.73 sqM) Glucose 91 (74-99) mg/dL Calcium 9.0 (8.4-10.2) mg/dL Magnesium 1.8 (1.6-2.3) mg/dL Total Bilirubin 0.6 (0.2-1.3) mg/dL AST 19 (14-36) U/L ALT 11 (4-34) U/L Alkaline Phosphatase 80 (38-126) U/L Total Protein 5.4 L (6.3-8.2) g/dL Albumin 3.1 L (3.5-5.0) g/dL Stool Occult Blood (Negative) 04/17/25 Range/Units 09:50 WBC (4.50-10.00) 10*3/uL RBC (4.10-5.20) 10*6/uL Hgb (12.0-15.0) g/dL Hct (37.2-46.3) % MCV (80.0-97.0) fL MCH (27.0-32.0) pg MCHC (32.0-37.0) g/dL Plt Count (140-440) 10*3/uL MPV (9.5-12.2) fL Immature Gran % (Auto) % Neutrophils % % Lymphocytes % % Monocytes % % Eosinophils % % Basophils % % Immature Gran # (0.00-0.04) 10*3/uL Neutrophils # (1.80-7.70) 10*3/uL Lymphocytes # (0.90-5.00) 10*3/uL Monocytes # (0.20-1.00) 10*3/uL Eosinophils # (0.04-0.35) 10*3/uL Basophils # (0.00-0.10) 10*3/uL PT (10.0-12.5) sec INR (<1.2) APTT (22.0-30.0) sec Sodium (137-145) mmol/L Potassium (3.5-5.1) mmol/L Chloride (98-107) mmol/L Carbon Dioxide (22-30) mmol/L Anion Gap mmol/L BUN (7-17) mg/dL Creatinine (0.52-1.04) mg/dL Est GFR (CKD-EPI)AfAm (>60 ml/min/1.73 sqM) Est GFR (CKD-EPI)NonAf (>60 ml/min/1.73 sqM) Glucose (74-99) mg/dL Calcium (8.4-10.2) mg/dL Magnesium (1.6-2.3) mg/dL Total Bilirubin (0.2-1.3) mg/dL AST (14-36) U/L ALT (4-34) U/L Alkaline Phosphatase (38-126) U/L Total Protein (6.3-8.2) g/dL Albumin (3.5-5.0) g/dL Stool Occult Blood Positive H (Negative) Disposition Clinical Impression: Proctitis Disposition: ADMITTED IP TO THIS HOSP Is patient prescribed a controlled substance at d/c from ED?: No Referrals: Alexey Flores MD [Primary Care Provider] - 1-2 days Time of Disposition: 10:38
[2025-04-17] MEDS: PANTOPRAZOLE 40 MG/10 ML VIAL IVP STA (09:48)
[2025-04-17 09:54] LABS: Basophils # (A) 0.03 10*3/uL (0.00-0.10); Basophils % (A) 0.9 %; Eosinophils # (A) 0.18 10*3/uL (0.04-0.35); Eosinophils % (A) 5.4 %; HCT 31.5 % (37.2-46.3); HGB 10.4 g/dL (12.0-15.0); MCH 29.5 pg (27.0-32.0); MCV 89.2 fL (80.0-97.0); Mean Platelet Volume 8.9 fL (9.5-12.2); Monocytes # (A) 0.37 10*3/uL (0.20-1.00); Neutrophils # (A) 2.46 10*3/uL (1.80-7.70); Neutrophils % (A) 73.4 %; Platelet Count 172 10*3/uL (140-440); RBC 3.53 10*6/uL (4.10-5.20); RDW 14.5 % (11.5-14.5); WBC 3.35 10*3/uL (4.50-10.00)
[2025-04-17 10:08] LABS: ALT 11 U/L (4-34); AST 19 U/L (14-36); African American GFR (CKD) >90 (>60 ml/min/1.73 sqM); Albumin 3.1 g/dL (3.5-5.0); Alkaline Phosphatase 80 U/L (38-126); Anion Gap 9 mmol/L; Blood Urea Nitrogen 5 mg/dL (7-17); Carbon Dioxide 25 mmol/L (22-30); Chloride 106 mmol/L (98-107); Glucose 91 mg/dL (74-99); Magnesium 1.8 mg/dL (1.6-2.3); Non-African American GFR(CKD) >90 (>60 ml/min/1.73 sqM); Potassium 3.7 mmol/L (3.5-5.1); Sodium 140 mmol/L (137-145); Total Bilirubin 0.6 mg/dL (0.2-1.3); Total Protein 5.4 g/dL (6.3-8.2)
[2025-04-17 10:17] LABS: Prothrombin Time 10.9 sec (10.0-12.5)
[2025-04-17 10:18] LABS: Partial Thromboplastin Time 21.8 sec (22.0-30.0)
[2025-04-17] MEDS ORDERED: NALOXONE 0.4 MG/ML 1 ML VIAL IV PRN (10:40)
[2025-04-17] MEDS: SODIUM CHLORIDE 0.9% 1,000 ML IV SCH (11:24)
[2025-04-17] MEDS: HYDROmorphone 0.5 MG/0.5 ML SYRINGE IVP PRN (11:24)
[2025-04-17] MEDS: AMPICILLIN-SULBACTAM 3 GM in SODIUM CHLORIDE 0.9% 100 ML IVPB SCH (12:36)
--- NOTE | 2025-04-17 20:15 | P.HPIM ---
History of Present Illness H&P Date: 04/17/25 Chief Complaint: Bright blood per rectum Patient is a 69-year-old female with a past medical history of right breast cancer status post double mastectomy in 1992 and lymph node removal in July 2024, prior history of smoking presents to ER with complaints of bright red b lood per rectum. Patient was discharged home yesterday. She was into the hospital with abdominal discomfort and CT of the abdomen showed proctitis. She was treated with Unasyn in the hospital and was discharged on Augmentin. Patient states that this morning she had a large bowel movement which was bloody and really mixed with liquid. Patient had couple episodes since that time but were more mucousy. She also having mild abdominal cramping mainly in the lower abdomen. She felt really lightheaded. Denies any nausea or vomiting. No fever no chills. No cough or sputum production. Laboratory data showed WBC 3.3 hemoglobin 10.4 and platelets 172, sodium 140 potassium 3.7 chloride 106 bicarb is 25 BUN 5 and creatinine 0.66 and blood sugar 91 magnesium 1.8 albumin 3.1 FOBT positive. Review of Systems Constitutional: Patient denies any fever or chills . No generalized weakness or weight loss. Abdomen: Patient denied nausea vomiting and diarrhea and abdominal pain. Bright blood per rectum Cardiovascular: Patient denies any chest pain or short of breath no palpitations. Respiratory: patient denied any cough or sputum production. No shortness of breath Neurologic: Patient denied any numbness or tingling. no headache. Musculoskeletal: Patient denies any complaints of joint swelling or deformity. Skin: Negative Psychiatric: Negative Endocrine: No heat or cold intolerance. No recent weight gain. Genitourinary: No dysuria or hematuria. All other 14 point ROS negative except the above Past Medical History Past Medical History: Cancer Additional Past Medical History / Comment(s): R breast Ca, Lymph nodes History of Any Multi-Drug Resistant Organisms: None Reported Past Surgical History: Cholecystectomy Additional Past Surgical History / Comment(s): Right breast excisional biospy 1992, benign, double mastectomy, Right side lymphnode removal july 2024. Past Anesthesia/Blood Transfusion Reactions: No Reported Reaction Past Psychological History: No Psychological Hx Reported Smoking Status: Former smoker Past Alcohol Use History: None Reported Past Drug Use History: None Reported - Past Family History Father Family Medical History: No Reported History Mother Family Medical History: No Reported History Medications and Allergies Home Medications Medication Instructions Recorded Confirmed Type Anastrozole 1 mg PO DAILY@0800 04/15/25 04/17/25 History Amoxic-Pot Clav 875-125Mg 1 tab PO BID@0900,2100 04/17/25 04/17/25 History [Augmentin 875-125] Allergies Allergy/AdvReac Type Severity Reaction Status Date / Time Sulfa (Sulfonamide Allergy Anaphylaxis Verified 04/17/25 11:40 Antibiotics) morphine AdvReac Nausea & Verified 04/17/25 11:40 Vomiting Physical Exam Vitals: Vital Signs Temp Pulse Resp BP Pulse Ox 04/17/25 14:21 70 16 133/68 98 04/17/25 09:32 98.2 F 79 17 138/86 99 Intake and Output 04/16/25 04/17/25 04/17/25 22:59 06:59 14:59 Other: Weight 77.564 kg PHYSICAL EXAMINATION: Patient is lying in the bed comfortably, no acute distress, awake alert and oriented.. HEENT: Normocephalic. Neck is supple. Pupils reactive. Nostrils clear. Oral cavity is moist. Neck reveals no JVD, carotid bruits, or thyromegaly. CHEST EXAMINATION: Trachea is central. Symmetrical expansion. Lung watt clear to auscultation and percussion. CARDIAC: Normal S1, S2 with no gallops. No murmurs ABDOMEN: Soft. Bowel sounds normal. No organomegaly. No abdominal bruits. Extremities: reveal no edema. No clubbing or cyanosis Neurologically awake, alert, oriented x3 with well-coordinated movements. No focal deficits noted Skin: No rash or skin lesions. Psychiatric: Coperative. Nonsuicidal Musculoskeletal: No joint swelling or deformity. Normal range of motion. Results CBC & Chem 7: 04/18/25 05:31 04/18/25 05:31 Labs: Abnormal Lab Results - Last 24 Hours (Table) 04/17/25 04/17/25 04/17/25 Range/Units 09:35 09:35 09:35 WBC 3.35 L (4.50-10.00) 10*3/uL RBC 3.53 L (4.10-5.20) 10*6/uL Hgb 10.4 L (12.0-15.0) g/dL Hct 31.5 L (37.2-46.3) % MPV 8.9 L (9.5-12.2) fL Lymphocytes # 0.30 L (0.90-5.00) 10*3/uL APTT 21.8 L (22.0-30.0) sec BUN 5 L (7-17) mg/dL Total Protein 5.4 L (6.3-8.2) g/dL Albumin 3.1 L (3.5-5.0) g/dL Stool Occult Blood (Negative) 04/17/25 Range/Units 09:50 WBC (4.50-10.00) 10*3/uL RBC (4.10-5.20) 10*6/uL Hgb (12.0-15.0) g/dL Hct (37.2-46.3) % MPV (9.5-12.2) fL Lymphocytes # (0.90-5.00) 10*3/uL APTT (22.0-30.0) sec BUN (7-17) mg/dL Total Protein (6.3-8.2) g/dL Albumin (3.5-5.0) g/dL Stool Occult Blood Positive H (Negative) Thrombosis Risk Factor Assmnt - DVT/VTE Prophylaxis DVT/VTE Prophylaxis: Mechanical Prophylaxis ordered Assessment and Plan Assessment: Bright red blood per rectum. Recent diagnosis with proctitis and was on antibiotics in the form of Unasyn/Augmentin History of right breast cancer status postmastectomy History of smoking DVT prophylax with SCDs Plan: Patient will be continued on gentle IV hydration. Monitor H&H. No active bleeding at this time. Continue with IV Unasyn. General surgery and GI was consulted and follow-up closely.
[2025-04-17 22:04] LABS: HCT 30.2 % (37.2-46.3); HGB 9.9 g/dL (12.0-15.0); MCH 29.6 pg (27.0-32.0); MCHC 32.8 g/dL (32.0-37.0); MCV 90.4 fL (80.0-97.0); Mean Platelet Volume 9.1 fL (9.5-12.2); Platelet Count 172 10*3/uL (140-440); RBC 3.34 10*6/uL (4.10-5.20); RDW 14.5 % (11.5-14.5); WBC 3.36 10*3/uL (4.50-10.00)
[2025-04-18] MEDS: ACETAMINOPHEN TAB 325 MG TAB PO PRN (00:41)
[2025-04-18 08:03] LABS: Basophils # (A) 0.03 X 10*3/uL (0.00-0.10); Eosinophils # (A) 0.24 X 10*3/uL (0.04-0.35); Eosinophils % (A) 7.8 %; HCT 30.8 % (37.2-46.3); HGB 9.9 g/dL (12.0-15.0); Lymphocytes # (A) 0.38 X 10*3/uL (0.90-5.00); Lymphocytes % (A) 12.3 %; MCH 29.4 pg (27.0-32.0); MCHC 32.1 g/dL (32.0-37.0); MCV 91.4 FL (80.0-97.0); Mean Platelet Volume 9.4 FL (9.5-12.2); Monocytes # (A) 0.35 X 10*3/uL (0.20-1.00); Monocytes % (A) 11.3 %; NRBC Per 100 WBC 0 X 10*3/uL (0.00-0.01); Neutrophils # (A) 2.08 X 10*3/uL (1.80-7.70); Neutrophils % (A) 67.3 %; Platelet Count 168 X 10*3/uL (140-440); RBC 3.37 X 10*6/uL (4.10-5.20); RDW 14.6 % (11.5-14.5); WBC 3.09 X 10*3/uL (4.50-10.00)
[2025-04-18] MEDS: PANTOPRAZOLE 40 MG/10 ML VIAL IV SCH (08:15)
[2025-04-18 08:16] LABS: ALT 9 U/L (8-44); AST 19 U/L (13-35); Albumin 3.3 g/dL (3.8-4.9); Albumin/Globulin Ratio 1.83 Ratio (1.60-3.17); Alkaline Phosphatase 81 U/L (41-126); BUN/Creat Ratio 5.71 Ratio (12.00-20.00); Calcium 8.5 mg/dL (8.7-10.3); Carbon Dioxide 23.7 mmol/L (21.6-31.8); Chloride 108 mmol/L (96-109); Globulin 1.8 g/dL (1.6-3.3); Glucose 86 mg/dL (70-110); Potassium 3.7 mmol/L (3.5-5.5); Sodium 143 mmol/L (135-145); Total Bilirubin 0.4 mg/dL (0.3-1.2); Total Protein 5.1 g/dL (6.2-8.2)
[2025-04-18] MEDS: ANASTROZOLE 1 MG TAB PO SCH (11:03)
--- NOTE | 2025-04-18 11:34 | P.GSCN ---
History of Present Illness Consult date: 04/18/25 History of present illness: CHIEF COMPLAINT: Rectal bleeding HISTORY OF PRESENT ILLNESS: This is a 69-year-old female who presented to the hospital with bright red blood per rectum. Patient had recently been in the hospital for proctitis and GI bleed. No endoscopies completed at that time. Patient had been improving and hemoglobin stable. She was discharged on and then had more bleeding on Friday from the rectum and therefore came back to the ER. Patient reports she had a lot of bright red blood noted in the toilet after bowel movement. Hemoglobin stable at 9.9. She does report mild rectal discomfort. Patient reports that she was supposed to have workup and colonoscopy done with Dr. Burdick outpatient. She continues to have some right lower quadrant abdominal discomfort. Her last bloody bowel movement was last night. She does have a known history of breast cancer with recent chemo and radiation treatment to the breast. PAST MEDICAL HISTORY: See below PAST SURGICAL HISTORY: See below MEDICATIONS: See below ALLERGIES: See below SOCIAL HISTORY: No illicit drug use. REVIEW OF SYSTEMS: CONSTITUTIONAL: Denies fever or chills. HEENT: Denies blurred vision, vision changes, or eye pain. Denies hemoptysis CARDIOVASCULAR: Denies chest pain or pressure. RESPIRATORY: No shortness of breath. GASTROINTESTINAL: See HPI for pertinent findings HEMATOLOGIC: Denies bleeding disorders. GENITOURINARY: Denies any blood in urine or increased urinary frequency. SKIN: Denies pruitis. Denies rash. PHYSICAL EXAM: VITAL SIGNS: Reviewed GENERAL: Well-developed in no acute distress. HEENT: No sclera icterus. Extraocular movements grossly intact. Moist buccal mucosa. Head is atraumatic, normocephalic. No nasal drainage. ABDOMEN: Soft. Nondistended. Mild tenderness palpation to the right lower quadrant. NEUROLOGIC: Alert and oriented. Cranial nerves II through XII grossly intact. LABORATORY DATA: WBC 3.09 Hgb 9.9. Hgb 10.9 on admission. Platelets 168 Sodium 143 potassium 3.7 creatinine 0.7 Stool for occult blood positive IMAGING: ASSESSMENT: 1. Acute GI bleed with bright red blood per rectum 2. Proctitis noted on CT scan abdomen pelvis on 04/15/2025 PLAN: - Agree with continuing Unasyn for proctitis - Recommend GI consult for GI bleed evaluation. Patient was scheduled to have outpatient colonoscopy with Dr. Ruiz in June - Continue clear liquid diet - Continue to monitor for any signs or symptoms of bleeding -Continue to monitor hemoglobin Physician Anesthesiologist Assistant note has been reviewed by physician. Signing provider agrees with the documented findings, assessment, and plan of care. Past Medical History Past Medical History: Cancer Additional Past Medical History / Comment(s): R breast Ca, Lymph nodes History of Any Multi-Drug Resistant Organisms: None Reported Past Surgical History: Cholecystectomy Additional Past Surgical History / Comment(s): Right breast excisional biospy 1992, benign, double mastectomy, Right side lymphnode removal july 2024. Past Anesthesia/Blood Transfusion Reactions: No Reported Reaction Past Psychological History: No Psychological Hx Reported Smoking Status: Former smoker Past Alcohol Use History: None Reported Past Drug Use History: None Reported - Past Family History Father Family Medical History: No Reported History Mother Family Medical History: No Reported History Medications and Allergies Home Medications Medication Instructions Recorded Confirmed Type Anastrozole 1 mg PO DAILY@0800 04/15/25 04/17/25 History Amoxic-Pot Clav 875-125Mg 1 tab PO BID@0900,2100 04/17/25 04/17/25 History [Augmentin 875-125] Allergies Allergy/AdvReac Type Severity Reaction Status Date / Time Sulfa (Sulfonamide Allergy Anaphylaxis Verified 04/17/25 11:40 Antibiotics) morphine AdvReac Nausea & Verified 04/17/25 11:40 Vomiting Surgical - Exam Vital Signs Temp Pulse Resp BP Pulse Ox 98.2 F 79 17 138/86 99 04/17/25 09:32 04/17/25 09:32 04/17/25 09:32 04/17/25 09:32 04/17/25 09:32 Results - Labs 04/18/25 05:31 04/18/25 05:31 Abnormal Lab Results - Last 24 Hours (Table) 04/17/25 04/18/25 04/18/25 Range/Units 21:34 05:31 05:31 WBC 3.36 L 3.09 L (4.50-10.00) 10*3/uL RBC 3.34 L 3.37 L (4.10-5.20) 10*6/uL Hgb 9.9 L 9.9 L (12.0-15.0) g/dL Hct 30.2 L 30.8 L (37.2-46.3) % RDW 14.6 H (11.5-14.5) % MPV 9.1 L 9.4 L (9.5-12.2) fL Lymphocytes # 0.38 L (0.90-5.00) X 10*3/uL BUN 4.0 L (9.0-27.0) mg/dL BUN/Creatinine Ratio 5.71 L (12.00-20.00) Ratio Calcium 8.5 L (8.7-10.3) mg/dL Total Protein 5.1 L (6.2-8.2) g/dL Albumin 3.3 L (3.8-4.9) g/dL Diabetes panel 04/18/25 Range/Units 05:31 Sodium 143 (135-145) mmol/L Potassium 3.7 (3.5-5.5) mmol/L Chloride 108 (96-109) mmol/L Carbon Dioxide 23.7 (21.6-31.8) mmol/L BUN 4.0 L (9.0-27.0) mg/dL Creatinine 0.7 (0.6-1.5) mg/dL Glucose 86 (70-110) mg/dL Calcium 8.5 L (8.7-10.3) mg/dL AST 19 (13-35) U/L ALT 9 (8-44) U/L Alkaline Phosphatase 81 (41-126) U/L Total Protein 5.1 L (6.2-8.2) g/dL Albumin 3.3 L (3.8-4.9) g/dL Calcium panel 04/18/25 Range/Units 05:31 Calcium 8.5 L (8.7-10.3) mg/dL Albumin 3.3 L (3.8-4.9) g/dL Pituitary panel 04/18/25 Range/Units 05:31 Sodium 143 (135-145) mmol/L Potassium 3.7 (3.5-5.5) mmol/L Chloride 108 (96-109) mmol/L Carbon Dioxide 23.7 (21.6-31.8) mmol/L BUN 4.0 L (9.0-27.0) mg/dL Creatinine 0.7 (0.6-1.5) mg/dL Glucose 86 (70-110) mg/dL Calcium 8.5 L (8.7-10.3) mg/dL Adrenal panel 04/18/25 Range/Units 05:31 Sodium 143 (135-145) mmol/L Potassium 3.7 (3.5-5.5) mmol/L Chloride 108 (96-109) mmol/L Carbon Dioxide 23.7 (21.6-31.8) mmol/L BUN 4.0 L (9.0-27.0) mg/dL Creatinine 0.7 (0.6-1.5) mg/dL Glucose 86 (70-110) mg/dL Calcium 8.5 L (8.7-10.3) mg/dL Total Bilirubin 0.4 (0.3-1.2) mg/dL AST 19 (13-35) U/L ALT 9 (8-44) U/L Alkaline Phosphatase 81 (41-126) U/L Total Protein 5.1 L (6.2-8.2) g/dL Albumin 3.3 L (3.8-4.9) g/dL
[2025-04-18] MEDS: AMPICILLIN-SULBACTAM 3 GM in SODIUM CHLORIDE 0.9% 100 ML IVPB SCH (12:08)
--- NOTE | 2025-04-18 12:31 | P.CONS ---
History of Present Illness - Reason for Consult Consult date: 04/18/25 GI bleed Requesting physician: Vida Colindres - Chief Complaint Rectal bleeding - History of Present Illness This is a pleasant 69-year-old female with a recent hospitalization for rectal bleeding who was seen by general surgery and discharged 2 days ago as bleeding had subsided. Past medical history includes breast cancer status post chemotherapy that was completed in September and radiation therapy that was completed this past February. She states she started having rectal bleeding last week it was intermittent with bowel movements. She was admitted to the hospital seen by general surgery. She had a CT of the abdomen pelvis with IV contrast reporting mild rectal wall thickening with adjacent stranding which may be due to proctitis. Consider correlation with laboratory values. If there is further concern for intraluminal hemorrhage consider multiphasic or signs scintigraphic imaging. Patient states bleeding has stopped she was discharged home and then yesterday she started having bleeding again and has continued with either blood per rectum or loose bowel movements every 2 hours. She reports that there is some right lower quadrant abdominal discomfort associated with the bleeding. States she has no history of previous GI bleed. Last colonoscopy was several years ago and she was scheduled to see GI and have a colonoscopy this June. She denies any anticoagulation. Discharge hemoglobin on 04/16/2025 was 10.9, repeat today 9.9. Review of Systems REVIEW OF SYSTEMS: CARDIOPULMONARY: No chest pain or shortness of breath. Gastrointestinal: Right lower quadrant abdominal pain. No nausea or vomiting. No hematemesis, coffee-ground emesis. No rectal bleeding, or melena. GENITOURINARY: No dysuria or hematuria. MUSCULOSKELETAL: Reports normal range of motion., Joint pain. SKIN: No rashes. No jaundice. ENDOCRINE: No chills, fevers. No excessive weight gain or loss. No polydipsia or polyuria. PSYCHIATRIC: Unremarkable. NEUROLOGY: No change in mental status. Denies dizziness, headache. ENT: Vision unremarkable. CONSTITUTIONAL: No recent weight loss. No fever, chills, night sweats. Past Medical History Past Medical History: Cancer Additional Past Medical History / Comment(s): R breast Ca, Lymph nodes History of Any Multi-Drug Resistant Organisms: None Reported Past Surgical History: Cholecystectomy Additional Past Surgical History / Comment(s): Right breast excisional biospy 1992, benign, double mastectomy, Right side lymphnode removal july 2024. Past Anesthesia/Blood Transfusion Reactions: No Reported Reaction Past Psychological History: No Psychological Hx Reported Smoking Status: Former smoker Past Alcohol Use History: None Reported Past Drug Use History: None Reported - Past Family History Father Family Medical History: No Reported History Mother Family Medical History: No Reported History Medications and Allergies Home Medications Medication Instructions Recorded Confirmed Type Anastrozole 1 mg PO DAILY@0800 04/15/25 04/17/25 History Amoxic-Pot Clav 875-125Mg 1 tab PO BID@0900,2100 04/17/25 04/17/25 History [Augmentin 875-125] Allergies Allergy/AdvReac Type Severity Reaction Status Date / Time Sulfa (Sulfonamide Allergy Anaphylaxis Verified 04/17/25 11:40 Antibiotics) morphine AdvReac Nausea & Verified 04/17/25 11:40 Vomiting Physical Exam Vitals: Vital Signs Temp Pulse Pulse Resp BP BP Pulse Ox 04/18/25 07:46 98.5 F 60 20 128/78 96 04/18/25 02:00 98.8 F 65 14 109/65 96 04/17/25 20:00 98.1 F 70 16 119/73 97 04/17/25 17:00 98.2 F 71 18 138/79 94 L 04/17/25 14:21 70 16 133/68 98 04/17/25 09:32 98.2 F 79 17 138/86 99 Intake and Output 04/17/25 04/18/25 04/18/25 22:59 06:59 14:59 Intake Total 120 780 Balance 120 780 Intake: Oral 120 780 Other: Voiding Method Toilet # Voids 1 1 Weight 77.437 kg General appearance: The patient is alert, oriented, appears in no acute distress. HET: Head is normocephalic and atraumatic. Conjunctiva pink. Sclera anicteric. Neck: Supple without lymphadenopathy. Trachea midline. Heart: Regular. Lungs: Equal expansion, normal respiratory effort. Abdomen: Soft, right lower quadrant tenderness, nondistended. Skin: No rashes. No jaundice. Extremities: Normal skin color and turgor. No pedal edema. Neurological: No focal deficits. Alert and oriented x3. Results CBC & Chem 7: 04/18/25 05:31 04/18/25 05:31 Labs: Abnormal Lab Results - Last 24 Hours (Table) 04/17/25 04/17/25 04/17/25 Range/Units 09:35 09:35 09:35 WBC 3.35 L (4.50-10.00) 10*3/uL RBC 3.53 L (4.10-5.20) 10*6/uL Hgb 10.4 L (12.0-15.0) g/dL Hct 31.5 L (37.2-46.3) % RDW (11.5-14.5) % MPV 8.9 L (9.5-12.2) fL Lymphocytes # 0.30 L (0.90-5.00) 10*3/uL APTT 21.8 L (22.0-30.0) sec BUN 5 L (7-17) mg/dL BUN/Creatinine Ratio (12.00-20.00) Ratio Calcium (8.7-10.3) mg/dL Total Protein 5.4 L (6.3-8.2) g/dL Albumin 3.1 L (3.5-5.0) g/dL Stool Occult Blood (Negative) 04/17/25 04/17/25 04/18/25 Range/Units 09:50 21:34 05:31 WBC 3.36 L 3.09 L (4.50-10.00) 10*3/uL RBC 3.34 L 3.37 L (4.10-5.20) 10*6/uL Hgb 9.9 L 9.9 L (12.0-15.0) g/dL Hct 30.2 L 30.8 L (37.2-46.3) % RDW 14.6 H (11.5-14.5) % MPV 9.1 L 9.4 L (9.5-12.2) fL Lymphocytes # 0.38 L (0.90-5.00) 10*3/uL APTT (22.0-30.0) sec BUN (7-17) mg/dL BUN/Creatinine Ratio (12.00-20.00) Ratio Calcium (8.7-10.3) mg/dL Total Protein (6.3-8.2) g/dL Albumin (3.5-5.0) g/dL Stool Occult Blood Positive H (Negative) 04/18/25 Range/Units 05:31 WBC (4.50-10.00) 10*3/uL RBC (4.10-5.20) 10*6/uL Hgb (12.0-15.0) g/dL Hct (37.2-46.3) % RDW (11.5-14.5) % MPV (9.5-12.2) fL Lymphocytes # (0.90-5.00) 10*3/uL APTT (22.0-30.0) sec BUN 4.0 L (7-17) mg/dL BUN/Creatinine Ratio 5.71 L (12.00-20.00) Ratio Calcium 8.5 L (8.7-10.3) mg/dL Total Protein 5.1 L (6.3-8.2) g/dL Albumin 3.3 L (3.5-5.0) g/dL Stool Occult Blood (Negative) Assessment and Plan (1) BRBPR (bright red blood per rectum) Narrative/Plan: 69-year-old female who was recently hospitalized for bright red blood per rectum had CT abdomen pelvis with IV contrast showing inflammation within the rectum most consistent with a proctitis. Last colonoscopy several years ago. No anticoagulation no previous history of GI bleed. Now having intermittent blood per rectum and diarrhea. Likely dealing with acute colitis/proctitis. Consider possible colonoscopy if no improvement in bleeding. Continue clear liquid diet. Current Visit: No Status: Acute Code(s): K62.5 - HEMORRHAGE OF ANUS AND RECTUM SNOMED Code(s): 34039137 (2) Diarrhea Current Visit: Yes Status: Acute Code(s): R19.7 - DIARRHEA, UNSPECIFIED SNOMED Code(s): 51901165 (3) History of breast cancer Current Visit: Yes Status: Acute Code(s): Z85.3 - PERSONAL HISTORY OF MALIGNANT NEOPLASM OF BREAST SNOMED Code(s): 336074541 Plan: 1. Continue symptomatic supportive care 2. Avoid anticoagulation 3. Keep on clear liquid diet, n.p.o. after midnight 4. Daily CBC, transfuse for hemoglobin less than 7 5. Will obtain stool studies 6. Plan for colonoscopy tomorrow 7. General surgery following along Thank you for this consultation, we will continue to follow. Dr. Darell Ruiz I agree with the dictator's note, documented as a scribe by Omayra Cruz.
--- NOTE | 2025-04-18 15:04 | CT ---
EXAMINATION TYPE: CT abdomen pelvis w con DATE OF EXAM: 04/18/2025 2:52 PM COMPARISON: 04/15/2025. CLINICAL INDICATION: Female, 69 years old with history of abdominal pain, worsening proctitis; abdomi nal pain TECHNIQUE: Axial CT abdomen pelvis w con;Sagittal and coronal reformats were created on a separate w orkstation. Contrast used:100 mL of Isovue 300 with IV Contrast, (none if empty) Oral contrast used: without Oral Contrast (none if empty) CT DLP: 845.9 mGycm, Automated exposure control for dose reduction was used. FINDINGS: LOWER CHEST: Unremarkable ABDOMEN LIVER: Unremarkable GALLBLADDER AND BILE DUCTS: The gallbladder is surgically absent. PANCREAS: Unremarkable. SPLEEN: Small splenules are present. ADRENAL GLANDS: Unremarkable. KIDNEYS AND URETERS: No evidence of hydronephrosis or obstructing renal calculus. The ureters are unr emarkable. PELVIS BLADDER: No evidence for wall thickening or mass given limitations of exam. REPRODUCTIVE: The uterus is surgically absent. ABDOMEN & PELVIS STOMACH AND BOWEL: No evidence of bowel obstruction. Circumferential wall thickening of the sigmoid c olon and rectum. Which is nondistended and today's exam. Mild engorgement vasa recta. PERITONEUM/RETROPERITONEUM: No evidence of pneumoperitoneum or free fluid. VASCULATURE: Mild atherosclerotic calcifications are present throughout the abdominal aorta and its b ranches. No evidence of aortic aneurysm. MUSCULOSKELETAL: No acute osseous abnormalities. Mild disc degeneration changes are present throughou t the thoracolumbar spine. LYMPH NODES: No gross evidence for lymphadenopathy. SOFT TISSUE/ABDOMINAL WALL: Unremarkable IMPRESSION: Proctitis/colitis of the sigmoid colon and rectum suggested. No evidence for organizing fluid collect ion. No evidence for perforation. [facility], , 04/18/2025 3:01 PM
[2025-04-18] MEDS: PEG 3350 (236 GM/BTL) + LYTES 4,000 ML BOTTLE PO ONE (16:48)
--- NOTE | 2025-04-18 19:50 | P.PN ---
Subjective Progress Note Date: 04/18/25 Patient is a 69-year-old female with a past medical history of right breast cancer status post double mastectomy in 1992 and lymph node removal in July 2024, prior history of smoking presents to ER with complaints of bright red blood per rectum. Patient was discharged home yesterday. She was into the hospital with abdominal discomfort and CT of the abdomen showed proctitis. She was treated with Unasyn in the hospital and was discharged on Augmentin. Patient states that this morning she had a large bowel movement which was bloody and really mixed with liquid. Patient had couple episodes since that time but were more mucousy. She also having mild abdominal cramping mainly in the lower abdomen. She felt really lightheaded. Denies any nausea or vomiting. No fever no chills. No cough or sputum production. Laboratory data showed WBC 3.3 hemoglobin 10.4 and platelets 172, sodium 140 po tassium 3.7 chloride 106 bicarb is 25 BUN 5 and creatinine 0.66 and blood sugar 91 magnesium 1.8 albumin 3.1 FOBT positive. 04/18/2025 Patient is lying on the side of the bed. Awake alert and oriented. No fever no chills. Currently on room air. Denies any further episodes of rectal bleeding. No cough or sputum production. Laboratory data showed WBC 3.0 hemoglobin 9.9 and platelets 168 Sodium 143 potassium 3.7 chloride 108 bicarb is 23.7 BUN 4.0 and creatinine 0.79 blood sugar 86 C. difficile antigen negative. Repeat CT of the abdomen pelvis was done which showed proctitis/colitis of the sigmoid colon and rectum suggested. No evidence for organizing fluid collection. No evidence of perforation. Patient was seen by GI and is planned for colonoscopy tomorrow. Current medications reviewed. Objective - Vital Signs Vital signs: Vital Signs Temp 98 F 04/18/25 13:47 Pulse 69 04/18/25 13:47 Resp 20 04/18/25 13:47 BP 124/75 04/18/25 13:47 Pulse Ox 97 04/18/25 13:47 FiO2 Intake & Output 04/18/25 04/18/25 04/19/25 06:59 18:59 06:59 Intake Total 780 Balance 780 Weight 77.437 kg Intake: Oral 780 Other: Voiding Method Toilet # Voids 1 3 # Bowel Movements 3 - Exam PHYSICAL EXAMINATION: Patient is lying in the bed comfortably, no acute distress, awake alert and oriented.. HEENT: Normocephalic. Neck is supple. Pupils reactive. Nostrils clear. Oral cavity is moist. Neck reveals no JVD, carotid bruits, or thyromegaly. CHEST EXAMINATION: Trachea is central. Symmetrical expansion. Lung watt clear to auscultation and percussion. CARDIAC: Normal S1, S2 with no gallops. No murmurs ABDOMEN: Soft. Bowel sounds normal. No organomegaly. No abdominal bruits. Extremities: reveal no edema. No clubbing or cyanosis Neurologically awake, alert, oriented x3 with well-coordinated movements. No focal deficits noted Skin: No rash or skin lesions. Psychiatric: Coperative. Nonsuicidal Musculoskeletal: No joint swelling or deformity. Normal range of motion. - Labs CBC & Chem 7: 04/18/25 05:31 04/18/25 05:31 Labs: Abnormal Lab Results - Last 24 Hours (Table) 04/17/25 04/18/25 04/18/25 Range/Units 21:34 05:31 05:31 WBC 3.36 L 3.09 L (4.50-10.00) 10*3/uL RBC 3.34 L 3.37 L (4.10-5.20) 10*6/uL Hgb 9.9 L 9.9 L (12.0-15.0) g/dL Hct 30.2 L 30.8 L (37.2-46.3) % RDW 14.6 H (11.5-14.5) % MPV 9.1 L 9.4 L (9.5-12.2) fL Lymphocytes # 0.38 L (0.90-5.00) X 10*3/uL BUN 4.0 L (9.0-27.0) mg/dL BUN/Creatinine Ratio 5.71 L (12.00-20.00) Ratio Calcium 8.5 L (8.7-10.3) mg/dL Total Protein 5.1 L (6.2-8.2) g/dL Albumin 3.3 L (3.8-4.9) g/dL Assessment and Plan Assessment: Bright red blood per rectum. Recent diagnosis with proctitis and was on antibiotics in the form of Unasyn/Augmentin History of right breast cancer status postmastectomy History of smoking DVT prophylax with SCDs Plan: Patient will be continued on gentle IV hydration. Continue with IV antibiotics and home Unasyn. Continue to monitor H&H. No active bleeding at this time. Continue with IV Unasyn. General surgery and GI was consulted. Stool studies were ordered. Planning for colonoscopy tomorrow..
--- NOTE | 2025-04-18 21:55 | P.CONS ---
History of Present Illness - Reason for Consult Consult date: 04/18/25 Hx of chemo Requesting physician: Casimiro Ghotra - Chief Complaint proctitis - History of Present Illness Ms Dumont is a pleasant female pt of Dr. Lopez with a history of breast cancer. She noted a lump in the upper inner aspect of her right breast, for about 1 year prior to her seeking medical attention. It started to increase in size, and she was having pain. PCP ordered bilateral mammogram, done on 01/28/24. This showed a large mass measuring 6 x 3.7 x 5.5 cm with a satellite mass measuring 1.7 x 1.6 cm about 8 and 7 cm from the nipple respectively. US on the same day, that showed hypoechoic mass measuring 3.3 x 2.1 x 4.8 cm at 12:00, 5 cm from the nipple, and a 1.3 x 1.3 cm mass at 11:00, 5 cm from the nipple. No lymph nodes were identified. US-guided biopsy from both these lesions on 02/09/24. 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 Was felt to be morphologically identical. Receptor analysis revealed the larger lesion to be ER/GA strongly positive, Ki-67 11-20%, and HER-2 negative at 1+ IHC. While workup was in progress, the patient did develop some puckering off the overlying skin of the breast. she was seen by breast surgery, Dr. Isaac who referred to Med Onc further evaluation and recommendations. A PET scan was also ordered. Pt had no prior history of malignancy. Last mammogram was in 1998. She did have a benign breast biopsy in the . MRI of both breasts, as well as ultrasound of the right axilla to evaluate for lymphadenopathy done in early 04/02, confirmed the presence of the large dominant lesion on the right, with a smaller satellite lesion adjacent to it. On the MRI there appeared to be possibly one lymph node involvement. US did not show any suspicious nodes. She was subsequently admitted to [facility] with acute pancreatitis, due to gallstones. She had a cholecystectomy during that admission, with improvement in her symptoms. Her workup for her breast cancer was therefore delayed. Her MRI had shown a 4 mm lesion on the left side incidentally, that was subsequently biopsied and found to be benign. PET 04/2024 showed no evidence of metastatic disease, including no uptake in the right axilla, or the left breast. Oncotype testing showed no benefit from chemotherapy in her age group. She was started on neoadjuvant anastrozole mid April 2024. Verzenio was added, after getting approval for the same, starting 05/22/24, since the plan was to use it in the adjuvant setting anyway, but, she had progressive GI symptoms with Verzenio and stopped it by late May. She had surgery on 07/28/24, she opted for bilateral mastectomy. This revealed a grade 1.6 x 9 x 3 cm residual invasive carcinoma without evidence of epidermal invasion, or margin involvement. 3 lymph nodes in the axillary tissue showed micrometastatic carcinoma with extranodal extension one lymph node in the axilla was also positive for micrometastatic disease, slightly less than 2 mm. Left breast was benign. Based on the finding of greater than 3 nodes involved, her case was discussed with other oncology colleagues including [facility] and [facility] regarding benefit of chemotherapy in this setting. Differing opinions were obtained. After detailed discussion with them, and with the patient, it was decided to start her on chemotherapy with Taxotere and Cytoxan. She completed 4 cycles 11/29/24. She was had radiation. Anastrozole was placed on hold while the patient was on chemo/XRT, resumed after completion-sometime January 2025. She had done well since and is current on her follow ups Pt is currently admitted with proctitis, symptoms started about 1 wk ago, she has had bloody stools, rt abd pain, stools have been soft to watery, denies rectal pain, fever, N,V. Review of Systems 10 point ROS is neg except as stated in HPI Past Medical History Past Medical History: Cancer Additional Past Medical History / Comment(s): R breast Ca, Lymph nodes History of Any Multi-Drug Resistant Organisms: None Reported Past Surgical History: Cholecystectomy Additional Past Surgical History / Comment(s): Right breast excisional biospy 1992, benign, double mastectomy, Right side lymphnode removal july 2024. Past Anesthesia/Blood Transfusion Reactions: No Reported Reaction Past Psychological History: No Psychological Hx Reported Smoking Status: Former smoker Past Alcohol Use History: None Reported Past Drug Use History: None Reported - Past Family History Father Family Medical History: No Reported History Mother Family Medical History: No Reported History Medications and Allergies Home Medications Medication Instructions Recorded Confirmed Type Anastrozole 1 mg PO DAILY@0800 04/15/25 04/17/25 History Amoxic-Pot Clav 875-125Mg 1 tab PO BID@0900,2100 04/17/25 04/17/25 History [Augmentin 875-125] Allergies Allergy/AdvReac Type Severity Reaction Status Date / Time Sulfa (Sulfonamide Allergy Anaphylaxis Verified 04/17/25 11:40 Antibiotics) morphine AdvReac Nausea & Verified 04/17/25 11:40 Vomiting Physical Exam Vitals: Vital Signs Temp Pulse Pulse Resp BP BP Pulse Ox 04/18/25 07:46 98.5 F 60 20 128/78 96 04/18/25 02:00 98.8 F 65 14 109/65 96 04/17/25 20:00 98.1 F 70 16 119/73 97 04/17/25 17:00 98.2 F 71 18 138/79 94 L 04/17/25 14:21 70 16 133/68 98 04/17/25 09:32 98.2 F 79 17 138/86 99 Intake and Output 04/17/25 04/18/25 04/18/25 22:59 06:59 14:59 Intake Total 120 780 Balance 120 780 Intake: Oral 120 780 Other: Voiding Method Toilet # Voids 1 1 Weight 77.437 kg - Constitutional General appearance: average body habitus, cooperative, no acute distress - EENT Eyes: anicteric sclerae, EOMI ENT: hearing grossly normal, normal oropharynx - Neck Neck: no lymphadenopathy - Respiratory Respiratory: bilateral: CTA - Cardiovascular Rhythm: regular Heart sounds: normal: S1, S2 Abnormal Heart Sounds: no systolic murmur, no diastolic murmur, no rub, no S3 Gallop, no S4 Gallop, no click, no other leg Peripheral Edema: bilateral: None - Gastrointestinal General gastrointestinal: no absent bowel sounds, decreased bowel sounds, no distended, no hepatomegaly, no hyperactive bowel sounds, no normal bowel sounds, no organomegaly, no rigid, no scaphoid, soft, no splenomegaly, tenderness (RLQ), no umbilical hernia, no ventral hernia - Integumentary Integumentary: normal - Neurologic Neurologic: CNII-XII intact - Musculoskeletal Musculoskeletal: strength equal bilaterally - Psychiatric Psychiatric: A&O x's 3, appropriate affect, intact judgment & insight Results CBC & Chem 7: 04/18/25 05:31 04/18/25 05:31 Labs: Abnormal Lab Results - Last 24 Hours (Table) 04/17/25 04/17/25 04/17/25 Range/Units 09:35 09:35 09:35 WBC 3.35 L (4.50-10.00) 10*3/uL RBC 3.53 L (4.10-5.20) 10*6/uL Hgb 10.4 L (12.0-15.0) g/dL Hct 31.5 L (37.2-46.3) % RDW (11.5-14.5) % MPV 8.9 L (9.5-12.2) fL Lymphocytes # 0.30 L (0.90-5.00) 10*3/uL APTT 21.8 L (22.0-30.0) sec BUN 5 L (7-17) mg/dL BUN/Creatinine Ratio (12.00-20.00) Ratio Calcium (8.7-10.3) mg/dL Total Protein 5.4 L (6.3-8.2) g/dL Albumin 3.1 L (3.5-5.0) g/dL Stool Occult Blood (Negative) 04/17/25 04/17/25 04/18/25 Range/Units 09:50 21:34 05:31 WBC 3.36 L 3.09 L (4.50-10.00) 10*3/uL RBC 3.34 L 3.37 L (4.10-5.20) 10*6/uL Hgb 9.9 L 9.9 L (12.0-15.0) g/dL Hct 30.2 L 30.8 L (37.2-46.3) % RDW 14.6 H (11.5-14.5) % MPV 9.1 L 9.4 L (9.5-12.2) fL Lymphocytes # 0.38 L (0.90-5.00) 10*3/uL APTT (22.0-30.0) sec BUN (7-17) mg/dL BUN/Creatinine Ratio (12.00-20.00) Ratio Calcium (8.7-10.3) mg/dL Total Protein (6.3-8.2) g/dL Albumin (3.5-5.0) g/dL Stool Occult Blood Positive H (Negative) 04/18/25 Range/Units 05:31 WBC (4.50-10.00) 10*3/uL RBC (4.10-5.20) 10*6/uL Hgb (12.0-15.0) g/dL Hct (37.2-46.3) % RDW (11.5-14.5) % MPV (9.5-12.2) fL Lymphocytes # (0.90-5.00) 10*3/uL APTT (22.0-30.0) sec BUN 4.0 L (7-17) mg/dL BUN/Creatinine Ratio 5.71 L (12.00-20.00) Ratio Calcium 8.5 L (8.7-10.3) mg/dL Total Protein 5.1 L (6.3-8.2) g/dL Albumin 3.3 L (3.5-5.0) g/dL Stool Occult Blood (Negative) CT scan - abdomen: report reviewed CT scan - pelvis: report reviewed Assessment and Plan (1) Proctitis Current Visit: Yes Status: Acute Priority: High Code(s): K62.89 - OTHER SPECIFIED DISEASES OF ANUS AND RECTUM SNOMED Code(s): 5762890 (2) History of breast cancer Current Visit: No Status: Chronic Priority: Medium Code(s): Z85.3 - PERSONAL HISTORY OF MALIGNANT NEOPLASM OF BREAST SNOMED Code(s): 952276286 Plan: Proctitis -New onset, pending GI evaluation and recommendation -Defer mgmt of the same to GI Hx breast carcinoma -Diagnosis and treatment as discussed in HPI -Currently on anastrazole, doing well. Ok to continue -She is current on her follow up appts, will cont on the same. Anemia - Multifactorial including history of chemotherapy in the last 6 months and radiation, also recent rectal bleeding - Iron studies will be ordered. Supplementations will be ordered as appropriate. -Transfuse for hemoglobin less than 7 or if patient is symptomatic Doctor attests: I performed a history and physical examination of this patient, developed impression and plan of care. Discussed with dictator. I agree with dictators note, documented as a scribe.
[2025-04-19 08:07] LABS: Reticulocyte % 2.06 % (0.10-1.80)
[2025-04-19 08:08] LABS: Basophils # (A) 0.02 X 10*3/uL (0.00-0.10); Basophils % (A) 0.5 %; Eosinophils # (A) 0.22 X 10*3/uL (0.04-0.35); Eosinophils % (A) 5.6 %; HCT 31.8 % (37.2-46.3); Lymphocytes # (A) 0.48 X 10*3/uL (0.90-5.00); Lymphocytes % (A) 12.2 %; MCH 28.3 pg (27.0-32.0); MCHC 31.4 g/dL (32.0-37.0); MCV 90.1 FL (80.0-97.0); Mean Platelet Volume 9.3 FL (9.5-12.2); Monocytes # (A) 0.33 X 10*3/uL (0.20-1.00); Monocytes % (A) 8.4 %; NRBC Per 100 WBC 0 X 10*3/uL (0.00-0.01); Neutrophils # (A) 2.88 X 10*3/uL (1.80-7.70); Neutrophils % (A) 72.8 %; Platelet Count 190 X 10*3/uL (140-440); RBC 3.53 X 10*6/uL (4.10-5.20); RDW 14.5 % (11.5-14.5); WBC 3.95 X 10*3/uL (4.50-10.00)
[2025-04-19 09:04] LABS: % Iron Saturation 10.32 (12.00-45.00); Ferritin 63.2 ng/mL (10.0-291.0); Iron 35 UG/DL (50-170); Total Iron Binding Capacity 339 UG/DL (228-460)
[2025-04-19 09:05] LABS: Vitamin B12 <150.0 pg/mL (200.0-944.0)
[2025-04-19] MEDS: NA PHOS,M-B/NA PHOS,DI-BA 133 ML ENEMA RECTAL STA (10:23)
[2025-04-19] MEDS ORDERED: PROPOFOL 10 MG/ML 20 ML VIAL IV ONE (12:49)
[2025-04-19] MEDS: IV FLUID CONTINUATION 1,000 ML IV ONE ×2 (12:49→13:12)
--- NOTE | 2025-04-19 13:13 | P.PCN ---
Date of Procedure: 04/19/25 Procedure(s) Performed: BRIEF HISTORY: Patient is a 69-year-old pleasant white female admitted to hospital with rectal pain for the last 1 week duration. She has been having about 10-15 episodes of rectal urgency with small amount of blood and mucus in the stool. CT of the abdomen pelvis showed thickening of the rectum and sigmoid colon. She is scheduled for a colonoscopy to evaluate further Procedure performed: Colonoscopy with biopsy PREOPERATIVE DIAGNOSIS: Rectal bleeding/rectal urgency for the last 1 week duration. IV sedation per Anesthesia. PROCEDURE: After informed consent was obtained, the patient, was brought into the endoscopy unit. IV sedation was administered by Anesthesia under continuous monitoring. Digital rectal examination was normal. Initially the Olympus CF-160 flexible video colonoscope was then inserted in the rectum, gradually advanced into the cecum without any difficulty. Careful examination was performed as the scope was gradually being withdrawn. Ileocecal valve and the appendiceal orifice were visualized and appeared normal. Prep was excellent. Terminal ileum appeared normal. Mucosa of the cecum, had mild patchy areas of erythema and biopsies were done from this area. Mucosa of the ascending colon, appeared normal. In the proximal transverse colon there is a once again some patchy areas of erythema identified which was biopsied. Mucosa of the distal transverse colon transverse colon, descending colon, proximal sigmoid colon, appeared normal. There was erythema friability and granularity noted in the distal sigmoid colon and rectum and multiple biopsies were done from this area.. Retroflexion was performed in the rectum and no lesions were seen. The patient tolerated the procedure well. IMPRESSION: Mucosal erythema friability and granularity with spontaneous oozing involving the rectum and sigmoid colon as well as proximal transverse colon and cecum consistent with ulcerative colitis. Status post multiple biopsies Terminal ileum appeared normal. RECOMMENDATIONS: Findings of this examination were discussed with the patient a s well as her family.. Will be started on hydrocortisone enemas once at bedtime and in the meantime we will await biopsy results. She can be discharged home tomorrow with outpatient follow-up in 1 week.
--- NOTE | 2025-04-19 13:50 | P.PN ---
Subjective Progress Note Date: 04/19/25 SURGICAL PROGRESS NOTE CHIEF COMPLAINT: Rectal bleeding HISTORY OF PRESENT ILLNESS: Patient reports a small amount of blood still noted in the stools. She continues to have some right lower quadrant pain. Patient seen prior to colonoscopy. She is status post colonoscopy with GI service with results reporting mucosal erythema friability and granularity with spontaneous oozing involving the rectum and sigmoid colon as well as proximal transverse colon and cecum consistent with ulcerative colitis. Afebrile. Hgb 10.0. CT scan abdomen pelvis reports proctitis/colitis of the sigmoid colon and rectum. PHYSICAL EXAM: VITAL SIGNS: Reviewed. GENERAL: Well-developed in no acute distress. HEENT: No sclera icterus. Extraocular movements grossly intact. Moist buccal mucosa. Head is atraumatic, normocephalic. ABDOMEN: Soft. Nondistended. Mild tenderness right lower quadrant NEUROLOGIC: Alert and oriented. Cranial nerves II through XII grossly intact. ASSESSMENT: 1. Acute GI bleed with bright red blood per rectum status post colonoscopy with mucosal erythema, friability and spontaneous oozing involving the rectum, sigmoid colon and transverse colon and cecum consistent with ulcerative colitis PLAN: - GI service is adding hydrocortisone enema - Follow-up on biopsy results -Anticipate discharged tomorrow Physician Photograph Inspector note has been reviewed by physician. Signing provider agrees with the documented findings, assessment, and plan of care. Objective - Vital Signs Vital signs: Vital Signs Temp 98.1 F 04/19/25 13:02 Pulse 60 04/19/25 13:02 Resp 20 04/19/25 13:02 BP 117/69 04/19/25 13:02 Pulse Ox 98 04/19/25 13:02 FiO2 Intake & Output 04/18/25 04/19/25 04/19/25 18:59 06:59 18:59 Intake Total 240 100 Balance 240 100 Weight 77 kg Intake: IV 100 Oral 240 Other: Voiding Method Toilet # Voids 3 5 # Bowel Movements 3 - Labs CBC & Chem 7: 04/19/25 04:37 04/18/25 05:31 Labs: Abnormal Lab Results - Last 24 Hours (Table) 04/19/25 04/19/25 04/19/25 Range/Units 04:37 04:37 04:37 WBC 3.95 L (4.50-10.00) X 10*3/uL RBC 3.53 L (4.10-5.20) X 10*6/uL Hgb 10.0 L (12.0-15.0) g/dL Hct 31.8 L (37.2-46.3) % MCHC 31.4 L (32.0-37.0) g/dL MPV 9.3 L (9.5-12.2) FL Lymphocytes # 0.48 L (0.90-5.00) X 10*3/uL Retic Count 2.06 H (0.10-1.80) % Iron 35 L (50-170) UG/DL % Saturation 10.32 L (12.00-45.00) Vitamin B12 <150.0 L (200.0-944.0) pg/mL Microbiology - Last 24 Hours (Table) 04/17/25 12:53 Blood Culture - Preliminary Blood Assessment and Plan Assessment: follow up colonoscopy Time with Patient: Less than 30
[2025-04-19] MEDS: CYANOCOBALAMIN 1,000 MCG/ML 1 ML VIAL IM ONE (16:58)
[2025-04-19] MEDS: HYDROCORTISONE ENEMA 100 MG/60 ML RECTAL SCH (21:55)
--- NOTE | 2025-04-19 22:51 | P.PN ---
Subjective Progress Note Date: 04/19/25 Patient is a 69-year-old female with a past medical history of right breast cancer status post double mastectomy in 1992 and lymph node removal in July 2024, prior history of smoking presents to ER with complaints of bright red blood per rectum. Patient was discharged home yesterday. She was into the hospital with abdominal discomfort and CT of the abdomen showed proctitis. She was treated with Unasyn in the hospital and was discharged on Augmentin. Patient states that this morning she had a large bowel movement which was bloody and really mixed with liquid. Patient had couple episodes since that time but were more mucousy. She also having mild abdominal cramping mainly in the lower abdomen. She felt really lightheaded. Denies any nausea or vomiting. No fever no chills. No cough or sputum production. Laboratory data showed WBC 3.3 hemoglobin 10.4 and platelets 172, sodium 140 po tassium 3.7 chloride 106 bicarb is 25 BUN 5 and creatinine 0.66 and blood sugar 91 magnesium 1.8 albumin 3.1 FOBT positive. 04/18/2025 Patient is lying on the side of the bed. Awake alert and oriented. No fever no chills. Currently on room air. Denies any further episodes of rectal bleeding. No cough or sputum production. Laboratory data showed WBC 3.0 hemoglobin 9.9 and platelets 168 Sodium 143 potassium 3.7 chloride 108 bicarb is 23.7 BUN 4.0 and creatinine 0.79 blood sugar 86 C. difficile antigen negative. Repeat CT of the abdomen pelvis was done which showed proctitis/colitis of the sigmoid colon and rectum suggested. No evidence for organizing fluid collection. No evidence of perforation. Patient was seen by GI and is planned for colonoscopy tomorrow. 04/19/2025 Patient is resting in bed. Awake alert and oriented. Abdominal discomfort improved. Status post colonoscopy today. Showed mucosal erythema friability and granularity with spontaneous oozing involving the rectum and sigmoid colon as well as proximal transverse colon and cecum consistent with ulcerative colitis. Status post multiple biopsies. Terminal ileum appears normal. Patient was started on hydrocortisone. The laboratory data showed WBC 3.9 hemoglobin 10.0 and platelets 190. Vitamin B12 less than 150. Current medications reviewed. Objective - Vital Signs Vital signs: Vital Signs Temp 98.3 F 04/19/25 14:03 Pulse 59 L 04/19/25 14:03 Resp 20 04/19/25 14:03 BP 121/75 04/19/25 14:03 Pulse Ox 97 04/19/25 14:03 FiO2 Intake & Output 04/18/25 04/19/25 04/19/25 18:59 06:59 18:59 Intake Total 240 100 Balance 240 100 Weight 77 kg Intake: IV 100 Oral 240 Other: Voiding Method Toilet # Voids 3 5 # Bowel Movements 3 - Exam PHYSICAL EXAMINATION: Patient is lying in the bed comfortably, no acute distress, awake alert and oriented.. HEENT: Normocephalic. Neck is supple. Pupils reactive. Nostrils clear. Oral cavity is moist. Neck reveals no JVD, carotid bruits, or thyromegaly. CHEST EXAMINATION: Trachea is central. Symmetrical expansion. Lung watt clear to auscultation and percussion. CARDIAC: Normal S1, S2 with no gallops. No murmurs ABDOMEN: Soft. Bowel sounds normal. No organomegaly. No abdominal bruits. Extremities: reveal no edema. No clubbing or cyanosis Neurologically awake, alert, oriented x3 with well-coordinated movements. No focal deficits noted Skin: No rash or skin lesions. Psychiatric: Coperative. Nonsuicidal Musculoskeletal: No joint swelling or deformity. Normal range of motion. - Labs CBC & Chem 7: 04/19/25 04:37 04/18/25 05:31 Labs: Abnormal Lab Results - Last 24 Hours (Table) 04/19/25 04/19/25 04/19/25 Range/Units 04:37 04:37 04:37 WBC 3.95 L (4.50-10.00) X 10*3/uL RBC 3.53 L (4.10-5.20) X 10*6/uL Hgb 10.0 L (12.0-15.0) g/dL Hct 31.8 L (37.2-46.3) % MCHC 31.4 L (32.0-37.0) g/dL MPV 9.3 L (9.5-12.2) FL Lymphocytes # 0.48 L (0.90-5.00) X 10*3/uL Retic Count 2.06 H (0.10-1.80) % Iron 35 L (50-170) UG/DL % Saturation 10.32 L (12.00-45.00) Vitamin B12 <150.0 L (200.0-944.0) pg/mL Microbiology - Last 24 Hours (Table) 04/17/25 12:53 Blood Culture - Preliminary Blood Assessment and Plan Assessment: Bright red blood per rectum. Patient is status post colonoscopy, findings consistent with ulcerative colitis. Status post biopsy. Vitamin B12 deficiency Recent diagnosis with proctitis and was on antibiotics in the form of Unasy n/Augmentin History of right breast cancer status postmastectomy History of smoking DVT prophylax with SCDs Plan: Patient is status post colonoscopy today. Encourage oral intake. Started on hydrocortisone 100 mg at bedtime. continue with IV antibiotics and home Unasyn. Continue to monitor H&H. No active bleeding at this time. General surgery and GI is on board.. Stool studies were sent. Continue with cyanocobalamin. Follow-up biopsy report. Time with Patient: Greater than 30
[2025-04-20 02:15] VITALS: RESP 16
[2025-04-20] MEDS: CYANOCOBALAMIN 500 MCG TAB PO SCH (08:57)
--- NOTE | 2025-04-20 10:39 | P.PN ---
Subjective Progress Note Date: 04/20/25 Principal diagnosis: Rectal bleeding This is a pleasant 69-year-old female with a recent hospitalization for rectal bleeding who was seen by general surgery and discharged 2 days ago as bleeding had subsided. Past medical history includes breast cancer status post chemotherapy that was completed in September and radiation therapy that was completed this past February. She states she started having rectal bleeding last week it was intermittent with bowel movements. She was admitted to the hospital seen by general surgery. She had a CT of the abdomen pelvis with IV contrast reporting mild rectal wall thickening with adjacent stranding which may be due to proctitis. Consider correlation with laboratory values. If there is further concern for intraluminal hemorrhage consider multiphasic or signs scintigraphic imaging. Patient states bleeding has stopped she was discharged home and then yesterday she started having bleeding again and has continued with either blood per rectum or loose bowel movements every 2 hours. She reports that there is some right lower quadrant abdominal discomfort associated with the bleeding. States she has no history of previous GI bleed. Last colonoscopy was several years ago and she was scheduled to see GI and have a colonoscopy this June. She denies any anticoagulation. Discharge hemoglobin on 04/16/2025 was 10.9, repeat today 9.9. 04/20/2025 Patient seen and examined today as a follow-up. Yesterday she underwent colonoscopy with findings of mucosal erythema and friability and granularity with spontaneous oozing involving the rectum and sigmoid colon as well as proximal transverse colon and cecum consistent with ulcerative colitis status post multiple biopsies. Terminal ileum appeared normal.. She was started on hy drocortisone enemas at bedtime. Findings discussed with patient this morning. Recommend outpatient follow-up next week with Dr. Ruiz. Patient states she ate a little bit last night and this morning without any nausea or vomiting. No rectal bleeding currently. Still has some mild discomfort in the right lower quadrant. Last hemoglobin stable at 10.0. Objective - Vital Signs Vital signs: Vital Signs Temp 98.0 F 04/20/25 07:23 Pulse 53 L 04/20/25 07:23 Resp 16 04/20/25 07:23 BP 135/73 04/20/25 07:23 Pulse Ox 98 04/20/25 07:23 FiO2 Intake & Output 04/19/25 04/20/25 04/20/25 18:59 06:59 18:59 Intake Total 100 Balance 100 Weight 76.1 kg Intake: IV 100 Other: Voiding Method Bedside Commode Bedside Commode # Voids 1 2 1 - Exam General appearance: The patient is alert, oriented, appears in no acute distress. HET: Head is normocephalic and atraumatic. Conjunctiva pink. Sclera anicteric. Neck: Supple without lymphadenopathy. Abdomen: Soft, right lower quadrant tenderness, nondistended. Extremities: Normal skin color and turgor. No pedal edema Skin: No rashes, no jaundice Neurological: No focal deficits. Alert and oriented. - Labs CBC & Chem 7: 04/19/25 04:37 04/18/25 05:31 Labs: Microbiology - Last 24 Hours (Table) 04/18/25 18:21 Stool Culture - Preliminary Stool 04/17/25 12:53 Blood Culture - Preliminary Blood Assessment and Plan (1) BRBPR (bright red blood per rectum) Narrative/Plan: 69-year-old female who was recently hospitalized for bright red blood per rectum had CT abdomen pelvis with IV contrast showing inflammation within the rectum most consistent with a proctitis. Last colonoscopy several years ago. No anticoagulation no previous history of GI bleed. Now having intermittent blood per rectum and diarrhea. Likely dealing with acute colitis/proctitis. Consider possible colonoscopy if no improvement in bleeding. Continue clear liquid diet. Patient underwent colonoscopy yesterday with findings as stated in HPI. Findings concerning for ulcerative colitis. Patient started on hydrocortisone enemas at bedtime. Recommend outpatient follow-up in 1 week with gastroenterology. Current Visit: No Status: Acute Code(s): K62.5 - HEMORRHAGE OF ANUS AND RECTUM SNOMED Code(s): 52111623 (2) Diarrhea Current Visit: Yes Status: Acute Code(s): R19.7 - DIARRHEA, UNSPECIFIED SNOMED Code(s): 37318435 (3) History of breast cancer Current Visit: No Status: Chronic Priority: Medium Code(s): Z85.3 - PERSONAL HISTORY OF MALIGNANT NEOPLASM OF BREAST SNOMED Code(s): 401055402 Plan: 1. Continue symptomatic supportive care 2. Continue regular diet 3. Discontinue antibiotics 4. Patient is status post colonoscopy 5. Hydrocortisone enemas at bedtime 6. Follow-up with gastroenterology in 1 week Thank you for this consultation, patient is cleared from gastroenterology for discharge. Dr. Darell Ruiz I agree with the dictator's note, documented as a scribe by Omayra Cruz.
--- NOTE | 2025-04-20 11:54 | P.DS ---
Providers Date of admission: 04/17/25 10:41 Attending physician: Laurita Stanton MD Consults: 04/17/25 10:40 Consult Physician Routine Consulting Provider: Himanshu Lopez Consult Reason/Comments: oncological care Do you want consulting provider notified?: Yes Consult Physician Routine Consulting Provider: Med Jovel Consult Reason/Comments: proctitis Do you want consulting provider notified?: Yes 04/18/25 08:03 Consult Physician Routine Consulting Provider: Mary Ruiz Consult Reason/Comments: GI bleed Do you want consulting provider notified?: Yes Primary care physician: Alexey Flores [facility] Course: Patient is a 69-year-old female came in with complaints of abdominal pain mucousy stools with a mix of blood in it. CT showed proctitis. Patient underwent colonoscopy noted to have ulcerative colitis patient was started on topical steroids for colitis antibiotics were discontinued patient does not have any more blood in the stools cleared by gastroenterology will be discharged today. REVIEW OF SYSTEMS: All other systems are negative except those mentioned in the HPI PHYSICAL EXAMINATION: GENERAL: The patient is alert and oriented x3, not in any acute distress. Well developed, well nourished. HEENT: Pupils are round and equally reacting to light. EOMI. No scleral icterus. No conjunctival pallor. Normocephalic, atraumatic. No pharyngeal erythema. No thyromegaly. CARDIOVASCULAR: S1 and S2 present. No murmurs, rubs, or gallops. PULMONARY: Chest is clear to auscultation, no wheezing or crackles. ABDOMEN: Soft, nontender, nondistended, normoactive bowel sounds. No palpable organomegaly. MUSCULOSKELETAL: No joint swelling or deformity. EXTREMITIES: No cyanosis, clubbing, or pedal edema. NEUROLOGICAL: Gross neurological examination did not reveal any focal deficits. SKIN: No rashes. Assessment and plan Bright red blood per rectum. Patient is status post colonoscopy, findings consistent with ulcerative colitis. Status post biopsy. Patient will be discharged on steroid enema. Vitamin B12 deficiency History of right breast cancer status postmastectomy History of smoking DVT prophylaxis: Plan - Discharge Summary Discharge Rx Participant: Yes New Discharge Prescriptions: New Hydrocortisone Enema [Colocort Enema] 100 mg RECTAL HS 14 Days #60 ml Discontinued Amoxic-Pot Clav 875-125Mg [Augmentin 875-125] 1 tab PO BID@0900,2100 No Action Anastrozole 1 mg PO DAILY@0800 Discharge Medication List Anastrozole 1 mg PO DAILY@0800 04/15/25 [History] Hydrocortisone Enema [Colocort Enema] 100 mg RECTAL HS 14 Days #60 ml 04/20/25 [Rx] Follow up Appointment(s)/Referral(s): Alexey Folres MD [Primary Care Provider] - 1-2 days Mary Ruiz MD [STAFF PHYSICIAN] - 1 Week Patient Instructions/Handouts: Hydrocortisone Enema (Into the rectum), Proctitis (DC), Ulcerative Colitis (DC) Discharge Disposition: HOME SELF-CARE
--- NOTE | 2025-04-20 12:56 | P.PN ---
Subjective Progress Note Date: 04/20/25 SURGICAL PROGRESS NOTE CHIEF COMPLAINT: Rectal bleeding HISTORY OF PRESENT ILLNESS: Patient reports mild discomfort right lower quadrant. She reports that it the pain is improving. She is status post co lonoscopy with GI service with results reporting mucosal erythema friability and granularity with spontaneous oozing involving the rectum and sigmoid colon as well as proximal transverse colon and cecum consistent with ulcerative colitis. Afebrile. PHYSICAL EXAM: VITAL SIGNS: Reviewed. GENERAL: Well-developed in no acute distress. HEENT: No sclera icterus. Extraocular movements grossly intact. Moist buccal mucosa. Head is atraumatic, normocephalic. ABDOMEN: Soft. Nondistended. Mild tenderness right lower quadrant NEUROLOGIC: Alert and oriented. Cranial nerves II through XII grossly intact. ASSESSMENT: 1. Acute GI bleed with bright red blood per rectum status post colonoscopy with mucosal erythema, friability and spontaneous oozing involving the rectum, sigmoid colon and transverse colon and cecum consistent with ulcerative colitis PLAN: - Patient can be discharged from surgical standpoint - GI recommendations appreciated. They have added hydrocortisone enema Physician Methodologist note has been reviewed by physician. Signing provider agrees with the documented findings, assessment, and plan of care. Objective - Vital Signs Vital signs: Vital Signs Temp 98.0 F 04/20/25 07:23 Pulse 53 L 04/20/25 07:23 Resp 16 04/20/25 07:23 BP 135/73 04/20/25 07:23 Pulse Ox 98 04/20/25 07:23 FiO2 Intake & Output 04/19/25 04/20/25 04/20/25 18:59 06:59 18:59 Intake Total 100 Balance 100 Weight 76.1 kg Intake: IV 100 Other: Voiding Method Bedside Commode Bedside Commode # Voids 1 2 1 - Labs CBC & Chem 7: 04/19/25 04:37 04/18/25 05:31 Labs: Microbiology - Last 24 Hours (Table) 04/18/25 18:21 Stool Culture - Preliminary Stool 04/17/25 12:53 Blood Culture - Preliminary Blood
[2025-04-20 13:04] VITALS: BP 129/71; PULSE 56; TEMP 97.9
== END 2025-04-20 16:45 | disposition home or self-care (01) | DRG 387 ==
LOC: EC 09:28 → 5NMEDONC 10:40 → OBSVTOIN 10:41 → 5NMEDONC 16:19
PROVIDERS: ADMIT Internal Medicine; ATTEND Internal Medicine
PROC: 0DBL8ZX Excision of Transverse Colon, Via Natural or Artificial Opening Endoscopic, Diagnostic (ICD-10-PCS; 2025-04-19)
PROC: 0DBN8ZX Excision of Sigmoid Colon, Via Natural or Artificial Opening Endoscopic, Diagnostic (ICD-10-PCS; 2025-04-19)
PROC: 0DBP8ZX Excision of Rectum, Via Natural or Artificial Opening Endoscopic, Diagnostic (ICD-10-PCS; 2025-04-19)
PROC: 0DBH8ZX Excision of Cecum, Via Natural or Artificial Opening Endoscopic, Diagnostic (ICD-10-PCS; principal; 2025-04-19 12:10)
DX: K51.211 Ulcerative (chronic) proctitis with rectal bleeding (principal); E53.8 Deficiency of other specified B group vitamins; Z92.21 Personal history of antineoplastic chemotherapy; Z88.2 Allergy status to sulfonamides; Z88.5 Allergy status to narcotic agent; K80.20 Calculus of gallbladder without cholecystitis without obstruction; Z79.811 Long term (current) use of aromatase inhibitors; Z79.890 Hormone replacement therapy; Z85.3 Personal history of malignant neoplasm of breast; Z87.891 Personal history of nicotine dependence; Z90.13 Acquired absence of bilateral breasts and nipples; Z92.3 Personal history of irradiation; Z90.49 Acquired absence of other specified parts of digestive tract
CPT/HCPCS: 36415; 45380; 74177; 80053; 82272; 82607; 82728; 82747; 83540; 83550; 83735; 85025; 85027; 85045; 85610; 85730; 87040; 87045; 87046; 87324; 88305; 96365; 96366; 96375; 96376; 99285